=== PATIENT | male | born 1980 | race Two or more races ===

== ENCOUNTER 2022-02-06 16:13 | Emergency (ER) | payer MEDICAID, OTHER ==
[~2022-02-06] VITALS: Ht 170.2 cm; Wt 69.9 kg
[2022-02-06 16:30] VITALS: BP 118/76
[2022-02-06 18:39] LABS: Basophils # (auto) 0 10 ^3/uL (0-0.2); Lymphocytes # (auto) 0.7 10 ^3/uL (0.4-5.4); Lymphocytes % (auto) 24.3 % (10.0-50.0); Monocytes # (auto) 0.5 10 ^3/uL (0-1.3); Neutrophils # (auto) 1.7 10 ^3/uL (1.6-8.6)
[2022-02-06 18:40] LABS: Basophils % (auto) 1.1 % (0.0-2.0); Eosinophils # (auto) 0 10 ^3/uL (0-0.8); Eosinophils % (auto) 1.5 % (0.0-7.0); Hematocrit 30.9 % (41.0-53.0); Hemoglobin 10.8 g/dL (13.5-17.5); Mean Corpuscular Hemoglobin 37.5 pg (28.0-32.0); Mean Corpuscular Hgb Conc. 35.1 g/dL (32.0-36.0); Mean Corpuscular Volume 106.8 fL (80.0-100.0); Monocytes % (auto) 15.5 % (0.0-12.0); Neutrophils % (auto) 57.6 % (37.0-80.0); Nucleated Red Blood Cells % 0.2 %; Red Blood Cells 2.89 10^6/uL (4.5-5.90); Red Cell Distribution Width 13.9 % (11.8-14.3)
[2022-02-06 18:50] LABS: Albumin 3.1 g/dL (3.4-5.0); Calcium 9.5 mg/dL (8.5-10.1); Potassium 3.6 mmol/L (3.5-5.1)
[2022-02-06 18:54] LABS: BUN/Creatinine Ratio 19.1; Bilirubin, Total 2.4 mg/dL (0.2-1.0); Total Protein 8.8 g/dL (6.4-8.2)
[2022-02-06] MEDS ORDERED: SPIRONOLACTONE 25 MG TAB PO ONE (19:00)
[2022-02-06] MEDS ORDERED: FUROSEMIDE 100 MG/10ML VIAL IV ONE (19:00)
== END 2022-02-06 21:42 | disposition home or self-care (01) ==
LOC: EDBD 16:13 → ER 16:13
DX: R60.0 Localized edema (principal); D61.818 Other pancytopenia; K74.60 Unspecified cirrhosis of liver; R79.89 Other specified abnormal findings of blood chemistry; E11.9 Type 2 diabetes mellitus without complications
CPT/HCPCS: 36415; 80053; 80320; 83880; 85025; 93005; 93970

== ENCOUNTER 2022-02-13 12:25 | Emergency (ER) | payer MEDICAID ==
[~2022-02-13] VITALS: Ht 167.6 cm; Wt 68.0 kg
[2022-02-13] MEDS ORDERED: SODIUM CHLORIDE 0.9% 1,000 ML IV ONE ×2 (12:30)
[2022-02-13 13:35] LABS: Basophils # (auto) 0 10 ^3/uL (0-0.2); Basophils % (auto) 1.1 % (0.0-2.0); Eosinophils # (auto) 0 10 ^3/uL (0-0.8); Lymphocytes # (auto) 0.8 10 ^3/uL (0.4-5.4); Monocytes # (auto) 0.5 10 ^3/uL (0-1.3); Neutrophils # (auto) 1.8 10 ^3/uL (1.6-8.6)
[2022-02-13 13:37] LABS: Eosinophils % (auto) 1.3 % (0.0-7.0); Hematocrit 27.7 % (41.0-53.0); Hemoglobin 10.1 g/dL (13.5-17.5); Lymphocytes % (auto) 25.4 % (10.0-50.0); Mean Corpuscular Hemoglobin 38.3 pg (28.0-32.0); Mean Corpuscular Volume 105.1 fL (80.0-100.0); Monocytes % (auto) 14.7 % (0.0-12.0); Neutrophils % (auto) 57.5 % (37.0-80.0); Nucleated Red Blood Cells % 0.1 %; Red Blood Cells 2.64 10^6/uL (4.5-5.90); Red Cell Distribution Width 13.5 % (11.8-14.3); White Blood Cell 3.1 10^3/uL (4.4-10.8)
[2022-02-13 13:50] LABS: Albumin 2.8 g/dL (3.4-5.0); Calcium 9.5 mg/dL (8.5-10.1)
[2022-02-13 13:52] LABS: BUN/Creatinine Ratio 16.8; Bilirubin, Total 2.9 mg/dL (0.2-1.0); Total Protein 8.1 g/dL (6.4-8.2)
[2022-02-13 14:04] LABS: Mean Corpuscular Hgb Conc. 36.5 g/dL (32.0-36.0)
[2022-02-13 17:25] VITALS: BP 105/54
[2022-02-14] MEDS ORDERED: BAC09TP TOP (23:42)
== END 2022-02-13 18:25 | disposition home or self-care (01) ==
LOC: EDSEX 12:25 → EDBD 12:25 → ER 12:25
DX: K74.60 Unspecified cirrhosis of liver (principal); R60.0 Localized edema; E46 Unspecified protein-calorie malnutrition; E11.9 Type 2 diabetes mellitus without complications; Z68.24 Body mass index [BMI] 24.0-24.9, adult
CPT/HCPCS: 36415; 70450; 71045; 80053; 83036; 84484; 85025; 93005; 96360; 96361; 99285; J7030

== ENCOUNTER 2022-02-14 19:55 | Emergency (ER) | payer MEDICAID ==
[~2022-02-14] VITALS: Ht 172.7 cm; Wt 130.0 kg
[2022-02-14 21:06] LABS: Basophils # (auto) 0 10 ^3/uL (0-0.2); Eosinophils # (auto) 0 10 ^3/uL (0-0.8); Hematocrit 25.5 % (41.0-53.0); Lymphocytes # (auto) 1.1 10 ^3/uL (0.4-5.4); Neutrophils # (auto) 2.3 10 ^3/uL (1.6-8.6); Nucleated Red Blood Cells % 0.2 %
[2022-02-14 21:08] LABS: Basophils % (auto) 0.9 % (0.0-2.0); Hemoglobin 9.1 g/dL (13.5-17.5); Lymphocytes % (auto) 27.5 % (10.0-50.0); Mean Corpuscular Hemoglobin 37.6 pg (28.0-32.0); Mean Corpuscular Hgb Conc. 35.7 g/dL (32.0-36.0); Mean Corpuscular Volume 105.4 fL (80.0-100.0); Monocytes # (auto) 0.6 10 ^3/uL (0-1.3); Monocytes % (auto) 14.1 % (0.0-12.0); Neutrophils % (auto) 56.5 % (37.0-80.0); Red Blood Cells 2.42 10^6/uL (4.5-5.90); Red Cell Distribution Width 13.2 % (11.8-14.3)
[2022-02-14] MEDS ORDERED: IOHEXOL 350 MG/ML 100ML IJ ONE (21:13)
[2022-02-14 21:22] LABS: Albumin 2.6 g/dL (3.4-5.0); Calcium 8.3 mg/dL (8.5-10.1); Potassium 3.8 mmol/L (3.5-5.1)
[2022-02-14 21:26] LABS: BUN/Creatinine Ratio 14.9; Bilirubin, Total 2.1 mg/dL (0.2-1.0); Total Protein 7.3 g/dL (6.4-8.2)
[2022-02-14 23:00] VITALS: BP 100/52
[2022-02-14] MEDS ORDERED: BAC09TP TOP (23:42)
[2022-02-14] MEDS ORDERED: NEOMYCIN-BACITRACIN-POLYM UNITDOSE PKG TOP OINT TOP ONE (23:45)
[2022-02-15] MEDS ORDERED: LACTULOSE 20Gm/30ML SOLN PO ONE (00:30)
== END 2022-02-15 00:46 | disposition left against medical advice (07) ==
LOC: EDBD 19:55 → ER 19:55
DX: S30.811A Abrasion of abdominal wall, initial encounter (principal); E72.20 Disorder of urea cycle metabolism, unspecified; S80.12XA Contusion of left lower leg, initial encounter; S80.11XA Contusion of right lower leg, initial encounter; S09.8XXA Other specified injuries of head, initial encounter; E11.9 Type 2 diabetes mellitus without complications; V43.52XA Car driver injured in collision with other type car in traffic accident, initial encounter; Y93.89 Activity, other specified; Y92.89 Other specified places as the place of occurrence of the external cause; Y99.8 Other external cause status
CPT/HCPCS: 36415; 70450; 71260; 72125; 73590; 74177; 80053; 80320; 82140; 84484; 85025; 93005; 99285; Q9967

== ENCOUNTER 2022-02-27 00:56 | Emergency (ER) | payer MEDICAID ==
[~2022-02-27] VITALS: Ht 175.3 cm; Wt 72.7 kg
[~2022-02-27 00:56] MED LIST: BAC09TP TOP
[2022-02-27 01:09] VITALS: BP 102/61
[2022-02-27 02:11] LABS: Basophils # (auto) 0 10 ^3/uL (0-0.2); Eosinophils # (auto) 0.1 10 ^3/uL (0-0.8); Monocytes # (auto) 0.6 10 ^3/uL (0-1.3); Neutrophils # (auto) 2.1 10 ^3/uL (1.6-8.6); Nucleated Red Blood Cells % 0.1 %
[2022-02-27 02:13] LABS: Basophils % (auto) 1.2 % (0.0-2.0); Eosinophils % (auto) 2.5 % (0.0-7.0); Hematocrit 28.4 % (41.0-53.0); Lymphocytes % (auto) 25.1 % (10.0-50.0); Mean Corpuscular Hemoglobin 35.8 pg (28.0-32.0); Mean Corpuscular Hgb Conc. 35.3 g/dL (32.0-36.0); Mean Corpuscular Volume 101.4 fL (80.0-100.0); Monocytes % (auto) 15.9 % (0.0-12.0); Neutrophils % (auto) 55.3 % (37.0-80.0); Red Cell Distribution Width 17.2 % (11.8-14.3); White Blood Cell 3.8 10^3/uL (4.4-10.8)
[2022-02-27 02:30] LABS: Albumin 2.5 g/dL (3.4-5.0); BUN/Creatinine Ratio 21.6; Calcium 8.4 mg/dL (8.5-10.1); Potassium 4.4 mmol/L (3.5-5.1)
[2022-02-27 02:33] LABS: Bilirubin, Total 1.8 mg/dL (0.2-1.0); Total Protein 7.5 g/dL (6.4-8.2)
== END 2022-02-27 06:18 | disposition left against medical advice (07) ==
LOC: EDBD 00:56 → ER 00:56
DX: M79.605 Pain in left leg (principal); M79.604 Pain in right leg; R22.43 Localized swelling, mass and lump, lower limb, bilateral; Z53.21 Procedure and treatment not carried out due to patient leaving prior to being seen by health care provider
CPT/HCPCS: 36415; 71045; 80053; 83880; 84484; 85025; 93005

== ENCOUNTER 2022-03-01 23:54 | Inpatient (IN) | payer MEDICAID ==
[~2022-03-01] VITALS: Ht 170.2 cm; Wt 98.0 kg
[2022-03-02 01:32] LABS: Basophils # (auto) 0 10 ^3/uL (0-0.2); Basophils % (auto) 1.2 % (0.0-2.0); Eosinophils # (auto) 0.1 10 ^3/uL (0-0.8); Eosinophils % (auto) 2.9 % (0.0-7.0); Hematocrit 29.5 % (41.0-53.0); Hemoglobin 10.2 g/dL (13.5-17.5); Lymphocytes # (auto) 0.9 10 ^3/uL (0.4-5.4); Lymphocytes % (auto) 28.1 % (10.0-50.0); Mean Corpuscular Hemoglobin 35.4 pg (28.0-32.0); Mean Corpuscular Hgb Conc. 34.6 g/dL (32.0-36.0); Mean Corpuscular Volume 102.4 fL (80.0-100.0); Monocytes # (auto) 0.5 10 ^3/uL (0-1.3); Monocytes % (auto) 15.9 % (0.0-12.0); Neutrophils # (auto) 1.7 10 ^3/uL (1.6-8.6); Neutrophils % (auto) 51.9 % (37.0-80.0); Red Blood Cells 2.88 10^6/uL (4.5-5.90); Red Cell Distribution Width 17.3 % (11.8-14.3); White Blood Cell 3.2 10^3/uL (4.4-10.8)
[2022-03-02 01:48] LABS: INR 1.09 (0.9-1.15)
[2022-03-02 01:55] LABS: Albumin 2.7 g/dL (3.4-5.0); BUN/Creatinine Ratio 18.8
[2022-03-02 01:58] LABS: Bilirubin, Total 1.6 mg/dL (0.2-1.0); Total Protein 7.7 g/dL (6.4-8.2)
[2022-03-02] MEDS ORDERED: LACTULOSE 20Gm/30ML SOLN PO ONE (04:00)
[2022-03-02 05:04] LABS: Urine Amorphous Crystal FEW /hpf (None Seen); Urine Bacteria NONE SEEN /hpf (None Seen); Urine Blood Negative /uL (Negative); Urine Hyaline Cast MOD /lpf (0 - 2); Urine Mucus FEW (None Seen); Urine WBC 3 /hpf (0 - 3)
[2022-03-02] MEDS ORDERED: SODIUM CHLORIDE 0.9% 1,000 ML IV ONE (06:00)
[2022-03-02] MEDS ORDERED: SODIUM CHLORIDE 0.9% 2,000 ML IV ONE (08:30)
[2022-03-02 08:51] LABS: Alcohol, Urine < 3.0 mg/dL (0-10); Amphetamine Screen, Urine NEGATIVE (NEGATIVE); Barbiturate Scree,Urine NEGATIVE (NEGATIVE); Benzodiazephine Screen, Urine NEGATIVE (NEGATIVE); Cannabinoid Screen, Urine NEGATIVE (NEGATIVE); Cocaine Screen, Urine NEGATIVE (NEGATIVE); Opiate Scree,Urine NEGATIVE (NEGATIVE); Phencyclidine Screen, Urine NEGATIVE (NEGATIVE)
[2022-03-02] MEDS: LACTULOSE 20Gm/30ML SOLN PO SCH ×2 (12:00→18:11)
[2022-03-02] MEDS ORDERED: MORPHINE SULFATE INJ 2 MG/ml SYRG IV PRN ×2 (12:00)
[2022-03-02] MEDS ORDERED: DOCUSATE SOD 100 MG CAP PO PRN (12:00)
[2022-03-02] MEDS ORDERED: ONDANSETRON HCL 4 MG/2 ML VIAL IV PRN (12:00)
[2022-03-02] MEDS ORDERED: NITROGLYCERIN 0.4 MG SL TAB SL PRN (12:00)
[2022-03-02] MEDS ORDERED: HYDROcodone-ACET 5/325MG TAB PO PRN (12:00)
[2022-03-02] MEDS ORDERED: ACETAMINOPHEN 325 MG TAB PO PRN (12:00)
[2022-03-02] MEDS ORDERED: DEXTROSE (50%) 50ML SYRG IV PRN (17:15)
[2022-03-02] MEDS: ACCU-CHEK COMFORT CURVE STRIP VI SCH (22:18)
[2022-03-02] MEDS: InsuLIN REG 1unit/0.01ml Soln (100units/ml) SC SCH (22:19)
[2022-03-02 22:24] VITALS: BP 96/54
[2022-03-02] MEDS ORDERED: PANT40T PO (22:24)
[2022-03-02] MEDS ORDERED: METF-372 PO (22:24)
[2022-03-02] MEDS ORDERED: IBUP600T28 PO (22:24)
[2022-03-02] MEDS ORDERED: SPIR50TA5 PO (22:24)
[2022-03-02] MEDS ORDERED: LACT10SO3 PO (22:24)
[2022-03-02] MEDS ORDERED: FURO40TA4 PO (22:24)
[2022-03-02] MEDS ORDERED: RIFA550T PO (22:24)
[2022-03-02] MEDS ORDERED: GLIP2.5T28 PO (22:24)
[2022-03-03] VITALS (7 sets, daily range): BP systolic 96–126; BP diastolic 57–79
[2022-03-03] MEDS: LACTULOSE 20Gm/30ML SOLN PO SCH ×4 (01:48→18:02)
[2022-03-03 05:27] LABS: Basophils # (auto) 0 10 ^3/uL (0-0.2); Basophils % (auto) 1.4 % (0.0-2.0); Eosinophils # (auto) 0.1 10 ^3/uL (0-0.8); Hemoglobin 9.1 g/dL (13.5-17.5); Lymphocytes # (auto) 0.8 10 ^3/uL (0.4-5.4); Mean Corpuscular Hemoglobin 35.2 pg (28.0-32.0); Monocytes # (auto) 0.5 10 ^3/uL (0-1.3); Neutrophils # (auto) 1.4 10 ^3/uL (1.6-8.6); Red Blood Cells 2.58 10^6/uL (4.5-5.90); Red Cell Distribution Width 17.4 % (11.8-14.3); White Blood Cell 2.8 10^3/uL (4.4-10.8)
[2022-03-03 05:29] LABS: Eosinophils % (auto) 3.4 % (0.0-7.0); Hematocrit 26.1 % (41.0-53.0); Mean Corpuscular Hgb Conc. 34.8 g/dL (32.0-36.0); Monocytes % (auto) 16.3 % (0.0-12.0); Neutrophils % (auto) 49.9 % (37.0-80.0)
[2022-03-03 06:01] LABS: Albumin 2.1 g/dL (3.4-5.0); BUN/Creatinine Ratio 19.2; Calcium 8.3 mg/dL (8.5-10.1); Potassium 4.3 mmol/L (3.5-5.1)
[2022-03-03 06:05] LABS: Bilirubin, Total 1.2 mg/dL (0.2-1.0); Total Protein 6.2 g/dL (6.4-8.2)
[2022-03-03] MEDS: ACCU-CHEK COMFORT CURVE STRIP VI SCH ×4 (07:06→21:16)
[2022-03-03] MEDS: InsuLIN REG 1unit/0.01ml Soln (100units/ml) SC SCH ×4 (07:07→21:18)
[2022-03-03] MEDS ORDERED: ENOXAPARIN SOD 40 MG/0.4 ML SYRINGE SC SCH (10:00)
[2022-03-04] MEDS: LACTULOSE 20Gm/30ML SOLN PO SCH ×2 (00:11→06:33)
[2022-03-04 05:06] VITALS: BP 111/58
[2022-03-04] MEDS: ACCU-CHEK COMFORT CURVE STRIP VI SCH ×2 (06:33→11:36)
[2022-03-04] MEDS: InsuLIN REG 1unit/0.01ml Soln (100units/ml) SC SCH ×2 (06:33→11:30)
[2022-03-04 06:59] LABS: Eosinophils # (auto) 0.1 10 ^3/uL (0-0.8); Hematocrit 30.4 % (41.0-53.0); Monocytes # (auto) 0.4 10 ^3/uL (0-1.3); Neutrophils # (auto) 2.4 10 ^3/uL (1.6-8.6); Nucleated Red Blood Cells % 0.1 %; White Blood Cell 3.9 10^3/uL (4.4-10.8)
[2022-03-04 07:02] LABS: Basophils # (auto) 0.1 10 ^3/uL (0-0.2); Basophils % (auto) 1.5 % (0.0-2.0); Hemoglobin 10.8 g/dL (13.5-17.5); Lymphocytes % (auto) 25.2 % (10.0-50.0); Mean Corpuscular Hemoglobin 36.4 pg (28.0-32.0); Mean Corpuscular Hgb Conc. 35.6 g/dL (32.0-36.0); Mean Corpuscular Volume 102.1 fL (80.0-100.0); Monocytes % (auto) 9.2 % (0.0-12.0); Neutrophils % (auto) 61.1 % (37.0-80.0); Potassium 4.2 mmol/L (3.5-5.1); Red Blood Cells 2.97 10^6/uL (4.5-5.90); Red Cell Distribution Width 17.4 % (11.8-14.3)
[2022-03-04 07:14] LABS: Albumin 2.4 g/dL (3.4-5.0); Bilirubin, Total 1.6 mg/dL (0.2-1.0); Calcium 8.5 mg/dL (8.5-10.1); Total Protein 7.6 g/dL (6.4-8.2)
[2022-03-04 08:00] VITALS: BP 107/67
[2022-03-04 09:00] VITALS: BP 112/59
[2022-03-04 10:15] LABS: Hepatitis B Surface Antibody Negative (Negative)
[2022-03-04 10:47] LABS: Hepatitis A Total Antibody Positive (Negative)
[2022-03-04 13:34] LABS: Hepatitis C Antibody Negative (Negative)
== END 2022-03-04 12:16 | disposition left against medical advice (07) | DRG 279 ==
LOC: ER 23:54 → TELE 03-02 12:00 → TELE-CENTR 03-02 20:46
PROVIDERS: ADMIT Internal Medicine; ATTEND Internal Medicine
DX: K72.90 Hepatic failure, unspecified without coma (principal); N17.0 Acute kidney failure with tubular necrosis; G93.41 Metabolic encephalopathy; D61.818 Other pancytopenia; F10.129 Alcohol abuse with intoxication, unspecified; E88.09 Other disorders of plasma-protein metabolism, not elsewhere classified; E11.9 Type 2 diabetes mellitus without complications; Z20.822 Contact with and (suspected) exposure to COVID-19; Z53.29 Procedure and treatment not carried out because of patient's decision for other reasons; Z83.3 Family history of diabetes mellitus
CPT/HCPCS: 36415; 70450; 71045; 80053; 80307; 80320; 81001; 82105; 82140; 82728; 82962; 83880; 84484; 85025; 85610; 86704; 86706; 86708; 86803; 87340; 93005; 96360; 96361; 97163; G0378; J1815

== ENCOUNTER 2022-03-20 03:57 | Emergency (ER) | payer MEDICAID ==
[~2022-03-20] VITALS: Ht 170.2 cm; Wt 65.9 kg
[~2022-03-20 03:57] MED LIST changes: +FURO40TA4 PO; +GLIP2.5T28 PO; +IBUP600T28 PO; +LACT10SO3 PO; +METF-372 PO; +PANT40T PO; +RIFA550T PO; +SPIR50TA5 PO
[2022-03-20 06:14] LABS: Basophils # (auto) 0 10 ^3/uL (0-0.2); Eosinophils # (auto) 0.2 10 ^3/uL (0-0.8); Hemoglobin 7.7 g/dL (13.5-17.5); Lymphocytes # (auto) 0.9 10 ^3/uL (0.4-5.4); Monocytes # (auto) 0.7 10 ^3/uL (0-1.3); Neutrophils # (auto) 2.2 10 ^3/uL (1.6-8.6); Red Cell Distribution Width 17.7 % (11.8-14.3); White Blood Cell 4.1 10^3/uL (4.4-10.8)
[2022-03-20 06:18] LABS: Basophils % (auto) 0.6 % (0.0-2.0); Hematocrit 21.6 % (41.0-53.0); Lymphocytes % (auto) 23.2 % (10.0-50.0); Mean Corpuscular Hemoglobin 36.9 pg (28.0-32.0); Mean Corpuscular Hgb Conc. 35.8 g/dL (32.0-36.0); Neutrophils % (auto) 54.2 % (37.0-80.0); Nucleated Red Blood Cells % 0.2 %
[2022-03-20 06:27] LABS: Potassium 3.6 mmol/L (3.5-5.1)
[2022-03-20 06:37] LABS: Albumin 2.4 g/dL (3.4-5.0); BUN/Creatinine Ratio 24.8; Bilirubin, Total 1.4 mg/dL (0.2-1.0); Calcium 8.2 mg/dL (8.5-10.1); Total Protein 6.5 g/dL (6.4-8.2)
[2022-03-20 07:45] VITALS: BP 102/59
[2022-03-20] MEDS ORDERED: LACTULOSE 20Gm/30ML SOLN PO ONE (07:45)
[2022-03-20] MEDS ORDERED: FUROSEMIDE 40 MG/4 ML VIAL IV ONE (07:45)
[2022-03-20] MEDS ORDERED: SPIRONOLACTONE 25 MG TAB PO ONE (07:45)
[2022-03-20] MEDS ORDERED: SODIUM CHLORIDE 0.9% 1,000 ML IV ONE (07:45)
[2022-03-20 07:54] LABS: Urine WBC None Seen /hpf (0 - 3)
[2022-03-20 08:17] LABS: Magnesium 2.2 mg/dL (1.6-2.6)
[2022-03-20 08:40] LABS: Urine Bacteria FEW /hpf (None Seen); Urine Blood Negative /uL (Negative); Urine Budding Yeast LOADED /hpf (None Seen); Urine Hyaline Cast MANY /lpf (0 - 2); Urine Mucus FEW (None Seen); Urine Specific Gravity 1.016 (1.001-1.035)
[2022-03-20 08:48] LABS: INR 1.13 (0.9-1.15); Partial Thromboplastin Time 33.6 sec (24.6-33.4)
== END 2022-03-20 09:48 | disposition left against medical advice (07) ==
LOC: ER 03:57 → EDBD 03:57 → ER 08:20
DX: K74.60 Unspecified cirrhosis of liver (principal); D61.818 Other pancytopenia; R60.0 Localized edema; N39.0 Urinary tract infection, site not specified; E43 Unspecified severe protein-calorie malnutrition; E11.9 Type 2 diabetes mellitus without complications; K21.9 Gastro-esophageal reflux disease without esophagitis; Z68.22 Body mass index [BMI] 22.0-22.9, adult; Z79.1 Long term (current) use of non-steroidal anti-inflammatories (NSAID); Z79.899 Other long term (current) drug therapy
CPT/HCPCS: 36415; 80053; 81001; 82962; 83690; 83735; 83880; 85025; 85610; 85730; 93005

== ENCOUNTER 2022-03-20 21:54 | Inpatient (IN) | payer MEDICAID ==
[~2022-03-20] VITALS: Ht 170.2 cm; Wt 81.8 kg
[2022-03-20 23:03] LABS: Basophils # (auto) 0 10 ^3/uL (0-0.2); Basophils % (auto) 0.9 % (0.0-2.0); Eosinophils # (auto) 0.1 10 ^3/uL (0-0.8); Hemoglobin 8.1 g/dL (13.5-17.5); Monocytes # (auto) 0.7 10 ^3/uL (0-1.3); Neutrophils # (auto) 3.4 10 ^3/uL (1.6-8.6)
[2022-03-20 23:05] LABS: Hematocrit 23.5 % (41.0-53.0); Lymphocytes # (auto) 0.7 10 ^3/uL (0.4-5.4); Lymphocytes % (auto) 14.5 % (10.0-50.0); Mean Corpuscular Hemoglobin 35.4 pg (28.0-32.0); Mean Corpuscular Hgb Conc. 34.5 g/dL (32.0-36.0); Mean Corpuscular Volume 102.6 fL (80.0-100.0); Monocytes % (auto) 13.8 % (0.0-12.0); Neutrophils % (auto) 67.8 % (37.0-80.0); Red Cell Distribution Width 17.8 % (11.8-14.3)
[2022-03-20 23:19] LABS: Albumin 2.3 g/dL (3.4-5.0); BUN/Creatinine Ratio 23.5; Calcium 8.4 mg/dL (8.5-10.1); Potassium 4.1 mmol/L (3.5-5.1)
[2022-03-20 23:22] LABS: Bilirubin, Total 1.4 mg/dL (0.2-1.0); Total Protein 6.5 g/dL (6.4-8.2)
[2022-03-21] MEDS ORDERED: LACTULOSE 20Gm/30ML SOLN PO ONE (01:15)
[2022-03-21] MEDS ORDERED: FUROSEMIDE 40 MG/4 ML VIAL IV ONE (01:30)
[2022-03-21] MEDS ORDERED: NITROGLYCERIN 0.4 MG SL TAB SL PRN (06:45)
[2022-03-21] MEDS ORDERED: MORPHINE SULFATE INJ 2 MG/ml SYRG IV PRN (06:45)
[2022-03-21] MEDS ORDERED: DEXTROSE (50%) 50ML SYRG IV PRN (06:45)
[2022-03-21] MEDS ORDERED: ONDANSETRON HCL 4 MG/2 ML VIAL IV PRN (06:45)
[2022-03-21] MEDS: ACCU-CHEK COMFORT CURVE STRIP VI SCH ×2 (07:00→11:16)
[2022-03-21] MEDS: InsuLIN REG 1unit/0.01ml Soln (100units/ml) SC SCH ×2 (07:00→11:17)
[2022-03-21] MEDS ORDERED: LACTULOSE 10g/15ml SOLN 473ML PR ONE (07:00)
[2022-03-21] MEDS ORDERED: PANTOPRAZOLE 40 MG TAB PO SCH (10:00)
[2022-03-21] MEDS ORDERED: rifAXIMin 550 MG TAB PO SCH (10:00)
[2022-03-21] MEDS ORDERED: FUROSEMIDE 40 MG TAB PO SCH (10:00)
[2022-03-21] MEDS ORDERED: LACTULOSE 20Gm/30ML SOLN PO SCH ×2 (10:00→12:00)
[2022-03-21 13:00] VITALS: BP 101/58
[2022-03-21] MEDS ORDERED: SPIRONOLACTONE 25 MG TAB PO SCH (18:00)
== END 2022-03-21 15:29 | disposition left against medical advice (07) | DRG 279 ==
LOC: EDUNIT# 21:54 → EDBD 21:54 → ER 21:54 → TELE 03-21 06:36
PROVIDERS: ADMIT Nurse Practitioner; ATTEND Internal Medicine
DX: K72.90 Hepatic failure, unspecified without coma (principal); D61.818 Other pancytopenia; E43 Unspecified severe protein-calorie malnutrition; G92.8 Other toxic encephalopathy; S09.90XA Unspecified injury of head, initial encounter; E11.9 Type 2 diabetes mellitus without complications; N39.0 Urinary tract infection, site not specified; Z20.822 Contact with and (suspected) exposure to COVID-19; W18.39XA Other fall on same level, initial encounter; K74.60 Unspecified cirrhosis of liver; Z53.29 Procedure and treatment not carried out because of patient's decision for other reasons; Z91.14 Patient's other noncompliance with medication regimen; Z83.3 Family history of diabetes mellitus; Z68.28 Body mass index [BMI] 28.0-28.9, adult; Y93.89 Activity, other specified; Y92.89 Other specified places as the place of occurrence of the external cause; Y99.8 Other external cause status
CPT/HCPCS: 36415; 70450; 71045; 72125; 80053; 80320; 82140; 82962; 83605; 83880; 84484; 85025; 93005; 96372; G0378; J1815

== ENCOUNTER 2022-03-22 15:59 | Inpatient (IN) | payer MEDICAID ==
[~2022-03-22] VITALS: Ht 170.2 cm; Wt 81.8 kg
[2022-03-22 18:03] LABS: Urine Bacteria NONE SEEN /hpf (None Seen); Urine Blood Negative /uL (Negative); Urine Specific Gravity 1.022 (1.001-1.035); Urine WBC 2 /hpf (0 - 3)
[2022-03-22 18:13] LABS: Alcohol, Urine < 3.0 mg/dL (0-10); Amphetamine Screen, Urine NEGATIVE (NEGATIVE); Barbiturate Scree,Urine NEGATIVE (NEGATIVE); Benzodiazephine Screen, Urine NEGATIVE (NEGATIVE); Cannabinoid Screen, Urine NEGATIVE (NEGATIVE); Cocaine Screen, Urine NEGATIVE (NEGATIVE); Opiate Scree,Urine NEGATIVE (NEGATIVE); Phencyclidine Screen, Urine NEGATIVE (NEGATIVE)
[2022-03-22 18:49] LABS: Basophils # (auto) 0 10 ^3/uL (0-0.2); Basophils % (auto) 1.5 % (0.0-2.0); Eosinophils # (auto) 0.1 10 ^3/uL (0-0.8); Eosinophils % (auto) 4.6 % (0.0-7.0); Hematocrit 22.9 % (41.0-53.0); Hemoglobin 7.9 g/dL (13.5-17.5); Lymphocytes # (auto) 0.8 10 ^3/uL (0.4-5.4); Lymphocytes % (auto) 25.2 % (10.0-50.0); Mean Corpuscular Hemoglobin 35.2 pg (28.0-32.0); Mean Corpuscular Hgb Conc. 34.3 g/dL (32.0-36.0); Mean Corpuscular Volume 102.8 fL (80.0-100.0); Monocytes # (auto) 0.6 10 ^3/uL (0-1.3); Monocytes % (auto) 18.1 % (0.0-12.0); Neutrophils # (auto) 1.6 10 ^3/uL (1.6-8.6); Neutrophils % (auto) 50.6 % (37.0-80.0); Nucleated Red Blood Cells % 0.1 %; Red Blood Cells 2.23 10^6/uL (4.5-5.90); Red Cell Distribution Width 17.5 % (11.8-14.3); White Blood Cell 3.1 10^3/uL (4.4-10.8)
[2022-03-22 19:07] LABS: Albumin 2.2 g/dL (3.4-5.0); Anion Gap 5 (5-15); Blood Alcohol < 3.0 mg/dL (0-5); Blood Urea Nitrogen 19 mg/dL (7-18); Calcium 8.3 mg/dL (8.5-10.1); Carbon Dioxide 23 mmol/L (21-32); Chloride 113 mmol/L (98-107); Glucose 122 mg/dL (74-106); Potassium 4.1 mmol/L (3.5-5.1); Sodium 141 mmol/L (136-145)
[2022-03-22 19:11] LABS: Alanine Aminotransferase 25 U/L (16-61); Alkaline Phosphatase 182 U/L (45-117); Aspartate Aminotransferase 46 U/L (15-37); BUN/Creatinine Ratio 20.7; Bilirubin, Total 1.3 mg/dL (0.2-1.0); GFR African American 116 mL/min; GFR Non-African American 96 mL/min; Total Protein 6.4 g/dL (6.4-8.2)
[2022-03-22] MEDS ORDERED: levoFLOXacin 750MG 150 ML IV ONE (19:30)
[2022-03-22] MEDS ORDERED: IBUPROFEN 400 MG TAB PO PRN (20:45)
[2022-03-22] MEDS ORDERED: SODIUM CHLORIDE 0.9% 1,000 ML IV ONE (20:45)
[2022-03-22] MEDS ORDERED: DEXTROSE (50%) 50ML SYRG IV PRN (20:45)
[2022-03-22] MEDS ORDERED: ONDANSETRON HCL 4 MG/2 ML VIAL IV PRN (20:45)
[2022-03-22] MEDS ORDERED: AZITHROMYCIN 500MG/ 250ML 250 ML IV ONE (20:45)
[2022-03-22] MEDS ORDERED: LACTULOSE 20Gm/30ML SOLN PO ONE (20:45)
[2022-03-22] MEDS: ALBUMIN 25% 100 ML IV SCH ×2 (21:24→23:57)
[2022-03-22] MEDS ORDERED: InsuLIN REG 1unit/0.01ml Soln (100units/ml) SC SCH (22:00)
[2022-03-22] MEDS: ACCU-CHEK COMFORT CURVE STRIP VI SCH (22:18)
[2022-03-22] MEDS: SODIUM CHLOR 0.9% PF (SALINE LOCK) 10ML VIAL/SYR IV SCH (22:19)
[2022-03-22] MEDS ORDERED: MORPHINE SULFATE INJ 2 MG/ml SYRG IV PRN (23:30)
[2022-03-22] MEDS ORDERED: NITROGLYCERIN 0.4 MG SL TAB SL PRN (23:30)
[2022-03-22] MEDS: LACTULOSE 20Gm/30ML SOLN PO SCH (23:57)
[2022-03-23] MEDS: SPIRONOLACTONE 25 MG TAB PO SCH ×2 (06:50→18:44)
[2022-03-23] MEDS: SODIUM CHLOR 0.9% PF (SALINE LOCK) 10ML VIAL/SYR IV SCH ×2 (06:50→14:45)
[2022-03-23] MEDS: LACTULOSE 20Gm/30ML SOLN PO SCH ×3 (06:50→18:54)
[2022-03-23 07:48] LABS: Albumin 2.9 g/dL (3.4-5.0); Calcium 8.8 mg/dL (8.5-10.1); Potassium 3.5 mmol/L (3.5-5.1)
[2022-03-23 07:52] LABS: BUN/Creatinine Ratio 18.1; Bilirubin, Total 2.2 mg/dL (0.2-1.0)
[2022-03-23 08:04] LABS: Basophils # (auto) 0 10 ^3/uL (0-0.2); Basophils % (auto) 1.4 % (0.0-2.0); Eosinophils # (auto) 0.2 10 ^3/uL (0-0.8); Hematocrit 24.2 % (41.0-53.0); Lymphocytes # (auto) 0.7 10 ^3/uL (0.4-5.4); Monocytes # (auto) 0.3 10 ^3/uL (0-1.3); Neutrophils # (auto) 1.2 10 ^3/uL (1.6-8.6); Red Blood Cells 2.35 10^6/uL (4.5-5.90); Red Cell Distribution Width 17.6 % (11.8-14.3); White Blood Cell 2.4 10^3/uL (4.4-10.8)
[2022-03-23 08:07] LABS: Eosinophils % (auto) 6.9 % (0.0-7.0); Hemoglobin 8.3 g/dL (13.5-17.5); Lymphocytes % (auto) 29.8 % (10.0-50.0); Mean Corpuscular Hemoglobin 35.4 pg (28.0-32.0); Mean Corpuscular Hgb Conc. 34.4 g/dL (32.0-36.0); Mean Corpuscular Volume 102.9 fL (80.0-100.0); Neutrophils % (auto) 48.9 % (37.0-80.0); Nucleated Red Blood Cells % 0.3 %
[2022-03-23] MEDS: ACCU-CHEK COMFORT CURVE STRIP VI SCH ×3 (09:48→18:44)
[2022-03-23] MEDS: InsuLIN REG 1unit/0.01ml Soln (100units/ml) SC SCH ×3 (09:56→18:52)
[2022-03-23] MEDS ORDERED: FUROSEMIDE 20 MG/2 ML VIAL IV SCH (10:00)
[2022-03-23] MEDS ORDERED: AZITHROMYCIN 500MG/ 250ML 250 ML IV SCH (10:00)
[2022-03-23] MEDS ORDERED: PANTOPRAZOLE 40 MG/10 ML VIAL INJ IV SCH (10:00)
[2022-03-23] MEDS ORDERED: MULTIPLE VITAMIN TAB PO SCH (10:00)
[2022-03-23] MEDS: ALBUMIN 25% 100 ML IV SCH (14:53)
[2022-03-23 15:55] VITALS: BP 92/51
== END 2022-03-23 20:35 | disposition left against medical advice (07) | DRG 279 ==
LOC: EDUNIT# 15:59 → EDBD 15:59 → ER 16:04 → TELE 23:20 → TELE-WESTW 03-23 17:55
PROVIDERS: ADMIT Nurse Practitioner Family; ATTEND Nurse Practitioner Family
DX: K72.90 Hepatic failure, unspecified without coma (principal); G92.8 Other toxic encephalopathy; D61.818 Other pancytopenia; D69.6 Thrombocytopenia, unspecified; J18.9 Pneumonia, unspecified organism; D63.8 Anemia in other chronic diseases classified elsewhere; E88.09 Other disorders of plasma-protein metabolism, not elsewhere classified; K74.60 Unspecified cirrhosis of liver; Z20.822 Contact with and (suspected) exposure to COVID-19; Z53.29 Procedure and treatment not carried out because of patient's decision for other reasons; E11.9 Type 2 diabetes mellitus without complications; K21.9 Gastro-esophageal reflux disease without esophagitis; M79.89 Other specified soft tissue disorders; Z83.3 Family history of diabetes mellitus; Z91.19 Patient's noncompliance with other medical treatment and regimen; Z79.84 Long term (current) use of oral hypoglycemic drugs
CPT/HCPCS: 36415; 70450; 71045; 80053; 80307; 80320; 81001; 82140; 82962; 83036; 83605; 83735; 83880; 84484; 85025; 86850; 86900; 86901; 93005; 96365; 96375; C9113; G0378; J1815; P9047

== ENCOUNTER 2022-03-31 10:59 | Inpatient (IN) | payer MEDICAID ==
[~2022-03-31] VITALS: Ht 175.3 cm; Wt 75.4 kg
[2022-03-31 15:26] LABS: Basophils # (auto) 0 10 ^3/uL (0-0.2); Eosinophils # (auto) 0.2 10 ^3/uL (0-0.8); Hemoglobin 8.1 g/dL (13.5-17.5); Lymphocytes # (auto) 0.6 10 ^3/uL (0.4-5.4); Monocytes # (auto) 0.6 10 ^3/uL (0-1.3); Nucleated Red Blood Cells % 0.1 %; White Blood Cell 4.1 10^3/uL (4.4-10.8)
[2022-03-31 15:28] LABS: Basophils % (auto) 1.1 % (0.0-2.0); Eosinophils % (auto) 3.8 % (0.0-7.0); Hematocrit 23.2 % (41.0-53.0); Lymphocytes % (auto) 14.8 % (10.0-50.0); Mean Corpuscular Hemoglobin 35.9 pg (28.0-32.0); Mean Corpuscular Hgb Conc. 34.7 g/dL (32.0-36.0); Mean Corpuscular Volume 103.5 fL (80.0-100.0); Monocytes % (auto) 15.6 % (0.0-12.0); Neutrophils # (auto) 2.6 10 ^3/uL (1.6-8.6); Neutrophils % (auto) 64.7 % (37.0-80.0); Red Blood Cells 2.24 10^6/uL (4.5-5.90); Red Cell Distribution Width 17.3 % (11.8-14.3)
[2022-03-31 15:44] LABS: INR 1.18 (0.9-1.15)
[2022-03-31] MEDS ORDERED: LACTULOSE 20Gm/30ML SOLN PO ONE (16:00)
[2022-03-31] MEDS ORDERED: SPIRONOLACTONE 25 MG TAB PO ONE (16:00)
[2022-03-31] MEDS ORDERED: FUROSEMIDE 100 MG/10ML VIAL IV ONE (16:00)
[2022-03-31 16:14] LABS: BUN/Creatinine Ratio 26.4; Calcium 9.2 mg/dL (8.5-10.1); Potassium 4.1 mmol/L (3.5-5.1)
[2022-03-31 16:26] LABS: Bilirubin, Total 1.7 mg/dL (0.2-1.0); Total Protein 7.7 g/dL (6.4-8.2)
[2022-03-31 17:42] LABS: Urine WBC None Seen /hpf (0 - 3)
[2022-03-31 18:20] LABS: Urine Bacteria NONE SEEN /hpf (None Seen); Urine Blood Negative /uL (Negative); Urine Budding Yeast FEW /hpf (None Seen); Urine Specific Gravity 1.008 (1.001-1.035)
[2022-03-31] MEDS ORDERED: DOCUSATE SOD 100 MG CAP PO PRN (19:30)
[2022-03-31] MEDS ORDERED: DEXTROSE (50%) 50ML SYRG IV PRN (19:30)
[2022-03-31] MEDS ORDERED: ONDANSETRON HCL 4 MG/2 ML VIAL IV PRN (19:30)
[2022-03-31] MEDS: LACTULOSE 20Gm/30ML SOLN PO SCH (22:53)
[2022-03-31] MEDS: InsuLIN REG 1unit/0.01ml Soln (100units/ml) SC SCH (22:58)
[2022-03-31] MEDS: ACCU-CHEK COMFORT CURVE STRIP VI SCH (22:59)
[2022-04-01 00:39] VITALS: BP 107/54
[2022-04-01 05:00] VITALS: BP 103/48
[2022-04-01 05:27] LABS: Basophils # (auto) 0 10 ^3/uL (0-0.2); Basophils % (auto) 1.2 % (0.0-2.0); Eosinophils # (auto) 0.2 10 ^3/uL (0-0.8); Hematocrit 21.8 % (41.0-53.0); Hemoglobin 7.7 g/dL (13.5-17.5); Lymphocytes # (auto) 0.6 10 ^3/uL (0.4-5.4); Lymphocytes % (auto) 13.5 % (10.0-50.0); Mean Corpuscular Hgb Conc. 35.3 g/dL (32.0-36.0); Monocytes # (auto) 0.6 10 ^3/uL (0-1.3); Monocytes % (auto) 15.5 % (0.0-12.0); Neutrophils # (auto) 2.7 10 ^3/uL (1.6-8.6); Neutrophils % (auto) 64.8 % (37.0-80.0); Nucleated Red Blood Cells % 0.1 %; Red Blood Cells 2.14 10^6/uL (4.5-5.90); Red Cell Distribution Width 17.2 % (11.8-14.3); White Blood Cell 4.1 10^3/uL (4.4-10.8)
[2022-04-01 05:43] LABS: Albumin 2.4 g/dL (3.4-5.0); Calcium 8.5 mg/dL (8.5-10.1); Potassium 3.3 mmol/L (3.5-5.1)
[2022-04-01 05:48] LABS: BUN/Creatinine Ratio 21.8; Bilirubin, Total 1.8 mg/dL (0.2-1.0); Total Protein 6.4 g/dL (6.4-8.2)
[2022-04-01] MEDS ORDERED: FUROSEMIDE 100 MG/10ML VIAL IV SCH (06:00)
[2022-04-01] MEDS ORDERED: FUROSEMIDE 20 MG/2 ML VIAL IV ONE (06:30)
[2022-04-01] MEDS: LACTULOSE 20Gm/30ML SOLN PO SCH (06:46)
[2022-04-01] MEDS: InsuLIN REG 1unit/0.01ml Soln (100units/ml) SC SCH ×2 (06:46→13:02)
[2022-04-01] MEDS: ACCU-CHEK COMFORT CURVE STRIP VI SCH ×2 (06:46→11:41)
[2022-04-01 08:05] VITALS: BP 95/41
[2022-04-01] MEDS ORDERED: POTASSIUM CHL 20 Meq TABLET PO ONE (08:15)
[2022-04-01 09:00] VITALS: BP 95/41
[2022-04-01] MEDS ORDERED: MIDODRINE HCL 10 MG TAB PO SCH (10:00)
[2022-04-01] MEDS ORDERED: POTASSIUM CHL 10 Meq TABLET PO SCH (10:00)
[2022-04-01] MEDS ORDERED: SPIRONOLACTONE 25 MG TAB PO SCH (10:00)
[2022-04-01] MEDS ORDERED: ENOXAPARIN SOD 40 MG/0.4 ML SYRINGE SC SCH (10:00)
[2022-04-01 13:00] VITALS: BP 93/44
== END 2022-04-01 14:20 | disposition left against medical advice (07) | DRG 280 ==
LOC: ER 10:59 → EDBD 10:59 → OVERFLOW 19:26 → EAST 23:14
PROVIDERS: ADMIT Internal Medicine; ATTEND Internal Medicine
DX: K70.30 Alcoholic cirrhosis of liver without ascites (principal); K72.90 Hepatic failure, unspecified without coma; D61.818 Other pancytopenia; D69.6 Thrombocytopenia, unspecified; I95.9 Hypotension, unspecified; E72.20 Disorder of urea cycle metabolism, unspecified; E88.09 Other disorders of plasma-protein metabolism, not elsewhere classified; E11.22 Type 2 diabetes mellitus with diabetic chronic kidney disease; D63.8 Anemia in other chronic diseases classified elsewhere; S91.301A Unspecified open wound, right foot, initial encounter; K21.9 Gastro-esophageal reflux disease without esophagitis; Z53.29 Procedure and treatment not carried out because of patient's decision for other reasons; I12.9 Hypertensive chronic kidney disease with stage 1 through stage 4 chronic kidney disease, or unspecified chronic kidney disease; N18.2 Chronic kidney disease, stage 2 (mild); Z20.822 Contact with and (suspected) exposure to COVID-19; X58.XXXA Exposure to other specified factors, initial encounter; Y93.89 Activity, other specified; Z79.899 Other long term (current) drug therapy; Y92.89 Other specified places as the place of occurrence of the external cause; Y99.8 Other external cause status
CPT/HCPCS: 36415; 70450; 76705; 80053; 81001; 82140; 82962; 85025; 85610; 96374; 96375; G0378; J1815

== ENCOUNTER 2022-04-03 01:37 | Emergency (ER) | payer MEDICAID ==
[~2022-04-03] VITALS: Ht 175.3 cm; Wt 72.5 kg
[2022-04-03 01:44] VITALS: BP 121/53
== END 2022-04-03 23:35 | disposition left against medical advice (07) ==
LOC: EDBD 01:37 → ER 01:41
DX: S91.301A Unspecified open wound, right foot, initial encounter (principal); Z53.21 Procedure and treatment not carried out due to patient leaving prior to being seen by health care provider; X58.XXXA Exposure to other specified factors, initial encounter; Y93.89 Activity, other specified; Y92.89 Other specified places as the place of occurrence of the external cause; Y99.8 Other external cause status

== ENCOUNTER 2022-04-10 19:47 | Inpatient (IN) | payer MEDICAID ==
[~2022-04-10] VITALS: Ht 170.2 cm; Wt 72.0 kg
[2022-04-10 22:53] LABS: Basophils # (auto) 0 10 ^3/uL (0-0.2); Basophils % (auto) 0.9 % (0.0-2.0); Eosinophils # (auto) 0.2 10 ^3/uL (0-0.8); Hematocrit 24.2 % (41.0-53.0); Hemoglobin 8.4 g/dL (13.5-17.5); Lymphocytes # (auto) 0.8 10 ^3/uL (0.4-5.4); Lymphocytes % (auto) 17.4 % (10.0-50.0); Mean Corpuscular Hgb Conc. 34.9 g/dL (32.0-36.0); Mean Corpuscular Volume 103.2 fL (80.0-100.0); Monocytes # (auto) 0.7 10 ^3/uL (0-1.3); Monocytes % (auto) 15.1 % (0.0-12.0); Neutrophils # (auto) 2.9 10 ^3/uL (1.6-8.6); Neutrophils % (auto) 62.6 % (37.0-80.0); Nucleated Red Blood Cells % 0.1 %; Red Blood Cells 2.35 10^6/uL (4.5-5.90); Red Cell Distribution Width 16.5 % (11.8-14.3); White Blood Cell 4.7 10^3/uL (4.4-10.8)
[2022-04-10] MEDS ORDERED: VANCOMYCIN 1GM/250ML 250 ML IV ONE (23:00)
[2022-04-11 00:47] LABS: Bilirubin, Total 1.5 mg/dL (0.2-1.0); CRP High Sensitivity 1.72 mg/dL (< 0.3); Total Protein 8.1 g/dL (6.4-8.2)
[2022-04-11 01:26] LABS: BUN/Creatinine Ratio 27.2; Potassium 3.8 mmol/L (3.5-5.1)
[2022-04-11 01:27] LABS: Albumin 3.1 g/dL (3.4-5.0); Calcium 9.1 mg/dL (8.5-10.1)
[2022-04-11] MEDS ORDERED: VANCOMYCIN PER PHARMACY 0 MG IV SCH (02:00)
[2022-04-11] MEDS ORDERED: ONDANSETRON HCL 4 MG/2 ML VIAL IV PRN (02:00)
[2022-04-11] MEDS ORDERED: DEXTROSE (50%) 50ML SYRG IV PRN (02:00)
[2022-04-11] MEDS ORDERED: ACETAMINOPHEN 325 MG TAB PO PRN (02:00)
[2022-04-11] MEDS ORDERED: TEMAZEPAM 15 MG CAP PO PRN (02:00)
[2022-04-11] MEDS ORDERED: HYDROcodone-ACET 5/325MG TAB PO PRN (02:00)
[2022-04-11] MEDS ORDERED: ALBUMIN 25% 50 ML IV ONE (02:30)
[2022-04-11] MEDS ORDERED: FUROSEMIDE 20 MG/2 ML VIAL IV ONE (02:30)
[2022-04-11] MEDS ORDERED: cefTRIAXone 1GM/50ML D5W 50 ML IV SCH (03:00)
[2022-04-11] MEDS: LACTULOSE 20Gm/30ML SOLN PO SCH ×2 (04:58→20:44)
[2022-04-11 05:20] LABS: Urine WBC None Seen /hpf (0 - 3)
[2022-04-11 06:30] LABS: Urine Bacteria NONE SEEN /hpf (None Seen); Urine Blood Negative /uL (Negative); Urine Specific Gravity 1.018 (1.001-1.035)
[2022-04-11] MEDS: ACCU-CHEK COMFORT CURVE STRIP VI SCH ×3 (07:38→18:00)
[2022-04-11] MEDS: InsuLIN REG 1unit/0.01ml Soln (100units/ml) SC SCH ×3 (07:39→20:44)
[2022-04-11] MEDS: SPIRONOLACTONE 25 MG TAB PO SCH ×2 (07:42→20:43)
[2022-04-11] MEDS ORDERED: PANTOPRAZOLE 40 MG TAB PO SCH (10:00)
[2022-04-11] MEDS ORDERED: FUROSEMIDE 40 MG TAB PO SCH (10:00)
[2022-04-11] MEDS ORDERED: LACTULOSE 20Gm/30ML SOLN PO SCH (10:00)
[2022-04-11] MEDS: rifAXIMin 550 MG TAB PO SCH ×2 (10:02→20:43)
[2022-04-11 12:55] LABS: INR 1.18 (0.9-1.15); Partial Thromboplastin Time 32.2 sec (24.6-33.4)
[2022-04-11] MEDS ORDERED: VANCOMYCIN 1GM/250ML 250 ML IV SCH (13:00)
[2022-04-11 20:42] VITALS: BP 97/51
[2022-04-11 21:38] VITALS: BP 107/61
== END 2022-04-11 21:34 | disposition left against medical advice (07) | DRG 344 ==
LOC: EDBD 19:47 → ER 19:55 → OVERFLOW 04-11 01:51 → CENTRAL 04-11 18:54
PROVIDERS: ADMIT Nurse Practitioner; ATTEND Internal Medicine
DX: E11.69 Type 2 diabetes mellitus with other specified complication (principal); M86.8X7 Other osteomyelitis, ankle and foot; K70.30 Alcoholic cirrhosis of liver without ascites; D64.9 Anemia, unspecified; M85.80 Other specified disorders of bone density and structure, unspecified site; Z53.29 Procedure and treatment not carried out because of patient's decision for other reasons; Z20.822 Contact with and (suspected) exposure to COVID-19; Z91.14 Patient's other noncompliance with medication regimen; Z83.3 Family history of diabetes mellitus; Z91.19 Patient's noncompliance with other medical treatment and regimen
CPT/HCPCS: 36415; 73620; 80053; 81001; 82140; 82962; 83605; 83880; 84484; 85025; 85610; 85652; 85730; 86141; 87040; 87205; 96365; 96366; 96367; 96372; 96375; G0378; J0696; J1815

== ENCOUNTER 2022-04-17 10:49 | Inpatient (IN) | payer MEDICAID ==
[~2022-04-17] VITALS: Ht 175.3 cm; Wt 72.7 kg
[2022-04-17 12:16] LABS: Basophils # (auto) 0 10 ^3/uL (0-0.2); Eosinophils # (auto) 0.2 10 ^3/uL (0-0.8); Hematocrit 22.7 % (41.0-53.0); Lymphocytes # (auto) 0.9 10 ^3/uL (0.4-5.4); Monocytes # (auto) 0.8 10 ^3/uL (0-1.3); Red Blood Cells 2.18 10^6/uL (4.5-5.90)
[2022-04-17 12:17] LABS: Basophils % (auto) 0.9 % (0.0-2.0); Eosinophils % (auto) 2.9 % (0.0-7.0); Hemoglobin 7.9 g/dL (13.5-17.5); Lymphocytes % (auto) 17.2 % (10.0-50.0); Mean Corpuscular Hemoglobin 36.2 pg (28.0-32.0); Mean Corpuscular Hgb Conc. 34.8 g/dL (32.0-36.0); Monocytes % (auto) 15.4 % (0.0-12.0); Neutrophils # (auto) 3.2 10 ^3/uL (1.6-8.6); Neutrophils % (auto) 63.6 % (37.0-80.0); Nucleated Red Blood Cells % 0.1 %; Red Cell Distribution Width 15.7 % (11.8-14.3); White Blood Cell 5.1 10^3/uL (4.4-10.8)
[2022-04-17 12:33] LABS: Albumin 2.9 g/dL (3.4-5.0); Anion Gap 7 (5-15); Blood Alcohol < 3.0 mg/dL (0-5); Blood Urea Nitrogen 20 mg/dL (7-18); Calcium 8.7 mg/dL (8.5-10.1); Carbon Dioxide 24 mmol/L (21-32); Chloride 107 mmol/L (98-107); Glucose 166 mg/dL (74-106); Magnesium 1.9 mg/dL (1.6-2.6); Potassium 4.1 mmol/L (3.5-5.1); Sodium 138 mmol/L (136-145)
[2022-04-17 12:36] LABS: Alanine Aminotransferase 23 U/L (16-61); Aspartate Aminotransferase 48 U/L (15-37); GFR African American 100 mL/min; GFR Non-African American 82 mL/min
[2022-04-17 12:38] LABS: Alkaline Phosphatase 247 U/L (45-117); Bilirubin, Total 1.5 mg/dL (0.2-1.0); Total Protein 7.8 g/dL (6.4-8.2)
[2022-04-17] MEDS ORDERED: LACTULOSE 20Gm/30ML SOLN PO ONE (14:15)
[2022-04-17] MEDS ORDERED: NITROGLYCERIN 0.4 MG SL TAB SL PRN (17:00)
[2022-04-17] MEDS ORDERED: MORPHINE SULFATE INJ 2 MG/ml SYRG IV PRN ×2 (17:00)
[2022-04-17] MEDS ORDERED: VANCOMYCIN PER PHARMACY 0 MG IV SCH (17:30)
[2022-04-17 18:20] LABS: INR 1.18 (0.9-1.15); Partial Thromboplastin Time 31.9 sec (24.6-33.4)
[2022-04-17 18:26] LABS: Magnesium 1.8 mg/dL (1.6-2.6)
[2022-04-17 18:35] LABS: CRP High Sensitivity 1.52 mg/dL (< 0.3)
[2022-04-17] MEDS: VANCOMYCIN 1GM/250ML 250 ML IV SCH (22:49)
[2022-04-17] MEDS: metFORMIN HYDROCHLORIDE 500 MG TAB PO SCH (22:50)
[2022-04-17] MEDS: LACTULOSE 20Gm/30ML SOLN PO SCH (22:50)
[2022-04-17] MEDS: SPIRONOLACTONE 25 MG TAB PO SCH (22:51)
[2022-04-17] MEDS: rifAXIMin 550 MG TAB PO SCH (22:52)
[2022-04-18] MEDS: VANCOMYCIN 1GM/250ML 250 ML IV SCH (04:27)
[2022-04-18 05:47] LABS: Basophils # (auto) 0 10 ^3/uL (0-0.2); Basophils % (auto) 1.3 % (0.0-2.0); Eosinophils # (auto) 0.2 10 ^3/uL (0-0.8); Hemoglobin 7.5 g/dL (13.5-17.5); Lymphocytes # (auto) 0.8 10 ^3/uL (0.4-5.4); Mean Corpuscular Volume 102.6 fL (80.0-100.0); Monocytes # (auto) 0.4 10 ^3/uL (0-1.3); Neutrophils # (auto) 2.2 10 ^3/uL (1.6-8.6); White Blood Cell 3.7 10^3/uL (4.4-10.8)
[2022-04-18 05:50] LABS: Eosinophils % (auto) 5.2 % (0.0-7.0); Lymphocytes % (auto) 21.5 % (10.0-50.0); Mean Corpuscular Hemoglobin 36.6 pg (28.0-32.0); Mean Corpuscular Hgb Conc. 35.7 g/dL (32.0-36.0); Red Blood Cells 2.05 10^6/uL (4.5-5.90); Red Cell Distribution Width 15.7 % (11.8-14.3)
[2022-04-18 06:06] LABS: Albumin 2.4 g/dL (3.4-5.0); Calcium 8.5 mg/dL (8.5-10.1); Potassium 3.8 mmol/L (3.5-5.1)
[2022-04-18 06:09] LABS: BUN/Creatinine Ratio 18.2; Bilirubin, Total 1.4 mg/dL (0.2-1.0); Total Protein 6.5 g/dL (6.4-8.2)
[2022-04-18] MEDS: metFORMIN HYDROCHLORIDE 500 MG TAB PO SCH (08:13)
[2022-04-18 08:40] LABS: Urine Bacteria NONE SEEN /hpf (None Seen); Urine Blood Negative /uL (Negative); Urine Budding Yeast LOADED /hpf (None Seen); Urine Specific Gravity 1.018 (1.001-1.035); Urine WBC 1 /hpf (0 - 3)
[2022-04-18 08:53] LABS: Amphetamine Screen, Urine NEGATIVE (NEGATIVE); Barbiturate Scree,Urine NEGATIVE (NEGATIVE); Benzodiazephine Screen, Urine NEGATIVE (NEGATIVE); Cannabinoid Screen, Urine NEGATIVE (NEGATIVE); Cocaine Screen, Urine NEGATIVE (NEGATIVE); Opiate Scree,Urine NEGATIVE (NEGATIVE); Phencyclidine Screen, Urine NEGATIVE (NEGATIVE)
[2022-04-18] MEDS ORDERED: cefTRIAXone 1GM/50ML D5W 50 ML IV SCH (09:00)
[2022-04-18 10:00] VITALS: BP 106/80
[2022-04-18] MEDS ORDERED: glipiZIDE 5 MG TAB PO SCH (10:00)
[2022-04-18] MEDS: SPIRONOLACTONE 25 MG TAB PO SCH (10:00)
[2022-04-18] MEDS ORDERED: FUROSEMIDE 40 MG TAB PO SCH (10:00)
[2022-04-18] MEDS: rifAXIMin 550 MG TAB PO SCH (10:00)
[2022-04-18] MEDS ORDERED: PANTOPRAZOLE 40 MG TAB PO SCH (10:00)
[2022-04-18] MEDS: LACTULOSE 20Gm/30ML SOLN PO SCH (10:00)
== END 2022-04-18 10:16 | disposition left against medical advice (07) | DRG 344 ==
LOC: EDBD 10:49 → ER 10:49 → TELE 17:17
PROVIDERS: ADMIT Nurse Practitioner Family; ATTEND Internal Medicine
DX: E11.69 Type 2 diabetes mellitus with other specified complication (principal); M86.8X7 Other osteomyelitis, ankle and foot; E43 Unspecified severe protein-calorie malnutrition; K72.90 Hepatic failure, unspecified without coma; D69.6 Thrombocytopenia, unspecified; D68.9 Coagulation defect, unspecified; D63.8 Anemia in other chronic diseases classified elsewhere; Z20.822 Contact with and (suspected) exposure to COVID-19; K21.9 Gastro-esophageal reflux disease without esophagitis; M79.671 Pain in right foot; Z53.29 Procedure and treatment not carried out because of patient's decision for other reasons; E11.22 Type 2 diabetes mellitus with diabetic chronic kidney disease; K70.30 Alcoholic cirrhosis of liver without ascites; N18.9 Chronic kidney disease, unspecified; Z79.84 Long term (current) use of oral hypoglycemic drugs; Z68.23 Body mass index [BMI] 23.0-23.9, adult; Z79.899 Other long term (current) drug therapy; Z83.3 Family history of diabetes mellitus
CPT/HCPCS: 36415; 70450; 71045; 73700; 80053; 80307; 80320; 81001; 82140; 83605; 83735; 84484; 85025; 85610; 85652; 85730; 86141; 86850; 86900; 86901; 93005; 93925; 93970; G0378; J0696

== ENCOUNTER 2022-05-05 05:46 | Emergency (ER) | payer MEDICAID ==
[~2022-05-05] VITALS: Ht 170.2 cm; Wt 65.9 kg
[2022-05-05] MEDS ORDERED: SODIUM CHLORIDE 0.9% 500 ML IVB ONE (08:00)
[2022-05-05] MEDS ORDERED: SODIUM CHLORIDE 0.9% 1,000 ML IV ONE (08:00)
[2022-05-05 08:41] LABS: Hematocrit 18.6 % (41.0-53.0); Mean Corpuscular Hemoglobin 36.2 pg (28.0-32.0); Mean Corpuscular Hgb Conc. 35.4 g/dL (32.0-36.0); Mean Corpuscular Volume 102.1 fL (80.0-100.0); Red Blood Cells 1.82 10^6/uL (4.5-5.90)
[2022-05-05 08:43] LABS: Red Cell Distribution Width 14.6 % (11.8-14.3); White Blood Cell 4.5 10^3/uL (4.4-10.8)
[2022-05-05 08:51] LABS: Hemoglobin 6.6 g/dL (13.5-17.5)
[2022-05-05 08:56] LABS: Band Neutrophils % (manual) 0; Metamyelocytes % 0; Myelocytes % 0
[2022-05-05 08:57] LABS: Blast Cells 0; Promyelocytes % 0; Reactive Lymphocytes 0
[2022-05-05 09:02] LABS: Albumin 2.1 g/dL (3.4-5.0); Calcium 7.5 mg/dL (8.5-10.1); Potassium 3.9 mmol/L (3.5-5.1)
[2022-05-05 09:06] LABS: BUN/Creatinine Ratio 17.4; Bilirubin, Total 1.2 mg/dL (0.2-1.0); Total Protein 6.7 g/dL (6.4-8.2)
[2022-05-05] MEDS ORDERED: LACTULOSE 20Gm/30ML SOLN PO ONE (09:45)
[2022-05-05 09:48] LABS: Basophils % (manual) 1 (0.0-2.0); Eosinophils % (manual) 6 (0-7); Lymphocytes % (manual) 15 (10.0-50.0); Monocytes % (manual) 10 (0-12)
[2022-05-05 11:04] VITALS: BP 94/47
[2022-05-05 11:19] VITALS: BP 109/57
[2022-05-05 11:22] LABS: Urine Bacteria NONE SEEN /hpf (None Seen); Urine Blood Negative /uL (Negative); Urine Budding Yeast MANY /hpf (None Seen); Urine Specific Gravity 1.015 (1.001-1.035); Urine WBC 2 /hpf (0 - 3)
[2022-05-05 11:32] LABS: Amphetamine Screen, Urine NEGATIVE (NEGATIVE); Barbiturate Scree,Urine NEGATIVE (NEGATIVE); Benzodiazephine Screen, Urine NEGATIVE (NEGATIVE); Cannabinoid Screen, Urine NEGATIVE (NEGATIVE); Cocaine Screen, Urine NEGATIVE (NEGATIVE); Opiate Scree,Urine NEGATIVE (NEGATIVE); Phencyclidine Screen, Urine NEGATIVE (NEGATIVE)
[2022-05-05 12:04] VITALS: BP 106/64
[2022-05-05 13:04] VITALS: BP 108/63
[2022-05-05] MEDS ORDERED: SPIRONOLACTONE 25 MG TAB PO ONE (13:15)
[2022-05-05] MEDS ORDERED: FUROSEMIDE 40 MG/4 ML VIAL IV ONE (13:15)
[2022-05-05 13:37] VITALS: BP 106/60
== END 2022-05-05 14:06 | disposition left against medical advice (07) ==
LOC: EDBD 05:46 → ER 05:46
DX: D64.9 Anemia, unspecified (principal); R55 Syncope and collapse; D69.6 Thrombocytopenia, unspecified; E11.65 Type 2 diabetes mellitus with hyperglycemia; E43 Unspecified severe protein-calorie malnutrition; M86.8X7 Other osteomyelitis, ankle and foot; I87.8 Other specified disorders of veins; L30.9 Dermatitis, unspecified; R91.8 Other nonspecific abnormal finding of lung field; K74.60 Unspecified cirrhosis of liver; Z68.22 Body mass index [BMI] 22.0-22.9, adult; W18.00XA Striking against unspecified object with subsequent fall, initial encounter; Y93.89 Activity, other specified; Y92.89 Other specified places as the place of occurrence of the external cause; Y99.8 Other external cause status
CPT/HCPCS: 36415; 36430; 70450; 71045; 72125; 73700; 80053; 80307; 81001; 82140; 83735; 85007; 85027; 86850; 86900; 86901; 86920; 93005; 96361; 96374; 99285; J1940; J7030; J7040; J7050; P9016

== ENCOUNTER 2023-02-11 09:53 | Emergency (ER) | payer SELFPAY ==
[~2023-02-11] VITALS: Ht 177.8 cm; Wt 72.0 kg
[~2023-02-11 09:53] MED LIST changes: -GLIP2.5T28 PO; +GLIP2.5T9 PO; +IBUP1TAB5 PO; -IBUP600T28 PO
[2023-02-11 10:24] VITALS: BP 124/68; PULSE 99; RESP 20; O2SAT 96
[2023-02-11 10:45] LABS: Basophils # (auto) 0.1 10 ^3/uL (0-0.2); Basophils % (auto) 0.5 % (0.0-2.0); Eosinophils # (auto) 0.1 10 ^3/uL (0-0.8); Eosinophils % (auto) 1.1 % (0.0-7.0); Hemoglobin 12.9 g/dL (13.5-17.5); Lymphocytes # (auto) 1.1 10 ^3/uL (0.4-5.4); Lymphocytes % (auto) 10.4 % (10.0-50.0); Mean Corpuscular Hemoglobin 32.6 pg (28.0-32.0); Mean Corpuscular Volume 95.9 fL (80.0-100.0); Monocytes # (auto) 1.3 10 ^3/uL (0-1.3); Monocytes % (auto) 12.8 % (0.0-12.0); Neutrophils # (auto) 7.6 10 ^3/uL (1.6-8.6); Neutrophils % (auto) 75.2 % (37.0-80.0); Nucleated Red Blood Cells % 0.1 %; Red Blood Cells 3.96 10^6/uL (4.5-5.90); Red Cell Distribution Width 16.4 % (11.8-14.3); White Blood Cell 10.2 10^3/uL (4.4-10.8)
[2023-02-11 11:12] LABS: Albumin 2.7 g/dL (3.4-5.0); Calcium 8.7 mg/dL (8.5-10.1); Potassium 3.9 mmol/L (3.5-5.1)
[2023-02-11 11:17] LABS: BUN/Creatinine Ratio 18.3 (10.0-20.0); Bilirubin, Total 2.7 mg/dL (0.2-1.0); Total Protein 9.2 g/dL (6.4-8.2)
[2023-02-11 12:36] LABS: INR 1.14 (0.9-1.15); Partial Thromboplastin Time 27.7 SEC (24.5-34.5)
[2023-02-11] MEDS: HYDROcodone-ACET 10/325MG TAB PO ONE ×2 (12:36→12:38)
[2023-02-11] MEDS: predniSONE 20 MG TAB PO ONE ×2 (12:36→12:38)
[2023-02-11] MEDS ORDERED: ACET-1304 PO (13:28)
[2023-02-11] MEDS ORDERED: PRED20TA2 PO (13:28)
[2023-02-11] MEDS ORDERED: CETI-176 PO (13:28)
== END 2023-02-11 13:37 | disposition home or self-care (01) ==
LOC: ER 09:53 → EDBD 09:53 → ER 13:37
DX: L30.9 Dermatitis, unspecified (principal); K74.60 Unspecified cirrhosis of liver; R74.01 Elevation of levels of liver transaminase levels; K70.9 Alcoholic liver disease, unspecified; D64.9 Anemia, unspecified; Z79.899 Other long term (current) drug therapy; E11.9 Type 2 diabetes mellitus without complications; K21.9 Gastro-esophageal reflux disease without esophagitis
CPT/HCPCS: 36415; 80053; 85025; 85610; 85730; 93971; 99284; J7512

== ENCOUNTER 2024-02-10 21:32 | Emergency (ER) | payer MEDICAID ==
[~2024-02-10] VITALS: Ht 170.2 cm; Wt 77.3 kg
[~2024-02-10 21:32] MED LIST changes: +ACET-1304 PO; +CETI-176 PO; +PRED20TA2 PO
[2024-02-10 22:35] VITALS: PULSE 79; RESP 19; TEMP 97.9; O2SAT 95
[2024-02-10] MEDS: SODIUM CHLORIDE 0.9% 1,000 ML IV ONE ×2 (23:15→23:33)
[2024-02-10] MEDS: InsuLIN REG 1unit/0.01ml Soln (100units/ml) IV ONE (23:33)
[2024-02-10 23:47] LABS: Basophils # (auto) 0 10 ^3/uL (0-0.2); Eosinophils # (auto) 0 10 ^3/uL (0-0.8); Eosinophils % (auto) 1.6 % (0.0-7.0); Hemoglobin 14.4 g/dL (13.5-17.5)
[2024-02-10 23:50] LABS: Basophils % (auto) 1.4 % (0.0-2.0); Hematocrit 41.2 % (41.0-53.0); Lymphocytes % (auto) 33.8 % (10.0-50.0); Mean Corpuscular Hemoglobin 37.9 pg (28.0-32.0); Mean Corpuscular Hgb Conc. 35.1 g/dL (32.0-36.0); Mean Corpuscular Volume 108.2 fL (80.0-100.0); Monocytes # (auto) 0.4 10 ^3/uL (0-1.3); Monocytes % (auto) 14.8 % (0.0-12.0); Neutrophils # (auto) 1.4 10 ^3/uL (1.6-8.6); Neutrophils % (auto) 48.4 % (37.0-80.0); Nucleated Red Blood Cells % 0.1 %; Red Cell Distribution Width 13.7 % (11.8-14.3)
[2024-02-10 23:51] LABS: Alanine Aminotransferase 25 U/L (7-40); Albumin 3.2 g/dL (3.2-4.8); Alkaline Phosphatase 228 U/L (46-116); Anion Gap 6 (5-15); Aspartate Aminotransferase 35 U/L (13-40); BUN/Creatinine Ratio 11.2 (10.0-20.0); Bilirubin, Total 1.8 mg/dL (0.2-1.0); Blood Urea Nitrogen 12 mg/dL (9-23); Calcium 9.6 mg/dL (8.7-10.4); Carbon Dioxide 22 mmol/L (20-30); Chloride 103 mmol/L (98-107); Potassium 4.4 mmol/L (3.5-5.1); Sodium 131 mmol/L (136-145); Total Protein 7.2 g/dL (5.7-8.2)
[2024-02-11] MEDS: PREGABALIN 25 MG CAP PO ONE (00:01)
[2024-02-11 00:16] LABS: Glucose 516 mg/dL (74-106); Lactic Acid w/Reflex 2.3 mmol/L (0.4-2.0)
[2024-02-11 00:50] LABS: Macrocytosis Moderate; Platelet Estimate Decreased
[2024-02-11 03:26] LABS: Urine Bacteria None Seen /hpf (None Seen)
[2024-02-11 03:34] LABS: Urine Blood Negative /uL (Negative); Urine Clarity Clear (Clear); Urine Color Light-Yellow (Yellow); Urine Protein, UAD Negative (Negative); Urine Specific Gravity 1.031 (1.001-1.035); Urine Urobilinogen Normal (Negative); Urine WBC <1 /hpf (0 - 3)
[2024-02-11 03:44] LABS: Amphetamine Screen, Urine Neg (NEGATIVE); Barbiturate Scree,Urine Neg (NEGATIVE); Benzodiazephine Screen, Urine Neg (NEGATIVE); Cannabinoid Screen, Urine Neg (NEGATIVE); Cocaine Screen, Urine Neg (NEGATIVE); Opiate Scree,Urine Neg (NEGATIVE); Phencyclidine Screen, Urine Neg (NEGATIVE)
[2024-02-11 03:51] LABS: Alanine Aminotransferase 23 U/L (7-40); Alkaline Phosphatase 212 U/L (46-116); Anion Gap 7 (5-15); Aspartate Aminotransferase 32 U/L (13-40); BUN/Creatinine Ratio 13.8 (10.0-20.0); Bilirubin, Total 1.7 mg/dL (0.2-1.0); Blood Urea Nitrogen 11 mg/dL (9-23); Calcium 8.8 mg/dL (8.7-10.4); Carbon Dioxide 19 mmol/L (20-30); Chloride 109 mmol/L (98-107); Potassium 3.5 mmol/L (3.5-5.1); Sodium 135 mmol/L (136-145); Total Protein 6.8 g/dL (5.7-8.2)
[2024-02-11] MEDS ORDERED: PREG50CA PO (03:52)
[2024-02-11 04:31] LABS: Glucose 296 mg/dL (74-106)
[2024-02-11 04:35] VITALS: BP 121/74; PULSE 75; RESP 15; O2SAT 94
[2024-02-11 04:46] LABS: Blood Alcohol < 3.0 mg/dL (<10)
== END 2024-02-11 05:50 | disposition home or self-care (01) ==
LOC: EDBD 21:32 → ER 21:32
DX: E86.0 Dehydration (principal); E11.42 Type 2 diabetes mellitus with diabetic polyneuropathy; E11.65 Type 2 diabetes mellitus with hyperglycemia; N18.9 Chronic kidney disease, unspecified; K21.9 Gastro-esophageal reflux disease without esophagitis; Z86.2 Personal history of diseases of the blood and blood-forming organs and certain disorders involving the immune mechanism; Z91.199 Patient's noncompliance with other medical treatment and regimen due to unspecified reason
CPT/HCPCS: 36415; 71045; 73090; 73630; 80053; 80307; 80320; 81001; 82010; 82962; 83605; 84484; 85025; 93005; 96361; 96374; 99291; J1815; J7030

== ENCOUNTER 2024-08-23 21:01 | Inpatient (IN) | payer MEDICAID ==
[~2024-08-23] VITALS: Ht 170.2 cm; Wt 71.9 kg
[~2024-08-23 21:01] MED LIST changes: +PREG50CA PO
--- NOTE | 2024-08-23 21:31 | ED.PDOC ---
History of Present Illness HPI Comments 43 y/o M, with a Hx of anemia, CKF, DM II uncontrolled, GERD, and liver cirrhosis secondary to alcohol abuse, is BIBA for c/o hyperglycemia, shortness of breath, weakness, and bilateral feet pain, today. Patient is a poor historian and endorses on c/o feet pain that have been ongoing, chronically, for unspec ified extensive duration of time and difficulty breathing with associated weakness symptoms for 1x week following unprovoked and gradual onset. He comments on history of not being complaint with taking his medications, including his Metformin prescription, that he ran out, recently. Per EMS report, patient was found on scene with a blood glucose of 356. Patient denies having any chest pain, polyuria, polydipsia, polyphagia, or other associated symptoms or modifiers at this time. Chief Complaint: Hyperglycemia Time Seen by MD: 21:20 Primary Care Provider: JAIDEN Reviewed Notes: Nurses Notes, Conservation Science Teacher Notes, Medications, Allergies Allergies: Coded Allergies: NO KNOWN ALLERGIES (Unverified , 03/31/22) Home Meds Active Scripts Pregabalin (Lyrica) 50 Mg Cap, 1 CAP PO BID, #60 CAP Prov:DAGOBERTO PEACOCK MD 02/11/24 Acetaminophen (Tylenol Extra Strength) 500 Mg Tab, 500 MG PO TID, #20 TAB Prov:JENNI WOOTEN MD 02/11/23 Cetirizine Hcl (Zyrtec Allergy) 10 Mg Tab, 10 MG PO BID, #20 TAB Prov:JENNI WOOTEN MD 02/11/23 Prednisone (Prednisone) 20 Mg Tab, 40 MG PO DAILY, #10 MG Prov:JENNI WOOTEN MD 02/11/23 Bacitracin (Bacitracin Oint) 1 Applic Ap, 1 APPLIC TOP BID for 7 Days, #14 APPLIC Prov:ONEL ZUNIGA MD 02/14/22 Reported Medications Ibuprofen Micronized (Ibuprofen) 600 Mg Tab, 1 TAB PO BIDPRN 03/02/22 Spironolactone (Spironolactone) 50 Mg Tab, 1 TAB PO BID 03/02/22 Lactulose (Lactulose) 10 Gm/15 Ml Keri, 15 ML PO BID 03/02/22 Metformin Hydrochloride (Metformin Hcl) 1,000 Mg Tab, 1 TAB PO BID 03/02/22 Furosemide (Furosemide) 40 Mg Tab, 1 TAB PO DAILY 03/02/22 Pantoprazole Sodium Sesquihydr (Pantoprazole Sodium) 40 Mg Tab, 1 TAB PO DAILY 03/02/22 Rifaximin (Xifaxan) 550 Mg Tab, 1 TAB PO BID 03/02/22 Glipizide (Glipizide Er) 2.5 Mg Tab, 1 TAB PO DAILY 03/02/22 Information Source: Patient, Emergency Med Personnel Mode of Arrival: EMS Severity: Moderate Timing: Weeks Duration: Since onset Prehospital treatment: None Past Medical History PAST MEDICAL HISTORY: Anemia, CKF, DM, GERD, Liver (liver cirrhosis ) Surgical History: Denies all surgeries Family History Family History: Reviewed,noncontributory to illness Social History Smoker: Non-Smoker Alcohol: Heavy Drugs: Denies Drug Use Lives In: Home Respiratory: reports: shortness of breath Neurological: reports: weakness Musculoskeletal: reports: others (bilateral feet pain ) Endocrine: reports: others (hyperglycemia ) All Other Systems: Reviewed and Negative (negative unless otherwise stated above or in HPI) Physical Exam General Appearance: No Apparent Distress, Normal HEENT: Normal ENT Inspection, Pharynx Normal, TMs Normal Neck: Full Range of Motion, Non-Tender, Normal, Normal Inspection Respiratory: Chest Non-Tender, Lungs Clear, No Accessory Muscle Use, No Respiratory Distress, Normal Breath Sounds Cardiovascular: No Edema, No JVD, No Murmur, No Gallop, Normal Peripheral Pulses, Regular Rate/Rhythm Breast Exam: Deferred Gastrointestinal: No Organomegaly, Non Tender, No Pulsatile Mass, Normal Bowel Sounds, Soft Genitalia: Deferred Pelvic: Deferred Rectal: Deferred Extremities: No calf tenderness, Normal capillary refill, Normal inspection, Normal range of motion, Non-tender, No pedal edema Musculoskeletal : Apperance: Normal Neurologic: Alert, cmm inspector II-XII nml as Tested, No Motor Deficits, Normal Affect, Normal Mood, No Sensory Deficits Cerebellar Function: Normal Reflexes: Normal Skin: Dry, Normal Color, Warm Lymphatic: No Adenopathy Was a procedure done? Was a procedure done?: No Differential Dx Considerations may include: hyperglycemia, medication non-compliant, DKA, DM uncontrolled X-Ray, Labs, Meds, VS Vital Signs Date Time Temp Pulse Resp B/P (MAP) Pulse Ox O2 Delivery O2 Flow Rate FiO2 08/23/24 22:13 99 17 96 Room Air* 0 21 08/23/24 22:11 98.1 94 18 123/73 (90) 95 98.1 08/23/24 21:24 89 08/23/24 21:05 98.0 93 18 139/96 (110) 98 Lab Test 08/23/24 22:55 08/23/24 22:28 08/23/24 21:56 08/23/24 21:49 Range/Units Troponin I High Sensitivity < 3 L < 3 L </=54 ng/L Urine Color Yellow Yellow Urine Clarity Clear Clear Urine pH 5.5 5.0-9.0 Urine Specific [place] 1.035 1.001-1.035 Urine Protein Trace H Negative Urine Ketones 1+ H Negative Urine Blood Negative Negative /uL Urine Nitrite Negative Negative Urine Bilirubin Negative Negative Urine Urobilinogen Normal Negative mg/dL Urine Leukocyte Esterase Negative Negative /uL Urine RBC None seen 0 - 3 /hpf Urine Microscopic WBC 1 0-3 /HPF Urine Squamous Epithelial Cells Few <5 /hpf Urine Bacteria None seen None Seen /hpf Urine Glucose 4+ H Normal mg/dL White Blood Count 3.5 L 4.4-10.8 10^3/uL Red Blood Count 4.24 L 4.5-5.90 10^6/uL Hemoglobin 16.1 13.5-17.5 g/dL Hematocrit 45.6 41.0-53.0 % Mean Corpuscular Volume 107.6 H 80.0-100.0 fL Mean Corpuscular Hemoglobin 37.9 H 28.0-32.0 pg Mean Corpuscular Hemoglobin Concent 35.2 32.0-36.0 g/dL Red Cell Distribution Width 14.4 H 11.8-14.3 % Platelet Count 78 L 140-450 10^3/uL Mean Platelet Volume 7.3 6.9-10.8 fL Neutrophils (%) (Auto) 59.1 37.0-80.0 % Lymphocytes (%) (Auto) 27.6 10.0-50.0 % Monocytes (%) (Auto) 11.2 0.0-12.0 % Eosinophils (%) (Auto) 1.0 0.0-7.0 % Basophils (%) (Auto) 1.1 0.0-2.0 % Neutrophils # (Auto) 2.1 1.6-8.6 10 ^3/uL Lymphocytes # (Auto) 1.0 0.4-5.4 10 ^3/uL Monocytes # (Auto) 0.4 0-1.3 10 ^3/uL Eosinophils # (Auto) 0 0-0.8 10 ^3/uL Basophils # (Auto) 0 0-0.2 10 ^3/uL Nucleated Red Blood Cells 0.1 % Platelet Estimate Decreased Anisocytosis (manual) Slight Macrocytosis Moderate Sodium Level 135 L 136-145 mmol/L Potassium Level 4.1 3.5-5.1 mmol/L Chloride Level 98 98-107 mmol/L Carbon Dioxide Level 25 20-31 mmol/L Anion Gap 12 5-15 Blood Urea Nitrogen 9 9-23 mg/dL Creatinine 0.95 0.700-1.30 mg/dL Glomerular Filtration Rate Calc 101 >90 mL/min BUN/Creatinine Ratio 9.5 L 10.0-20.0 Serum Glucose 457 *H 74-106 mg/dL Calcium Level 10.2 8.7-10.4 mg/dL B-Type Natriuretic Peptide 53.41 0-100 pg/mL POC Glucose 441 *H 70-106 mg/dl Current Medications Medications (Trade) Dose Ordered Sig/Rossy Route Start Time Stop Time Status Last Admin Insulin Human Regular (InsuLIN R) 10 units ONCE ONCE IV 08/23/24 23:15 08/23/24 23:16 DC 08/23/24 23:25 Time of 1ST Reevaluation: 21:50 Reevaluation 1ST: Unchanged Patient Education/Counseling: Diagnosis, Treatment Family Education/Counseling: No Family Present Additional Information I reviewed the following notes from patient's past medical encounters: ED physician note on 02/10/24, 02/11/23, 04/17/22; Hospital discharge summary 04/18/22 The following tests were ordered, and results were reviewed by me: (Labs, XY, EKG) Additional Information was gathered from interviewing the following independent historians: EMT I reviewed and agreed with the following test results read by other providers: (X-Ray, CT, US) I discussed treatment and results with medical personnel Departure 1 Departure Time of Disposition: 23:53 (Patient with worsening shortness of breath and uncontrolled diabetes. We will treat patient for her blood sugar and admit patient for further workup and expert consultation for shortness of breath) Impression: Primary Impression: Shortness of breath Additional Impressions: Uncontrolled diabetes mellitus Qualified Codes: E11.65 - Type 2 diabetes mellitus with hyperglycemia Generalized weakness Disposition: ADMITTED INPATIENT Admit to: Med Surg Condition: Serious Critical Care Note Critical Care Time?: Yes Critical care comment: Acute shortness of breath Authorized and Performed by: Justina Sorto MD Total critical care time: Approximately 36 minutes Due to a high probability of clinically significant, life threatening deterioration, the patient required my highest level of preparedness to intervene emergently and I personally spent this critical care time directly and personally managing the patient. This critical care time included obtaining a history; examining the patient; pulse oximetry; ordering and review of studies; arranging urgent treatment with development of a management plan; evaluation of patient's response to treatment; frequent reassessment; and, discussions with other providers. This critical care time was performed to assess and manage the high probability of imminent, life-threatening deterioration that could result in multi-organ failure. It was exclusive of separately billable procedures and treating other patients and teaching time. Please see my other sections and the rest of the note for further information on patient assessment and treatment. Stability Stability form required: No Heart Score Heart Score: Heart Score Response (Comments) Value History N/A 0 EKG N/A 0 Age N/A 0 Risk Factors N/A 0 Troponin N/A 0 Total 0 I personally scribed for JUSTINA SORTO MD ([email or web address]) on 08/23/24 at 21:31. Electronically submitted by Jd Gamez ([email or web address]). JUSTINA SORTO MD Aug 23, 2024 21:31
[2024-08-23 22:13] VITALS: PULSE 99; RESP 17; O2SAT 96
--- NOTE | 2024-08-23 22:14 | DVH ---
EXAMINATION: AP portable chest radiograph CLINICAL HISTORY: sob COMPARISON: XY CHEST PORTABLE on DOS: 02/10/24 FINDINGS: Diffuse interstitial prominence. No lobar consolidation identified. No definite pleural effusion or p neumothorax. The cardiomediastinal silhouette appears within normal limits given technique. IMPRESSION: Interstitial prominence is relatively nonspecific but can be seen with edema, reactive airway changes as well as atypical / viral infection. Chronic interstitial disease also included in the differentia l.
[2024-08-23 22:19] LABS: Eosinophils # (auto) 0 10 ^3/uL (0-0.8); Monocytes # (auto) 0.4 10 ^3/uL (0-1.3); Neutrophils # (auto) 2.1 10 ^3/uL (1.6-8.6); Platelet Count (auto) 78 10^3/uL (140-450)
[2024-08-23 22:22] LABS: Basophils # (auto) 0 10 ^3/uL (0-0.2); Basophils % (auto) 1.1 % (0.0-2.0); Hematocrit 45.6 % (41.0-53.0); Hemoglobin 16.1 g/dL (13.5-17.5); Lymphocytes % (auto) 27.6 % (10.0-50.0); Mean Corpuscular Hemoglobin 37.9 pg (28.0-32.0); Mean Corpuscular Hgb Conc. 35.2 g/dL (32.0-36.0); Mean Corpuscular Volume 107.6 fL (80.0-100.0); Monocytes % (auto) 11.2 % (0.0-12.0); Neutrophils % (auto) 59.1 % (37.0-80.0); Nucleated Red Blood Cells % 0.1 %; Red Blood Cells 4.24 10^6/uL (4.5-5.90); Red Cell Distribution Width 14.4 % (11.8-14.3); White Blood Cell 3.5 10^3/uL (4.4-10.8)
[2024-08-23 22:29] LABS: Urine Bacteria None Seen /hpf (None Seen)
[2024-08-23 22:40] LABS: Chloride 98 mmol/L (98-107); Potassium 4.1 mmol/L (3.5-5.1)
[2024-08-23 22:41] LABS: Anion Gap 12 (5-15); Carbon Dioxide 25 mmol/L (20-31)
[2024-08-23 22:42] LABS: Calcium 10.2 mg/dL (8.7-10.4)
[2024-08-23 22:47] LABS: BUN/Creatinine Ratio 9.5 (10.0-20.0); Blood Urea Nitrogen 9 mg/dL (9-23); Sodium 135 mmol/L (136-145)
[2024-08-23 22:49] LABS: Glucose 457 mg/dL (74-106)
[2024-08-23 22:55] LABS: Urine Blood Negative /uL (Negative); Urine Clarity Clear (Clear); Urine Color Yellow (Yellow); Urine Protein, UAD TRACE (Negative); Urine Specific Gravity 1.035 (1.001-1.035); Urine Squamous Epithelial Cell FEW /hpf (<5); Urine Urobilinogen Normal (Negative); Urine WBC 1 /HPF (0-3); Urine pH 5.5 (5.0-9.0)
[2024-08-23 23:07] LABS: Platelet Estimate Decreased
[2024-08-23 23:08] LABS: Anisocytosis Slight; Macrocytosis Moderate
[2024-08-23] MEDS: InsuLIN REG 1unit/0.01ml Soln (100units/ml) IV ONE (23:25)
[2024-08-24] MEDS ORDERED: ONDANSETRON HCL 4 MG/2 ML VIAL IV PRN (00:45)
[2024-08-24] MEDS ORDERED: ALBUTEROL SULF 2.5 MG/0.5ML(0.5%) NEB SOLN NEB PRN (00:45)
[2024-08-24] MEDS ORDERED: DEXTROSE (50%) 50ML SYRG IV PRN (00:45)
[2024-08-24] MEDS: GABAPENTIN 100 MG CAP PO ONE (01:13)
[2024-08-24 01:27] VITALS: BP 123/73; PULSE 92; RESP 18; O2SAT 95
[2024-08-24] MEDS: ACCU-CHEK COMFORT CURVE STRIP VI SCH (04:12)
[2024-08-24] MEDS: InsuLIN REG 1unit/0.01ml Soln (100units/ml) SC SCH ×2 (04:18→21:02)
--- NOTE | 2024-08-24 04:35 | DVHHP2 ---
History of Present Illness Reason for Visit: Generalized weakness History of Present Illness 43-year-old male presents for evaluation of generalized weakness. Patient reports a history of liver cirrhosis and diabetes mellitus. He states not taking his medications for over a month. Patient has been unable to refill his medications. He reports having elevated blood sugar, bilateral lower extremity pain and shortness of breath. Denies fever or chills. No chest pain or palpitations. Past Medical History Liver cirrhosis, GERD, diabetes mellitus, anemia Past Surgical History Denies Family History Noncontributory Smoke: No ALCOHOL: heavy Drugs: None Review of Systems Review of Systems Review of systems are currently negative otherwise addressed in HPI. Allergies: Coded Allergies: NO KNOWN ALLERGIES (Unverified , 03/31/22) Medications Current Medications Medications Dose Ordered Sig/Rossy Route Start Time Stop Time Status Last Admin Dose Admin Gabapentin 100 mg BID PO 08/24/24 10:00 Spironolactone 50 mg BIDD PO 08/24/24 06:00 Furosemide 40 mg DAILY PO 08/24/24 10:00 Albuterol 2.5 mg Q6HPRN PRN NEB 08/24/24 00:45 Diagnostic Test (Pha) 1 strip IQ4HR 08/24/24 04:00 08/24/24 04:12 1 STRIP Insulin Human Regular IQ4HR SC 08/24/24 04:00 08/24/24 04:18 15 UNITS Dextrose 50 ml UD PRN IV 08/24/24 00:45 Ondansetron HCl 4 mg Q4HP PRN IV 08/24/24 00:45 Rifaximin 550 mg BID PO 08/24/24 10:00 Lactulose 30 ml BID PO 08/24/24 10:00 Ceftriaxone Sodium 50 ml @ 100 mls/hr DAILY@09 IV 08/24/24 09:00 Exam Vital Signs Vital Signs Date Time Temp Pulse Resp B/P (MAP) Pulse Ox O2 Delivery O2 Flow Rate FiO2 08/24/24 02:00 86 15 115/68 (84) 94 08/24/24 00:00 98.9 98.9 08/23/24 22:13 Room Air* 0 21 Exam Gen: 43-year-old male in mild distress. Skin: Warm, dry, normal color and texture, no rash. HEENT: Normocephalic atraumatic, mucous membranes moist and pink. Neck: Cervical and supraclavicular nodes normal without enlargement, trachea is midline, thyroid gland is normal without masses. Pulmonary: Clear to auscultation and percussion bilaterally. Cardiac: Regular rate and rhythm. No murmur Abdomen: Soft, nontender, nondistended, bowel sounds present all 4 quadrants, no guarding, no rigidity, no organomegaly. Extremities: No cyanosis, clubbing, no edema Neuro: Cranial nerves II through XII grossly intact, normal affect and speech, no focal motor deficits. Labs/Xrays ORDERING PHYSICIAN: JUSTINA SORTO MD PROCEDURE(s): CXRP - CHEST PORTABLE REASON: sob ORDER NUMBER(s): [id number], ACCESSION NUMBER(s): [id number] EXAMINATION: AP portable chest radiograph CLINICAL HISTORY: sob COMPARISON: XY CHEST PORTABLE on DOS: 02/10/24 FINDINGS: Diffuse interstitial prominence. No lobar consolidation identified. No definite pleural effusion or pneumothorax. The cardiomediastinal silhouette appears within normal limits given technique. IMPRESSION: Interstitial prominence is relatively nonspecific but can be seen with edema, reactive airway changes as well as atypical / viral infection. Chronic interstitial disease also included in the differential. Labs Test 08/24/24 04:09 08/24/24 02:50 08/24/24 01:51 08/24/24 01:07 Range/Units POC Glucose 439 *H 70-106 mg/dl Lactic Acid Level 2.5 *H 0.4-2.0 mmol/L Ammonia 127 *H 11-32 umol/L Troponin I High Sensitivity < 3 L </=54 ng/L Test 08/23/24 22:28 08/23/24 21:56 Range/Units Urine Color Yellow Yellow Urine Clarity Clear Clear Urine pH 5.5 5.0-9.0 Urine Specific [place] 1.035 1.001-1.035 Urine Protein Trace H Negative Urine Ketones 1+ H Negative Urine Blood Negative Negative /uL Urine Nitrite Negative Negative Urine Bilirubin Negative Negative Urine Urobilinogen Normal Negative mg/dL Urine Leukocyte Esterase Negative Negative /uL Urine RBC None seen 0 - 3 /hpf Urine Microscopic WBC 1 0-3 /HPF Urine Squamous Epithelial Cells Few <5 /hpf Urine Bacteria None seen None Seen /hpf Urine Glucose 4+ H Normal mg/dL White Blood Count 3.5 L 4.4-10.8 10^3/uL Red Blood Count 4.24 L 4.5-5.90 10^6/uL Hemoglobin 16.1 13.5-17.5 g/dL Hematocrit 45.6 41.0-53.0 % Mean Corpuscular Volume 107.6 H 80.0-100.0 fL Mean Corpuscular Hemoglobin 37.9 H 28.0-32.0 pg Mean Corpuscular Hemoglobin Concent 35.2 32.0-36.0 g/dL Red Cell Distribution Width 14.4 H 11.8-14.3 % Platelet Count 78 L 140-450 10^3/uL Mean Platelet Volume 7.3 6.9-10.8 fL Neutrophils (%) (Auto) 59.1 37.0-80.0 % Lymphocytes (%) (Auto) 27.6 10.0-50.0 % Monocytes (%) (Auto) 11.2 0.0-12.0 % Eosinophils (%) (Auto) 1.0 0.0-7.0 % Basophils (%) (Auto) 1.1 0.0-2.0 % Neutrophils # (Auto) 2.1 1.6-8.6 10 ^3/uL Lymphocytes # (Auto) 1.0 0.4-5.4 10 ^3/uL Monocytes # (Auto) 0.4 0-1.3 10 ^3/uL Eosinophils # (Auto) 0 0-0.8 10 ^3/uL Basophils # (Auto) 0 0-0.2 10 ^3/uL Nucleated Red Blood Cells 0.1 % Platelet Estimate Decreased Anisocytosis (manual) Slight Macrocytosis Moderate Sodium Level 135 L 136-145 mmol/L Potassium Level 4.1 3.5-5.1 mmol/L Chloride Level 98 98-107 mmol/L Carbon Dioxide Level 25 20-31 mmol/L Anion Gap 12 5-15 Blood Urea Nitrogen 9 9-23 mg/dL Creatinine 0.95 0.700-1.30 mg/dL Glomerular Filtration Rate Calc 101 >90 mL/min BUN/Creatinine Ratio 9.5 L 10.0-20.0 Serum Glucose 457 *H 74-106 mg/dL Calcium Level 10.2 8.7-10.4 mg/dL B-Type Natriuretic Peptide 53.41 0-100 pg/mL Assessment/Plan Assessment/Plan Assessment Uncontrolled diabetes mellitus Liver cirrhosis Hyperammonemia Peripheral neuropathy Plan Admit the patient to Med surge to the hospitalist Q.4 hour Accu-Cheks with aggressive coverage Resume home medications Continue treatment per orders. Plan discussed with: Patient My Orders Orders - TEODORO JANSEN Procedure Category Date Status Time Gabapentin Capsule PHA 08/24/24 In Process (Neurontin Capsule) 10:00 Spironolactone PHA 08/24/24 In Process (Aldactone) 06:00 Furosemide Tablet PHA 08/24/24 In Process (Lasix Tablet) 10:00 Echo 2d Mode Cardiac US 08/24/24 Logged DOP 00:40 Albuterol Medneb PHA 08/24/24 In Process (Ventolin Medneb) 00:45 Consistent DIET 08/24/24 Transmitted Carb(Ccho)Diabetes Breakfast Glucose Blood PHA 08/24/24 In Process (Accu-Chek Comfort 04:00 Insulin R (Human) PHA 08/24/24 In Process (Insulin R) 04:00 Dextrose 50% Syringe PHA 08/24/24 In Process 00:45 Admit ADMIT 08/24/24 Transmitted 00:40 Ondansetron Hcl PHA 08/24/24 In Process (Zofran) 00:45 Complete Blood Count LAB 08/25/24 Verified 04:00 Comprehensive LAB 08/25/24 Verified Metabolic Panel 04:00 Condition: Stable ARCHANA 08/24/24 In Process 00:40 Bedrest With Bathroom ARCHANA 08/24/24 In Process Privileg 00:40 Rifaximin (Xifaxan) PHA 08/24/24 In Process 10:00 Rapid Influenza A&B LAB 08/24/24 Logged 01:03 Covid19 Antigen Luz Maria LAB 08/24/24 Logged Lactulose Oral PHA 08/24/24 In Process 10:00 Blood Culture RACHELE 08/24/24 Uncollected 03:25 Ceftriaxone 1gm/50ml PHA 08/24/24 In Process D5w (Rocephin) 09:00 Insulin R (Human) PHA 08/24/24 Transmitted (Insulin R) 04:45 Date of Service: Aug 24, 2024 Billing Provider: TEODORO JANSEN Common Visit Codes: [id number] INP/OBS CARE (HIGH) TEODORO JANSEN [facility] Aug 24, 2024 04:35
[2024-08-24] MEDS: InsuLIN REG 1unit/0.01ml Soln (100units/ml) IV ONE (05:00)
[2024-08-24] MEDS: SPIRONOLACTONE 25 MG TAB PO SCH (06:12)
--- NOTE | 2024-08-24 07:02 | ECG ---
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
[2024-08-24 07:50] VITALS: BP 106/67; PULSE 85; RESP 16; TEMP 97.9; O2SAT 97
[2024-08-24 09:26] VITALS: PULSE 88; RESP 18; O2SAT 93
[2024-08-24] MEDS: FUROSEMIDE 40 MG TAB PO SCH (09:35)
[2024-08-24] MEDS: rifAXIMin 550 MG TAB PO SCH (09:35)
[2024-08-24] MEDS: GABAPENTIN 100 MG CAP PO SCH ×2 (09:35→22:21)
[2024-08-24] MEDS: LACTULOSE 20Gm/30ML SOLN PO SCH (09:35)
[2024-08-24] MEDS: cefTRIAXone 1GM/50ML D5W 50 ML IV SCH (09:36)
[2024-08-24 09:40] LABS: COVID19 ANTIGEN SOFIA FIA NEGATIVE (NEGATIVE)
[2024-08-24 09:47] LABS: Rapid Influenza A Negative (Negative); Rapid Influenza B Positive (Negative)
[2024-08-24 10:00] VITALS: PULSE 91; RESP 23; O2SAT 96
[2024-08-24] MEDS ORDERED: RIFAXIMIN 550 MG PO SCH (10:00)
[2024-08-24] MEDS: LACTATED RINGER'S 250 ML IV ONE (16:30)
--- NOTE | 2024-08-24 16:42 | DVHPN2 ---
Subjective 08/24 patient is feeling well, tolerating p.o. and ambulating. On room air. Has mild shortness of breath but no significant work of breathing. He does complain of nocturia frequency hesitancy and urgency. He has no family the area and no social support. Patient is homeless. Reviewed: H&P Changes from previous H/P or p: No Changes General: Per HPI Objective Vitals Vital Signs Date Time Temp Pulse Resp B/P (MAP) Pulse Ox O2 Delivery O2 Flow Rate FiO2 08/24/24 16:00 85 32 116/71 (86) 98 08/24/24 10:00 97.7 97.7 08/24/24 10:00 Room Air* 0 21 Exam GEN: Healthy appearing, well-developed, NAD. HEENT: NC/AT; MMM. CV: RRR, no m/r/g. LUNGS: Poor air movement in all lung shah ABD: Soft, NT/ND, NBS, no masses or organomegaly. No ascites, no hepatomegaly EXT: Stasis dermatitis rash on bilateral lower extremity, no edema, pulses intact NEURO: Ambulating with no limitations. No focal deficits. A&O times 3-4 Medications Current Medications Medications Dose Ordered Sig/Rossy Route Start Time Stop Time Status Last Admin Dose Admin Albuterol 2.5 mg Q6HPRN PRN NEB 08/24/24 00:45 Diagnostic Test (Pha) 1 strip IQ4HR 08/24/24 04:00 08/24/24 16:27 1 STRIP Dextrose 50 ml UD PRN IV 08/24/24 00:45 Ondansetron HCl 4 mg Q4HP PRN IV 08/24/24 00:45 Rifaximin 550 mg BID PO 08/24/24 10:00 08/24/24 09:35 550 MG Lactulose 30 ml BID PO 08/24/24 10:00 08/24/24 09:35 30 ML Ceftriaxone Sodium 50 ml @ 100 mls/hr DAILY@09 IV 08/24/24 09:00 08/24/24 09:36 100 MLS/HR Oseltamivir Phosphate 75 mg Q12HR PO 08/24/24 22:00 08/29/24 21:59 Insulin Human Regular IQ4HR SC 08/24/24 20:00 UNV Insulin Glargine 15 units HS SC 08/25/24 22:00 UNV Gabapentin 300 mg BID PO 08/24/24 22:00 UNV Azithromycin 250 ml @ 125 mls/hr DAILY IV 08/25/24 10:00 UNV Tamsulosin HCl 0.4 mg QPM PO 08/24/24 18:00 UNV Laboratory Results Laboratory Tests 08/23/24 21:56 Chemistry Test 08/23/24 21:56 Calcium Level 10.2 mg/dL (8.7-10.4) Cardiac Markers Test 08/23/24 21:56 B-Type Natriuretic Peptide 53.41 pg/mL (0-100) Urinalysis Test 08/23/24 22:28 Urine Color Yellow (Yellow) Urine Clarity Clear (Clear) Urine pH 5.5 (5.0-9.0) Urine Specific [place] 1.035 (1.001-1.035) Urine Protein Trace (Negative) H Urine Ketones 1+ (Negative) H Urine Blood Negative /uL (Negative) Urine Nitrite Negative (Negative) Urine Bilirubin Negative (Negative) Urine Urobilinogen Normal mg/dL (Negative) Urine Leukocyte Esterase Negative /uL (Negative) Urine RBC None seen /hpf (0 - 3) Urine Microscopic WBC 1 /HPF (0-3) Urine Squamous Epithelial Cells Few /hpf (<5) Urine Bacteria None seen /hpf (None Seen) Urine Glucose 4+ mg/dL (Normal) H Labs and/or images reviewed: Labs reviewed by me, Image(s) reviewed by me Assessment/Plan Assessment/Plan 08/24 patient is feeling well, tolerating p.o. and ambulating. On room air. Has mild shortness of breath but no significant work of breathing. He does complain of nocturia frequency hesitancy and urgency. He has no family the area and no social support. Patient is homeless. Pneumonia Gram-negative Gram-positive/atypical likely- CXR interstitial infiltrates, concern for pneumonia. Started on IV ceftriaxone and azithromycin Influenza a infection/influenza a pneumonia - start Tamiflu 75 mg twice daily to complete 5 days Intravascular volume depletion-UA SG 1.030, concentrated. Lactic acidosis -giving slow fluids. We will monitor closely. Poorly controlled diabetes mellitus with hyperglycemia - beta hydroxy elevated but no anion gap. Controlling with aggressive scale SSI q.4 H. starting Lantus 15 q.h.s.. Given slow fluids. Cirrhosis due to history of alcohol abuse Current alcohol dependence -monitor with [facility] protocol Hyperammonemia-start lactulose 30 b.i.d., we will stop rifaximin 08/25. Recheck ammonia levels 08/25 History of medical noncompliance Homelessness-social consulted for homelessness and PCP set up. Hyponatremia, mild-likely from chronic cirrhosis Thrombocytopenia secondary to alcohol abuse, stable - Macrocytosis-likely from alcohol abuse.-we will give daily multivitamin, folate, thiamine. Mild leukopenia-likely to cirrhosis history alcohol Diet cardiac DVT prophylaxis patient ambulatory, thrombocytopenia holding chemical DVT prophylaxis GI prophylaxis Pepcid 20 b.i.d. Med tele Full code Plan discussed with: Patient My Orders Orders - ANUP DOSHI MD Procedure Category Date Status Time Insulin R (Human) PHA 08/24/24 Logged (Insulin R) 20:00 Lactated Ringer's PHA 08/24/24 Logged 17:30 Lactated Ringer's PHA 08/24/24 Logged 16:30 Lactic Acid W/ Reflex LAB 08/24/24 Logged Order 16:26 Basic Metabolic Panel LAB 08/24/24 Logged 16:26 Complete Blood Count LAB 08/25/24 Verified 04:00 Comprehensive LAB 08/25/24 Verified Metabolic Panel 04:00 Insulin Lantus PHA 08/24/24 Logged (Glargine) (Lantus) 16:30 Insulin Lantus PHA 08/25/24 Logged (Glargine) (Lantus) 22:00 Gabapentin Capsule PHA 08/24/24 Logged (Neurontin Capsule) 22:00 Azithromycin 500mg/ PHA 08/25/24 Logged 250ml (Zithromax 50 10:00 Azithromycin 500mg/ PHA 08/24/24 Logged 250ml (Zithromax 50 16:45 Tamsulosin PHA 08/24/24 Logged Hydrochloride (Flomax) 16:45 Tamsulosin PHA 08/24/24 Logged Hydrochloride (Flomax) 18:00 Ammonia LAB 08/25/24 Verified 04:00 * Software Build Engineer CONS 08/24/24 Verified Consult Date of Service: Aug 24, 2024 Billing Provider: ANUP DOSHI MD Common Visit Codes: [id number] INP/OBS CARE(HIGH) ANUP DOSHI MD Aug 24, 2024 16:42
[2024-08-24 16:57] LABS: Anion Gap 15 (5-15); Chloride 105 mmol/L (98-107); Potassium 3.7 mmol/L (3.5-5.1); Sodium 138 mmol/L (136-145)
[2024-08-24 17:03] LABS: BUN/Creatinine Ratio 7.1 (10.0-20.0)
[2024-08-24] MEDS: TAMSULOSIN HYDROCHLORIDE 0.4 MG CAP PO ONE (17:03)
[2024-08-24] MEDS: INSULIN LANTUS (GLARGINE) 1 /0.01ml (100units/ml) SC ONE (17:05)
[2024-08-24] MEDS: AZITHROMYCIN 500MG/ 250ML 250 ML IV ONE (17:06)
[2024-08-24 17:07] LABS: Blood Urea Nitrogen 8 mg/dL (9-23); Carbon Dioxide 18 mmol/L (20-31)
[2024-08-24 17:10] LABS: Glucose 424 mg/dL (74-106)
[2024-08-24] MEDS: MULTIPLE VITAMIN TAB PO ONE (17:13)
[2024-08-24] MEDS: THIAMINE 100mg/ml INJ (200mg/2ml VIAL) IV ONE (17:13)
[2024-08-24] MEDS: FOLIC ACID 1 MG in D5W 5% 50 ML INJ ONE (17:19)
[2024-08-24] MEDS: LACTATED RINGER'S 700 ML IV ONE (19:05)
[2024-08-24 19:58] VITALS: PULSE 91; RESP 23; O2SAT 96
[2024-08-24] MEDS: OSELTAMIVIR 75 MG CAP PO SCH (22:20)
[2024-08-24] MEDS: FAMOTIDINE 20 MG TAB PO SCH (22:21)
[2024-08-24 23:05] VITALS: O2SAT 97
[2024-08-25] VITALS (9 sets, daily range): BP systolic 98–126; BP diastolic 61–76; PULSE 84–109; RESP 15–19; TEMP 97.8–98.5; O2SAT 97–98
[2024-08-25 05:31] LABS: Basophils # (auto) 0 10 ^3/uL (0-0.2); Eosinophils # (auto) 0.1 10 ^3/uL (0-0.8); Hemoglobin 15.8 g/dL (13.5-17.5); Monocytes # (auto) 0.5 10 ^3/uL (0-1.3); Red Blood Cells 4.14 10^6/uL (4.5-5.90)
[2024-08-25 05:37] LABS: Basophils % (auto) 0.8 % (0.0-2.0); Eosinophils % (auto) 3.1 % (0.0-7.0); Hematocrit 44.3 % (41.0-53.0); Lymphocytes # (auto) 1.1 10 ^3/uL (0.4-5.4); Lymphocytes % (auto) 27.5 % (10.0-50.0); Mean Corpuscular Hgb Conc. 35.5 g/dL (32.0-36.0); Monocytes % (auto) 12.7 % (0.0-12.0); Neutrophils # (auto) 2.3 10 ^3/uL (1.6-8.6); Neutrophils % (auto) 55.9 % (37.0-80.0); Nucleated Red Blood Cells % 0.4 %; Platelet Count (auto) 85 10^3/uL (140-450); Red Cell Distribution Width 13.9 % (11.8-14.3)
[2024-08-25 05:48] LABS: Alanine Aminotransferase 34 U/L (7-40); Albumin 3.4 g/dL (3.2-4.8); Anion Gap 9 (5-15); BUN/Creatinine Ratio 12.9 (10.0-20.0); Blood Urea Nitrogen 15 mg/dL (9-23); Calcium 10.2 mg/dL (8.7-10.4); Carbon Dioxide 26 mmol/L (20-31); Chloride 105 mmol/L (98-107); Glucose 96 mg/dL (74-106); Sodium 140 mmol/L (136-145)
[2024-08-25 05:49] LABS: Alkaline Phosphatase 203 U/L (46-116); Aspartate Aminotransferase 50 U/L (13-40); Potassium 3.3 mmol/L (3.5-5.1)
[2024-08-25 05:50] LABS: Bilirubin, Total 1.4 mg/dL (0.2-1.0); Total Protein 7.3 g/dL (5.7-8.2)
[2024-08-25] MEDS: AZITHROMYCIN 500MG/ 250ML 250 ML IV SCH (09:52)
[2024-08-25] MEDS: THIAMINE HCL 100 MG TAB PO SCH (09:55)
[2024-08-25] MEDS: MULTIPLE VITAMIN TAB PO SCH (09:55)
[2024-08-25] MEDS: FOLIC ACID 1 MG TAB PO SCH (09:56)
[2024-08-25] MEDS ORDERED: DEXTROSE (50%) 50ML SYRG IV PRN (10:00)
[2024-08-25] MEDS: InsuLIN REG 1unit/0.01ml Soln (100units/ml) SC SCH ×2 (11:30→21:31)
[2024-08-25] MEDS: ACCU-CHEK COMFORT CURVE STRIP VI SCH (11:31)
[2024-08-25] MEDS: INSULIN LISPRO (HUMAN) 100 UNITS/ML ML SC SCH ×2 (11:37→16:37)
[2024-08-25] MEDS: InsuLIN REG 1unit/0.01ml Soln (100units/ml) IV ONE (12:35)
[2024-08-25] MEDS: diphenhdrAMINE HCL 50 MG/1 ML VL IV ONE (14:45)
[2024-08-25] MEDS: InsuLIN REG 1unit/0.01ml Soln (100units/ml) SC ONE (14:46)
--- NOTE | 2024-08-25 16:02 | DVHSR ---
APPROVED REPORT EXAM: Two-dimensional and M-mode echocardiogram with Doppler and color Doppler. Blood Pressure: 119/69 mmHg INDICATION EF RISK FACTORS Height: 5'7", Weight: 145 DIMENSIONS LVDd4.0 (3.8-5.7cm)LA (2D)3.7 (1.9-4.0cm)Aortic Root3.4 (2.0-3.7cm) LVDs2.7 (2.5-4.0cm)LA (MM) (1.9-4.0cm)Aortic Cusp Exc1.5 (1.5-2.0cm) EF (%) 55.0 (55-70%)Rt. Atrium3.4 (1.9-4.0cm)Asc. Aorta cm IVSd1.1 (0.7-1.1cm)RV (D) (1.8-2.4cm) PWd1.0 (0.7-1.1cm) Mitral Valve MitralMitral Stenosis E wave0.81m/sMV Mean GR.mmHg A wave0.82m/sMV Peak GR.mmHg E/A ratio1.02D MVAcm2 DECEL [id number] 1/2 Timems Aortic Valve Aortic ValveAortic Stenosis V11.06m/Jerilyn Mean GR.2mmHg V20.95m/Jerilyn Peak GR.4mmHg LVOT Diameter2.0 (1.8-2.4cm)Doppler AVA3.50cm2 Pulmonic Valve V20.90m/s Conclusion Technically good study. Sinus rhythm. Normal chamber sizes. Normal valves. EF of 60% with normal RV function. Dopplers unremarkable. No pericardial effusion masses or vegetations.
--- NOTE | 2024-08-25 16:02 | DVHPN2 ---
Subjective 08/25 update below - 08/24 patient is feeling well, tolerating p.o. and ambulating. On room air. Has mild shortness of breath but no significant work of breathing. He does complain of nocturia frequency hesitancy and urgency. He has no family the area and no social support. Patient is homeless. - 08/25 : Patient has recurrent hyperglycemia today. Otherwise feeling well and improved. Mentating well A&O times 3-4. Ammonia is improving. Reviewed: H&P Changes from previous H/P or p: No Changes General: Per HPI Objective Vitals Vital Signs Date Time Temp Pulse Resp B/P (MAP) Pulse Ox O2 Delivery O2 Flow Rate FiO2 08/25/24 13:00 98.3 109 16 126/74 (91) 97 98.3 08/25/24 08:38 Room Air* 0 21 Intake/Output Intake and Output 08/25/24 07:00 Intake Total 1525.2 ml Output Total 1051 ml Balance 474.2 ml Intake Oral 1050 ml IV Total 475.2 ml Output Urine Total 1051 ml Exam GEN: Healthy appearing, well-developed, NAD. HEENT: NC/AT; MMM. CV: RRR, no m/r/g. LUNGS: Poor air movement in all lung shah ABD: Soft, NT/ND, NBS, no masses or organomegaly. No ascites, no hepatomegaly EXT: Stasis dermatitis rash on bilateral lower extremity, no edema, pulses intact NEURO: Ambulating with no limitations. No focal deficits. A&O times 3-4 Medications Current Medications Medications Dose Ordered Sig/Rossy Route Start Time Stop Time Status Last Admin Dose Admin Albuterol 2.5 mg Q6HPRN PRN NEB 08/24/24 00:45 Ondansetron HCl 4 mg Q4HP PRN IV 08/24/24 00:45 Lactulose 30 ml BID PO 08/24/24 10:00 08/24/24 22:20 30 ML Ceftriaxone Sodium 50 ml @ 100 mls/hr DAILY@09 IV 08/24/24 09:00 08/25/24 08:54 100 MLS/HR Oseltamivir Phosphate 75 mg Q12HR PO 08/24/24 22:00 08/29/24 21:59 08/25/24 09:56 75 MG Insulin Glargine 15 units HS SC 08/25/24 22:00 Gabapentin 300 mg BID PO 08/24/24 22:00 08/24/24 22:21 300 MG Azithromycin 250 ml @ 125 mls/hr DAILY IV 08/25/24 10:00 08/25/24 09:52 125 MLS/HR Tamsulosin HCl 0.4 mg QPM PO 08/25/24 18:00 Multivitamins 1 tab DAILY PO 08/25/24 10:00 08/25/24 09:55 1 TAB Thiamine HCl 100 mg DAILY PO 08/25/24 10:00 08/25/24 09:55 100 MG Folic Acid 1 mg DAILY PO 08/25/24 10:00 08/25/24 09:56 1 MG Famotidine 20 mg Q12HR PO 08/24/24 22:00 08/25/24 09:55 20 MG Diagnostic Test (Pha) 1 strip ACHS 08/25/24 11:30 08/25/24 11:31 1 STRIP Insulin Human Regular HS SC 08/25/24 22:00 Insulin Human Regular AC SC 08/25/24 11:30 08/25/24 11:30 15 UNITS Dextrose 50 ml UD PRN IV 08/25/24 10:00 Insulin Human Lispro 5 units AC SC 08/25/24 11:30 08/25/24 11:37 5 UNITS Laboratory Results Laboratory Tests 08/25/24 05:15 Chemistry Test 08/25/24 05:15 Albumin 3.4 g/dL (3.2-4.8) Calcium Level 10.2 mg/dL (8.7-10.4) Total Protein 7.3 g/dL (5.7-8.2) LFT Test 08/25/24 05:15 Alanine Aminotransferase (ALT) 34 U/L (7-40) Alkaline Phosphatase 203 U/L (46-116) H Aspartate Amino Transferase (AST) 50 U/L (13-40) H Total Bilirubin 1.4 mg/dL (0.2-1.0) H Urinalysis Test 08/23/24 22:28 Urine Color Yellow (Yellow) Urine Clarity Clear (Clear) Urine pH 5.5 (5.0-9.0) Urine Specific [place] 1.035 (1.001-1.035) Urine Protein Trace (Negative) H Urine Ketones 1+ (Negative) H Urine Blood Negative /uL (Negative) Urine Nitrite Negative (Negative) Urine Bilirubin Negative (Negative) Urine Urobilinogen Normal mg/dL (Negative) Urine Leukocyte Esterase Negative /uL (Negative) Urine RBC None seen /hpf (0 - 3) Urine Microscopic WBC 1 /HPF (0-3) Urine Squamous Epithelial Cells Few /hpf (<5) Urine Bacteria None seen /hpf (None Seen) Urine Glucose 4+ mg/dL (Normal) H Labs and/or images reviewed: Labs reviewed by me, Image(s) reviewed by me Assessment/Plan Assessment/Plan - 08/25 : Patient has recurrent hyperglycemia today. Otherwise feeling well and improved. Mentating well A&O times 3-4. Ammonia is improving. Pneumonia Gram-negative Gram-positive/atypical likely- CXR interstitial infiltrates, concern for pneumonia. Started on IV ceftriaxone and azithromycin Influenza a infection/influenza a pneumonia - start Tamiflu 75 mg twice daily to complete 5 days Poorly controlled diabetes mellitus with hyperglycemia - beta hydroxy elevated but no anion gap. starting Lantus 15 q.h.s, as part a.c. 5 units plus moderate a.c. HS sliding scale and glucose checks... SP Given slow fluids. Intravascular volume depletion-UA SG 1.030, concentrated. Lactic acidosis -giving slow fluids. We will monitor closely. Cirrhosis due to history of alcohol abuse- patient was euvolemic giving diuretics may be causing dehydration and resulting in hyperammonemia and resulting in high-risk of hepatic encephalopathy. We will hold off diuretics and refer to GI outpatient. Current alcohol dependence -monitor with CIAL protocol Hyperammonemia-start lactulose 30 b.i.d., we will stop rifaximin 08/25. Recheck ammonia levels 08/25 have normalized History of medical noncompliance Homelessness-social consulted for homelessness and PCP set up. Hyponatremia, mild-likely from chronic cirrhosis Thrombocytopenia secondary to alcohol abuse, stable - Macrocytosis-likely from alcohol abuse.-we will give daily multivitamin, folate, thiamine. Mild leukopenia-likely to cirrhosis history alcohol Diet cardiac DVT prophylaxis patient ambulatory, thrombocytopenia holding chemical DVT prophylaxis GI prophylaxis Pepcid 20 b.i.d. Med tele Full code Plan discussed with: Patient My Orders Orders - ANUP DOSHI MD Procedure Category Date Status Time Insulin Lantus PHA 08/25/24 In Process (Glargine) (Lantus) 22:00 Gabapentin Capsule PHA 08/24/24 In Process (Neurontin Capsule) 22:00 Azithromycin 500mg/ PHA 08/25/24 In Process 250ml (Zithromax 50 10:00 * [employer] To [employer] CONS 08/24/24 Transmitted Consult Multiple Vitamin PHA 08/25/24 In Process Tablet (Mvi Tab) 10:00 Thiamine Tab PHA 08/25/24 In Process 10:00 Folic Acid Tablet PHA 08/25/24 In Process 10:00 Tamsulosin PHA 08/25/24 In Process Hydrochloride (Flomax) 18:00 Famotidine Tablet PHA 08/24/24 In Process (Pepcid Tablet) 22:00 Glucose Blood PHA 08/25/24 In Process (Accu-Chek Comfort 11:30 Insulin R (Human) PHA 08/25/24 In Process (Insulin R) 22:00 Insulin R (Human) PHA 08/25/24 In Process (Insulin R) 11:30 Dextrose 50% Syringe PHA 08/25/24 In Process 10:00 Insulin Lispro PHA 08/25/24 In Process (Human) (Humalog) 11:30 Consistent DIET 08/25/24 Transmitted Carb(Ccho)Diabetes Dinner Azithromycin Tablet PHA 08/25/24 Logged (Zithromax Tablet) 14:45 Date of Service: Aug 25, 2024 Billing Provider: ANUP DOSHI MD Common Visit Codes: [id number] INP/OBS CARE(HIGH) ANUP DOSHI MD Aug 25, 2024 16:02
[2024-08-25] MEDS: LACTATED RINGER'S 500 ML IV SCH (16:40)
[2024-08-25] MEDS: AZITHROMYCIN 250 MG TAB PO ONE (16:40)
[2024-08-25] MEDS: TAMSULOSIN HYDROCHLORIDE 0.4 MG CAP PO SCH (17:04)
[2024-08-25] MEDS: INSULIN LANTUS (GLARGINE) 1 /0.01ml (100units/ml) SC SCH (21:32)
[2024-08-26 05:20] LABS: Basophils # (auto) 0 10 ^3/uL (0-0.2); Basophils % (auto) 0.9 % (0.0-2.0); Eosinophils # (auto) 0.2 10 ^3/uL (0-0.8); Hemoglobin 14.7 g/dL (13.5-17.5); Monocytes # (auto) 0.4 10 ^3/uL (0-1.3); Platelet Count (auto) 78 10^3/uL (140-450); Red Cell Distribution Width 14.1 % (11.8-14.3)
[2024-08-26 05:23] VITALS: BP 104/70; PULSE 55; RESP 16; TEMP 97.9; O2SAT 98
[2024-08-26 05:23] LABS: Eosinophils % (auto) 4.8 % (0.0-7.0); Hematocrit 41.9 % (41.0-53.0); Lymphocytes # (auto) 1.3 10 ^3/uL (0.4-5.4); Mean Corpuscular Hemoglobin 38.3 pg (28.0-32.0); Mean Corpuscular Volume 109.4 fL (80.0-100.0); Monocytes % (auto) 10.6 % (0.0-12.0); Neutrophils # (auto) 2.1 10 ^3/uL (1.6-8.6); Neutrophils % (auto) 51.7 % (37.0-80.0); Nucleated Red Blood Cells % 0.2 %; Red Blood Cells 3.83 10^6/uL (4.5-5.90); White Blood Cell 4.2 10^3/uL (4.4-10.8)
[2024-08-26 05:37] LABS: Alanine Aminotransferase 33 U/L (7-40); Anion Gap 8 (5-15); BUN/Creatinine Ratio 14.1 (10.0-20.0); Blood Urea Nitrogen 12 mg/dL (9-23); Calcium 9.6 mg/dL (8.7-10.4); Carbon Dioxide 21 mmol/L (20-31); Chloride 105 mmol/L (98-107); Potassium 3.9 mmol/L (3.5-5.1); Total Protein 6.8 g/dL (5.7-8.2)
[2024-08-26 05:38] LABS: Alkaline Phosphatase 167 U/L (46-116); Aspartate Aminotransferase 56 U/L (13-40); Bilirubin, Total 2.2 mg/dL (0.2-1.0); Glucose 302 mg/dL (74-106); Sodium 134 mmol/L (136-145)
[2024-08-26 09:00] VITALS: BP 102/63; PULSE 75; RESP 16; TEMP 98.1; O2SAT 98
[2024-08-26 09:36] VITALS: O2SAT 96
[2024-08-26] MEDS ORDERED: DEXTROSE (50%) 50ML SYRG IV PRN (10:00)
[2024-08-26] MEDS: ACCU-CHEK COMFORT CURVE STRIP VI SCH (11:47)
[2024-08-26] MEDS: InsuLIN REG 1unit/0.01ml Soln (100units/ml) SC SCH (11:54)
[2024-08-26] MEDS: AZITHROMYCIN 250 MG TAB PO ONE (12:58)
[2024-08-26 13:00] VITALS: BP 112/70; PULSE 80; RESP 16; TEMP 98.1; O2SAT 97
[2024-08-26] MEDS ORDERED: INSU100I74 SC (14:06)
[2024-08-26] MEDS ORDERED: BLOO1KIT XX (14:06)
[2024-08-26] MEDS ORDERED: LACT10SO3 PO (14:06)
[2024-08-26] MEDS ORDERED: AZIT500T66 PO (14:06)
[2024-08-26] MEDS ORDERED: SPIR25TA PO (14:06)
[2024-08-26] MEDS ORDERED: FURO1TAB33 PO (14:06)
[2024-08-26] MEDS ORDERED: LANC28MI39 XX (14:06)
[2024-08-26] MEDS ORDERED: SITA25TA3 PO (14:06)
[2024-08-26] MEDS ORDERED: TAMIFLU PO (14:06)
[2024-08-26] MEDS ORDERED: GAB100C PO (14:06)
[2024-08-26] MEDS ORDERED: GLUC-224 VI (14:06)
[2024-08-26] MEDS ORDERED: INSU100I51 SC (14:06)
[2024-08-26] MEDS ORDERED: METF-372 PO (14:06)
--- NOTE | 2024-08-26 14:24 | DVHDS2 ---
Discharge Summary Date of Admission Aug 24, 2024 at 00:40 Date of Discharge: Aug 26, 2024 Admitting Diagnosis Weakness Labs/Diagnostic Data: Laboratory Results Test 08/26/24 11:44 08/26/24 04:50 08/25/24 05:15 08/24/24 16:58 POC Glucose 278 mg/dl (70-106) White Blood Count 4.2 10^3/uL (4.4-10.8) Red Blood Count 3.83 10^6/uL (4.5-5.90) Hemoglobin 14.7 g/dL (13.5-17.5) Hematocrit 41.9 % (41.0-53.0) Mean Corpuscular Volume 109.4 fL (80.0-100.0) Mean Corpuscular Hemoglobin 38.3 pg (28.0-32.0) Mean Corpuscular Hemoglobin Concent 35.0 g/dL (32.0-36.0) Red Cell Distribution Width 14.1 % (11.8-14.3) Platelet Count 78 10^3/uL (140-450) Mean Platelet Volume 7.4 fL (6.9-10.8) Neutrophils (%) (Auto) 51.7 % (37.0-80.0) Lymphocytes (%) (Auto) 32.0 % (10.0-50.0) Monocytes (%) (Auto) 10.6 % (0.0-12.0) Eosinophils (%) (Auto) 4.8 % (0.0-7.0) Basophils (%) (Auto) 0.9 % (0.0-2.0) Neutrophils # (Auto) 2.1 10 ^3/uL (1.6-8.6) Lymphocytes # (Auto) 1.3 10 ^3/uL (0.4-5.4) Monocytes # (Auto) 0.4 10 ^3/uL (0-1.3) Eosinophils # (Auto) 0.2 10 ^3/uL (0-0.8) Basophils # (Auto) 0 10 ^3/uL (0-0.2) Nucleated Red Blood Cells 0.2 % Sodium Level 134 mmol/L (136-145) Potassium Level 3.9 mmol/L (3.5-5.1) Chloride Level 105 mmol/L (98-107) Carbon Dioxide Level 21 mmol/L (20-31) Anion Gap 8 (5-15) Blood Urea Nitrogen 12 mg/dL (9-23) Creatinine 0.85 mg/dL (0.700-1.30) Glomerular Filtration Rate Calc 110 mL/min (>90) BUN/Creatinine Ratio 14.1 (10.0-20.0) Serum Glucose 302 mg/dL (74-106) Calcium Level 9.6 mg/dL (8.7-10.4) Total Bilirubin 2.2 mg/dL (0.2-1.0) Aspartate Amino Transferase (AST) 56 U/L (13-40) Alanine Aminotransferase (ALT) 33 U/L (7-40) Alkaline Phosphatase 167 U/L (46-116) Total Protein 6.8 g/dL (5.7-8.2) Albumin 3.0 g/dL (3.2-4.8) Ammonia 31 umol/L (11-32) Lactic Acid Level 2.0 mmol/L (0.4-2.0) Test 08/24/24 08:15 08/24/24 01:07 08/23/24 22:28 08/23/24 21:56 Influenza Type A Antigen Negative (Negative) Influenza Type B Antigen Positive (Negative) SARS-CoV-2 Antigen (Rapid) Negative (NEGATIVE) Troponin I High Sensitivity < 3 ng/L (</=54) Urine Color Yellow (Yellow) Urine Clarity Clear (Clear) Urine pH 5.5 (5.0-9.0) Urine Specific [place] 1.035 (1.001-1.035) Urine Protein Trace (Negative) Urine Ketones 1+ (Negative) Urine Blood Negative /uL (Negative) Urine Nitrite Negative (Negative) Urine Bilirubin Negative (Negative) Urine Urobilinogen Normal mg/dL (Negative) Urine Leukocyte Esterase Negative /uL (Negative) Urine RBC None seen /hpf (0 - 3) Urine Microscopic WBC 1 /HPF (0-3) Urine Squamous Epithelial Cells Few /hpf (<5) Urine Bacteria None seen /hpf (None Seen) Urine Glucose 4+ mg/dL (Normal) Platelet Estimate Decreased Anisocytosis (manual) Slight Macrocytosis Moderate B-Type Natriuretic Peptide 53.41 pg/mL (0-100) Other Laboratory Tests 08/26/24 04:50 Brief Hx & Hospital Course: History of Present Illness: 43-year-old male w pmhx Liver cirrhosis, GERD, diabetes mellitus, anemia, presents for evaluation of generalized weakness. Patient reports a history of liver cirrhosis and diabetes mellitus. He states not taking his medications for over a month. Patient has been unable to refill his medications. He reports having elevated blood sugar, bilateral lower extremity pain and shortness of breath. Denies fever or chills. No chest pain or palpitations. Hospitalization course: On admit workup and labs show rapid influenza B positive, hyperglycemia with elevated beta hydroxy butyrate but no anion gap, UA SG 1.030 concentrated, lactic acidosis, thrombocytopenia, leukopenia, macrocytosis. Workup also shows hyperammonemia. Patient has cough and has rapid influenza B positive. Chest x-ray shows opacities consistent with possible pulmonary infection. Patient is admitted for pneumonia, influenza infection, hyperglycemia from diabetes, hyperammonemia from cirrhosis. Patient was started on IV azithromycin and Rocephin, Tamiflu, lactulose with initial 2 days of rifaximin, folate thiamine and multivitamin daily. Patient improves but continues to have hyperglycemia requiring aggressive sliding scale insulin. Incident control improves hyperglycemia which can be optimize outpatient. Plan developed to continue patient's care with PCP. Patient is homeless and provided resources and social consulted for PCP set up. Patient is stable to discharge with discharge plan below. Discharge diagnosis: Weakness due to hyperglycemia and/or influenza and/or hyperammonemia; chronic alcoholic cirrhosis; uncontrolled diabetes with hyperglycemia; hyperammonemia due to cirrhosis; influenza B infection; influenza B pneumonia; pneumonia due to Gram-negative g positive/atypical likely; medication noncompliance; GERD, chronic thrombocytopenia due to alcohol,; macrocytosis,; leukopenia; transaminitis alcohol pattern; ALP elevated; hyperbilirubinemia; intravascular volume depletion; lactic acidosis, resolved; Discharge plan: -Take azithromycin 500 mg , oncedaily, for 3 days -Take Tamiflu 75 mg , 2 times daily, for 3 days - stop Glipizide, take /refilled metformin 1000 mg 2 times daily, Start Januvia 25 mg once daily,start insulin as below -Insulin nightly Solostar 15 units, insulin with meals flex pen 10 units, measure blood glucose fasting and premeal (at least pre lunch or pre dinner) -Comply with strict diabetic diet ( decrease carbs which include rice, bread, pasta ), can instead have more proteins and vegetables -Take gabapentin twice daily for neuropathy - Decrease Aldactone to 25 mg daily, decrease Lasix to 20 mg daily. -Take lactulose 10 g ( 15 mL), twice daily -Stop Glipizide, Protonix, prednisone, Lyrica, Xifaxan, - do not use Tylenol for pain, okay to use NSAIDs like Aleve, Motrin, ibuprofen - take Pepcid 20 mg twice daily for acid reflux/GERD - take daily multivitamin, avoid alcohol, tobacco and illicit drugs. - follow up with PCP to Review discharge. PCP to review lab work and refer to GI, optimize diabetes. - [facility] information provided. PCP to be setup through social consult. Visitation and planning required 35 minutes Condition at Discharge: Fair Final Diagnosis/Problems List Weakness due to hyperglycemia and/or influenza and/or hyperammonemia; chronic alcoholic cirrhosis; uncontrolled diabetes with hyperglycemia; hyperammonemia due to cirrhosis; influenza infection; influenza pneumonia; pneumonia due to Gram-negative g positive/atypical likely; medication noncompliance; Discharge Disposition: Home Discharge Instruct/Medications Diet: Consistent carbohydrate Activity: No Restrictions, As Tolerated Follow Up/Referral: pcp Medications: as below Discharge Statement: "Patient was advised to return to the ER or call 911 if any headaches, dizziness, shortness of breath, chest pain, abdominal pain, bleeding, fevers, or worsening of medical condition. Patient was counseled about treatment plan, medications, possible side effects, patientverbalized understanding. All questions were answered to the best of my ability. This discharge took greater then 30 minutes in planning, reviewing documentation, counseling the patient, and discussing with other team members." ASSESSMENT ASSESSMENT Assessment Weakness due to hyperglycemia and/or influenza and/or hyperammonemia; chronic alcoholic cirrhosis; uncontrolled diabetes with hyperglycemia; hyperammonemia due to cirrhosis; influenza infection; influenza pneumonia; pneumonia due to Gram-negative g positive/atypical likely; medication noncompliance; Date of Service: Aug 26, 2024 Billing Provider: ANUP DOSHI MD Common Visit Codes: [id number]/OBS DISCH DAY >30min ANUP DOSHI MD Aug 26, 2024 14:24
[2024-08-26] MEDS ORDERED: FAMO20TA10 PO (14:27)
[2024-08-26] MEDS ORDERED: GABA-339 PO (14:44)
[2024-08-26 15:27] VITALS: BP 123/70; TEMP 36.7
[2024-08-26] MEDS ORDERED: INSULIN LANTUS (GLARGINE) 1 /0.01ml (100units/ml) SC SCH (22:00)
[2024-08-26] MEDS ORDERED: InsuLIN REG 1unit/0.01ml Soln (100units/ml) SC SCH (22:00)
== END 2024-08-26 16:00 | disposition home or self-care (01) | DRG 420 ==
LOC: ER 21:01 → EDBD 21:01 → OVERFLOW 08-24 00:40 → CENTRAL 08-24 21:52
PROVIDERS: ADMIT Nurse Practitioner; ATTEND Student in an Organized Health Care Education/Training Program
DX: E11.65 Type 2 diabetes mellitus with hyperglycemia (principal); J10.08 Influenza due to other identified influenza virus with other specified pneumonia; J15.69 Pneumonia due to other Gram-negative bacteria; E87.20 Acidosis, unspecified; E72.20 Disorder of urea cycle metabolism, unspecified; D69.59 Other secondary thrombocytopenia; J15.9 Unspecified bacterial pneumonia; E87.1 Hypo-osmolality and hyponatremia; D72.819 Decreased white blood cell count, unspecified; D75.89 Other specified diseases of blood and blood-forming organs; E11.42 Type 2 diabetes mellitus with diabetic polyneuropathy; Z59.00 Homelessness unspecified; K70.30 Alcoholic cirrhosis of liver without ascites; E86.9 Volume depletion, unspecified; F10.20 Alcohol dependence, uncomplicated; K21.9 Gastro-esophageal reflux disease without esophagitis; Z91.199 Patient's noncompliance with other medical treatment and regimen due to unspecified reason; Z79.899 Other long term (current) drug therapy; Y90.9 Presence of alcohol in blood, level not specified; Z79.84 Long term (current) use of oral hypoglycemic drugs
CPT/HCPCS: 36415; 71045; 80048; 80053; 81001; 82140; 82962; 83605; 83880; 84484; 85025; 87426; 87804; 93005; 93306; 99291; G0378; J1815; J7060

== ENCOUNTER 2024-09-11 21:35 | Emergency (ER) | payer SELFPAY ==
[~2024-09-11] VITALS: Ht 175.3 cm; Wt 68.1 kg
[~2024-09-11 21:35] MED LIST changes: +AZIT500T66 PO; -BAC09TP TOP; +BLOO1KIT XX; +FAMO20TA10 PO; +FURO1TAB33 PO; -FURO40TA4 PO; +GABA-339 PO; -GLIP2.5T9 PO; +GLUC-224 VI; -IBUP1TAB5 PO; +INSU100I51 SC; +INSU100I74 SC; +LANC28MI39 XX; -PANT40T PO; -PRED20TA2 PO; -PREG50CA PO; -RIFA550T PO; +SITA25TA3 PO; +SPIR25TA PO; -SPIR50TA5 PO; +TAMIFLU PO
--- NOTE | 2024-09-11 21:56 | ED.PDOC ---
History of Present Illness HPI Comments This patient is a 43-year-old male who is a known chronic alcoholic who arrives today via EMS due to intoxication. Patient has a history of alcohol-related concerns including cirrhosis. Patient called EMS due to alcohol related concerns. Patient complains of nausea. Denies fever. Patient was intoxicated at arrival. Chief Complaint: ETOH Time Seen by MD: 21:36 Primary Care Provider: JAIDEN Reviewed Notes: Nurses Notes Allergies: Coded Allergies: NO KNOWN ALLERGIES (Unverified , 03/31/22) Home Meds Active Scripts Gabapentin (Gabapentin) 600 Mg Tab, 0.5 TAB PO BID, #60 TAB 1 Refill Prov:ANUP DOSHI MD 08/26/24 Famotidine (PEPCID TABLET) 20 Mg Tb, 1 TAB PO BID for 30 Days, #60 TAB 0 Refills Prov:ANUP DOSHI MD 08/26/24 Sitagliptin Phosphate (Januvia) 25 Mg Tab, 25 MG PO DAILY for 30 Days, #30 TAB 1 Refill Prov:ANUP DOSHI MD 08/26/24 Spironolactone (Aldactone) 25 Mg Tab, 1 TAB PO DAILY, #30 TAB 2 Refills Prov:ANUP DOSHI MD 08/26/24 Furosemide (Lasix) 20 Mg Tb, 1 TAB PO DAILY, #30 TAB 2 Refills Prov:ANUP DOSHI MD 08/26/24 Lactulose (Lactulose) 10 Gm/15 Ml Keri, 10 GM PO BID for 30 Days, #473 ML 0 Refills Prov:ANUP DOSHI MD 08/26/24 Glucose Blood (EASY TOUCH GLUCOSE TEST S) Strips Ashley, 1 EA QID for 60 Days, #60 MISC 0 Refills Prov:ANUP DOSHI MD 08/26/24 Lancets (EASY TOUCH LANCETS) 28 G Mis, G XX QID, #100 Prov:ANUP DOSHI MD 08/26/24 Blood Glucose Monitoring Suppl (mm Easy Touch Blood Gluco W/Device) 1 Kit Kit, KIT XX, #1 Prov:ANUP DOSHI MD 08/26/24 Insulin Glargine (Insulin Glargine Solostar) 100 Unit/Ml Inj, 15 UNIT SC HS for 30 Days, #1 INJ 1 Refill Prov:ANUP DOSHI MD 08/26/24 Insulin Aspart (Insulin Aspart Flexpen) 100 Unit/Ml Inj, 10 UNIT SC TIDWM for 30 Days, #1 INJ 1 Refill Prov:ANUP DOSHI MD 08/26/24 Azithromycin (Azithromycin) 500 Mg Tab, 1 TAB PO DAILY, #3 TAB Prov:ANUP DOSHI MD 08/26/24 Oseltamivir Phosphate (Tamiflu) 75 Mg Cap, 75 MG PO BID for 3 Days, #6 CAP 0 Refills Prov:ANUP DOSHI MD 08/26/24 Metformin Hydrochloride (Metformin Hcl) 1,000 Mg Tab, 1 TAB PO BID for 30 Days, #60 TAB 1 Refill Prov:ANUP DOSHI MD 08/26/24 Acetaminophen (Tylenol Extra Strength) 500 Mg Tab, 500 MG PO TID, #20 TAB Prov:JENNI WOOTEN MD 02/11/23 Cetirizine Hcl (Zyrtec Allergy) 10 Mg Tab, 10 MG PO BID, #20 TAB Prov:JENNI WOOTEN MD 02/11/23 Reported Medications Lactulose (Lactulose) 10 Gm/15 Ml Keri, 15 ML PO BID 03/02/22 Information Source: Patient, Emergency Med Personnel Mode of Arrival: EMS Severity: Moderate Timing: Days Duration: Since onset Prehospital treatment: 12 Lead EKG Past Medical History PAST MEDICAL HISTORY: Anemia, CKF, DM, GERD, Liver Surgical History: Denies all surgeries Family History Family History: Reviewed,noncontributory to illness Social History Smoker: Non-Smoker Alcohol: Heavy Drugs: Denies Drug Use Lives In: Home Constitutional: denies: chills, diaphoresis, fatigue, fever, malaise, sweats, weakness, others EENTM: denies: blurred vision, double vision, ear bleeding, ear discharge, ear drainage, ear pain, ear ringing, eye pain, eye redness, hearing loss, mouth pain, mouth swelling, nasal discharge, nose bleeding, nose congestion, nose pain, photophobia, tearing, throat pain, throat swelling, voice changes, others Respiratory: denies: cough, hemoptysis, orthopnea, SOB at rest, shortness of breath, SOB with excertion, stridor, wheezing, others Cardiovascular: denies: chest pain, dizzy spells, diaphoresis, Dyspnea on ex ertion, edema, irregular heart beat, left arm pain, lightheadedness, palpitations, PND, syncope, others Gastrointestinal: reports: nausea; denies: abdomen distended, abdominal pain, blood streaked bowels, constipated, diarrhea, dysphagia, difficulty swallowing, hematemesis, melena, poor appetite, poor fluid intake, rectal bleeding, rectal pain, vomiting, others Genitourinary: denies: burning, dysuria, flank pain, frequency, hematuria, incontinence, penile discharge, penile sore, pain, testicle pain, testicle swelling, urgency, others Neurological: denies: dizziness, fainting, headache, left sided numbness, left sided weakness, numbness, paresthesia, pre-existing deficit, right sided numbness, right sided weakness, seizure, speech problems, tingling, tremors, weakness, others Musculoskeletal: denies: back pain, gout, joint pain, joint swelling, muscle pain, muscle stiffness, neck pain, others Integumetry: denies: bruises, change in color, change in hair/nails, dryness, laceration, lesions, lumps, rash, wounds, others Allergic/Immunocompromised: denies: Difficulty Healing, Frequent Infections, Hives, Itching, others Hematologic/Lymphatic: denies: anemia, blood clots, easy bleeding, easy bruising, swollen glands, others Endocrine: denies: excessive hunger, excessive sweating, excessive thirst, excessive urination, flushing, intolerance to cold, intolerance to heat, unexplained weight gain, unexplained weight loss, others Psychiatric: denies: anxiety, bipolar disorder, depression, hopeless, panic disorder, schizophrenia, sleepless, suicidal, others Unable to Obtain due to: Altered Mental Status (Due to alcohol intoxication) Physical Exam General Appearance: Moderate Distress (Patient was highly intoxicated at time of arrival.), Normal HEENT: Pharynx Normal, TMs Normal, Other (Glassy eyes) Neck: Full Range of Motion, Non-Tender, Normal, Normal Inspection Respiratory: Chest Non-Tender, Lungs Clear, No Accessory Muscle Use, No Respiratory Distress, Normal Breath Sounds Cardiovascular: No Edema, No JVD, No Murmur, No Gallop, Normal Peripheral Pulses, Regular Rate/Rhythm Breast Exam: Deferred Gastrointestinal: No Organomegaly, Non Tender, No Pulsatile Mass, Normal Bowel Sounds, Soft Genitalia: Deferred Pelvic: Deferred Rectal: Deferred Extremities: No calf tenderness, Normal capillary refill, Normal inspection, Normal range of motion, Non-tender, No pedal edema Neurologic: Disoriented, No Motor Deficits, No Sensory Deficits Cerebellar Function: NOT DONE Reflexes: NOT DONE Skin: Dry, Normal Color, Warm Lymphatic: No Adenopathy Was a procedure done? Was a procedure done?: No Differential Dx Considerations may include: Alcohol intoxication, alcohol abuse X-Ray, Labs, Meds, VS Vital Signs Date Time Temp Pulse Resp B/P (MAP) Pulse Ox O2 Delivery O2 Flow Rate FiO2 09/11/24 21:39 97.6 81 12 133/78 (96) 97 X-Ray, Labs, Meds, VS Comment Patient will receive fluids and supplemental medication until he is sober enough to be picked up by a responsible constitution party and discharge. This patient to cease alcohol use immediately and follow up with a alcohol cessation programs such as [facility]. Time of 1ST Reevaluation: 21:54 Reevaluation 1ST: Improved Consultation: PCP Patient Education/Counseling: Diagnosis, Treatment Family Education/Counseling: Diagnosis, Treatment Departure 1 Departure Time of Disposition: 21:55 Impression: Primary Impression: Alcohol intoxication Additional Impression: Alcohol abuse Disposition: 01 HOME / SELF CARE / HOMELESS Condition: Stable Additional Instructions: Advised patient cease alcohol use immediately and follow up with a alcohol cessation programs such as AA. Discharged With: Self, Friend Critical Care Note Critical Care Time?: No Stability Stability form required: No Heart Score Heart Score: Heart Score Response (Comments) Value History N/A 0 EKG N/A 0 Age N/A 0 Risk Factors N/A 0 Troponin N/A 0 Total 0 WILL ALVAREZ PAC Sep 11, 2024 21:55
[2024-09-11] MEDS: SODIUM CHLORIDE 0.9% 2,000 ML IV ONE (22:22)
[2024-09-11] MEDS: ONDANSETRON HCL 4 MG/2 ML VIAL IV ONE (22:23)
[2024-09-11] MEDS: THIAMINE 100mg/ml INJ (200mg/2ml VIAL) IV ONE (22:23)
--- NOTE | 2024-09-12 06:33 | ECG ---
[facility] Test Date: 2024-09-11 Test Time: 21:45:21 Pat Name: WISAM COOPER Department: ER Room: Gender: M [employer]: : 1980 Requested By: WILL ALVAREZ Order Number: [id number] Reading MD: Nilson Wallis Measurements Intervals [place] Rate: 80 P: 64 GA: 156 QRS: 61 QRSD: 84 T: 46 QT: 398 QTc: 460 Interpretive Statements Sinus rhythm Electronically Signed On 09-13-2024 8:26:10 PST by Nilson Wallis Please click the below link to view image of tracing.
[2024-09-12 06:45] VITALS: BP 135/81; PULSE 88; RESP 18; TEMP 97.5; O2SAT 94
== END 2024-09-12 07:38 | disposition home or self-care (01) ==
LOC: ER 21:35 → EDBD 21:35 → ER 09-12 07:38
DX: F10.129 Alcohol abuse with intoxication, unspecified (principal); K21.9 Gastro-esophageal reflux disease without esophagitis; E11.9 Type 2 diabetes mellitus without complications; Z79.899 Other long term (current) drug therapy
CPT/HCPCS: 82962; 93005; 96361; 96374; 96375; 99284; J2405; J3411; J7030

== ENCOUNTER 2024-10-31 02:39 | Emergency (ER) | payer MEDICAID ==
[~2024-10-31] VITALS: Ht 170.2 cm; Wt 140.0 kg
[~2024-10-31 02:39] MED LIST changes: -ACET-1304 PO; +ATOR20TA50 PO; -AZIT500T66 PO; +BLOO-169 XX; -FURO1TAB33 PO; +INSU100I49 SC; -INSU100I51 SC; -INSU100I74 SC; +INSUINJ37 SC; -TAMIFLU PO; +[UNRECOGNIZED DRUG - CODE] SC
--- NOTE | 2024-10-31 03:02 | ED.PDOC ---
History of Present Illness HPI Comments 44-year-old male with PMHx DM, Liver Cirrhosis brought in by EMS presents with a chief complaint of hyperglycemia and headache. Patient states that he has not been taking his insulin for the past week due to not picking up his medication. Patient reports that he has been drinking a lot tonight and fall and hit his head. Patient is now reporting a headache. Patients blood sugar per EMS was 428. Chief Complaint: Hyperglycemia Time Seen by MD: 02:51 Primary Care Provider: n/a Reviewed Notes: Medications, Allergies Allergies: Coded Allergies: Penicillins (Verified Allergy, Unknown, 10/20/24) Home Meds Active Scripts Glucose Blood (EASY TOUCH GLUCOSE TEST S) Strips Ashley, 1 EA ACHS for 30 Days, #120 MISC 70-130 - 0 units ____ units 131-180 - 8 units ____ units 181-240 - 12 units ____ units 241-300 - 16 units ____ units 301-350 - 20 units ____ units 351-400 - 24 units ____ units >400 12 units and call MD 20 units and call MD 28 units and call MD ____ units and call M Prov:MATEUZS GOODRICH RESIDENT 10/25/24 Insulin Aspart (Insulin Aspart) 100 Unit/Ml Inj, 100 UNIT SC AC for 30 Days, #1 INJ 0 Refills 70-130 - 0 units ____ units 131-180 - 8 units ____ units 181-240 - 12 units ____ units 241-300 - 16 units ____ units 301-350 - 20 units ____ units 351-400 - 24 units ____ units >400 12 units and call MD 20 units and call MD 28 units and call MD ____ units and call M Prov:MATEUSZ GOODRICH RESIDENT 10/25/24 Lancets (Cvs Lancets Thin 26G) Thin 26G Mis, 26G SC ACHS, #120 0 Refills Please check glucose 15 mins before each meal Prov:MATEUSZ GOODRICH RESIDENT 10/25/24 Blood Glucose Monitoring Suppl (EASY TOUCH GLUCOSE MONITO) Monitor Kit, EA XX ACHS, #1 Please check glucose 15 mins before each meal Prov:MATEUSZ GOODRICH RESIDENT 10/25/24 Insulin Glargine (Lantus Solostar) 100 Unit/Ml Inj, 25 UNIT SC BID for 30 Days, #2 INJ 1 Refill 70-130 - 0 units ____ units 131-180 - 8 units ____ units 181-240 - 12 units ____ units 241-300 - 16 units ____ units 301-350 - 20 units ____ units 351-400 - 24 units ____ units >400 12 units and call MD 20 units and call MD 28 units and call MD ____ unit s and call M Prov:MATEUSZ GOODRICH RESIDENT 10/25/24 Lactulose (Lactulose) 10 Gm/15 Ml Keri, 20 GM PO BID for 30 Days, #473 ML 1 Refill Prov:MATEUSZ GOODRICH RESIDENT 10/25/24 Atorvastatin Calcium (ATORVASTATIN CALCIUM) 20 Mg Tab, 20 MG PO HS for 30 Days, #30 TAB Prov:VILMA GONCALVES [facility] 10/03/24 Gabapentin (Gabapentin) 600 Mg Tab, 0.5 TAB PO BID, #60 TAB 1 Refill Prov:ANUP DOSHI MD 08/26/24 Famotidine (PEPCID TABLET) 20 Mg Tb, 1 TAB PO BID for 30 Days, #60 TAB 0 Refills Prov:ANUP DOSHI MD 08/26/24 Sitagliptin Phosphate (Januvia) 25 Mg Tab, 25 MG PO DAILY for 30 Days, #30 TAB 1 Refill Prov:ANUP DOSHI MD 08/26/24 Spironolactone (Aldactone) 25 Mg Tab, 1 TAB PO DAILY, #30 TAB 2 Refills Prov:NAUP DOSHI MD 08/26/24 Glucose Blood (EASY TOUCH GLUCOSE TEST S) Strips Ashley, 1 EA QID for 60 Days, #60 MISC 0 Refills Prov:ANUP DOSHI MD 08/26/24 Lancets (EASY TOUCH LANCETS) 28 G Mis, G XX QID, #100 Prov:ANUP DOSHI MD 08/26/24 Blood Glucose Monitoring Suppl (mm Easy Touch Blood Gluco W/Device) 1 Kit Kit, KIT XX, #1 Prov:ANPU DOSHI MD 08/26/24 Metformin Hydrochloride (Metformin Hcl) 1,000 Mg Tab, 1 TAB PO BID for 30 Days, #60 TAB 1 Refill Prov:ANUP DOSHI MD 08/26/24 Cetirizine Hcl (Zyrtec Allergy) 10 Mg Tab, 10 MG PO BID, #20 TAB Prov:JENNI WOOTEN MD 02/11/23 Discontinued Reported Medications Lactulose (Lactulose) 10 Gm/15 Ml Keri, 15 ML PO BID 03/02/22 Discontinued Scripts Insulin Glargine (Lantus) 100 Unit/Ml Inj, 15 UNITS SC BID@1000,2200 for 30 Days, #10 INJ Prov:VILMA GONCALVES 10/03/24 Insulin Aspart (Insulin Aspart Flexpen) 100 Unit/Ml Inj, 10 UNIT SC TIDWM for 30 Days, #1 INJ 1 Refill Prov:ANUP DOSHI MD 08/26/24 Acetaminophen (Tylenol Extra Strength) 500 Mg Tab, 500 MG PO TID, #20 TAB Prov:JENNI WOOTEN MD 02/11/23 Information Source: Emergency Med Personnel Mode of Arrival: EMS Severity: Moderate Timing: Hours Duration: Since onset Prehospital treatment: Accucheck (428) Past Medical History PAST MEDICAL HISTORY: Anemia, CKF, DM, GERD, Liver Surgical History: Denies all surgeries Family History Family History: Reviewed,noncontributory to illness Social History Smoker: Non-Smoker Alcohol: Heavy Drugs: Denies Drug Use Lives In: Home Constitutional: denies: chills, diaphoresis, fatigue, fever, malaise, sweats, weakness, others EENTM: denies: blurred vision, double vision, ear bleeding, ear discharge, ear drainage, ear pain, ear ringing, eye pain, eye redness, hearing loss, mouth pain, mouth swelling, nasal discharge, nose bleeding, nose congestion, nose pain, photophobia, tearing, throat pain, throat swelling, voice changes, others Respiratory: denies: cough, hemoptysis, orthopnea, SOB at rest, shortness of breath, SOB with excertion, stridor, wheezing, others Cardiovascular: denies: chest pain, dizzy spells, diaphoresis, Dyspnea on exertion, edema, irregular heart beat, left arm pain, lightheadedness, palpitations, PND, syncope, others Gastrointestinal: denies: abdomen distended, abdominal pain, blood streaked bowels, constipated, diarrhea, dysphagia, difficulty swallowing, hematemesis, melena, nausea, poor appetite, poor fluid intake, rectal bleeding, rectal pain, vomiting, others Genitourinary: denies: burning, dysuria, flank pain, frequency, hematuria, incontinence, penile discharge, penile sore, pain, testicle pain, testicle swelling, urgency, others Neurological: reports: headache; denies: dizziness, fainting, left sided numbness, left sided weakness, numbness, paresthesia, pre-existing deficit, right sided numbness, right sided weakness, seizure, speech problems, tingling, tremors, weakness, others Musculoskeletal: denies: back pain, gout, joint pain, joint swelling, muscle pain, muscle stiffness, neck pain, others Integumetry: denies: bruises, change in color, change in hair/nails, dryness, laceration, lesions, lumps, rash, wounds, others Allergic/Immunocompromised: denies: Difficulty Healing, Frequent Infections, H phoebe, Itching, others Hematologic/Lymphatic: denies: anemia, blood clots, easy bleeding, easy bruising, swollen glands, others Endocrine: denies: excessive hunger, excessive sweating, excessive thirst, excessive urination, flushing, intolerance to cold, intolerance to heat, unexplained weight gain, unexplained weight loss, others Psychiatric: denies: anxiety, bipolar disorder, depression, hopeless, panic disorder, schizophrenia, sleepless, suicidal, others All Other Systems: Reviewed and Negative Physical Exam General Appearance: No Apparent Distress, Normal HEENT: Normal ENT Inspection, Pharynx Normal, TMs Normal Neck: Full Range of Motion, Non-Tender, Normal, Normal Inspection Respiratory: Chest Non-Tender, Lungs Clear, No Accessory Muscle Use, No Respiratory Distress, Normal Breath Sounds Cardiovascular: No Edema, No JVD, No Murmur, No Gallop, Normal Peripheral Pulses, Regular Rate/Rhythm Breast Exam: Deferred Gastrointestinal: No Organomegaly, Non Tender, No Pulsatile Mass, Normal Bowel Sounds, Soft Genitalia: Deferred Pelvic: Deferred Rectal: Deferred Extremities: No calf tenderness, Normal capillary refill, Normal inspection, Normal range of motion, Non-tender, No pedal edema Musculoskeletal : Apperance: Normal Neurologic: Alert, agricultural economics teacher II-XII nml as Tested, No Motor Deficits, Normal Affect, Normal Mood, No Sensory Deficits Cerebellar Function: Normal Reflexes: Normal Skin: Dry, Normal Color, Warm Lymphatic: No Adenopathy Was a procedure done? Was a procedure done?: No Differential Dx Considerations may include: Differential diagnosis includes but not limited to: Migraine, tension headache, diabetic ketoacidosis, hyperosmolar, intracranial hemorrhage, subarachnoid hemorrhage, cluster headache, meningitis and others X-Ray, Labs, Meds, VS Vital Signs Date Time Temp Pulse Resp B/P (MAP) Pulse Ox O2 Delivery O2 Flow Rate FiO2 10/31/24 03:33 109 20 97 Room Air* 0 21 10/31/24 02:55 98.3 109 20 149/81 (103) 97 98.3 10/31/24 02:39 98.3 109 16 164/90 (114) 98 98.3 Lab Test 10/31/24 03:11 10/31/24 03:10 Range/Units Blood Gas Specimen Type Venous Blood Gas Sample Site Vbg - n/a Blood Gas Patient Temperature 37.0 Arterial Blood Date Drawn [id number] Abimael Test N/a Venous Blood pH 7.378 7.320-7.430 Venous Blood pCO2 at Patient Temp 34.4 L 38.0-54.0 mmHg Venous Blood pO2 at Patient Temp 41.8 23.0-48.0 mmHg Venous Blood HCO3 19.8 L 22.0-29.0 mmol/L Venous Blood Base Excess -4.5 L -2.0-3.0 mmol/L Blood Gas Modality Room air FiO2 % 21.0 White Blood Count 2.7 L 4.4-10.8 10^3/uL Red Blood Count 3.69 L 4.5-5.90 10^6/uL Hemoglobin 13.6 13.5-17.5 g/dL Hematocrit 38.1 #L 41.0-53.0 % Mean Corpuscular Volume 103.5 H 80.0-100.0 fL Mean Corpuscular Hemoglobin 36.8 H 28.0-32.0 pg Mean Corpuscular Hemoglobin Concent 35.6 32.0-36.0 g/dL Red Cell Distribution Width 12.4 11.8-14.3 % Platelet Count 79 L 140-450 10^3/uL Mean Platelet Volume 8.3 6.9-10.8 fL Neutrophils (%) (Auto) 47.0 37.0-80.0 % Lymphocytes (%) (Auto) 34.6 10.0-50.0 % Monocytes (%) (Auto) 14.0 H 0.0-12.0 % Eosinophils (%) (Auto) 2.1 0.0-7.0 % Basophils (%) (Auto) 2.3 H 0.0-2.0 % Neutrophils # (Auto) 1.3 L 1.6-8.6 10 ^3/uL Lymphocytes # (Auto) 1.0 0.4-5.4 10 ^3/uL Monocytes # (Auto) 0.4 0-1.3 10 ^3/uL Eosinophils # (Auto) 0.1 0-0.8 10 ^3/uL Basophils # (Auto) 0.1 0-0.2 10 ^3/uL Nucleated Red Blood Cells 0.3 % Sodium Level 135 #L 136-145 mmol/L Potassium Level 4.0 3.5-5.1 mmol/L Chloride Level 97 #L 98-107 mmol/L Carbon Dioxide Level 22 20-31 mmol/L Anion Gap 16 H 5-15 Blood Urea Nitrogen 11 9-23 mg/dL Creatinine 1.04 0.700-1.30 mg/dL Glomerular Filtration Rate Calc 90 >90 mL/min BUN/Creatinine Ratio 10.6 10.0-20.0 Serum Glucose 467 #*H 74-106 mg/dL Calcium Level 10.2 8.7-10.4 mg/dL Total Bilirubin 1.8 H 0.2-1.0 mg/dL Aspartate Amino Transferase (AST) 54 H 13-40 U/L Alanine Aminotransferase (ALT) 51 H 7-40 U/L Alkaline Phosphatase 282 H 46-116 U/L Total Protein 8.0 5.7-8.2 g/dL Albumin 3.9 3.2-4.8 g/dL Current Medications Medications (Trade) Dose Ordered Sig/Rossy Route Start Time Stop Time Status Last Admin Sodium Chloride 1,000 ml @ 1,000 mls/hr Q1H ONCE IV 10/31/24 03:00 10/31/24 03:59 DC 10/31/24 03:21 Insulin Human Regular (InsuLIN R) 8 units ONCE ONCE SC 10/31/24 03:00 10/31/24 03:01 DC 10/31/24 03:43 Insulin Human Regular (InsuLIN R) 8 units ONCE ONCE SC 10/31/24 04:45 10/31/24 04:46 DC 10/31/24 04:50 Time of 1ST Reevaluation: 03:21 Reevaluation 1ST: Unchanged Patient Education/Counseling: Diagnosis, Treatment, Prognosis Family Education/Counseling: No Family Present Departure 1 Departure Time of Disposition: 04:54 Impression: Primary Impression: Alcohol abuse Additional Impressions: Diabetes mellitus with hyperglycemia Headache Disposition: 01 HOME / SELF CARE / HOMELESS Condition: Stable Discharged With: Self Critical Care Note Critical Care Time?: No Stability Stability form required: No Heart Score Heart Score: Heart Score Response (Comments) Value History N/A 0 EKG N/A 0 Age N/A 0 Risk Factors N/A 0 Troponin N/A 0 Total 0 I personally scribed for BROOKE MAYO MD ([email or web address]) on 10/31/24 at 03:01. Electronically submitted by Wallace Rao [email or web address]). BROOKE MAYO MD Oct 31, 2024 03:01
[2024-10-31] MEDS: SODIUM CHLORIDE 0.9% 1,000 ML IV ONE (03:21)
[2024-10-31 03:26] LABS: Basophils # (auto) 0.1 10 ^3/uL (0-0.2); Basophils % (auto) 2.3 % (0.0-2.0); Eosinophils # (auto) 0.1 10 ^3/uL (0-0.8); Hemoglobin 13.6 g/dL (13.5-17.5); Monocytes # (auto) 0.4 10 ^3/uL (0-1.3); Neutrophils # (auto) 1.3 10 ^3/uL (1.6-8.6)
[2024-10-31 03:28] LABS: Eosinophils % (auto) 2.1 % (0.0-7.0); Hematocrit 38.1 % (41.0-53.0); Lymphocytes % (auto) 34.6 % (10.0-50.0); Mean Corpuscular Hemoglobin 36.8 pg (28.0-32.0); Mean Corpuscular Hgb Conc. 35.6 g/dL (32.0-36.0); Mean Corpuscular Volume 103.5 fL (80.0-100.0); Nucleated Red Blood Cells % 0.3 %; Platelet Count (auto) 79 10^3/uL (140-450); Red Blood Cells 3.69 10^6/uL (4.5-5.90); Red Cell Distribution Width 12.4 % (11.8-14.3); White Blood Cell 2.7 10^3/uL (4.4-10.8)
[2024-10-31 03:33] VITALS: PULSE 109; RESP 20; O2SAT 97
[2024-10-31] MEDS: InsuLIN REG 1unit/0.01ml Soln (100units/ml) SC ONE ×2 (03:43→04:50)
[2024-10-31 03:46] LABS: Albumin 3.9 g/dL (3.2-4.8); Anion Gap 16 (5-15); BUN/Creatinine Ratio 10.6 (10.0-20.0); Blood Urea Nitrogen 11 mg/dL (9-23); Calcium 10.2 mg/dL (8.7-10.4); Carbon Dioxide 22 mmol/L (20-31)
[2024-10-31 03:51] LABS: Alanine Aminotransferase 51 U/L (7-40); Alkaline Phosphatase 282 U/L (46-116); Aspartate Aminotransferase 54 U/L (13-40); Bilirubin, Total 1.8 mg/dL (0.2-1.0); Chloride 97 mmol/L (98-107); Sodium 135 mmol/L (136-145)
[2024-10-31 03:52] LABS: Glucose 467 mg/dL (74-106)
--- NOTE | 2024-10-31 03:58 | DVH ---
EXAM: CT HEAD WITHOUT CONTRAST INDICATION: head injury / pain TECHNIQUE: CT of the head without intravenous contrast. Radiation Dose : 1. Head: CT Dose: CTDI volume is 55.94 mGy. Dose-length product is 1101.06 mGy*cm The dose indicators for CT are the volume Computed Tomography (CT) Dose Index (CTDIvol) and the Dose Length Product (DLP), and are measured in units of mGy and mGy-cm, respectively. These indicators are not patient dose, but values generated from the CT scanner acquisition factors. The report includes radiation exposure data for exposures received during this examination. COMPARISON: CT HEAD WITHOUT CONTRAST on DOS: 09/30/24, HEAD WITHOUT CONTRAST on DOS: 05/05/22, HEAD WITH OUT CONTRAST on DOS: 04/17/22 FINDINGS: There is no evidence of acute intracranial hemorrhage, extra-axial collection, mass effect, midline s hift, herniation or hydrocephalus. Cody cisterna magna noted. The ventricles, sulci and cisterns are prominent, consistent with atrophic cortical volume loss. The tanner-white differentiation is intact. Left maxillary mucosal sinus disease. The remaining visualized paranasal sinuses and mastoid air nik ls are clear. The surrounding soft tissues and osseous structures are unremarkable. IMPRESSION: 1. No acute intracranial abnormality. 2. Atrophic cortical volume loss. Radiation optimization: All CT scans at this facility use at least one of these dose optimization sai hniques: automated exposure control mA and/or kV adjustment per patient size (includes targeted exam s where dose is matched to clinical indication) or iterative reconstruction.
[2024-10-31 06:19] VITALS: BP 125/68; PULSE 101; RESP 20; TEMP 98.1; O2SAT 97
== END 2024-10-31 06:20 | disposition home or self-care (01) ==
LOC: ER 02:39 → EDBD 02:39 → ER 06:20
DX: F10.10 Alcohol abuse, uncomplicated (principal); R51.9 Headache, unspecified; E11.65 Type 2 diabetes mellitus with hyperglycemia; N18.6 End stage renal disease; D46.9 Myelodysplastic syndrome, unspecified; Z79.84 Long term (current) use of oral hypoglycemic drugs; Z79.899 Other long term (current) drug therapy; Z91.148 Patient's other noncompliance with medication regimen for other reason; Z88.0 Allergy status to penicillin
CPT/HCPCS: 36415; 36600; 70450; 80053; 82805; 82947; 85025; 96360; 96372; 99285; J1815; J7030; 82962

== ENCOUNTER 2024-11-30 04:12 | Inpatient (IN) | payer MEDICAID ==
[~2024-11-30] VITALS: Ht 170.2 cm; Wt 70.8 kg
[2024-11-30 06:04] LABS: Anion Gap 18 (5-15); BUN/Creatinine Ratio 11.6 (10.0-20.0); Blood Urea Nitrogen 13 mg/dL (9-23); Calcium 10.2 mg/dL (8.7-10.4); Magnesium 2.1 mg/dL (1.6-2.6)
[2024-11-30] MEDS: SODIUM CHLORIDE 0.9% 1,000 ML IV ONE (06:04)
[2024-11-30 06:05] LABS: Bilirubin, Total 1.2 mg/dL (0.2-1.0)
[2024-11-30 06:05] LABS: Basophils # (auto) 0 10 ^3/uL (0-0.2); Eosinophils # (auto) 0 10 ^3/uL (0-0.8); Mean Corpuscular Hgb Conc. 35.2 g/dL (32.0-36.0); Monocytes # (auto) 0.2 10 ^3/uL (0-1.3); Neutrophils # (auto) 1.5 10 ^3/uL (1.6-8.6); Nucleated Red Blood Cells % 0.2 %; White Blood Cell 2.5 10^3/uL (4.4-10.8)
[2024-11-30 06:07] LABS: Basophils % (auto) 1.2 % (0.0-2.0); Hematocrit 43.2 % (41.0-53.0); Hemoglobin 15.2 g/dL (13.5-17.5); Lymphocytes # (auto) 0.8 10 ^3/uL (0.4-5.4); Mean Corpuscular Hemoglobin 35.9 pg (28.0-32.0); Mean Corpuscular Volume 102.1 fL (80.0-100.0); Monocytes % (auto) 6.5 % (0.0-12.0); Neutrophils % (auto) 61.3 % (37.0-80.0); Platelet Count (auto) 79 10^3/uL (140-450); Red Blood Cells 4.23 10^6/uL (4.5-5.90); Red Cell Distribution Width 13.4 % (11.8-14.3)
[2024-11-30 06:10] LABS: Alanine Aminotransferase 72 U/L (7-40); Alkaline Phosphatase 394 U/L (46-116); Aspartate Aminotransferase 90 U/L (13-40); Carbon Dioxide 17 mmol/L (20-31); Chloride 98 mmol/L (98-107); Sodium 133 mmol/L (136-145); Total Protein 8.4 g/dL (5.7-8.2)
[2024-11-30 06:11] VITALS: RESP 16; O2SAT 97
[2024-11-30 06:11] LABS: Glucose 470 mg/dL (74-106)
--- NOTE | 2024-11-30 06:19 | ECG ---
[facility] Test Date: 2024-11-30 Test Time: 04:42:34 Pat Name: WISAM COOPER Department: ED Room: 0214T Gender: M Action Installer: : [id number] Requested By: EMERGENCY EMERGENCY Order Number: [id number] Reading MD: Nilson Wallis Measurements Intervals [place] Rate: 97 P: 63 PA: 163 QRS: 72 QRSD: 84 T: 38 QT: 395 QTc: 502 Interpretive Statements Sinus rhythm Prolonged QT interval Electronically Signed On 12-02-2024 21:18:33 PDT by Nilson Wallis Please click the below link to view image of tracing.
[2024-11-30 06:31] VITALS: PULSE 100; RESP 18; O2SAT 95
--- NOTE | 2024-11-30 06:40 | ED.PDOC ---
HPI (NEURO) HPI Comments 44 y/o M, BIBA, with PMHx of liver cirrhosis, anemia, CKF, DM, GERD, presents to the ED for CC of generalized weakness. EMS reports, patient is coming from home where he complained of weakness x1day. EMS states, patient had a syncopal episode yesterday (11/29/24) and reports waking up on the floor today (11/30/24); visible facial bruising noted. Patient endorses, drinking alcohol yesterday afternoon (11/29/24). In route to the ED, patient's blood sugar read at 494 on glucometer. Patient denies lacerations, cervical injury, head injury, nausea, vomiting, or headache. No other symptoms or modifying factors present at this time. Chief Complaint: General Weakness Time Seen by MD: 06:30 Primary Care Provider: n/a Reviewed Notes: Nurses Notes, Loan Officer Notes, Medications, Allergies Information Source: Patient, Emergency Med Personnel Mode of Arrival: EMS Severity: Moderate Headache Severity: None Timing: Days Duration: Since onset Prehospital treatment: None Weakness Location: Generalized Onset: At rest Circumstances: Spontaneous Symptoms: Syncope Before: Normal During: Awake After: Normal Mentation History of: Anemia Associated Signs and Symptoms: None Past Medical History PAST MEDICAL HISTORY: Anemia, CKF, DM, GERD, Liver Surgical History: Denies all surgeries Family History Family History: Reviewed,noncontributory to illness Social History Smoker: Non-Smoker Alcohol: Heavy Drugs: Denies Drug Use Lives In: Home Constitutional: reports: weakness; denies: chills, diaphoresis, fatigue, fever, malaise, sweats, others EENTM: denies: blurred vision, double vision, ear bleeding, ear discharge, ear drainage, ear pain, ear ringing, eye pain, eye redness, hearing loss, mouth pain, mouth swelling, nasal discharge, nose bleeding, nose congestion, nose pain, photophobia, tearing, throat pain, throat swelling, voice changes, others Respiratory: denies: cough, hemoptysis, orthopnea, SOB at rest, shortness of breath, SOB with excertion, stridor, wheezing, others Cardiovascular: denies: chest pain, dizzy spells, diaphoresis, Dyspnea on exertion, edema, irregular heart beat, left arm pain, lightheadedness, palpitations, PND, syncope, others Gastrointestinal: denies: abdomen distended, abdominal pain, blood streaked bowels, constipated, diarrhea, dysphagia, difficulty swallowing, hematemesis, melena, nausea, poor appetite, poor fluid intake, rectal bleeding, rectal pain, vomiting, others Genitourinary: denies: burning, dysuria, flank pain, frequency, hematuria, incontinence, penile discharge, penile sore, pain, testicle pain, testicle swelling, urgency, others Neurological: denies: dizziness, fainting, headache, left sided numbness, left sided weakness, numbness, paresthesia, pre-existing deficit, right sided numbness, right sided weakness, seizure, speech problems, tingling, tremors, weakness, others Musculoskeletal: denies: back pain, gout, joint pain, joint swelling, muscle pain, muscle stiffness, neck pain, others Integumetry: denies: bruises, change in color, change in hair/nails, dryness, laceration, lesions, lumps, rash, wounds, others Allergic/Immunocompromised: denies: Difficulty Healing, Frequent Infections, Hives, Itching, others Hematologic/Lymphatic: denies: anemia, blood clots, easy bleeding, easy bruising, swollen glands, others Endocrine: denies: excessive hunger, excessive sweating, excessive thirst, excessive urination, flushing, intolerance to cold, intolerance to heat, unexplained weight gain, unexplained weight loss, others Psychiatric: denies: anxiety, bipolar disorder, depression, hopeless, panic disorder, schizophrenia, sleepless, suicidal, others All Other Systems: Reviewed and Negative Physical Exam General Appearance: No Apparent Distress, Normal HEENT: Normal ENT Inspection, Pharynx Normal, TMs Normal, Other (dry mucus membranes) Neck: Full Range of Motion, Non-Tender, Normal, Normal Inspection Respiratory: Chest Non-Tender, Lungs Clear, No Accessory Muscle Use, No Respiratory Distress, Normal Breath Sounds Cardiovascular: No Edema, No Murmur, No Gallop, Normal Peripheral Pulses, Regular Rate/Rhythm Breast Exam: Deferred Gastrointestinal: No Organomegaly, Non Tender, No Pulsatile Mass, Normal Bowel Sounds, Soft Genitalia: Deferred Pelvic: Deferred Rectal: Deferred Extremities: No calf tenderness, Normal capillary refill, Normal inspection, Normal range of motion, Non-tender, No pedal edema Musculoskeletal : Apperance: Normal Neurologic: Alert, cable tv installer II-XII nml as Tested, No Motor Deficits, Normal Affect, Normal Mood, No Sensory Deficits Cerebellar Function: Normal Reflexes: Normal Skin: Dry, Normal Color, Warm Lymphatic: No Adenopathy Was a procedure done? Was a procedure done?: No Differential Diagnosis (SZ) Seizure: Alcohol Withdrawl General Weakness: Anemia, Dehydration, Electrolyte imbalance, Encephalopathy X-Ray, Labs, Meds, VS Vital Signs Date Time Temp Pulse Resp B/P (MAP) Pulse Ox O2 Delivery O2 Flow Rate FiO2 11/30/24 07:20 97.5 100 18 121/65 (83) 97 97.5 11/30/24 07:20 100 18 97 Room Air* 0 21 11/30/24 06:31 100 18 95 Room Air* 0 21 11/30/24 06:30 97.5 100 18 142/84 (103) 95 97.5 11/30/24 06:11 16 97 Room Air* 0 21 11/30/24 06:10 97.4 100 16 145/86 (105) 96 97.4 11/30/24 04:45 98.7 135 18 154/94 (114) 98 98.7 11/30/24 04:42 97 Lab Test 11/30/24 07:48 11/30/24 06:26 11/30/24 06:18 11/30/24 05:26 Range/Units POC Glucose 348 H 417 *H 70-106 mg/dl Troponin I High Sensitivity < 3 L </=54 ng/L Urine Color Light-yellow Yellow Urine Clarity Clear Clear Urine pH 5.0 5.0-9.0 Urine Specific [place] 1.032 1.001-1.035 Urine Protein 1+ H Negative Urine Ketones Trace Negative Urine Blood Trace H Negative /uL Urine Nitrite Negative Negative Urine Bilirubin Negative Negative Urine Urobilinogen Normal Negative mg/dL Urine Leukocyte Esterase Negative Negative /uL Urine RBC <1 0 - 3 /hpf Urine Microscopic WBC < 1 0-3 /HPF Urine Squamous Epithelial Cells Few <5 /hpf Urine Bacteria None seen None Seen /hpf Urine Mucus Few None Seen Urine Yeast (Budding) Occasional None Seen /hpf Urine Glucose 4+ H Normal mg/dL Sodium Level 133 L 136-145 mmol/L Potassium Level 4.0 3.5-5.1 mmol/L Chloride Level 98 98-107 mmol/L Carbon Dioxide Level 17 L 20-31 mmol/L Anion Gap 18 H 5-15 Blood Urea Nitrogen 13 9-23 mg/dL Creatinine 1.12 0.700-1.30 mg/dL Glomerular Filtration Rate Calc 83 >90 mL/min BUN/Creatinine Ratio 11.6 10.0-20.0 Serum Glucose 470 *H 74-106 mg/dL Calcium Level 10.2 8.7-10.4 mg/dL Magnesium Level 2.1 1.6-2.6 mg/dL Total Bilirubin 1.2 H 0.2-1.0 mg/dL Aspartate Amino Transferase (AST) 90 H 13-40 U/L Alanine Aminotransferase (ALT) 72 H 7-40 U/L Alkaline Phosphatase 394 H 46-116 U/L Total Protein 8.4 H 5.7-8.2 g/dL Albumin 4.0 3.2-4.8 g/dL Test 11/30/24 05:24 11/30/24 04:41 11/30/24 04:40 Range/Units White Blood Count 2.5 L 4.4-10.8 10^3/uL Red Blood Count 4.23 L 4.5-5.90 10^6/uL Hemoglobin 15.2 13.5-17.5 g/dL Hematocrit 43.2 41.0-53.0 % Mean Corpuscular Volume 102.1 H 80.0-100.0 fL Mean Corpuscular Hemoglobin 35.9 H 28.0-32.0 pg Mean Corpuscular Hemoglobin Concent 35.2 32.0-36.0 g/dL Red Cell Distribution Width 13.4 11.8-14.3 % Platelet Count 79 L 140-450 10^3/uL Mean Platelet Volume 7.8 6.9-10.8 fL Neutrophils (%) (Auto) 61.3 37.0-80.0 % Lymphocytes (%) (Auto) 30.0 10.0-50.0 % Monocytes (%) (Auto) 6.5 0.0-12.0 % Eosinophils (%) (Auto) 1.0 0.0-7.0 % Basophils (%) (Auto) 1.2 0.0-2.0 % Neutrophils # (Auto) 1.5 L 1.6-8.6 10 ^3/uL Lymphocytes # (Auto) 0.8 0.4-5.4 10 ^3/uL Monocytes # (Auto) 0.2 0-1.3 10 ^3/uL Eosinophils # (Auto) 0 0-0.8 10 ^3/uL Basophils # (Auto) 0 0-0.2 10 ^3/uL Nucleated Red Blood Cells 0.2 % Troponin I High Sensitivity < 3 L </=54 ng/L B-Type Natriuretic Peptide 32.74 0-100 pg/mL Beta-Hydroxybutyric Acid 0.697 H < 0.4 mmol/L POC Glucose 470 *H 495 *H 70-106 mg/dl Current Medications Medications (Trade) Dose Ordered Sig/Rossy Route Start Time Stop Time Status Last Admin Sodium Chloride 1,000 ml @ 1,000 mls/hr Q1H ONCE IV 11/30/24 05:00 11/30/24 05:59 DC 11/30/24 06:04 [place] [address] Ph: [phone] DIAGNOSTIC IMAGING Diagnostic Imaging Report : [id number] Signed PATIENT: WISAM COOPER ACCT: [id number] UNIT: [id number] : 1980 LOC: ER ROOM / BED: / AGE / SEX: 44 / M ADM STATUS: REG ER SERVICE 0501 ORDERING PHYSICIAN: ONEL ZUNIGA MD PROCEDURE(s): HWOCT - HEAD WITHOUT CONTRAST REASON: Head injury, syncope ORDER NUMBER(s): [id number], ACCESSION NUMBER(s): [id number] EXAM: CT Head Without Intravenous Contrast CLINICAL INDICATION: Head injury, syncope TECHNIQUE: Axial computed tomography images of the head/brain without intravenous contrast. This CT exam was performed using one or more of the following dose reduction techniques: automated exposure control, adjustment of the mA and/or kV according to patient size, and/or use of iterative chivo nstruction technique. CONTRAST: RADIATION DOSE: CTDIvol = 53.99 mGy, DLP = 865.61 mGy-cm COMPARISON: CT HEAD WITHOUT CONTRAST on DOS: 10/31/24, CT HEAD WITHOUT CONTRAST on DOS: 09/30/24, HEAD WITHOUT CONTRAST on DOS: 05/05/22, HEAD WITHOUT CONTRAST on DOS: 04/17/22 FINDINGS: BRAIN AND EXTRA-AXIAL SPACES: The cerebral and cerebellar sulci are prominent consistent with brain atrophy. No acute intracranial hemorrhage, midline shift or mass effect. If symptoms persist, further evaluation with MRI is recommended. Mild areas of decreased attenuation in the deep cerebral white matter are consistent with mild small vessel ischemic/degenerative changes. BONES/JOINTS: Unremarkable. No acute fracture. SOFT TISSUES: Unremarkable. SINUSES: Unremarkable as visualized. No acute sinusitis. MASTOID AIR CELLS: Unremarkable as visualized. No mastoid effusion. OTHER FINDINGS: . . IMPRESSION: 1. Generalized brain atrophy. 2. No acute intracranial hemorrhage, midline shift or mass effect. If symptoms persist, further evaluation with MRI is recommended. 3. Mild small vessel ischemic/degenerative changes. ATED BY: WILL TOMAS MD DICTATED DATE/TIME: 11/30/24728 SIGNED BY: WILL TOMAS MD SIGNED DATE/TIME: 11/30/24728 CC: Time of 1ST Reevaluation: 07:00 Reevaluation 1ST: Unchanged Patient Education/Counseling: Diagnosis, Treatment Family Education/Counseling: No Family Present Departure 1 Departure Time of Disposition: 08:28 (Patient presented with syncope today and should be admitted. Data: 1. I ordered and reviewed the result of at least 3 labs including a CBC, BMP, and troponin. 2. I independently interpreted the following tests: EKG which shows a sinus tachycardia and a CT head which shows benign brain.Risk:This patient has a high risk of morbidity due to further diagnostic testing or treatment and may suffer from an acute cardiac, neurologic, or infectious disorder. Rationale: Patient should be admitted to the hospital for further management.) Impression: Primary Impression: Syncope and collapse Additional Impressions: Uncontrolled diabetes mellitus Qualified Codes: E11.65 - Type 2 diabetes mellitus with hyperglycemia Cirrhosis Qualified Codes: K74.60 - Unspecified cirrhosis of liver; R18.8 - Other ascites Disposition: ADMITTED INPATIENT Admit to: Med Surg Condition: Serious Critical Care Note Critical Care Time?: No Stability Stability form required: No Heart Score Heart Score: Heart Score Response (Comments) Value History N/A 0 EKG N/A 0 Age N/A 0 Risk Factors N/A 0 Troponin N/A 0 Total 0 I personally scribed for JUSTINA SORTO MD ([email or web address]) on 5/6/25 at 06:40. Electr onically submitted by Rachel Rolle ([email or web address]). I personally scribed for JUSTINA SORTO MD ([email or web address]) on 11/30/24 at 07:44. Electronically submitted by Rachel Rolle ([email or web address]). JUSTINA SORTO MD November 30, 2024 06:40
[2024-11-30 06:53] LABS: Urine Bacteria None Seen /hpf (None Seen)
[2024-11-30 06:59] LABS: Urine Blood TRACE /uL (Negative); Urine Budding Yeast OCCASIONAL /hpf (None Seen); Urine Clarity Clear (Clear); Urine Color Light-Yellow (Yellow); Urine Mucus FEW (None Seen); Urine Protein, UAD 1+ (Negative); Urine Specific Gravity 1.032 (1.001-1.035); Urine Squamous Epithelial Cell FEW /hpf (<5); Urine Urobilinogen Normal (Negative); Urine WBC < 1 /HPF (0-3)
[2024-11-30 07:20] VITALS: PULSE 100; RESP 18; O2SAT 97
--- NOTE | 2024-11-30 07:31 | DVH ---
EXAM: CT Head Without Intravenous Contrast CLINICAL INDICATION: Head injury, syncope TECHNIQUE: Axial computed tomography images of the head/brain without intravenous contrast. This CT exam was performed using one or more of the following dose reduction techniques: automated exposure control, adjustment of the mA and/or kV according to patient size, and/or use of iterative reconstru ction technique. CONTRAST: RADIATION DOSE: CTDIvol = 53.99 mGy, DLP = 865.61 mGy-cm COMPARISON: CT HEAD WITHOUT CONTRAST on DOS: 10/31/24, CT HEAD WITHOUT CONTRAST on DOS: 09/30/24, HEAD WITHOUT CONTRAST on DOS: 05/05/22, HEAD WITHOUT CONTRAST on DOS: 04/17/22 FINDINGS: BRAIN AND EXTRA-AXIAL SPACES: The cerebral and cerebellar sulci are prominent consistent with brain atrophy. No acute intracranial hemorrhage, midline shift or mass effect. If symptoms persist, furth er evaluation with MRI is recommended. Mild areas of decreased attenuation in the deep cerebral whit e matter are consistent with mild small vessel ischemic/degenerative changes. BONES/JOINTS: Unremarkable. No acute fracture. SOFT TISSUES: Unremarkable. SINUSES: Unremarkable as visualized. No acute sinusitis. MASTOID AIR CELLS: Unremarkable as visualized. No mastoid effusion. OTHER FINDINGS: . . IMPRESSION: 1. Generalized brain atrophy. 2. No acute intracranial hemorrhage, midline shift or mass effect. If symptoms persist, further eval uation with MRI is recommended. 3. Mild small vessel ischemic/degenerative changes.
[2024-11-30] MEDS: InsuLIN REG 1unit/0.01ml Soln (100units/ml) IV ONE (08:45)
--- NOTE | 2024-11-30 09:02 | DVH ---
XY CHEST PORTABLE, HISTORY: syncope COMPARISON: XY CHEST PORTABLE on DOS: 09/30/24, XY CHEST PORTABLE on DOS: 08/23/24, XY CHEST PORTABLE on DOS: 02/10/24 XY CHEST PORTABLE on DOS: 09/30/24, XY CHEST PORTABLE on DOS: 08/23/24, XY CHEST PORTABLE on DOS: 4 TECHNICAL DATA: 1 view of the chest was obtained. FINDINGS: Lines and tubes: None Cardiomediastinal silhouette: normal Pulmonary vasculature: normal Lung expansion: normal Lung airspace: normal Lung interstitium: normal Pleura: normal Pneumothorax: no Bones: Unremarkable Other: no IMPRESSION: No acute intrathoracic abnormality.
[2024-11-30 10:59] LABS: Cannabinoid Screen, Urine Neg (NEGATIVE)
[2024-11-30 11:01] LABS: Amphetamine Screen, Urine Neg (NEGATIVE); Barbiturate Scree,Urine Neg (NEGATIVE); Benzodiazephine Screen, Urine Neg (NEGATIVE); Cocaine Screen, Urine Pos (NEGATIVE); Opiate Scree,Urine Neg (NEGATIVE); Phencyclidine Screen, Urine Neg (NEGATIVE)
[2024-11-30 11:30] LABS: Chloride 104 mmol/L (98-107); Potassium 4.1 mmol/L (3.5-5.1); Sodium 138 mmol/L (136-145)
[2024-11-30 11:31] LABS: Anion Gap 15 (5-15)
[2024-11-30 11:32] LABS: Calcium 9.4 mg/dL (8.7-10.4)
[2024-11-30 11:37] LABS: Blood Alcohol 23.3 mg/dL (<10); Blood Urea Nitrogen 13 mg/dL (9-23)
[2024-11-30 11:42] LABS: Carbon Dioxide 19 mmol/L (20-31); Glucose 286 mg/dL (74-106)
[2024-11-30] MEDS: SODIUM CHLORIDE 0.9% 1,000 ML IV SCH (12:00)
[2024-11-30] MEDS ORDERED: DEXTROSE (50%) 50ML SYRG IV PRN (12:00)
[2024-11-30] MEDS ORDERED: NITROGLYCERIN 0.4 MG SL TAB SL PRN (12:00)
[2024-11-30] MEDS ORDERED: MORPHINE SULFATE INJ 2 MG/ml SYRG IV PRN (12:00)
[2024-11-30] MEDS: SODIUM CHLORIDE 0.9% 500 ML IV ONE (12:00)
[2024-11-30] MEDS ORDERED: LORazepam 2MG/ML-1ML VIAL IV PRN (12:00)
--- NOTE | 2024-11-30 12:04 | DVHHP2 ---
History of Present Illness History of Present Illness 44 y/o M, BIBA, with PMHx of liver cirrhosis, anemia, CKF, DM, GERD, presents to the ED for CC of generalized weakness. EMS reports, patient is coming from home where he complained of weakness x1day. EMS states, patient had a syncopal episode yesterday (11/29/24) and reports waking up on the floor today (11/30/24); visible facial bruising noted. Patient endorses, drinking alcohol yesterday afternoon (11/29/24). In route to the ED, patient's blood sugar read at 494 on glucometer. Patient denies lacerations, cervical injury, head injury, nausea, vomiting, or headache. No other symptoms or modifying factors present at this time. Past Medical History Anemia, CKF, DM, GERD, Liver Past Surgical History None significant noted Family History: Hypertension Smoke: <1 pack per day ALCOHOL: heavy Lives: Alone Review of Systems Review of Systems No fevers chills or sweats. No chest pain shortness for breath. No cough or productive sputum. No hematemesis or hematochezia. Other review of systems reviewed normal. Allergies: Coded Allergies: Penicillins (Verified Allergy, Unknown, 10/20/24) Medications Current Medications Medications Dose Ordered Sig/Rossy Route Start Time Stop Time Status Last Admin Dose Admin Nitroglycerin 0.4 mg Q5MINP PRN SL 11/30/24 12:00 UNV Morphine Sulfate 2 mg Q30M PRN IV 11/30/24 12:00 UNV Exam Vital Signs Vital Signs Date Time Temp Pulse Resp B/P (MAP) Pulse Ox O2 Delivery O2 Flow Rate FiO2 11/30/24 09:00 96 17 118/57 (77) 93 11/30/24 07:20 97.5 97.5 11/30/24 07:20 Room Air* 0 21 Exam Alert awake oriented to place or person comfortable lying in bed. HEENT notable for bruising around his right eye. Normocephalic atraumatic head. Pupils equal round react to light. Heart regular rate and rhythm S1-S2. No murmurs. Lungs fair air movement. Chest tube will expansion. No rales. Abdomen soft. Nontender. No organomegaly. Positive bowel sounds. Extremities. No edema. Positive pulses. Neurologic. Able to move all four extremities without any focal deficits. Labs/Xrays Labs Test 11/30/24 10:56 11/30/24 09:39 11/30/24 08:32 11/30/24 06:18 Range/Units Sodium Level 138 # 136-145 mmol/L Potassium Level 4.1 3.5-5.1 mmol/L Chloride Level 104 98-107 mmol/L Carbon Dioxide Level 19 L 20-31 mmol/L Anion Gap 15 5-15 Blood Urea Nitrogen 13 9-23 mg/dL Creatinine 0.81 0.700-1.30 mg/dL Glomerular Filtration Rate Calc 111 >90 mL/min BUN/Creatinine Ratio 16.0 10.0-20.0 Serum Glucose 286 #H 74-106 mg/dL Calcium Level 9.4 8.7-10.4 mg/dL Plasma/Serum Blood Alcohol 23.3 H <10 mg/dL POC Glucose 273 H 70-106 mg/dl Troponin I High Sensitivity < 3 L </=54 ng/L Urine Color Light-yellow Yellow Urine Clarity Clear Clear Urine pH 5.0 5.0-9.0 Urine Specific [place] 1.032 1.001-1.035 Urine Protein 1+ H Negative Urine Ketones Trace Negative Urine Blood Trace H Negative /uL Urine Nitrite Negative Negative Urine Bilirubin Negative Negative Urine Urobilinogen Normal Negative mg/dL Urine Leukocyte Esterase Negative Negative /uL Urine RBC <1 0 - 3 /hpf Urine Microscopic WBC < 1 0-3 /HPF Urine Squamous Epithelial Cells Few <5 /hpf Urine Bacteria None seen None Seen /hpf Urine Mucus Few None Seen Urine Yeast (Budding) Occasional None Seen /hpf Urine Glucose 4+ H Normal mg/dL Urine Opiates Screen Neg NEGATIVE Urine Fentanyl Screen Neg NEGATIVE Urine Barbiturates Screen Neg NEGATIVE Urine Phencyclidine Screen Neg NEGATIVE Urine Amphetamines Screen Neg NEGATIVE Urine Benzodiazepines Screen Neg NEGATIVE Urine Cocaine Screen Pos NEGATIVE Urine Cannabinoids Screen Neg NEGATIVE Test 11/30/24 05:26 11/30/24 05:24 Range/Units Magnesium Level 2.1 1.6-2.6 mg/dL Total Bilirubin 1.2 H 0.2-1.0 mg/dL Aspartate Amino Transferase (AST) 90 H 13-40 U/L Alanine Aminotransferase (ALT) 72 H 7-40 U/L Alkaline Phosphatase 394 H 46-116 U/L Total Protein 8.4 H 5.7-8.2 g/dL Albumin 4.0 3.2-4.8 g/dL White Blood Count 2.5 L 4.4-10.8 10^3/uL Red Blood Count 4.23 L 4.5-5.90 10^6/uL Hemoglobin 15.2 13.5-17.5 g/dL Hematocrit 43.2 41.0-53.0 % Mean Corpuscular Volume 102.1 H 80.0-100.0 fL Mean Corpuscular Hemoglobin 35.9 H 28.0-32.0 pg Mean Corpuscular Hemoglobin Concent 35.2 32.0-36.0 g/dL Red Cell Distribution Width 13.4 11.8-14.3 % Platelet Count 79 L 140-450 10^3/uL Mean Platelet Volume 7.8 6.9-10.8 fL Neutrophils (%) (Auto) 61.3 37.0-80.0 % Lymphocytes (%) (Auto) 30.0 10.0-50.0 % Monocytes (%) (Auto) 6.5 0.0-12.0 % Eosinophils (%) (Auto) 1.0 0.0-7.0 % Basophils (%) (Auto) 1.2 0.0-2.0 % Neutrophils # (Auto) 1.5 L 1.6-8.6 10 ^3/uL Lymphocytes # (Auto) 0.8 0.4-5.4 10 ^3/uL Monocytes # (Auto) 0.2 0-1.3 10 ^3/uL Eosinophils # (Auto) 0 0-0.8 10 ^3/uL Basophils # (Auto) 0 0-0.2 10 ^3/uL Nucleated Red Blood Cells 0.2 % B-Type Natriuretic Peptide 32.74 0-100 pg/mL Beta-Hydroxybutyric Acid 0.697 H < 0.4 mmol/L Assessment/Plan Assessment/Plan Admit to telemetry floor. Alcohol withdrawal protocol. IV fluids. Banana bag and multivitamins. 2D echocardiogram. Cardiac consultation for syncope near syncopal episodes. Social Service consultation for alcohol use disorder. Otherwise continue GI and DVT prophylaxis. Supportive care and treatment. Further clinical management per clinical course, pending evaluations studies and recommendations from the consultants. Discussed with the patient regarding care plan at bedside. Plan discussed with: Patient, Other My Orders Orders - RUTHIE CASTANEDA MD Procedure Category Date Status Time Admit ADMIT 11/30/24 Transmitted 11:53 *Rn Help Desk Technician REFER 11/30/24 Transmitted Referral 11:53 Consistent DIET 11/30/24 Transmitted Carb(Ccho)Diabetes Lunch * Panel Flow Machine Operator CONS 11/30/24 Transmitted Consult Nitroglycerin PHA 11/30/24 Logged Sublingual (Ntrostat 12:00 Morphine Sulfate PHA 11/30/24 Logged Injection 12:00 Stat Ekg For Chest [facility] 11/30/24 In Process Pain 11:53 Notify Md Of Changes [facility] 11/30/24 In Process From Base 11:53 Diet Kitchen Cook For [facility] 11/30/24 In Process 24 Hours 11:53 Emergency Dysrhythmia [facility] 11/30/24 In Process Protocol 11:53 Rhythm Strips Once [facility] 11/30/24 In Process Every Shift 11:53 Oxygen By Nasal RT 11/30/24 Transmitted Cannula 11:53 Echo 2d Mode Cardiac US 11/30/24 Logged DOP 11:53 Troponin-I Hs LAB 11/30/24 Logged 11:53 Troponin-I Hs LAB 11/30/24 Logged 14:53 Troponin-I Hs LAB 11/30/24 Logged 12:53 *Cons[address] Dr[address] Chaudhry CONS 11/30/24 Transmitted 11:53 Problem List: (1) Noncompliance with medication regimen (2) Alcohol abuse (3) Generalized weakness (4) Diabetes mellitus with hyperglycemia (5) Syncope and collapse (6) Cirrhosis RUTHIE CASTANEDA MD November 30, 2024 12:03
[2024-11-30] MEDS: THIAMINE 100mg/ml INJ (200mg/2ml VIAL) IV ONE (13:17)
[2024-11-30 14:14] LABS: INR 1.03 (0.9-1.15); Prothrombin Time 10.9 sec (9.3-11.8)
[2024-11-30] MEDS: ACCU-CHEK COMFORT CURVE STRIP VI SCH (17:00)
[2024-11-30] MEDS: InsuLIN REG 1unit/0.01ml Soln (100units/ml) SC SCH ×2 (17:35→22:44)
[2024-11-30 19:50] VITALS: PULSE 83; RESP 17; O2SAT 95
[2024-11-30] MEDS: FOLIC ACID 1 MG, MAGNESIUM SULF SDV 50% 8 MEQ, MULTIPLE VITAMIN 10 ML, THIAMINE INJ 100... INJ SCH (20:15)
[2024-12-01 05:41] LABS: Basophils # (auto) 0 10 ^3/uL (0-0.2); Basophils % (auto) 0.8 % (0.0-2.0); Eosinophils # (auto) 0.1 10 ^3/uL (0-0.8); Eosinophils % (auto) 3.2 % (0.0-7.0); Hematocrit 36.8 % (41.0-53.0); Hemoglobin 13.2 g/dL (13.5-17.5); Lymphocytes # (auto) 0.9 10 ^3/uL (0.4-5.4); Lymphocytes % (auto) 23.8 % (10.0-50.0); Mean Corpuscular Hemoglobin 36.1 pg (28.0-32.0); Mean Corpuscular Hgb Conc. 35.9 g/dL (32.0-36.0); Mean Corpuscular Volume 100.4 fL (80.0-100.0); Monocytes # (auto) 0.4 10 ^3/uL (0-1.3); Monocytes % (auto) 9.7 % (0.0-12.0); Neutrophils # (auto) 2.4 10 ^3/uL (1.6-8.6); Neutrophils % (auto) 62.5 % (37.0-80.0); Nucleated Red Blood Cells % 0.1 %; Platelet Count (auto) 70 10^3/uL (140-450); Red Blood Cells 3.67 10^6/uL (4.5-5.90); Red Cell Distribution Width 13.6 % (11.8-14.3); White Blood Cell 3.8 10^3/uL (4.4-10.8)
[2024-12-01 05:49] LABS: Anion Gap 9 (5-15); BUN/Creatinine Ratio 17.2 (10.0-20.0); Blood Urea Nitrogen 16 mg/dL (9-23); Carbon Dioxide 21 mmol/L (20-31); Chloride 105 mmol/L (98-107); Potassium 3.8 mmol/L (3.5-5.1); Total Protein 6.4 g/dL (5.7-8.2)
[2024-12-01 06:02] LABS: Alkaline Phosphatase 279 U/L (46-116); Glucose 348 mg/dL (74-106); Sodium 135 mmol/L (136-145)
[2024-12-01 06:03] LABS: Alanine Aminotransferase 54 U/L (7-40); Aspartate Aminotransferase 60 U/L (13-40); Bilirubin, Total 1.4 mg/dL (0.2-1.0); Calcium 8.6 mg/dL (8.7-10.4)
[2024-12-01 09:52] VITALS: BP 115/62; PULSE 75; RESP 16; O2SAT 97
[2024-12-01 09:53] VITALS: BP 104/57; PULSE 76; RESP 18; TEMP 97.7; O2SAT 96
[2024-12-01] MEDS ORDERED: MULTIPLE VITAMIN TAB PO SCH (10:00)
[2024-12-01] MEDS ORDERED: THIAMINE HCL 100 MG TAB PO SCH (10:00)
[2024-12-01] MEDS ORDERED: INSUINJ37 SC ×3 (10:40→14:23)
[2024-12-01] MEDS ORDERED: GABA-1250 PO ×2 (10:40→14:23)
[2024-12-01 11:29] LABS: Hepatitis B Surface Antibody Negative (Negative); Hepatitis C Antibody Negative (Negative)
[2024-12-01 13:45] VITALS: BP 116/59; PULSE 84; RESP 20; TEMP 97.8; O2SAT 97
[2024-12-01] MEDS ORDERED: GLUC-224 VI (14:23)
[2024-12-01] MEDS ORDERED: INSU100I49 SC (14:23)
[2024-12-01] MEDS ORDERED: SPIR25TA PO (14:23)
[2024-12-01] MEDS ORDERED: LACT10SO3 PO (14:23)
[2024-12-01] MEDS ORDERED: FAMO20TA10 PO (14:23)
[2024-12-01] MEDS ORDERED: ATOR20TA50 PO (14:23)
--- NOTE | 2024-12-01 14:25 | DVHPN2 ---
Progress Note - Dictate Date Seen: December 01, 2024 Medical Necessity Reason Pt with a Central, PICC or Fol: No Subjective Clinically stable. On the phone. Feels better. No complaints. Blood sugars have improved. Once again counseled and educated regarding compliance with the his medications including insulin diabetic control as well as abstinence from alcohol. vital signs Vital Sign Date Time Temp Pulse Resp B/P (MAP) Pulse Ox O2 Delivery O2 Flow Rate FiO2 12/01/24 13:45 97.8 84 20 116/59 (78) 97 97.8 12/01/24 09:52 Room Air* 0 21 Total Intake and Output 11/30/24 11/30/24 12/01/24 15:00 23:00 07:00 Intake Total 1625 ml Balance 1625 ml medications Current Medications Medications Dose Ordered Sig/Rossy Route Start Time Stop Time Status Last Admin Dose Admin Nitroglycerin 0.4 mg Q5MINP PRN SL 11/30/24 12:00 Morphine Sulfate 2 mg Q30M PRN IV 11/30/24 12:00 Diagnostic Test (Pha) 1 strip ACHS 11/30/24 17:00 12/01/24 11:06 1 STRIP Insulin Human Regular HS SC 11/30/24 22:00 11/30/24 22:44 8 UNITS Insulin Human Regular AC SC 11/30/24 17:00 12/01/24 11:07 9 UNITS Dextrose 50 ml UD PRN IV 11/30/24 12:00 Multivitamins 1 tab DAILY PO 12/01/24 10:00 Hold Lorazepam 1 mg Q2HPRN PRN IV 11/30/24 12:00 Folic Acid 1 mg/ Magnesium Sulfate 8 meq/ Multivitamins 10 ml/Thiamine HCl 100 mg/Sodium Chloride 1,013.2 ml @ 126.247 mls/hr DAILY@1800 INJ 11/30/24 18:00 11/30/24 20:15 126.247 MLS/HR Sodium Chloride 1,000 ml @ 125 mls/hr Q8H IV 11/30/24 12:00 12/01/24 05:30 125 MLS/HR Pantoprazole Sodium 40 mg BID@0600,1700 PO 12/01/24 17:00 Insulin Glargine 10 units HS SC 12/01/24 22:00 objective Alert awake oriented x3. HEENT neck supple no JVD. Pupils equal round react to light. Heart regular rate and rhythm S1-S2. Lungs fair amount without rales wheezes. Abdomen soft nontender positive bowel sounds. Extremities no edema positive pulses. Neurologically no focal deficits. laboratory and microbiology Laboratory Tests 12/01/24 05:10 Test 12/01/24 05:10 Range/Units Serum Glucose 348 H 74-106 mg/dL Assessment/Plan Clinically stable. Continue banana bag and IV fluids. Multivitamin as needed. Resume his Lantus and sliding scale insulin. We will order medications for him. We will have social Service involved for information regarding his alcohol use and discharge planning. Monitor him overnight if he remains stable discharge plan home tomorrow. Discussed with the patient as well as the nurse regarding care plan at bedside. Problems(with codes): (1) Noncompliance with medication regimen (2) Diabetes mellitus with hyperglycemia (3) Generalized weakness (4) Alcohol abuse (5) Syncope and collapse (6) Cirrhosis Plan discussed with: Patient RUTHIE CASTANEDA MD December 01, 2024 14:25
[2024-12-01 14:52] VITALS: BP 123/73; PULSE 83; RESP 13; TEMP 97.8; O2SAT 98
[2024-12-01 17:00] VITALS: BP 142/81; PULSE 81; RESP 14; TEMP 98; O2SAT 96
[2024-12-01] MEDS: PANTOPRAZOLE 40 MG TAB PO SCH (17:51)
[2024-12-01 21:00] VITALS: BP 130/70; PULSE 84; RESP 17; TEMP 98.9; O2SAT 96
[2024-12-01] MEDS: INSULIN LANTUS (GLARGINE) 1 /0.01ml (100units/ml) SC SCH (21:42)
--- NOTE | 2024-12-01 22:32 | DVHINCON2 ---
Date of service: December 01, [address] Durbin Reason for Consultation Elevated liver tests History of Present Illness 44 y/o M, BIBA, with PMHx of liver cirrhosis, anemia, CKF, DM, GERD, presents to the ED for CC of generalized weakness. EMS reports, patient is coming from home where he complained of weakness x1day. EMS states, patient had a syncopal episode yesterday (11/29/24) and reports waking up on the floor today (11/30/24); visible facial bruising noted. Patient endorses, drinking alcohol yesterday afternoon (11/29/24). In route to the ED, patient's blood sugar read at 494 on glucometer. Patient was seen at bedside this evening. Patient was awake alert in no acute distress on the telephone. No GI bleeding is reported Past Medical History Past Medical History Anemia, CKF, DM, GERD, Liver Past Surgical History Past Surgical History None significant noted Family History: Diabetes mellitus G8 MOTHER, G8 FATHER, Allergies: Coded Allergies: Penicillins (Verified Allergy, Unknown, 10/20/24) Home Meds Active Scripts Gabapentin (Gabapentin) 300 Mg Cap, 300 MG PO HS, #30 MG Prov:RUTHIE CASTANEDA MD 12/01/24 Insulin Glargine (Lantus Solostar) 100 Unit/Ml Inj, 20 UNIT SC HS, #10 INJ Prov:RUTHIE CASTANEDA MD 12/01/24 Glucose Blood (EASY TOUCH GLUCOSE TEST S) Strips Ashley, 1 EA ACHS for 30 Days, #120 MISC 70-130 - 0 units ____ units 131-180 - 8 units ____ units 181-240 - 12 units ____ units 241-300 - 16 units ____ units 301-350 - 20 units ____ units 351-400 - 24 units ____ units >400 12 units and call 20 units and call 28 units and call MD ____ units and call M Prov:RUTHIE CASTANEDA MD 12/01/24 Insulin Aspart (Insulin Aspart) 100 Unit/Ml Inj, 100 UNIT SC AC for 30 Days, #1 INJ 0 Refills 70-130 - 0 units ____ units 131-180 - 8 units ____ units 181-240 - 12 units ____ units 241-300 - 16 units ____ units 301-350 - 20 units ____ units 351-400 - 24 units ____ units >400 12 units and call 20 units and call 28 units and call MD ____ units and call M Prov:RUTHIE CASTANEDA MD 12/01/24 Lactulose (Lactulose) 10 Gm/15 Ml Keri, 20 GM PO BID for 30 Days, #473 ML 1 Refill Prov:RUTHIE CASTANEDA MD 12/01/24 Atorvastatin Calcium (ATORVASTATIN CALCIUM) 20 Mg Tab, 20 MG PO HS for 30 Days, #30 TAB Prov:RUTHIE CASTANEDA MD 12/01/24 Famotidine (PEPCID TABLET) 20 Mg Tb, 1 TAB PO BID for 30 Days, #60 TAB 0 Refills Prov:RUTHIE CASTANEDA MD 12/01/24 Spironolactone (Aldactone) 25 Mg Tab, 1 TAB PO DAILY, #30 TAB 2 Refills Prov:RUTHIE CASTANEDA MD 12/01/24 Lancets (Cvs Lancets Thin 26G) Thin 26G Mis, 26G SC ACHS, #120 0 Refills Please check glucose 15 mins before each meal Prov:KPMATEUSZ DYSON RESIDENT 10/25/24 Blood Glucose Monitoring Suppl (EASY TOUCH GLUCOSE MONITO) Monitor Kit, EA XX ACHS, #1 Please check glucose 15 mins before each meal Prov:KPELVIN DYSONTIA RESIDENT 10/25/24 Insulin Glargine (Lantus Solostar) 100 Unit/Ml Inj, 25 UNIT SC BID for 30 Days, #2 INJ 1 Refill 70-130 - 0 units ____ units 131-180 - 8 units ____ units 181-240 - 12 units ____ units 241-300 - 16 units ____ units 301-350 - 20 units ____ units 351-400 - 24 units ____ units >400 12 units and call 20 units and call 28 units and call MD ____ units and call M Prov:KPOMARSonaTIA RESIDENT 10/25/24 Gabapentin (Gabapentin) 600 Mg Tab, 0.5 TAB PO BID, #60 TAB 1 Refill Prov:ANUP DOSHI MD 08/26/24 Sitagliptin Phosphate (Januvia) 25 Mg Tab, 25 MG PO DAILY for 30 Days, #30 TAB 1 Refill Prov:ANUP DOSHI MD 08/26/24 Glucose Blood (EASY TOUCH GLUCOSE TEST S) Strips Ashley, 1 EA QID for 60 Days, #60 MISC 0 Refills Prov:ANUP DOSHI MD 08/26/24 Lancets (EASY TOUCH LANCETS) 28 G Mis, G XX QID, #100 Prov:ANUP DOSHI MD 08/26/24 Blood Glucose Monitoring Suppl (mm Easy Touch Blood Gluco W/Device) 1 Kit Kit, KIT XX, #1 Prov:ANUP DOSHI MD 08/26/24 Metformin Hydrochloride (Metformin Hcl) 1,000 Mg Tab, 1 TAB PO BID for 30 Days, #60 TAB 1 Refill Prov:ANUP DOSHI MD 08/26/24 Cetirizine Hcl (Zyrtec Allergy) 10 Mg Tab, 10 MG PO BID, #20 TAB Prov:JENNI WOOTEN MD 02/11/23 Reported Medications Insulin Glargine (Lantus Solostar) 100 Unit/Ml Inj, 15 UNIT SC DAILY, INJ 12/01/24 Current Medications Current Medications Medications (Trade) Dose Ordered Sig/Rossy Route PRN Reason Start Time Stop Time Status Last Admin Thiamine HCl 100 mg DAILY PO 12/01/24 10:00 12/01/24 13:41 DC Multivitamins (Mvi Tab) 1 tab DAILY PO 12/01/24 10:00 Hold Pantoprazole Sodium (Protonix Tablet) 40 mg BID@0600,1700 PO 12/01/24 17:00 12/01/24 17:51 Insulin Glargine (Lantus) 10 units HS SC 12/01/24 22:00 12/01/24 21:42 Vital Signs Vital Signs Date Time Temp Pulse Resp B/P (MAP) Pulse Ox O2 Delivery O2 Flow Rate FiO2 12/01/24 17:00 98.0 81 14 142/81 (101) 96 98.0 12/01/24 09:52 Room Air* 0 21 Physical Exam Alert awake oriented x3. HEENT neck supple no JVD. Pupils equal round react to light. Heart regular rate and rhythm S1-S2. Lungs clear without rales wheezes. Abdomen soft nontender positive bowel sounds. Extremities no edema positive pulses; multiple tattoos. Neurologically no focal deficits. Labs/Diagnostic Data Labs Test 12/01/24 21:22 12/01/24 05:15 12/01/24 05:10 11/30/24 13:37 Range/Units POC Glucose 370 H 70-106 mg/dl Hepatitis B Surface Antibody Negative Negative Hepatitis C Antibody Negative Negative White Blood Count 3.8 #L 4.4-10.8 10^3/uL Red Blood Count 3.67 L 4.5-5.90 10^6/uL Hemoglobin 13.2 L 13.5-17.5 g/dL Hematocrit 36.8 #L 41.0-53.0 % Mean Corpuscular Volume 100.4 H 80.0-100.0 fL Mean Corpuscular Hemoglobin 36.1 H 28.0-32.0 pg Mean Corpuscular Hemoglobin Concent 35.9 32.0-36.0 g/dL Red Cell Distribution Width 13.6 11.8-14.3 % Platelet Count 70 L 140-450 10^3/uL Mean Platelet Volume 8.0 6.9-10.8 fL Neutrophils (%) (Auto) 62.5 37.0-80.0 % Lymphocytes (%) (Auto) 23.8 10.0-50.0 % Monocytes (%) (Auto) 9.7 0.0-12.0 % Eosinophils (%) (Auto) 3.2 0.0-7.0 % Basophils (%) (Auto) 0.8 0.0-2.0 % Neutrophils # (Auto) 2.4 1.6-8.6 10 ^3/uL Lymphocytes # (Auto) 0.9 0.4-5.4 10 ^3/uL Monocytes # (Auto) 0.4 0-1.3 10 ^3/uL Eosinophils # (Auto) 0.1 0-0.8 10 ^3/uL Basophils # (Auto) 0 0-0.2 10 ^3/uL Nucleated Red Blood Cells 0.1 % Sodium Level 135 L 136-145 mmol/L Potassium Level 3.8 3.5-5.1 mmol/L Chloride Level 105 98-107 mmol/L Carbon Dioxide Level 21 20-31 mmol/L Anion Gap 9 5-15 Blood Urea Nitrogen 16 9-23 mg/dL Creatinine 0.93 0.700-1.30 mg/dL Glomerular Filtration Rate Calc 103 >90 mL/min BUN/Creatinine Ratio 17.2 10.0-20.0 Serum Glucose 348 H 74-106 mg/dL Calcium Level 8.6 L 8.7-10.4 mg/dL Total Bilirubin 1.4 H 0.2-1.0 mg/dL Aspartate Amino Transferase (AST) 60 H 13-40 U/L Alanine Aminotransferase (ALT) 54 H 7-40 U/L Alkaline Phosphatase 279 H 46-116 U/L Ammonia 97 H 11-32 umol/L Total Protein 6.4 5.7-8.2 g/dL Albumin 3.0 L 3.2-4.8 g/dL Prothrombin Time 10.9 9.3-11.8 sec Prothrombin Time INR 1.03 0.9-1.15 Activated Partial Thromboplast Time 26.0 24.5-34.5 SEC Test 11/30/24 10:56 11/30/24 06:18 11/30/24 05:26 11/30/24 05:24 Range/Units Troponin I High Sensitivity 3 L </=54 ng/L Plasma/Serum Blood Alcohol 23.3 H <10 mg/dL Urine Color Light-yellow Yellow Urine Clarity Clear Clear Urine pH 5.0 5.0-9.0 Urine Specific [place] 1.032 1.001-1.035 Urine Protein 1+ H Negative Urine Ketones Trace Negative Urine Blood Trace H Negative /uL Urine Nitrite Negative Negative Urine Bilirubin Negative Negative Urine Urobilinogen Normal Negative mg/dL Urine Leukocyte Esterase Negative Negative /uL Urine RBC <1 0 - 3 /hpf Urine Microscopic WBC < 1 0-3 /HPF Urine Squamous Epithelial Cells Few <5 /hpf Urine Bacteria None seen None Seen /hpf Urine Mucus Few None Seen Urine Yeast (Budding) Occasional None Seen /hpf Urine Glucose 4+ H Normal mg/dL Urine Opiates Screen Neg NEGATIVE Urine Fentanyl Screen Neg NEGATIVE Urine Barbiturates Screen Neg NEGATIVE Urine Phencyclidine Screen Neg NEGATIVE Urine Amphetamines Screen Neg NEGATIVE Urine Benzodiazepines Screen Neg NEGATIVE Urine Cocaine Screen Pos NEGATIVE Urine Cannabinoids Screen Neg NEGATIVE Magnesium Level 2.1 1.6-2.6 mg/dL B-Type Natriuretic Peptide 32.74 0-100 pg/mL Beta-Hydroxybutyric Acid 0.697 H < 0.4 mmol/L CT Angiography 10/19 IMPRESSION: 1. No evidence of pulmonary embolism. 2. No evidence of focal airspace disease. 3. Gallstone. 4. Bilateral gynecomastia Problems(with codes): (1) Alcohol abuse (2) Generalized weakness (3) Diabetes mellitus with hyperglycemia (4) Noncompliance with medication regimen (5) Syncope and collapse (6) Cirrhosis (7) Alcohol intoxication (8) Alcoholic liver disease (9) Transaminitis (10) Hepatic encephalopathy Plan/Recommendation Assessment and plan Patient likely has underlying chronic liver disease due to ongoing alcohol abuse His hepatitis panel is negative Get a right upper quadrant ultrasound as he has not had any recent imaging for his liver [facility] function[facility] low less than one suggestive of good prognosis Meld score is eight points which is also suggestive of good prognosis Patient has been counseled about discontinuing alcohol Outpatient follow up with GI Services to continue to monitor his liver tests Plan discussed with: Patient, Other SOFIA WALL MD December 01, 2024 22:32
[2024-12-02 01:00] VITALS: BP 115/59; PULSE 79; RESP 17; TEMP 98.6; O2SAT 94
[2024-12-02 06:04] VITALS: BP 113/64; PULSE 75; RESP 18; TEMP 97.7; O2SAT 97
[2024-12-02 06:48] LABS: Basophils # (auto) 0 10 ^3/uL (0-0.2); Basophils % (auto) 0.9 % (0.0-2.0); Eosinophils # (auto) 0.1 10 ^3/uL (0-0.8); Eosinophils % (auto) 3.3 % (0.0-7.0); Hematocrit 38.7 % (41.0-53.0); Hemoglobin 13.6 g/dL (13.5-17.5); Lymphocytes # (auto) 0.9 10 ^3/uL (0.4-5.4); Lymphocytes % (auto) 29.3 % (10.0-50.0); Mean Corpuscular Hemoglobin 35.8 pg (28.0-32.0); Mean Corpuscular Volume 102.3 fL (80.0-100.0); Monocytes # (auto) 0.3 10 ^3/uL (0-1.3); Monocytes % (auto) 10.7 % (0.0-12.0); Neutrophils # (auto) 1.6 10 ^3/uL (1.6-8.6); Neutrophils % (auto) 55.8 % (37.0-80.0); Nucleated Red Blood Cells % 0.2 %; Platelet Count (auto) 75 10^3/uL (140-450); Red Blood Cells 3.78 10^6/uL (4.5-5.90); Red Cell Distribution Width 13.9 % (11.8-14.3); White Blood Cell 2.9 10^3/uL (4.4-10.8)
[2024-12-02 06:56] LABS: Anion Gap 11 (5-15); BUN/Creatinine Ratio 14.1 (10.0-20.0); Blood Urea Nitrogen 12 mg/dL (9-23); Sodium 138 mmol/L (136-145); Total Protein 6.5 g/dL (5.7-8.2)
[2024-12-02 07:02] LABS: Alanine Aminotransferase 44 U/L (7-40); Alkaline Phosphatase 249 U/L (46-116); Aspartate Aminotransferase 50 U/L (13-40); Bilirubin, Total 1.2 mg/dL (0.2-1.0); Calcium 8.2 mg/dL (8.7-10.4); Carbon Dioxide 20 mmol/L (20-31); Chloride 107 mmol/L (98-107); Glucose 330 mg/dL (74-106); Potassium 3.4 mmol/L (3.5-5.1)
[2024-12-02 08:00] VITALS: PULSE 73; PULSE 83; RESP 16; O2SAT 96
--- NOTE | 2024-12-02 08:48 | DVH ---
INDICATION: elevated liver enzymes; etoh abuse TECHNIQUE: Multiple real-time sonographic images were obtained of the right upper quadrant. COMPARISON: ABDL on DOS: 03/31/22 FINDINGS: The liver demonstrates coarsened echotexture without focal mass lesions. The liver measures 16 cm. There is no intrahepatic or extrahepatic ductal dilatation. The common duct measures 7 mm. Gallbladder is contracted which limits evaluation. There is gallbladder wall thickening measuring 4 mm which is nonspecific in the setting of chronic liver disease. The right kidney measures 13 cm. The right kidney is normal in contour, size, and shape. The echogen icity is normal. There is no hydronephrosis. The pancreas is not well visualized due to overlying bowel gas. IMPRESSION: Findings suggestive of hepatic cirrhosis. Contracted gallbladder. There is gallbladder wall thickening measuring 4 mm which is nonspecific in t he setting of chronic liver disease.
[2024-12-02 09:00] VITALS: BP 109/64; PULSE 86; RESP 17; TEMP 97.3; O2SAT 99
[2024-12-02] MEDS: LACTULOSE 20Gm/30ML SOLN PO SCH (10:00)
--- NOTE | 2024-12-02 12:35 | DVHSR ---
APPROVED REPORT EXAM: Two-dimensional and M-mode echocardiogram with Doppler and color Doppler. Blood Pressure: 113/64 mmHg INDICATION Syncope RISK FACTORS Height: 5'7", Weight: 156 DIMENSIONS LVDd4.3 (3.8-5.7cm)LA (2D)4.2 (1.9-4.0cm)Aortic Root3.0 (2.0-3.7cm) LVDs2.9 (2.5-4.0cm)LA (MM) (1.9-4.0cm)Aortic Cusp Exc1.6 (1.5-2.0cm) EF (%) 60.0 (55-70%)Rt. Atrium4.0 (1.9-4.0cm)Asc. Aorta3.0 cm IVSd0.9 (0.7-1.1cm)RV (D)4.2 (1.8-2.4cm) PWd1.1 (0.7-1.1cm) Mitral Valve MitralMitral Stenosis E wave1.06m/sMV Mean GR.mmHg A wave0.76m/sMV Peak GR.mmHg E/A ratio1.42D MVAcm2 DECEL [id number] 1/2 Timems Aortic Valve Aortic ValveAortic Stenosis V11.23m/Jerilyn Mean GR.5mmHg V21.50m/Jerilyn Peak GR.9mmHg LVOT Diameter2.0 (1.8-2.4cm)Doppler AVA2.57cm2 Pulmonic Valve V20.93m/s Conclusion lvef 60% moderate LVH normal rv function aortic sclerosis no severe valve abnormalities noted
[2024-12-02 12:36] VITALS: BP 121/73; PULSE 83; RESP 16; TEMP 98; O2SAT 96
--- NOTE | 2024-12-02 14:35 | DVHINCON2 ---
Date of service: December 02, 2024 History of Present Illness 44 y/o M, BRIGIDA, with PMHx of liver cirrhosis, anemia, CKF, DM, GERD, presents to the ED for CC of generalized weakness. EMS reports, patient is coming from home where he complained of weakness x1day. EMS states, patient had a syncopal episode yesterday (11/29/24) and reports waking up on the floor today (11/30/24); visible facial bruising noted. Patient endorses, drinking alcohol yesterday afternoon (11/29/24). In route to the ED, patient's blood sugar read at 494 on glucometer. Patient denies lacerations, cervical injury, head injury, nausea, vomiting, or headache. No other symptoms or modifying factors present at this time. Past Medical History Anemia, CKF, DM, GERD, Liver Past Surgical History None significant noted Family History: Hypertension Smoke: <1 pack per day ALCOHOL: heavy Lives: Alone Review of Systems Past Medical History reviewed Family History: Diabetes mellitus G8 MOTHER, G8 FATHER, Allergies: Coded Allergies: Penicillins (Verified Allergy, Unknown, 10/20/24) Home Meds Active Scripts Gabapentin (Gabapentin) 300 Mg Cap, 300 MG PO HS, #30 MG Prov:RUTHIE CASTANEDA MD 12/01/24 Insulin Glargine (Lantus Solostar) 100 Unit/Ml Inj, 20 UNIT SC HS, #10 INJ Prov:RUTHIE CASTANEDA MD 12/01/24 Glucose Blood (EASY TOUCH GLUCOSE TEST S) Strips Ashley, 1 EA ACHS for 30 Days, #120 MISC 70-130 - 0 units ____ units 131-180 - 8 units ____ units 181-240 - 12 units ____ units 241-300 - 16 units ____ units 301-350 - 20 units ____ units 351-400 - 24 units ____ units >400 12 units and call 20 units and call 28 units and call ____ units and call M Prov:RUTHIE CASTANEDA MD 12/01/24 Insulin Aspart (Insulin Aspart) 100 Unit/Ml Inj, 100 UNIT SC AC for 30 Days, #1 INJ 0 Refills 70-130 - 0 units ____ units 131-180 - 8 units ____ units 181-240 - 12 units ____ units 241-300 - 16 units ____ units 301-350 - 20 units ____ units 351-400 - 24 units ____ units >400 12 units and call 20 units and call 28 units and call MD ____ units and call M Prov:RUTHIE CASTANEDA MD 12/01/24 Lactulose (Lactulose) 10 Gm/15 Ml Keri, 20 GM PO BID for 30 Days, #473 ML 1 Refill Prov:RUTHIE CASTANEDA MD 12/01/24 Atorvastatin Calcium (ATORVASTATIN CALCIUM) 20 Mg Tab, 20 MG PO HS for 30 Days, #30 TAB Prov:RUTHIE CASTANEDA MD 12/01/24 Famotidine (PEPCID TABLET) 20 Mg Tb, 1 TAB PO BID for 30 Days, #60 TAB 0 Refills Prov:RUTHIE CASTANEDA MD 12/01/24 Spironolactone (Aldactone) 25 Mg Tab, 1 TAB PO DAILY, #30 TAB 2 Refills Prov:RUTHIE CASTANEDA MD 12/01/24 Lancets (Cvs Lancets Thin 26G) Thin 26G Mis, 26G SC ACHS, #120 0 Refills Please check glucose 15 mins before each meal Prov:KPMATEUSZ DYSON RESIDENT 10/25/24 Blood Glucose Monitoring Suppl (EASY TOUCH GLUCOSE MONITO) Monitor Kit, EA XX ACHS, #1 Please check glucose 15 mins before each meal Prov:KPOMARANCELMO RESIDENT 10/25/24 Insulin Glargine (Lantus Solostar) 100 Unit/Ml Inj, 25 UNIT SC BID for 30 Days, #2 INJ 1 Refill 70-130 - 0 units ____ units 131-180 - 8 units ____ units 181-240 - 12 units ____ units 241-300 - 16 units ____ units 301-350 - 20 units ____ units 351-400 - 24 units ____ units >400 12 units and call MD 20 units and call 28 units and call MD ____ units and call M Prov:KPOMARSonaTIA RESIDENT 10/25/24 Gabapentin (Gabapentin) 600 Mg Tab, 0.5 TAB PO BID, #60 TAB 1 Refill Prov:ANUP DOSHI MD 08/26/24 Sitagliptin Phosphate (Januvia) 25 Mg Tab, 25 MG PO DAILY for 30 Days, #30 TAB 1 Refill Prov:ANUP DOSHI MD 08/26/24 Glucose Blood (EASY TOUCH GLUCOSE TEST S) Strips Ashley, 1 EA QID for 60 Days, #60 MISC 0 Refills Prov:ANUP DOSHI MD 08/26/24 Lancets (EASY TOUCH LANCETS) 28 G Mis, G XX QID, #100 Prov:ANUP DOSHI MD 08/26/24 Blood Glucose Monitoring Suppl (mm Easy Touch Blood Gluco W/Device) 1 Kit Kit, KIT XX, #1 Prov:ANUP DOSHI MD 08/26/24 Metformin Hydrochloride (Metformin Hcl) 1,000 Mg Tab, 1 TAB PO BID for 30 Days, #60 TAB 1 Refill Prov:ANUP DOSHI MD 08/26/24 Cetirizine Hcl (Zyrtec Allergy) 10 Mg Tab, 10 MG PO BID, #20 TAB Prov:JENNI WOOTEN MD 02/11/23 Reported Medications Insulin Glargine (Lantus Solostar) 100 Unit/Ml Inj, 15 UNIT SC DAILY, INJ 12/01/24 Current Medications Current Medications Medications (Trade) Dose Ordered Sig/Rossy Route PRN Reason Start Time Stop Time Status Last Admin Pantoprazole Sodium (Protonix Tablet) 40 mg BID@0600,1700 PO 12/01/24 17:00 12/01/24 17:51 Insulin Glargine (Lantus) 10 units HS SC 12/01/24 22:00 12/01/24 21:42 Lactulose 30 ml DAILY PO 12/02/24 10:00 Review of Systems not obtaiend, pt left room Vital Signs Vital Signs Date Time Temp Pulse Resp B/P (MAP) Pulse Ox O2 Delivery O2 Flow Rate FiO2 12/02/24 12:36 98.0 83 16 121/73 (89) 96 98.0 12/02/24 08:00 Room Air* 0 21 Physical Exam not examined, pt left room, RN cant find him Labs/Diagnostic Data Labs Test 12/02/24 11:24 12/02/24 05:22 12/01/24 05:15 12/01/24 05:10 Range/Units POC Glucose 311 H 70-106 mg/dl White Blood Count 2.9 L 4.4-10.8 10^3/uL Red Blood Count 3.78 L 4.5-5.90 10^6/uL Hemoglobin 13.6 13.5-17.5 g/dL Hematocrit 38.7 L 41.0-53.0 % Mean Corpuscular Volume 102.3 H 80.0-100.0 fL Mean Corpuscular Hemoglobin 35.8 H 28.0-32.0 pg Mean Corpuscular Hemoglobin Concent 35.0 32.0-36.0 g/dL Red Cell Distribution Width 13.9 11.8-14.3 % Platelet Count 75 L 140-450 10^3/uL Mean Platelet Volume 8.2 6.9-10.8 fL Neutrophils (%) (Auto) 55.8 37.0-80.0 % Lymphocytes (%) (Auto) 29.3 10.0-50.0 % Monocytes (%) (Auto) 10.7 0.0-12.0 % Eosinophils (%) (Auto) 3.3 0.0-7.0 % Basophils (%) (Auto) 0.9 0.0-2.0 % Neutrophils # (Auto) 1.6 1.6-8.6 10 ^3/uL Lymphocytes # (Auto) 0.9 0.4-5.4 10 ^3/uL Monocytes # (Auto) 0.3 0-1.3 10 ^3/uL Eosinophils # (Auto) 0.1 0-0.8 10 ^3/uL Basophils # (Auto) 0 0-0.2 10 ^3/uL Nucleated Red Blood Cells 0.2 % Sodium Level 138 136-145 mmol/L Potassium Level 3.4 L 3.5-5.1 mmol/L Chloride Level 107 98-107 mmol/L Carbon Dioxide Level 20 20-31 mmol/L Anion Gap 11 5-15 Blood Urea Nitrogen 12 9-23 mg/dL Creatinine 0.85 0.700-1.30 mg/dL Glomerular Filtration Rate Calc 109 >90 mL/min BUN/Creatinine Ratio 14.1 10.0-20.0 Serum Glucose 330 H 74-106 mg/dL Calcium Level 8.2 L 8.7-10.4 mg/dL Total Bilirubin 1.2 H 0.2-1.0 mg/dL Aspartate Amino Transferase (AST) 50 H 13-40 U/L Alanine Aminotransferase (ALT) 44 H 7-40 U/L Alkaline Phosphatase 249 H 46-116 U/L Total Protein 6.5 5.7-8.2 g/dL Albumin 3.0 L 3.2-4.8 g/dL Hepatitis B Surface Antibody Negative Negative Hepatitis C Antibody Negative Negative Ammonia 97 H 11-32 umol/L Test 11/30/24 13:37 11/30/24 10:56 11/30/24 06:18 11/30/24 05:26 Range/Units Prothrombin Time 10.9 9.3-11.8 sec Prothrombin Time INR 1.03 0.9-1.15 Activated Partial Thromboplast Time 26.0 24.5-34.5 SEC Troponin I High Sensitivity 3 L </=54 ng/L Plasma/Serum Blood Alcohol 23.3 H <10 mg/dL Urine Color Light-yellow Yellow Urine Clarity Clear Clear Urine pH 5.0 5.0-9.0 Urine Specific [place] 1.032 1.001-1.035 Urine Protein 1+ H Negative Urine Ketones Trace Negative Urine Blood Trace H Negative /uL Urine Nitrite Negative Negative Urine Bilirubin Negative Negative Urine Urobilinogen Normal Negative mg/dL Urine Leukocyte Esterase Negative Negative /uL Urine RBC <1 0 - 3 /hpf Urine Microscopic WBC < 1 0-3 /HPF Urine Squamous Epithelial Cells Few <5 /hpf Urine Bacteria None seen None Seen /hpf Urine Mucus Few None Seen Urine Yeast (Budding) Occasional None Seen /hpf Urine Glucose 4+ H Normal mg/dL Urine Opiates Screen Neg NEGATIVE Urine Fentanyl Screen Neg NEGATIVE Urine Barbiturates Screen Neg NEGATIVE Urine Phencyclidine Screen Neg NEGATIVE Urine Amphetamines Screen Neg NEGATIVE Urine Benzodiazepines Screen Neg NEGATIVE Urine Cocaine Screen Pos NEGATIVE Urine Cannabinoids Screen Neg NEGATIVE Magnesium Level 2.1 1.6-2.6 mg/dL Test 11/30/24 05:24 Range/Units B-Type Natriuretic Peptide 32.74 0-100 pg/mL Beta-Hydroxybutyric Acid 0.697 H < 0.4 mmol/L Plan/Recommendation pt may have left AMA call me back if pt re appears normal lvef on echo no inpatient cv recs to follow should avoid drugs/ etoh GI workup as indicated Plan discussed with: Patient GABRIELA WHITE MD December 02, 2024 14:35
--- NOTE | 2024-12-02 14:43 | DVHDS2 ---
Discharge Summary Date of Admission November 30, 2024 at 11:53 Date of Discharge: December 02, 2024 Labs/Diagnostic Data: Laboratory Results Test 12/02/24 11:24 12/02/24 05:22 12/01/24 05:15 12/01/24 05:10 POC Glucose 311 mg/dl (70-106) White Blood Count 2.9 10^3/uL (4.4-10.8) Red Blood Count 3.78 10^6/uL (4.5-5.90) Hemoglobin 13.6 g/dL (13.5-17.5) Hematocrit 38.7 % (41.0-53.0) Mean Corpuscular Volume 102.3 fL (80.0-100.0) Mean Corpuscular Hemoglobin 35.8 pg (28.0-32.0) Mean Corpuscular Hemoglobin Concent 35.0 g/dL (32.0-36.0) Red Cell Distribution Width 13.9 % (11.8-14.3) Platelet Count 75 10^3/uL (140-450) Mean Platelet Volume 8.2 fL (6.9-10.8) Neutrophils (%) (Auto) 55.8 % (37.0-80.0) Lymphocytes (%) (Auto) 29.3 % (10.0-50.0) Monocytes (%) (Auto) 10.7 % (0.0-12.0) Eosinophils (%) (Auto) 3.3 % (0.0-7.0) Basophils (%) (Auto) 0.9 % (0.0-2.0) Neutrophils # (Auto) 1.6 10 ^3/uL (1.6-8.6) Lymphocytes # (Auto) 0.9 10 ^3/uL (0.4-5.4) Monocytes # (Auto) 0.3 10 ^3/uL (0-1.3) Eosinophils # (Auto) 0.1 10 ^3/uL (0-0.8) Basophils # (Auto) 0 10 ^3/uL (0-0.2) Nucleated Red Blood Cells 0.2 % Sodium Level 138 mmol/L (136-145) Potassium Level 3.4 mmol/L (3.5-5.1) Chloride Level 107 mmol/L (98-107) Carbon Dioxide Level 20 mmol/L (20-31) Anion Gap 11 (5-15) Blood Urea Nitrogen 12 mg/dL (9-23) Creatinine 0.85 mg/dL (0.700-1.30) Glomerular Filtration Rate Calc 109 mL/min (>90) BUN/Creatinine Ratio 14.1 (10.0-20.0) Serum Glucose 330 mg/dL (74-106) Calcium Level 8.2 mg/dL (8.7-10.4) Total Bilirubin 1.2 mg/dL (0.2-1.0) Aspartate Amino Transferase (AST) 50 U/L (13-40) Alanine Aminotransferase (ALT) 44 U/L (7-40) Alkaline Phosphatase 249 U/L (46-116) Total Protein 6.5 g/dL (5.7-8.2) Albumin 3.0 g/dL (3.2-4.8) Hepatitis B Surface Antibody Negative (Negative) Hepatitis C Antibody Negative (Negative) Ammonia 97 umol/L (11-32) Test 11/30/24 13:37 11/30/24 10:56 11/30/24 06:18 11/30/24 05:26 Prothrombin Time 10.9 sec (9.3-11.8) Prothrombin Time INR 1.03 (0.9-1.15) Activated Partial Thromboplast Time 26.0 SEC (24.5-34.5) Troponin I High Sensitivity 3 ng/L (</=54) Plasma/Serum Blood Alcohol 23.3 mg/dL (<10) Urine Color Light-yellow (Yellow) Urine Clarity Clear (Clear) Urine pH 5.0 (5.0-9.0) Urine Specific [place] 1.032 (1.001-1.035) Urine Protein 1+ (Negative) Urine Ketones Trace (Negative) Urine Blood Trace /uL (Negative) Urine Nitrite Negative (Negative) Urine Bilirubin Negative (Negative) Urine Urobilinogen Normal mg/dL (Negative) Urine Leukocyte Esterase Negative /uL (Negative) Urine RBC <1 /hpf (0 - 3) Urine Microscopic WBC < 1 /HPF (0-3) Urine Squamous Epithelial Cells Few /hpf (<5) Urine Bacteria None seen /hpf (None Seen) Urine Mucus Few (None Seen) Urine Yeast (Budding) Occasional /hpf (None Urine Glucose 4+ mg/dL (Normal) Urine Opiates Screen Neg (NEGATIVE) Urine Fentanyl Screen Neg (NEGATIVE) Urine Barbiturates Screen Neg (NEGATIVE) Urine Phencyclidine Screen Neg (NEGATIVE) Urine Amphetamines Screen Neg (NEGATIVE) Urine Benzodiazepines Screen Neg (NEGATIVE) Urine Cocaine Screen Pos (NEGATIVE) Urine Cannabinoids Screen Neg (NEGATIVE) Magnesium Level 2.1 mg/dL (1.6-2.6) Test 11/30/24 05:24 B-Type Natriuretic Peptide 32.74 pg/mL (0-100) Beta-Hydroxybutyric Acid 0.697 mmol/L (< 0.4) Other Laboratory Tests 12/02/24 05:22 Brief Hx & Hospital Course: 44 y/o M, BIBA, with PMHx of liver cirrhosis, anemia, CKF, DM, GERD, presents to the ED for CC of generalized weakness. EMS reports, patient is coming from home where he complained of weakness x1day. EMS states, patient had a syncopal episode yesterday (11/29/24) and reports waking up on the floor today (11/30/24); visible facial bruising noted. Patient endorses, drinking alcohol yesterday afternoon (11/29/24). In route to the ED, patient's blood sugar read at 494 on glucometer. Patient denies lacerations, cervical injury, head injury, nausea, vomiting, or headache. No other symptoms or modifying factors present at this time. He is admitted to the hospital and once again underwent counseling and education regarding compliance with the his insulin regimen. Patient once again counseled for his alcohol use and social Service were involved and patient counseled and educated regarding abstinence from alcohol. Patient received supportive care and treatment with the IV fluids and insulin. Sugars have improved. Patient is feeling better back to baseline normal status. Therefore it is felt he can be safely discharged home. Patient's insulin has been represcribed. He is advised to take this and have a close follow up with his primary care physician. Otherwise overall given patient is clinically stable not having any other acute issues rate is felt he could be safely discharged home. Patient verbalized understanding of his hospital diagnosis, treatment he received, discharge medications, discharge instructions and agree with the follow up plan of care as outlined. Operations or Procedures EXAM: Two-dimensional and M-mode echocardiogram with Doppler and color Doppler. Blood Pressure: 113/64 mmHg INDICATION Syncope RISK FACTORS Height: 5'7", Weight: 156 DIMENSIONS LVDd 4.3 (3.8-5.7cm) LA (2D) 4.2 (1.9-4.0cm) Aortic Root 3.0 (2.0- 3.7cm) LVDs 2.9 (2.5-4.0cm) LA (MM) (1.9-4.0cm) Aortic Cusp Exc 1.6 (1.5- 2.0cm) EF (%) 60.0 (55-70%) Rt. Atrium 4.0 (1.9-4.0cm) Asc. Aorta 3.0 cm IVSd 0.9 (0.7-1.1cm) RV (D) 4.2 (1.8-2.4cm) PWd 1.1 (0.7-1.1cm) Mitral Valve Mitral Mitral Stenosis E wave 1.06m/s MV Mean GR. mmHg A wave 0.76m/s MV Peak GR. mmHg E/A ratio 1.4 2D MVA cm2 DECEL Time 129ms PRESS 1/2 Time ms Aortic Valve Aortic Valve Aortic Stenosis V1 1.23m/s AO Mean GR. 5mmHg V2 1.50m/s AO Peak GR. 9mmHg LVOT Diameter 2.0 (1.8-2.4cm) Doppler AMIRA 2.57cm2 Pulmonic Valve V2 0.93m/s Conclusion lvef 60% moderate LVH normal rv function aortic sclerosis no severe valve abnormalities noted SIGNED BY: GABRIELA WHITE MD SIGNED DATE/TIME: 12/02/24 1278 Condition at Discharge: Stable Final Diagnosis/Problems List dm2, gerd, etoh use (1) Noncompliance with medication regimen (2) Diabetes mellitus with hyperglycemia (3) Generalized weakness (4) Alcohol abuse (5) Syncope and collapse (6) Cirrhosis Discharge Disposition: Home Discharge Instruct/Medications Diet: Consistent carbohydrate, Cardiac 2g Na,low cholest Activity: No Restrictions, As Tolerated Follow Up/Referral: PCP 2 weeks for alcohol and diabetes managament Medications: as prescribed Changed Medications: Glucose Blood (Easy Touch Glucose Test S) Strips Ashley 1 EA ACHS for 30 Days, #120 MISC (Changed from: 70-130 - 0 units ____ units 131-180 - 8 units ____ units 181-240 - 12 units ____ units 241-300 - 16 units ____ units 301-350 - 20 units ____ units 351-400 - 24 units ____ uni *Truncated due to length*) 70-130 - 0 units ____ units 131-180 - 8 units ____ units 181-240 - 12 units ____ units 241-300 - 16 units ____ units 301-350 - 20 units ____ units 351-400 - 24 units ____ units >400 12 units and call MD 20 units and call MD 28 units and call MD ____ units and call M Insulin Aspart (Insulin Aspart) 100 Unit/Ml Inj 100 UNIT SC AC for 30 Days, #1 INJ 0 Refills (Changed from: 70-130 - 0 units ____ units 131-180 - 8 units ____ units 181-240 - 12 units ____ units 241-300 - 16 units ____ units 301-350 - 20 units ____ units 351-400 - 24 units ____ uni *Truncated due to length*) 70-130 - 0 units ____ units 131-180 - 8 units ____ units 181-240 - 12 units ____ units 241-300 - 16 units ____ units 301-350 - 20 units ____ units 351-400 - 24 units ____ units >400 12 units and call MD 20 units and call MD 28 units and call MD ____ units and call M Continued Medications: Atorvastatin Calcium (Atorvastatin Calcium) 20 Mg Tab 20 MG PO HS for 30 Days, #30 TAB (This prescription has been renewed) Famotidine (Pepcid Tablet) 20 Mg Tb 1 TAB PO BID for 30 Days, #60 TAB 0 Refills (This prescription has been renewed) Gabapentin (Gabapentin) 300 Mg Cap 300 MG PO HS, #30 MG (This prescription has been renewed) Insulin Glargine (Lantus Solostar) 100 Unit/Ml Inj 20 UNIT SC HS, #10 INJ (This prescription has been renewed) Lactulose (Lactulose) 10 Gm/15 Ml Keri 20 GM PO BID for 30 Days, #473 ML 1 Refill (This prescription has been renewed) Spironolactone (Aldactone) 25 Mg Tab 1 TAB PO DAILY, #30 TAB 2 Refills (This prescription has been renewed) Discontinued Medications: Cetirizine Hcl (Zyrtec Allergy) 10 Mg Tab 10 MG PO BID, #20 TAB Gabapentin (Gabapentin) 600 Mg Tab 0.5 TAB PO BID, #60 TAB 1 Refill Glucose Blood (Easy Touch Glucose Test S) Strips Ashley 1 EA QID for 60 Days, #60 MISC 0 Refills Insulin Glargine (Lantus Solostar) 100 Unit/Ml Inj 25 UNIT SC BID for 30 Days, #2 INJ 1 Refill 70-130 - 0 units ____ units 131-180 - 8 units ____ units 181-240 - 12 units ____ units 241-300 - 16 units ____ units 301-350 - 20 units ____ units 351-400 - 24 units ____ units >400 12 units and call MD 20 units and call MD 28 units and call MD ____ units and call M Insulin Glargine (Lantus Solostar) 100 Unit/Ml Inj 15 UNIT SC DAILY, INJ Metformin Hydrochloride (Metformin Hcl) 1,000 Mg Tab 1 TAB PO BID for 30 Days, #60 TAB 1 Refill Sitagliptin Phosphate (Januvia) 25 Mg Tab 25 MG PO DAILY for 30 Days, #30 TAB 1 Refill Discharge Statement: "Patient was advised to return to the ER or call 911 if any headaches, dizziness, shortness of breath, chest pain, abdominal pain, bleeding, fevers, or worsening of medical condition. Patient was counseled about treatment plan, medications, possible side effects, patientverbalized understanding. All questions were answered to the best of my ability. This discharge took greater then 30 minutes in planning, reviewing documentation, counseling the patient, and discussing with other team members." ASSESSMENT ASSESSMENT Assessment dm2, gerd, etoh use RUTHIE CASTANEDA MD December 02, 2024 14:43
[2024-12-02 15:25] VITALS: BP 121/73; PULSE 83; RESP 16; TEMP 98; O2SAT 96
== END 2024-12-02 16:15 | disposition home or self-care (01) | DRG 420 ==
LOC: ER 04:12 → EDBD 04:12 → OVERFLOW 11:53 → TELE-CENTR 12-01 16:16
PROVIDERS: ADMIT Hospitalist; ATTEND Hospitalist
DX: E11.65 Type 2 diabetes mellitus with hyperglycemia (principal); E72.20 Disorder of urea cycle metabolism, unspecified; K74.60 Unspecified cirrhosis of liver; K80.20 Calculus of gallbladder without cholecystitis without obstruction; F10.10 Alcohol abuse, uncomplicated; K21.9 Gastro-esophageal reflux disease without esophagitis; Z83.3 Family history of diabetes mellitus; Z82.49 Family history of ischemic heart disease and other diseases of the circulatory system; Z88.0 Allergy status to penicillin; D64.9 Anemia, unspecified
CPT/HCPCS: 36415; 70450; 71045; 76705; 80048; 80053; 80307; 80320; 81001; 82010; 82140; 82962; 83735; 83880; 84484; 85025; 85610; 85730; 86706; 86803; 93005; 93306; 96361; 96374; G0378; J1815

== ENCOUNTER 2025-04-29 01:50 | Inpatient (IN) | payer MEDICAID, OTHER ==
[~2025-04-29] VITALS: Ht 172.7 cm; Wt 82.0 kg
[~2025-04-29 01:50] MED LIST changes: -CETI-176 PO; +GABA-1250 PO; -GABA-339 PO; -METF-372 PO; -SITA25TA3 PO
--- NOTE | 2025-04-29 02:03 | ED.PDOC ---
GI ASSESSMENT HPI Comments 44-year-old male with probably alcoholic cirrhosis, hypertension, polysubstance use, diabetes mellitus type 2, VRE right foot 2021, multiple admissions for hyperglycemia, alcoholism was BIBA as he was found inside a store confused, per EMS patient was walking with a cane when they got there, he was vitally stable, patient became drowsy during the transportation, reported right quadrant abdominal pain for past 1 day and reports that he has been throwing up, reports drinking beers. Patient is lethargic appearing, GCS 13/15. Reports chills but denies fever. Patient seen and examined, right upper quadrant is tender palpation but abdomen is soft, normoactive. Past medical history: Hypertension, diabetes, alcoholic liver cirrhosis, polyneuropathy, polysubstance abuse, multiple admissions due to DKA due to noncompliance with insulin Past surgical history: Right lower extremity heel ulcer debridement Family history: Noncontributory Social history: UDS has been positive for cocaine previously, acknowledges drinking beers Allergies: Denies Home medications: Furosemide, spironolactone, gabapentin, lactulose, insulin Chief Complaint: Abdominal Pain Time Seen by MD: 02:00 Reviewed Notes: Nurses Notes Allergies: Coded Allergies: NO KNOWN ALLERGIES (Unverified , 04/29/25) Information Source: Patient Mode of Arrival: EMS Past Medical History PAST MEDICAL HISTORY: HTN, Liver Constitutional: denies: chills, diaphoresis, fatigue, fever, malaise, sweats, weakness, others EENTM: denies: blurred vision, double vision, ear bleeding, ear discharge, ear drainage, ear pain, ear ringing, eye pain, eye redness, hearing loss, mouth p ain, mouth swelling, nasal discharge, nose bleeding, nose congestion, nose pain, photophobia, tearing, throat pain, throat swelling, voice changes, others Respiratory: denies: cough, hemoptysis, orthopnea, SOB at rest, shortness of br eath, SOB with excertion, stridor, wheezing, others Cardiovascular: denies: chest pain, dizzy spells, diaphoresis, Dyspnea on exertion, edema, irregular heart beat, left arm pain, lightheadedness, palpitations, PND, syncope, others Gastrointestinal: reports: abdominal pain, nausea, vomiting Genitourinary: denies: burning, dysuria, flank pain, frequency, hematuria, incontinence, penile discharge, penile sore, pain, testicle pain, testicle swelling, urgency, others Neurological: denies: dizziness, fainting, headache, left sided numbness, left sided weakness, numbness, paresthesia, pre-existing deficit, right sided numbness, right sided weakness, seizure, speech problems, tingling, tremors, weakness, others Musculoskeletal: denies: back pain, gout, joint pain, joint swelling, muscle pain, muscle stiffness, neck pain, others Integumetry: denies: bruises, change in color, change in hair/nails, dryness, laceration, lesions, lumps, rash, wounds, others Allergic/Immunocompromised: denies: Difficulty Healing, Frequent Infections, Hives, Itching, others Hematologic/Lymphatic: denies: anemia, blood clots, easy bleeding, easy bruising, swollen glands, others Endocrine: denies: excessive hunger, excessive sweating, excessive thirst, excessive urination, flushing, intolerance to cold, intolerance to heat, unexplained weight gain, unexplained weight loss, others Psychiatric: denies: anxiety, bipolar disorder, depression, hopeless, panic disorder, schizophrenia, sleepless, suicidal, others Physical Exam General Appearance: No Apparent Distress, Normal HEENT: Normal ENT Inspection, Pharynx Normal, TMs Normal Neck: Full Range of Motion, Non-Tender, Normal, Normal Inspection Respiratory: Chest Non-Tender, Lungs Clear, No Accessory Muscle Use, No Respiratory Distress, Normal Breath Sounds Cardiovascular: No Edema, No JVD, No Murmur, No Gallop, Normal Peripheral Pulses, Tachycardia Breast Exam: Deferred Gastrointestinal: No Organomegaly, No Pulsatile Mass, Normal Bowel Sounds, RUQ, Soft, Tenderness Genitalia: Deferred Pelvic: Deferred Rectal: Deferred Extremities: No calf tenderness, Normal capillary refill, Normal inspection, Normal range of motion, Non-tender, No pedal edema Musculoskeletal : Apperance: Normal Neurologic: Alert, 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 Was a procedure done?: No GI differential Dx Differential Diagnosis: Gastritis/PUD, Gastroenteritis, Pancreatitis, Hypovolemia X-Ray, Labs, Meds, VS Vital Signs Date Time Temp Pulse Resp B/P (MAP) Pulse Ox O2 Delivery O2 Flow Rate FiO2 04/29/25 01:50 97.6 102 16 132/84 95 97.6 Lab Test 04/29/25 02:16 04/29/25 02:13 Range/Units White Blood Count 3.7 L 4.4-10.8 10^3/uL Red Blood Count 4.32 L 4.5-5.90 10^6/uL Hemoglobin 15.8 13.5-17.5 g/dL Hematocrit 44.5 41.0-53.0 % Mean Corpuscular Volume 102.9 H 80.0-100.0 fL Mean Corpuscular Hemoglobin 36.5 H 28.0-32.0 pg Mean Corpuscular Hemoglobin Concent 35.5 32.0-36.0 g/dL Red Cell Distribution Width 13.0 11.8-14.3 % Platelet Count 113 L 140-450 10^3/uL Mean Platelet Volume 7.9 6.9-10.8 fL Neutrophils (%) (Auto) 47.5 37.0-80.0 % Lymphocytes (%) (Auto) 37.3 10.0-50.0 % Monocytes (%) (Auto) 11.0 0.0-12.0 % Eosinophils (%) (Auto) 2.2 0.0-7.0 % Basophils (%) (Auto) 2.0 0.0-2.0 % Neutrophils # (Auto) 1.8 1.6-8.6 10 ^3/uL Lymphocytes # (Auto) 1.4 0.4-5.4 10 ^3/uL Monocytes # (Auto) 0.4 0-1.3 10 ^3/uL Eosinophils # (Auto) 0.1 0-0.8 10 ^3/uL Basophils # (Auto) 0.1 0-0.2 10 ^3/uL Nucleated Red Blood Cells 0.2 % Sodium Level 137 136-145 mmol/L Potassium Level 3.8 3.5-5.1 mmol/L Chloride Level 103 98-107 mmol/L Carbon Dioxide Level 18 L 20-31 mmol/L Anion Gap 16 H 5-15 Blood Urea Nitrogen 9 9-23 mg/dL Creatinine 0.89 0.700-1.30 mg/dL Glomerular Filtration Rate Calc 108 >90 mL/min BUN/Creatinine Ratio 10.1 10.0-20.0 Serum Glucose 280 H 74-106 mg/dL Lactic Acid Level 4.3 *H 0.4-2.0 mmol/L Calcium Level 9.3 8.7-10.4 mg/dL Total Bilirubin 1.3 H 0.2-1.0 mg/dL Aspartate Amino Transferase (AST) 72 H 13-40 U/L Alanine Aminotransferase (ALT) 51 H 7-40 U/L Alkaline Phosphatase 192 H 46-116 U/L Total Protein 8.2 5.7-8.2 g/dL Albumin 3.8 3.2-4.8 g/dL Lipase 152 H 12-53 U/L Beta-Hydroxybutyric Acid Pending Plasma/Serum Blood Alcohol 284.4 H <10 mg/dL Blood Gas Specimen Type Arterial Blood Gas Sample Site Right radial Blood Gas Patient Temperature 37.0 Arterial Blood Date Drawn [id number] Arterial Blood pH 7.331 L 7.350-7.450 Arterial Blood Partial Pressure CO2 32.6 L 35.0-48.0 mmHg Arterial Blood Partial Pressure O2 78.7 L 83.0-108.0 mmHg Arterial Blood HCO3 16.8 L 21.0-28.0 mmol/L Arterial Blood Oxygen Saturation 92.9 L 94.0-98.0 % Arterial Blood Base Excess -7.8 L -2.0-3.0 mmol/L Arterial Blood Oxyhemoglobin 91.4 L 94.0-98.0 % Arterial Blood Carboxyhemoglobin 1.1 0.5-1.5 % Arterial Blood Methemoglobin 0.5 0.0-1.5 % Abimael Test Yes Blood Gas Total Hemoglobin 16.20 13.5-17.5 g/dL Blood Gas Liter Flow 2.00 Blood Gas Modality Nasal cannula FiO2 % 28.0 X-Ray, Labs, Meds, VS Comment Lipase 150, lactic acid 4, plasma alcohol 284, anion gap metabolic acidosis likely in the setting of alcohol intoxication CT abdomen and pelvis pending Images Reviewed?: Images reviewed and evaluated by me Time of 1ST Reevaluation: 03:00 Reevaluation 1ST: Unchanged Time of 2ND Reevaluation: 04:00 Reevaluation 2ND: Unchanged Consultation: PCP Patient Education/Counseling: Diagnosis, Treatment, Prognosis, Need For Follow Up Family Education/Counseling: No Family Present SEPSIS Sepsis Screen Physician Orders Drug Screen (04/29/25 02:02) Ct Ab Pel Wo Con-No Oral Or Iv (04/29/25 02:02) Abg W/ Co-Ox (04/29/25 02:02) Chest Xray 1 View (04/29/25 02:04) Beta-Hydroxybutyrate (04/29/25 02:17) Glucose Blood (Accu-Chek Comfort Curve T (04/29/25 04:00) Insulin R (Human) (Insulin R) (04/29/25 04:00) Dextrose 50% Syringe (04/29/25 04:00) Npo (Nothing By Mouth) Diet (04/29/25 Breakfast) Folic Acid Ivpb (04/29/25 06:00) Vital Signs Date Time Temp Pulse Resp B/P (MAP) Pulse Ox O2 Delivery O2 Flow Rate FiO2 04/29/25 01:50 97.6 102 16 132/84 95 97.6 Laboratory Tests Test 04/29/25 02:16 Lactic Acid Level 4.3 mmol/L (0.4-2.0) *H White Blood Count 3.7 10^3/uL (4.4-10.8) L Departure 1 Departure Time of Disposition: 04:00 Impression: Primary Impression: Acute pancreatitis Additional Impressions: Alcohol intoxication Lactic acidosis Disposition: 30 STILL A PATIENT Condition: Fair Comments Patient will be admitted to this facility for further management of alcohol intoxication and pancreatitis in the setting alcoholic intoxication, also has uncontrolled hyperglycemia. CT abdomen and pelvis pending at this time. 2 L IV NS bolus administered IV thiamine and IV folic acid supplemented Critical Care Note Critical Care Time?: No Stability Stability form required: GAUDENCIO Trammell RESIDENT Apr 29, 2025 02:03
[2025-04-29 02:20] LABS: Base Excess -7.8 mmol/L (-2.0-3.0)
[2025-04-29 02:34] LABS: Hematocrit 44.5 % (41.0-53.0); Hemoglobin 15.8 g/dL (13.5-17.5); Mean Corpuscular Hemoglobin 36.5 pg (28.0-32.0); Mean Corpuscular Volume 102.9 fL (80.0-100.0); Nucleated Red Blood Cells % 0.2 %
[2025-04-29 02:51] LABS: Alanine Aminotransferase 51 U/L (7-40); Albumin 3.8 g/dL (3.2-4.8); Alkaline Phosphatase 192 U/L (46-116); Anion Gap 16 (5-15); BUN/Creatinine Ratio 10.1 (10.0-20.0); Bilirubin, Total 1.3 mg/dL (0.2-1.0); Blood Urea Nitrogen 9 mg/dL (9-23); Calcium 9.3 mg/dL (8.7-10.4); Carbon Dioxide 18 mmol/L (20-31); Chloride 103 mmol/L (98-107); Glucose 280 mg/dL (74-106); Potassium 3.8 mmol/L (3.5-5.1); Sodium 137 mmol/L (136-145); Total Protein 8.2 g/dL (5.7-8.2)
[2025-04-29 02:53] LABS: Lactic Acid w/Reflex 4.3 mmol/L (0.4-2.0)
[2025-04-29] MEDS ORDERED: DEXTROSE (50%) 50ML SYRG IV PRN ×2 (04:00→06:30)
[2025-04-29] MEDS: THIAMINE 100mg/ml INJ (200mg/2ml VIAL) IM ONE (04:25)
[2025-04-29] MEDS: SODIUM CHLORIDE 0.9% 1,000 ML IV ONE ×2 (04:27→05:31)
[2025-04-29] MEDS: ACCU-CHEK COMFORT CURVE STRIP VI SCH ×2 (04:27→09:12)
--- NOTE | 2025-04-29 04:30 | DVH ---
CHEST RADIOGRAPH Indication: aspiration Technique: Single frontal view of the chest was obtained COMPARISON: XY CHEST XRAY 1 VIEW on DOS: 04/15/25, XY CHEST PORTABLE on DOS: 04/10/25, XY CHEST XRAY 1 VIEW on DOS: 03/01/25, XR CHEST 1 VIEW on DOS: 01/03/25, XY CHEST PORTABLE on DOS: 11/30/24 FINDINGS: Lines and Tubes: None Lungs: Clear Pleura: No effusion. No pneumothorax. Cardiomediastinal contours: Unremarkable Bones: Unremarkable IMPRESSION: 1. No acute disease.
--- NOTE | 2025-04-29 04:31 | DVH ---
Exam: CT CT AB PEL WO CON-NO ORAL OR IV History: RUQ pain, vomiting Comparison Study: Report from a prior CT CT AB PEL WO CON-NO ORAL OR IV on DOS: 04/16/25. Images are n ot available for comparison. Technique: Multidetector spiral CT of the abdomen and pelvis was performed from lung bases to pubic s ymphysis. Imaging was performed without intravenous contrast. Coronal and sagittal multiplanar reform ats were obtained from the axial data set by the technologist. Radiation Dose : 1. Abdomen/Pelvis: CTDIvol 6.52 mGy, DLP 3.92 mGy*cm. Findings: Evaluation of vasculature and solid organs is limited due to lack of intravenous contrast use. Lung Bases: Lung bases are clear. Visualized portions of the heart and pericardium are unremarkable. Liver: The liver is nodular in contour. Limited evaluation for hepatic lesions without intravenous co ntrast. Recanalized periumbilical vein. Gallbladder and Biliary Tree: There is a stone in the neck of the gallbladder. No intrahepatic or ext rahepatic biliary ductal dilatation. Spleen: The spleen is not enlarged. Perisplenic varices. Pancreas: The pancreas is grossly unremarkable. Adrenal Glands: Unremarkable Kidneys: Kidneys are unremarkable without calculi or hydronephrosis. GI tract: The stomach is grossly normal in appearance. No evidence of small bowel wall thickening or abnormal dilatation to suggest bowel obstruction. There scattered stool throughout the colon. The johnathon endix is visualized and is normal. Peritoneum/mesentery/retroperitoneum. No evidence of free intraperitoneal air. No ascites. No evidenc e of suspicious lymphadenopathy. Abdominal Wall: Unremarkable. Vasculature: The visualized abdominal aorta is normal in size and caliber. Evaluation of abdominal a nd pelvic vessels is limited due to lack of intravenous contrast. Urinary Bladder: Grossly unremarkable for degree of distention. Pelvic Organs: Enlarged prostate. Musculoskeletal: No aggressive focal bony lesions, acute fractures or dislocation. Intervertebral dis c degeneration is present at L5-S1. IMPRESSION: 1. No evidence of acute process in the abdomen or pelvis. 2. Cholelithiasis. 3. Cirrhosis with sequela of portal hypertension. 4. Enlarged prostate.
[2025-04-29] MEDS: InsuLIN REG 1unit/0.01ml Soln (100units/ml) SC SCH ×2 (04:39→09:12)
[2025-04-29] MEDS ORDERED: DOCUSATE SOD 100 MG CAP PO PRN (06:30)
[2025-04-29] MEDS ORDERED: HYDROcodone-ACET 5/325MG TAB PO PRN (06:30)
[2025-04-29] MEDS ORDERED: ONDANSETRON HCL 4 MG/2 ML VIAL IV PRN (06:30)
--- NOTE | 2025-04-29 06:58 | DVHHP2 ---
History of Present Illness Reason for Visit: Acute pancreatitis History of Present Illness The patient is a 44-year-old male with past medical history of polysubstance use, DM, hypertension, and liver disease who presented to [facility] ED for evaluation of altered mental status. As reported by EMS, patient was work ing with a cane when he became drowsy, experiencing right upper quadrant abdominal pain, nausea, and vomiting. Patient was seen and evaluated in the ED, laboratory data shows WBC 3.7, platelets 113, sodium 137, potassium 3.8, BUN 9, creatinine 0.89, glucose 280, anion gap 16, acetone 0.451, calcium 9.3, total bilirubin 1.3, AST 72, ALT 57, lipase 152, alcohol level 284.4, blood pressure 135/80, heart rate 100, temperature 97.8 F, O2 saturation 96% on room air. Abdomen/pelvis CT revealing cholelithiasis, cirrhosis with sequela of portal hypertension, enlarged prostate, no evidence of acute process in the abdomen or pelvis. Please see medication orders section in the computer. On my assessment, patient denied chest pain, no headache, no dizziness, no diaphoresis, no shortness of breaths, no diarrhea, no nausea or vomiting at this moment, no fever, no chills. Patient was admitted for further evaluation and medical management. 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 Past Social History The patient lives at home, denies smoking, alcohol or illicit drugs abuse. Review of Systems Constitutional: Yes: Weakness; No: Fever, Chills, Sweats, Malaise, Other Eyes: No: Pain, Vision change, Conjunctivae inflammation, Eyelid inflammation, Other, Redness ENT: No: Ear pain, Ear discharge, Nose pain, Nose discharge, Nose congestion, Mouth pain, Mouth swelling, Throat pain, Throat swelling, Other Respiratory: No: Cough, Dry, Shortness of breath, SOB with excertion, Wheezing, Hemoptysis, Pleuritic Pain, Sputum, Wheezing, Other Cardiovascular: No: Chest Pain, Palpitations, Orthopnea, Paroxysmal Noc. Dyspnea, Edema, Lt Headedness, Other Gastrointestinal: Nausea, Vomiting, Abdominal Pain; No: Diarrhea, Constipation, Melena, Hematochezia, Other Genitourinary: No Dysuria, No Frequency, No Incontinence, No Hematuria, No Retention, No Other Musculoskeletal: No: other, neck pain, shoulder pain, arm pain, back pain, hand pain, leg pain, foot pain Skin: No: Rash, Lesions, Jaundice, Bruising, Other Neurological: No: Weakness, Numbness, Incoordination, Change in speech, Confusion, Seizures, Other Allergies: Coded Allergies: NO KNOWN ALLERGIES (Unverified , 04/29/25) Medications Current Medications Medications Dose Ordered Sig/Rossy Route Start Time Stop Time Status Last Admin Dose Admin Diagnostic Test (Pha) 1 strip IQ4HR 04/29/25 04:00 04/29/25 04:27 1 STRIP Insulin Human Regular IQ4HR SC 04/29/25 04:00 04/29/25 04:39 12 UNITS Dextrose 50 ml UD PRN IV 04/29/25 04:00 Folic Acid 1 mg/ Dextrose 50.2 ml @ 200.8 mls/ hr DAILY INJ 04/29/25 10:00 UNV Thiamine HCl 100 mg DAILY IV 04/29/25 10:00 UNV Diagnostic Test (Pha) 1 strip IQ4HR 04/29/25 08:00 UNV Insulin Human Regular IQ4HR SC 04/29/25 08:00 UNV Dextrose 50 ml UD PRN IV 04/29/25 06:30 UNV Sodium Chloride 1,000 ml @ 120 mls/hr Q8H20M IV 04/29/25 06:30 UNV Acetaminophen/ Hydrocodone Bitart 1 tab Q4HP PRN PO 04/29/25 06:30 UNV Ondansetron HCl 4 mg Q4HP PRN IV 04/29/25 06:30 UNV Docusate Sodium 100 mg BIDPRN PRN PO 04/29/25 06:30 UNV Acetaminophen 650 mg Q6HP PRN PO 04/29/25 06:30 UNV Multivitamins 1 tab DAILY PO 04/29/25 10:00 UNV Exam Vital Signs Vital Signs Date Time Temp Pulse Resp B/P (MAP) Pulse Ox O2 Delivery O2 Flow Rate FiO2 04/29/25 06:11 97.8 100 12 135/80 (98) 96 97.8 General Appearance: Alert, Oriented X3, Cooperative, No acute distress HEENT: Atraumatic, PERRLA, EOMI, Mucous membr. moist/pink Respiratory: Normal air movement Cardiovascular: Regular rate, Normal S1, Normal S2, No murmurs Abdominal: Normal bowel sounds, Soft, No tenderness, No hepatospenomegaly, No masses Extremities: No clubbing, No cyanosis, No edema, Normal pulses, No tenderness/swelling Skin: No rashes, No breakdown, No significant lesion Neuro: Normal speech, Normal tone, Sensation intact, Cranial nerves 3-12 NL, Reflexes 2+, Other (Generalized weakness) Psych/Mental Status: Mental status NL, Mood NL Labs/Xrays Labs Test 04/29/25 04:32 04/29/25 04:17 04/29/25 02:16 04/29/25 02:13 Range/Units POC Glucose 308 H 70-106 mg/dl Lactic Acid Level 4.3 *H 0.4-2.0 mmol/L White Blood Count 3.7 L 4.4-10.8 10^3/uL Red Blood Count 4.32 L 4.5-5.90 10^6/uL Hemoglobin 15.8 13.5-17.5 g/dL Hematocrit 44.5 41.0-53.0 % Mean Corpuscular Volume 102.9 H 80.0-100.0 fL Mean Corpuscular Hemoglobin 36.5 H 28.0-32.0 pg Mean Corpuscular Hemoglobin Concent 35.5 32.0-36.0 g/dL Red Cell Distribution Width 13.0 11.8-14.3 % Platelet Count 113 L 140-450 10^3/uL Mean Platelet Volume 7.9 6.9-10.8 fL Neutrophils (%) (Auto) 47.5 37.0-80.0 % Lymphocytes (%) (Auto) 37.3 10.0-50.0 % Monocytes (%) (Auto) 11.0 0.0-12.0 % Eosinophils (%) (Auto) 2.2 0.0-7.0 % Basophils (%) (Auto) 2.0 0.0-2.0 % Neutrophils # (Auto) 1.8 1.6-8.6 10 ^3/uL Lymphocytes # (Auto) 1.4 0.4-5.4 10 ^3/uL Monocytes # (Auto) 0.4 0-1.3 10 ^3/uL Eosinophils # (Auto) 0.1 0-0.8 10 ^3/uL Basophils # (Auto) 0.1 0-0.2 10 ^3/uL Nucleated Red Blood Cells 0.2 % Sodium Level 137 136-145 mmol/L Potassium Level 3.8 3.5-5.1 mmol/L Chloride Level 103 98-107 mmol/L Carbon Dioxide Level 18 L 20-31 mmol/L Anion Gap 16 H 5-15 Blood Urea Nitrogen 9 9-23 mg/dL Creatinine 0.89 0.700-1.30 mg/dL Glomerular Filtration Rate Calc 108 >90 mL/min BUN/Creatinine Ratio 10.1 10.0-20.0 Serum Glucose 280 H 74-106 mg/dL Calcium Level 9.3 8.7-10.4 mg/dL Total Bilirubin 1.3 H 0.2-1.0 mg/dL Aspartate Amino Transferase (AST) 72 H 13-40 U/L Alanine Aminotransferase (ALT) 51 H 7-40 U/L Alkaline Phosphatase 192 H 46-116 U/L Total Protein 8.2 5.7-8.2 g/dL Albumin 3.8 3.2-4.8 g/dL Lipase 152 H 12-53 U/L Beta-Hydroxybutyric Acid 0.451 H < 0.4 mmol/L Plasma/Serum Blood Alcohol 284.4 H <10 mg/dL Blood Gas Specimen Type Arterial Blood Gas Sample Site Right radial Blood Gas Patient Temperature 37.0 Arterial Blood Date Drawn [id number] Arterial Blood pH 7.331 L 7.350-7.450 Arterial Blood Partial Pressure CO2 32.6 L 35.0-48.0 mmHg Arterial Blood Partial Pressure O2 78.7 L 83.0-108.0 mmHg Arterial Blood HCO3 16.8 L 21.0-28.0 mmol/L Arterial Blood Oxygen Saturation 92.9 L 94.0-98.0 % Arterial Blood Base Excess -7.8 L -2.0-3.0 mmol/L Arterial Blood Oxyhemoglobin 91.4 L 94.0-98.0 % Arterial Blood Carboxyhemoglobin 1.1 0.5-1.5 % Arterial Blood Methemoglobin 0.5 0.0-1.5 % Abimael Test Yes Blood Gas Total Hemoglobin 16.20 13.5-17.5 g/dL Blood Gas Liter Flow 2.00 Blood Gas Modality Nasal cannula FiO2 % 28.0 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 Images are not available for comparison. Technique: Multidetector spiral CT of the abdomen and pelvis was performed from lung bases to pubic symphysis. Imaging was performed without intravenous contrast. Coronal and sagittal multiplanar reformats were obtained from the axial data set by the technologist. Radiation Dose: 1. Abdomen/Pelvis: CTDIvol 6.52 mGy, DLP 3.92 mGy*cm. Findings: Evaluation of vasculature and solid organs is limited due to lack of intravenous contrast use. Lung Bases: Lung bases are clear. Visualized portions of the heart and pericardium are unremarkable. Liver: The liver is nodular in contour. Limited evaluation for hepatic lesions without intravenous contrast. Recanalized periumbilical vein. Gallbladder and Biliary Tree: There is a stone in the neck of the gallbladder. No intrahepatic or extrahepatic biliary ductal dilatation. Spleen: The spleen is not enlarged. Perisplenic varices. Pancreas: The pancreas is grossly unremarkable. Adrenal Glands: Unremarkable Kidneys: Kidneys are unremarkable without calculi or hydronephrosis. GI tract: The stomach is grossly normal in appearance. No evidence of small bowel wall thickening or abnormal dilatation to suggest bowel obstruction. There scattered stool throughout the colon. The appendix is visualized and is normal. Peritoneum/mesentery/retroperitoneum. No evidence of free intraperitoneal air. No ascites. No evidence of suspicious lymphadenopathy. Abdominal Wall: Unremarkable. Vasculature: The visualized abdominal aorta is normal in size and caliber. Evaluation of abdominal and pelvic vessels is limited due to lack of intravenous contrast. Urinary Bladder: Grossly unremarkable for degree of distention. Pelvic Organs: Enlarged prostate. Musculoskeletal: No aggressive focal bony lesions, acute fractures or dislocation. Intervertebral disc degeneration is present at L5-S1. IMPRESSION: 1. No evidence of acute process in the abdomen or pelvis. 2. Cholelithiasis. 3. Cirrhosis with sequela of portal hypertension. 4. Enlarged prostate. ORDERING PHYSICIAN: GAUDENCIO ARGUELLES RESIDENT PROCEDURE(s): CXR1 - CHEST XRAY 1 VIEW REASON: aspiration? ORDER NUMBER(s): [id number], ACCESSION NUMBER(s): [id number] CHEST RADIOGRAPH Indication: aspiration Technique: Single frontal view of the chest was obtained COMPARISON: XY CHEST XRAY 1 VIEW on DOS: 04/15/25, XY CHEST PORTABLE on DOS: 04/10/25, XY CHEST XRAY 1 VIEW on DOS: 03/01/25, XR CHEST 1 VIEW on DOS: 01/03/25, XY CHEST PORTABLE on DOS: 11/30/24 FINDINGS: Lines and Tubes: None Lungs: Clear Pleura: No effusion. No pneumothorax. Cardiomediastinal contours: Unremarkable Bones: Unremarkable IMPRESSION: 1. No acute disease. SEPSIS Sepsis Screen Date sepsis recognized/suspect: Apr 29, 2025 Time Sepsis recognized/suspect: 0150 Recent Procedure: No On Antibiotic Therapy: No Respiratory Rate >20: No Heart Rate >90: No Temp<36 C (96.8 F) or >38.3 C: No SBP <90 or MAP <65 mmHG: No New Acute Mental Status Change: No Is the patient on CPAP, BIPAP,: No Physician Orders Drug Screen (04/29/25 02:02) Ct Ab Pel Wo Con-No Oral Or Iv (04/29/25 02:02) Abg W/ Co-Ox (04/29/25 02:02) Chest Xray 1 View (04/29/25 02:04) Glucose Blood (Accu-Chek Comfort Curve T (04/29/25 04:00) Insulin R (Human) (Insulin R) (04/29/25 04:00) Dextrose 50% Syringe (04/29/25 04:00) Complete Blood Count (04/29/25 06:27) Comprehensive Metabolic Panel (04/29/25 06:27) Folic Acid (04/29/25 10:00) Thiamine Inj (04/29/25 10:00) Glucose Blood (Accu-Chek Comfort Curve T (04/29/25 08:00) Insulin R (Human) (Insulin R) (04/29/25 08:00) Dextrose 50% Syringe (04/29/25 06:30) Allergies (04/29/25 06:27) Code Status (04/29/25 06:27) Sodium Chloride 0.9% (04/29/25 06:30) Oxygen Per Hour (04/29/25 06:27) Hydrocodone-Acet 5/325mg Tab ([place] 5/32 (04/29/25 06:30) Ondansetron Hcl (Zofran) (04/29/25 06:30) Docusate Sodium Capsule (Colace Capsule) (04/29/25 06:30) Complete Blood Count (04/30/25 04:00) Comprehensive Metabolic Panel (04/30/25 04:00) Condition: Serious (04/29/25 06:27) Acetaminophen Tablet (Tylenol Tablet) (04/29/25 06:30) Bedrest With Bathroom Privileg (04/29/25 06:27) Sequential Compression Device (04/29/25 ) Multiple Vitamin Tablet (Mvi Tab) (04/29/25 10:00) Clear Liq Diet (04/29/25 Breakfast) Vital Signs Date Time Temp Pulse Resp B/P (MAP) Pulse Ox O2 Delivery O2 Flow Rate FiO2 04/29/25 06:11 97.8 100 12 135/80 (98) 96 97.8 04/29/25 04:02 97.7 105 16 147/89 (108) 95 97.7 04/29/25 01:50 97.6 102 16 132/84 95 97.6 Laboratory Tests Test 04/29/25 02:16 04/29/25 04:17 Lactic Acid Level 4.3 mmol/L (0.4-2.0) *H 4.3 mmol/L (0.4-2.0) *H White Blood Count 3.7 10^3/uL (4.4-10.8) L Medications Medications Dose Ordered Sig/Rossy Route Start Time Stop Time Status Last Admin Dose Admin Diagnostic Test (Pha) 1 strip IQ4HR 04/29/25 04:00 04/29/25 04:27 1 STRIP Insulin Human Regular IQ4HR SC 04/29/25 04:00 04/29/25 04:39 12 UNITS Sodium Chloride 1,000 ml @ 1,000 mls/hr Q1H ONCE IV 04/29/25 02:15 04/29/25 03:14 DC 04/29/25 04:27 1,000 MLS/HR Sodium Chloride 1,000 ml @ 1,000 mls/hr Q1H ONCE IV 04/29/25 04:30 04/29/25 05:29 DC 04/29/25 05:31 1,000 MLS/HR Thiamine HCl 100 mg ONCE ONCE IM 04/29/25 02:15 04/29/25 02:16 DC 04/29/25 04:25 100 MG Assessment/Plan Assessment/Plan Acute pancreatitis Alcohol intoxication Lactic acidosis Elevated liver enzymes Diabetes mellitus with hyperglycemia Plan 1. Admit to telemetry unit 2. Breathing treatment 3. Pain control management 4. Management of fluids and electrolytes 5. Consultation for hospitalist 6. Diagnostic tests abdomen/pelvis CT 7. DVT prophylaxis on SCDs 8. Repeat labs CBC, CMP in a.m. 9. Continue with current medical management 10. Treatment plan discussed with patient and RN. Patient verbalized understanding. Plan discussed with: Patient, Other (RN) My Orders Orders - MALCOLM ROJAS DNP Procedure Category Date Status Time Complete Blood Count LAB 04/29/25 Logged 06:27 Comprehensive LAB 04/29/25 Logged Metabolic Panel 06:27 Folic Acid PHA 04/29/25 Logged 10:00 Thiamine Inj PHA 04/29/25 Logged 10:00 Glucose Blood PHA 04/29/25 Logged (Accu-Chek Comfort 08:00 Insulin R (Human) PHA 04/29/25 Logged (Insulin R) 08:00 Dextrose 50% Syringe PHA 04/29/25 Logged 06:30 Allergies ARCHANA 04/29/25 In Process 06:27 Code Status CODE 04/29/25 Transmitted 06:27 Sodium Chloride 0.9% PHA 04/29/25 Logged 06:30 Oxygen Per Hour RT 04/29/25 Transmitted 06:27 Hydrocodone-Acet PHA 04/29/25 Logged 5/325mg Tab ([place] 06:30 Ondansetron Hcl PHA 04/29/25 Logged (Zofran) 06:30 Docusate Sodium PHA 04/29/25 Logged Capsule (Colace 06:30 Complete Blood Count LAB 04/30/25 Verified 04:00 Comprehensive LAB 04/30/25 Verified Metabolic Panel 04:00 Condition: Serious ARCHANA 04/29/25 In Process 06:27 Acetaminophen Tablet PHA 04/29/25 Logged (Tylenol Tablet) 06:30 Bedrest With Bathroom ARCHANA 04/29/25 In Process Privileg 06:27 Sequential ARCHANA 04/29/25 In Process Compression Device Multiple Vitamin PHA 04/29/25 Logged Tablet (Mvi Tab) 10:00 Clear Liq Diet DIET 04/29/25 Transmitted Breakfast Problem List: (1) Acute pancreatitis (2) Alcohol intoxication (3) Lactic acidosis (4) Elevated liver enzymes (5) Diabetes mellitus with hyperglycemia Date of Service: Apr 29, 2025 Billing Provider: MALCOLM ROJAS DNP Common Visit Codes: [id number] INP/OBS CARE (HIGH) MALCOLM ROJAS DNP Apr 29, 2025 06:58
[2025-04-29] MEDS ORDERED: NITROGLYCERIN 0.4 MG SL TAB SL PRN (07:00)
[2025-04-29] MEDS ORDERED: MORPHINE SULFATE 4 MG/ML SYR/VIAL IV PRN (08:30)
[2025-04-29 08:41] LABS: Nucleated Red Blood Cells % 0.3 %
[2025-04-29 08:44] LABS: Hematocrit 42.8 % (41.0-53.0); Hemoglobin 15.2 g/dL (13.5-17.5); Mean Corpuscular Hemoglobin 36.1 pg (28.0-32.0); Mean Corpuscular Volume 101.9 fL (80.0-100.0)
[2025-04-29 08:55] LABS: Albumin 3.8 g/dL (3.2-4.8); Anion Gap 13 (5-15); BUN/Creatinine Ratio 11.4 (10.0-20.0); Bilirubin, Total 1.1 mg/dL (0.2-1.0); Blood Urea Nitrogen 9 mg/dL (9-23); Calcium 8.9 mg/dL (8.7-10.4); Carbon Dioxide 21 mmol/L (20-31); Chloride 107 mmol/L (98-107); Potassium 4.5 mmol/L (3.5-5.1); Sodium 141 mmol/L (136-145); Total Protein 8.1 g/dL (5.7-8.2)
[2025-04-29 09:00] LABS: Alanine Aminotransferase 50 U/L (7-40); Alkaline Phosphatase 186 U/L (46-116); Glucose 195 mg/dL (74-106)
[2025-04-29] MEDS: SODIUM CHLORIDE 0.9% 1,000 ML IV SCH (09:12)
[2025-04-29] MEDS: FOLIC ACID 1 MG in D5W 5% 50 ML INJ ONE (09:17)
[2025-04-29] MEDS: MULTIPLE VITAMIN TAB PO SCH (10:00)
[2025-04-29] MEDS: FOLIC ACID 1 MG in D5W 5% 50 ML INJ SCH (10:00)
[2025-04-29] MEDS: THIAMINE 100mg/ml INJ (200mg/2ml VIAL) IV SCH (10:00)
[2025-04-29 16:38] VITALS: BP 158/86; PULSE 85; RESP 16; TEMP 98.1; O2SAT 96
[2025-04-29 20:25] VITALS: BP 142/79; PULSE 106; RESP 20; TEMP 97.9; O2SAT 96
[2025-04-29 20:45] LABS: Amphetamine Screen, Urine Pos (NEGATIVE); Barbiturate Scree,Urine Neg (NEGATIVE); Benzodiazephine Screen, Urine Neg (NEGATIVE); Cannabinoid Screen, Urine Neg (NEGATIVE); Cocaine Screen, Urine Neg (NEGATIVE); Opiate Scree,Urine Neg (NEGATIVE); Phencyclidine Screen, Urine Neg (NEGATIVE)
[2025-04-29 22:31] VITALS: PULSE 101; RESP 18; O2SAT 95
[2025-04-30] VITALS (8 sets, daily range): BP systolic 124–148; BP diastolic 71–90; PULSE 96–110; RESP 19–20; TEMP 97.9–98.7; O2SAT 94–98
[2025-04-30 06:29] LABS: Nucleated Red Blood Cells % 0.2 %
[2025-04-30 06:32] LABS: Hematocrit 39.0 % (41.0-53.0); Hemoglobin 14.1 g/dL (13.5-17.5); Mean Corpuscular Hemoglobin 36.2 pg (28.0-32.0); Mean Corpuscular Volume 100.2 fL (80.0-100.0)
[2025-04-30 06:49] LABS: Alanine Aminotransferase 40 U/L (7-40); Albumin 3.2 g/dL (3.2-4.8); Anion Gap 12 (5-15); BUN/Creatinine Ratio 10.3 (10.0-20.0); Carbon Dioxide 22 mmol/L (20-31); Chloride 106 mmol/L (98-107); Potassium 3.6 mmol/L (3.5-5.1); Sodium 140 mmol/L (136-145); Total Protein 7.2 g/dL (5.7-8.2)
[2025-04-30 06:51] LABS: Alkaline Phosphatase 200 U/L (46-116); Bilirubin, Total 1.3 mg/dL (0.2-1.0); Blood Urea Nitrogen 7 mg/dL (9-23); Calcium 8.6 mg/dL (8.7-10.4); Glucose 150 mg/dL (74-106)
[2025-04-30] MEDS: ACETAMINOPHEN 325 MG TAB PO PRN (19:58)
[2025-05-01] VITALS (8 sets, daily range): BP systolic 138–156; BP diastolic 85–91; PULSE 77–104; RESP 14–20; TEMP 98–98.8; O2SAT 94–98
[2025-05-02 00:57] VITALS: BP 123/81; PULSE 93; RESP 18; TEMP 98.4; O2SAT 94
[2025-05-02 05:00] VITALS: BP 128/84; PULSE 85; RESP 18; TEMP 98.6; O2SAT 95
[2025-05-02 08:00] VITALS: PULSE 86; RESP 17; O2SAT 95
[2025-05-02 09:00] VITALS: BP 130/76; PULSE 86; RESP 17; TEMP 98.6; O2SAT 95
--- NOTE | 2025-05-02 19:39 | DVHPN2 ---
Reviewed: Care Plan, H&P, Labs, Medications, Previous Orders Changes from previous H/P or p: No Changes General: Per HPI Eyes: No Pain, No Vision change, No Conjunctivae inflammation, No Eyelid inflammation, No Other, No Redness ENT: No Ear pain, No Ear discharge, No Nose pain, No Nose discharge, No Nose congestion, No Mouth pain, No Mouth swelling, No Throat pain, No Throat swelling, No Other Cardiovascular: No Chest Pain, No Palpitations, No Orthopnea, No Paroxysmal Noc. Dyspnea, No Edema, No Lt Headedness, No Other Respiratory: No Cough, No Dry, No Shortness of breath, No SOB with excertion, No Wheezing, No Hemoptysis, No Pleuritic Pain, No Sputum, No Other Gastrointestinal: Nausea, Vomiting, Abdominal Pain; No Diarrhea, No Constipation, No Melena, No Hematochezia, No Other Genitourinary: No Dysuria, No Frequency, No Incontinence, No Hematuria, No Retention, No Other Musculoskeletal: No other, No neck pain, No shoulder pain, No arm pain, No back pain, No hand pain, No leg pain, No foot pain Skin: No Rash, No Lesions, No Jaundice, No Bruising, No Other Objective Vitals Vital Signs Date Time Temp Pulse Resp B/P (MAP) Pulse Ox O2 Delivery O2 Flow Rate FiO2 05/02/25 09:00 98.6 86 17 130/76 (94) 95 98.6 05/02/25 08:00 Room Air* 0 21 Intake/Output Intake and Output 05/02/25 07:00 Intake Total 918 ml Output Total 1000 ml Balance -82 ml Intake Oral 918 ml Output Urine Total 1000 ml # Voids 5 # Bowel Movements 1 General Appearance: Alert, Oriented X3, Cooperative Cardiovascular: Normal S1, Normal S2 Neuro: Normal speech Laboratory Results Laboratory Tests 04/30/25 05:07 Microbiology Microbiology Date/Time Source Procedure Growth Status 04/29/25 20:00 Voided Urine Urine Culture - Final Complete 04/29/25 02:16 Blood Blood Culture - Preliminary NO GROWTH AFTER 72 HOURS OF INCUBATION. Resulted Labs and/or images reviewed: Labs reviewed by me, Image(s) reviewed by me Assessment/Plan Assessment/Plan The patient is a 44-year-old male with past medical history of polysubstance use, DM, hypertension, and liver disease who presented to [facility] ED for evaluation of altered mental status. As reported by EMS, patient was working with a cane when he became drowsy, experiencing right upper quadrant abdominal pain, nausea, and vomiting. Patient was seen and evaluated in the ED, laboratory data shows WBC 3.7, platelets 113, sodium 137, potassium 3.8, BUN 9, creatinine 0.89, glucose 280, anion gap 16, acetone 0.451, calcium 9.3, total bilirubin 1.3, AST 72, ALT 57, lipase 152, alcohol level 284.4, blood pressure 135/80, heart rate 100, temperature 97.8 F, O2 saturation 96% on room air. Abdomen/pelvis CT revealing cholelithiasis, cirrhosis with sequela of portal hypertension, enlarged prostate, no evidence of acute process in the abdomen or pelvis. Please see medication orders section in the computer. On my assessment, patient denied chest pain, no headache, no dizziness, no diaphoresis, no shortness of breaths, no diarrhea, no nausea or vomiting at this moment, no fever, no chills. Patient was admitted for further evaluation and medical management. Acute pancreatitis Alcohol intoxication Lactic acidosis Elevated liver enzymes Diabetes mellitus with hyperglycemia leukopenia protein-calorie malnutrition, moderate 04/30/2025: pt still has abd pain, advance diet as tolerated Plan discussed with: Patient Date of Service: Apr 30, 2025 Billing Provider: KULDIP PERSON DO Common Visit Codes: [id number] INP/OBS CARE(HIGH) KULDIP PERSON DO May 02, 2025 19:39
--- NOTE | 2025-05-02 19:42 | DVHPN2 ---
Reviewed: Care Plan, H&P, Labs, Medications, Previous Orders Changes from previous H/P or p: No Changes General: Per HPI Eyes: No Pain, No Vision change, No Conjunctivae inflammation, No Eyelid inflammation, No Other, No Redness ENT: No Ear pain, No Ear discharge, No Nose pain, No Nose discharge, No Nose congestion, No Mouth pain, No Mouth swelling, No Throat pain, No Throat swelling, No Other Cardiovascular: No Chest Pain, No Palpitations, No Orthopnea, No Paroxysmal Noc. Dyspnea, No Edema, No Lt Headedness, No Other Respiratory: No Cough, No Dry, No Shortness of breath, No SOB with excertion, No Wheezing, No Hemoptysis, No Pleuritic Pain, No Sputum, No Other Gastrointestinal: Nausea, Vomiting, Abdominal Pain; No Diarrhea, No Constipation, No Melena, No Hematochezia, No Other Genitourinary: No Dysuria, No Frequency, No Incontinence, No Hematuria, No Retention, No Other Musculoskeletal: No other, No neck pain, No shoulder pain, No arm pain, No back pain, No hand pain, No leg pain, No foot pain Skin: No Rash, No Lesions, No Jaundice, No Bruising, No Other Objective Vitals Vital Signs Date Time Temp Pulse Resp B/P (MAP) Pulse Ox O2 Delivery O2 Flow Rate FiO2 05/02/25 09:00 98.6 86 17 130/76 (94) 95 98.6 05/02/25 08:00 Room Air* 0 21 Intake/Output Intake and Output 05/02/25 07:00 Intake Total 918 ml Output Total 1000 ml Balance -82 ml Intake Oral 918 ml Output Urine Total 1000 ml # Voids 5 # Bowel Movements 1 General Appearance: Alert, Oriented X3, Cooperative Cardiovascular: Normal S1, Normal S2 Neuro: Normal speech Laboratory Results Laboratory Tests 04/30/25 05:07 Microbiology Microbiology Date/Time Source Procedure Growth Status 04/29/25 20:00 Voided Urine Urine Culture - Final Complete 04/29/25 02:16 Blood Blood Culture - Preliminary NO GROWTH AFTER 72 HOURS OF INCUBATION. Resulted Labs and/or images reviewed: Labs reviewed by me, Image(s) reviewed by me Assessment/Plan Assessment/Plan The patient is a 44-year-old male with past medical history of polysubstance use, DM, hypertension, and liver disease who presented to [facility] ED for evaluation of altered mental status. As reported by EMS, patient was working with a cane when he became drowsy, experiencing right upper quadrant abdominal pain, nausea, and vomiting. Patient was seen and evaluated in the ED, laboratory data shows WBC 3.7, platelets 113, sodium 137, potassium 3.8, BUN 9, creatinine 0.89, glucose 280, anion gap 16, acetone 0.451, calcium 9.3, total bilirubin 1.3, AST 72, ALT 57, lipase 152, alcohol level 284.4, blood pressure 135/80, heart rate 100, temperature 97.8 F, O2 saturation 96% on room air. Abdomen/pelvis CT revealing cholelithiasis, cirrhosis with sequela of portal hypertension, enlarged prostate, no evidence of acute process in the abdomen or pelvis. Please see medication orders section in the computer. On my assessment, patient denied chest pain, no headache, no dizziness, no diaphoresis, no shortness of breaths, no diarrhea, no nausea or vomiting at this moment, no fever, no chills. Patient was admitted for further evaluation and medical management. Acute pancreatitis Alcohol intoxication Lactic acidosis Elevated liver enzymes Diabetes mellitus with hyperglycemia leukopenia protein-calorie malnutrition, moderate 04/30/2025: pt still has abd pain, advance diet as tolerated 05/01/2025: advancing diet as tolerated, less than after eating today Plan discussed with: Patient Date of Service: May 01, 2025 Billing Provider: KULDIP PERSON DO Common Visit Codes: [id number] INP/OBS CARE(HIGH) KULDIP PERSON DO May 02, 2025 19:42
--- NOTE | 2025-05-02 19:43 | DVHDS2 ---
Discharge Summary Date of Admission Apr 29, 2025 at 06:57 Date of Discharge: May 02, 2025 Labs/Diagnostic Data: Laboratory Results Test 05/01/25 08:10 04/30/25 05:07 04/29/25 20:00 04/29/25 04:17 POC Glucose 212 mg/dl (70-106) White Blood Count 3.3 10^3/uL (4.4-10.8) Red Blood Count 3.89 10^6/uL (4.5-5.90) Hemoglobin 14.1 g/dL (13.5-17.5) Hematocrit 39.0 % (41.0-53.0) Mean Corpuscular Volume 100.2 fL (80.0-100.0) Mean Corpuscular Hemoglobin 36.2 pg (28.0-32.0) Mean Corpuscular Hemoglobin Concent 36.1 g/dL (32.0-36.0) Red Cell Distribution Width 12.8 % (11.8-14.3) Platelet Count 88 10^3/uL (140-450) Mean Platelet Volume 7.9 fL (6.9-10.8) Neutrophils (%) (Auto) 49.8 % (37.0-80.0) Lymphocytes (%) (Auto) 32.6 % (10.0-50.0) Monocytes (%) (Auto) 10.9 % (0.0-12.0) Eosinophils (%) (Auto) 4.6 % (0.0-7.0) Basophils (%) (Auto) 2.1 % (0.0-2.0) Neutrophils # (Auto) 1.6 10 ^3/uL (1.6-8.6) Lymphocytes # (Auto) 1.1 10 ^3/uL (0.4-5.4) Monocytes # (Auto) 0.4 10 ^3/uL (0-1.3) Eosinophils # (Auto) 0.2 10 ^3/uL (0-0.8) Basophils # (Auto) 0.1 10 ^3/uL (0-0.2) Nucleated Red Blood Cells 0.2 % Sodium Level 140 mmol/L (136-145) Potassium Level 3.6 mmol/L (3.5-5.1) Chloride Level 106 mmol/L (98-107) Carbon Dioxide Level 22 mmol/L (20-31) Anion Gap 12 (5-15) Blood Urea Nitrogen 7 mg/dL (9-23) Creatinine 0.68 mg/dL (0.700-1.30) Glomerular Filtration Rate Calc 117 mL/min (>90) BUN/Creatinine Ratio 10.3 (10.0-20.0) Serum Glucose 150 mg/dL (74-106) Calcium Level 8.6 mg/dL (8.7-10.4) Total Bilirubin 1.3 mg/dL (0.2-1.0) Aspartate Amino Transferase (AST) 64 U/L (13-40) Alanine Aminotransferase (ALT) 40 U/L (7-40) Alkaline Phosphatase 200 U/L (46-116) Total Protein 7.2 g/dL (5.7-8.2) Albumin 3.2 g/dL (3.2-4.8) Urine Opiates Screen Neg (NEGATIVE) Urine Fentanyl Screen Neg (NEGATIVE) Urine Barbiturates Screen Neg (NEGATIVE) Urine Phencyclidine Screen Neg (NEGATIVE) Urine Amphetamines Screen Pos (NEGATIVE) Urine Benzodiazepines Screen Neg (NEGATIVE) Urine Cocaine Screen Neg (NEGATIVE) Urine Cannabinoids Screen Neg (NEGATIVE) Lactic Acid Level 4.3 mmol/L (0.4-2.0) Test 04/29/25 02:16 04/29/25 02:13 Lipase 152 U/L (12-53) Beta-Hydroxybutyric Acid 0.451 mmol/L (< 0.4) Plasma/Serum Blood Alcohol 284.4 mg/dL (<10) Blood Gas Specimen Type Arterial Blood Gas Sample Site Right radial Blood Gas Patient Temperature 37.0 Arterial Blood Date Drawn [id number] Arterial Blood pH 7.331 (7.350-7.450) Arterial Blood Partial Pressure CO2 32.6 mmHg (35.0-48.0) Arterial Blood Partial Pressure O2 78.7 mmHg (83.0-108.0) Arterial Blood HCO3 16.8 mmol/L (21.0-28.0) Arterial Blood Oxygen Saturation 92.9 % (94.0-98.0) Arterial Blood Base Excess -7.8 mmol/L (-2.0-3.0) Arterial Blood Oxyhemoglobin 91.4 % (94.0-98.0) Arterial Blood Carboxyhemoglobin 1.1 % (0.5-1.5) Arterial Blood Methemoglobin 0.5 % (0.0-1.5) Abimael Test Yes Blood Gas Total Hemoglobin 16.20 g/dL (13.5-17.5) Blood Gas Liter Flow 2.00 Blood Gas Modality Nasal cannula FiO2 % 28.0 Other Laboratory Tests 04/30/25 05:07 Brief Hx & Hospital Course: The patient is a 44-year-old male with past medical history of polysubstance use, DM, hypertension, and liver disease who presented to [facility] ED for evaluation of altered mental status. As reported by EMS, patient was working with a cane when he became drowsy, experiencing right upper quadrant abdominal pain, nausea, and vomiting. Patient was seen and evaluated in the ED, laboratory data shows WBC 3.7, platelets 113, sodium 137, potassium 3.8, BUN 9, creatinine 0.89, glucose 280, anion gap 16, acetone 0.451, calcium 9.3, total bilirubin 1.3, AST 72, ALT 57, lipase 152, alcohol level 284.4, blood pressure 135/80, heart rate 100, temperature 97.8 F, O2 saturation 96% on room air. Abdomen/pelvis CT revealing cholelithiasis, cirrhosis with sequela of portal hypertension, enlarged prostate, no evidence of acute process in the abdomen or pelvis. Please see medication orders section in the computer. On my assessment, patient denied chest pain, no headache, no dizziness, no diaphoresis, no shortness of breaths, no diarrhea, no nausea or vomiting at this moment, no fever, no chills. Patient was admitted for further evaluation and medical management. Acute pancreatitis Alcohol intoxication Lactic acidosis Elevated liver enzymes Diabetes mellitus with hyperglycemia leukopenia protein-calorie malnutrition, moderate 04/30/2025: pt still has abd pain, advance diet as tolerated 05/01/2025: advancing diet as tolerated, less than after eating today 05/02/2025: pt left AMA Condition at Discharge: Fair Final Diagnosis/Problems List see above Discharge Disposition: AMA Discharge Instruct/Medications Scheduled Atorvastatin Calcium (Atorvastatin Calcium), 20 MG PO HS Famotidine (Pepcid Tablet), 1 TAB PO BID Gabapentin (Gabapentin), 300 MG PO HS Glucose Blood (Easy Touch Glucose Test S), 1 EA ACHS Insulin Aspart (Insulin Aspart), 100 UNIT SC AC Insulin Glargine (Lantus Solostar), 20 UNIT SC HS Lactulose (Lactulose), 20 GM PO BID Spironolactone (Aldactone), 1 TAB PO DAILY Durable Medical Equipment Blood Glucose Monitoring Suppl (mm Easy Touch Blood Gluco W/Device), KIT XX, (DME) Blood Glucose Monitoring Suppl (Easy Touch Glucose Monito), EA XX ACHS, (DME) Lancets (Easy Touch Lancets), G XX QID, (DME) Lancets (Cvs Lancets Thin 26G), 26G SC ACHS, (DME) Discharge Statement: "Patient was advised to return to the ER or call 911 if any headaches, dizziness, shortness of breath, chest pain, abdominal pain, bleeding, fevers, or worsening of medical condition. Patient was counseled about treatment plan, medications, possible side effects, patientverbalized understanding. All questions were answered to the best of my ability. This discharge took greater then 30 minutes in planning, reviewing documentation, counseling the patient, and discussing with other team members." ASSESSMENT ASSESSMENT Assessment Date of Service: May 02, 2025 Billing Provider: KULDIP PERSON DO Common Visit Codes: 23740-CBV/OBS DISCH DAY >30min KULDIP PERSON DO May 02, 2025 19:43
== END 2025-05-02 13:20 | disposition left against medical advice (07) | DRG 282 ==
LOC: ER 01:50 → EDBD 01:50 → OVERFLOW 06:57 → EDUNIT# 06:57 → TELE-WESTW 22:20 → WEST WING 05-02 05:27
PROVIDERS: ADMIT Internal Medicine; ATTEND Internal Medicine
DX: K85.90 Acute pancreatitis without necrosis or infection, unspecified (principal); E44.0 Moderate protein-calorie malnutrition; E87.20 Acidosis, unspecified; E11.65 Type 2 diabetes mellitus with hyperglycemia; D72.819 Decreased white blood cell count, unspecified; E11.42 Type 2 diabetes mellitus with diabetic polyneuropathy; G80.9 Cerebral palsy, unspecified; F10.129 Alcohol abuse with intoxication, unspecified; R74.01 Elevation of levels of liver transaminase levels; I10 Essential (primary) hypertension; Z53.29 Procedure and treatment not carried out because of patient's decision for other reasons; Y90.8 Blood alcohol level of 240 mg/100 ml or more; N40.0 Benign prostatic hyperplasia without lower urinary tract symptoms; K80.20 Calculus of gallbladder without cholecystitis without obstruction; K76.6 Portal hypertension; Z88.0 Allergy status to penicillin; Z68.27 Body mass index [BMI] 27.0-27.9, adult; Z79.4 Long term (current) use of insulin; Z91.148 Patient's other noncompliance with medication regimen for other reason; K70.30 Alcoholic cirrhosis of liver without ascites
CPT/HCPCS: 36415; 36600; 71045; 74176; 80053; 80307; 80320; 82010; 82805; 82962; 83605; 83690; 85025; 87040; 87086; G0378; J1815; J7060

== ENCOUNTER 2025-05-05 20:04 | Inpatient (IN) | payer MEDICAID ==
[~2025-05-05] VITALS: Ht 170.2 cm; Wt 72.7 kg
--- NOTE | 2025-05-05 20:24 | ECG ---
[facility] Test Date: 2025-05-05 Test Time: 20:14:55 Pat Name: WISAM COOPER Department: [facility] ED Room: 0291T Gender: M Data Miner: bisi : 1980 Requested By: WILL ALVAREZ Order Number: [id number] Reading MD: Nilson Wallis Measurements Intervals [place] Rate: 109 P: 74 HI: 159 QRS: 80 QRSD: 77 T: 65 QT: 345 QTc: 465 Interpretive Statements Sinus tachycardia Probable left atrial enlargement Low voltage, precordial leads Electronically Signed On 05-07-2025 20:37:07 PDT by Nilson Wallis Please click the below link to view image of tracing.
--- NOTE | 2025-05-05 20:44 | ED.PDOC ---
HPI Comments This is a 44 year old male BIBA presenting to the ED with chief complaint of chest pain. Patient reports that he has been experiencing left sided chest pain with associated upper abdominal pain since earlier today after drinking alcohol heavily yesterday and today. Patient has history of alcoholism. Patient denies any N/V/D, fever, chills, hematemesis, or melena. Patient was hypertensive and tachycardic at arrival. Chief Complaint: Chest Pain Time Seen by MD: 20:42 Primary Care Provider: n/a Reviewed Notes: Nurses Notes, Certified Veterinary Technician Notes, Medications, Allergies Allergies: Coded Allergies: Penicillins (Verified Allergy, Unknown, 10/20/24) Home Meds Active Scripts Gabapentin (Gabapentin) 300 Mg Cap, 300 MG PO HS, #30 MG Prov:RUTHIE CASTANEDA MD 12/01/24 Insulin Glargine (Lantus Solostar) 100 Unit/Ml Inj, 20 UNIT SC HS, #10 INJ Prov:RUTHIE CASTANEDA MD 12/01/24 Glucose Blood (EASY TOUCH GLUCOSE TEST S) Strips Ashley, 1 EA ACHS for 30 Days, #120 MISC 70-130 - 0 units ____ units 131-180 - 8 units ____ units 181-240 - 12 units ____ units 241-300 - 16 units ____ units 301-350 - 20 units ____ units 351-400 - 24 units ____ units >400 12 units and call 20 units and call 28 units and call MD ____ units and call M Prov:RUTHIE CASTANEDA MD 12/01/24 Insulin Aspart (Insulin Aspart) 100 Unit/Ml Inj, 100 UNIT SC AC for 30 Days, #1 INJ 0 Refills 70-130 - 0 units ____ units 131-180 - 8 units ____ units 181-240 - 12 units ____ units 241-300 - 16 units ____ units 301-350 - 20 units ____ units 351-400 - 24 units ____ units >400 12 units and call 20 units and call 28 units and call MD ____ units and call M Prov:RUTHIE CASTANEDA MD 12/01/24 Lactulose (Lactulose) 10 Gm/15 Ml Keri, 20 GM PO BID for 30 Days, #473 ML 1 Refill Prov:RUTHIE CASTANEDA MD 12/01/24 Atorvastatin Calcium (ATORVASTATIN CALCIUM) 20 Mg Tab, 20 MG PO HS for 30 Days, #30 TAB Prov:RUTHIE CASTANEDA MD 12/01/24 Famotidine (PEPCID TABLET) 20 Mg Tb, 1 TAB PO BID for 30 Days, #60 TAB 0 Refills Prov:RUTHIE CASTANEDA MD 12/01/24 Spironolactone (Aldactone) 25 Mg Tab, 1 TAB PO DAILY, #30 TAB 2 Refills Prov:RUTHIE CASTANEDA MD 12/01/24 Lancets (Cvs Lancets Thin 26G) Thin 26G Mis, 26G SC ACHS, #120 0 Refills Please check glucose 15 mins before each meal Prov:MATEUSZ GOODRICH 10/25/24 Blood Glucose Monitoring Suppl (EASY TOUCH GLUCOSE MONITO) Monitor Kit, EA XX ACHS, #1 Please check glucose 15 mins before each meal Prov:MATEUSZ OGODRICH 10/25/24 Lancets (EASY TOUCH LANCETS) 28 G Mis, G XX QID, #100 Prov:ANUP DOSHI MD 08/26/24 Blood Glucose Monitoring Suppl (mm Easy Touch Blood Gluco W/Device) 1 Kit Kit, KIT XX, #1 Prov:ANUP DOSHI MD 08/26/24 Information Source: Patient, Emergency Med Personnel Mode of Arrival: EMS Severity: Moderate Timing: Hours Duration: Since onset Prehospital treatment: None Location: Chest (L) Radiation: Abdomen Quality: Sharp Onset: At Rest Cardiac Risk Factors: HTN History of: Similar pain in past Associated Signs and Symptoms: Abdominal Pain Past Medical History PAST MEDICAL HISTORY: HTN, Liver Past Medical History (Other): Alcoholism, pancreatitis Surgical History: Denies all surgeries Family History Family History: Reviewed,noncontributory to illness Social History Smoker: Non-Smoker Alcohol: Heavy Drugs: Denies Drug Use Lives In: Home Constitutional: denies: chills, diaphoresis, fatigue, fever, malaise, sweats, weakness, others EENTM: denies: blurred vision, double vision, ear bleeding, ear discharge, ear drainage, ear pain, ear ringing, eye pain, eye redness, hearing loss, mouth pain, mouth swelling, nasal discharge, nose bleeding, nose congestion, nose pain, photophobia, tearing, throat pain, throat swelling, voice changes, others Respiratory: denies: cough, hemoptysis, orthopnea, SOB at rest, shortness of breath, SOB with excertion, stridor, wheezing, others Cardiovascular: reports: chest pain; denies: dizzy spells, diaphoresis, Dyspnea on exertion, edema, irregular heart beat, left arm pain, lightheadedness, palpitations, PND, syncope, others Gastrointestinal: reports: abdominal pain, nausea; denies: abdomen distended, blood streaked bowels, constipated, diarrhea, dysphagia, difficulty swallowing, hematemesis, melena, poor appetite, poor fluid intake, rectal bleeding, rectal pain, vomiting, others Genitourinary: denies: burning, dysuria, flank pain, frequency, hematuria, incontinence, penile discharge, penile sore, pain, testicle pain, testicle swelling, urgency, others Neurological: denies: dizziness, fainting, headache, left sided numbness, left sided weakness, numbness, paresthesia, pre-existing deficit, right sided numbness, right sided weakness, seizure, speech problems, tingling, tremors, weakness, others Musculoskeletal: denies: back pain, gout, joint pain, joint swelling, muscle pain, muscle stiffness, neck pain, others Integumetry: denies: bruises, change in color, change in hair/nails, dryness, laceration, lesions, lumps, rash, wounds, others Allergic/Immunocompromised: denies: Difficulty Healing, Frequent Infections, Hives, Itching, others Hematologic/Lymphatic: denies: anemia, blood clots, easy bleeding, easy bruising, swollen glands, others Endocrine: denies: excessive hunger, excessive sweating, excessive thirst, excessive urination, flushing, intolerance to cold, intolerance to heat, unexplained weight gain, unexplained weight loss, others Psychiatric: denies: anxiety, bipolar disorder, depression, hopeless, panic disorder, schizophrenia, sleepless, suicidal, others All Other Systems: Reviewed and Negative Physical Exam General Appearance: Moderate Distress (Moderate distress due to chest pain and abdominal pain concerns. Patient appears intoxicated.), Normal HEENT: Normal ENT Inspection, Pharynx Normal, TMs Normal Neck: Full Range of Motion, Non-Tender, Normal, Normal Inspection Respiratory: Chest Non-Tender, Lungs Clear, No Accessory Muscle Use, No Respiratory Distress, Normal Breath Sounds Cardiovascular: No Edema, No JVD, No Murmur, No Gallop, Normal Peripheral Pulses, Regular Rate/Rhythm Breast Exam: Deferred Gastrointestinal: Other (Diffuse bilateral epigastric tenderness to palpation throughout. No signs of trauma. No pulsatile masses. Abdomen is [id number] rigid.) Genitalia: Deferred Pelvic: Deferred Rectal: Deferred Extremities: Normal capillary refill, Pedal edema Neurologic: Alert (But intoxicated) Cerebellar Function: NOT DONE Reflexes: NOT DONE Skin: Dry, Normal Color, Warm Lymphatic: No Adenopathy Was a procedure done? Was a procedure done?: No CP Differential Dx Differential Diagnosis: A-fib, A-Flutter, Anxiety / Panic Attack, AV Block 1st Degree, CO, Other (Alcoholism, pancreatitis, sepsis, electrolyte abnormality) Differential Diagnosis: CHF X-Ray, Labs, Meds, VS Vital Signs Date Time Temp Pulse Resp B/P (MAP) Pulse Ox O2 Delivery O2 Flow Rate FiO2 05/05/25 20:14 109 05/05/25 20:09 97.8 114 16 153/90 96 97.8 Lab Test 05/05/25 22:45 05/05/25 21:51 05/05/25 20:57 Range/Units Lactic Acid Level 5.9 *H 5.9 *H 0.4-2.0 mmol/L Troponin I High Sensitivity < 3 L 3 L </=54 ng/L White Blood Count 4.2 #L 4.4-10.8 10^3/uL Red Blood Count 4.15 L 4.5-5.90 10^6/uL Hemoglobin 14.9 13.5-17.5 g/dL Hematocrit 42.1 41.0-53.0 % Mean Corpuscular Volume 101.3 H 80.0-100.0 fL Mean Corpuscular Hemoglobin 36.0 H 28.0-32.0 pg Mean Corpuscular Hemoglobin Concent 35.5 32.0-36.0 g/dL Red Cell Distribution Width 12.8 11.8-14.3 % Platelet Count 119 L 140-450 10^3/uL Mean Platelet Volume 8.1 6.9-10.8 fL Neutrophils (%) (Auto) 57.4 37.0-80.0 % Lymphocytes (%) (Auto) 27.9 10.0-50.0 % Monocytes (%) (Auto) 9.2 0.0-12.0 % Eosinophils (%) (Auto) 3.4 0.0-7.0 % Basophils (%) (Auto) 2.1 H 0.0-2.0 % Neutrophils # (Auto) 2.4 1.6-8.6 10 ^3/uL Lymphocytes # (Auto) 1.2 0.4-5.4 10 ^3/uL Monocytes # (Auto) 0.4 0-1.3 10 ^3/uL Eosinophils # (Auto) 0.1 0-0.8 10 ^3/uL Basophils # (Auto) 0.1 0-0.2 10 ^3/uL Nucleated Red Blood Cells 0.1 % Sodium Level 134 #L 136-145 mmol/L Potassium Level 4.4 3.5-5.1 mmol/L Chloride Level 97 L 98-107 mmol/L Carbon Dioxide Level 22 20-31 mmol/L Anion Gap 15 5-15 Blood Urea Nitrogen 7 L 9-23 mg/dL Creatinine 0.97 0.700-1.30 mg/dL Glomerular Filtration Rate Calc 98 >90 mL/min BUN/Creatinine Ratio 7.2 L 10.0-20.0 Serum Glucose 340 #H 74-106 mg/dL Calcium Level 9.6 8.7-10.4 mg/dL Lipase 179 H 12-53 U/L Plasma/Serum Blood Alcohol 116.5 H <10 mg/dL X-Ray, Labs, Meds, VS Comment All studies performed in the ED were evaluated by me personally. Wound was pending at time of this note. Patient's ANGIE was over .11. Serum studies revealed an elevated lipase indicative of continued pancreatitis. Additionally, patient had elevated lactic acid and a hyperglycemic state of above 300. EKG showed a sinus tachycardia with a rate of 109. Probable left atrial enlargement was noted as well as low voltage in precordial leads. [place] interval of 159 and QT interval of 345. Patient will be admitted for management of his pain concerns related to the pancreatitis as well as blood sugar and hydration concerns. Time of 1ST Reevaluation: 23:39 Reevaluation 1ST: Improved Consultation: PCP Patient Education/Counseling: Diagnosis, Treatment Family Education/Counseling: Diagnosis, Treatment, No Family Present SEPSIS Sepsis Screen Date sepsis recognized/suspect: May 05, 2025 Time Sepsis recognized/suspect: 2002 Recent Procedure: No On Antibiotic Therapy: No Respiratory Rate >20: No Heart Rate >90: Yes Temp<36 C (96.8 F) or >38.3 C: No SBP <90 or MAP <65 mmHG: No New Acute Mental Status Change: No Is the patient on CPAP, BIPAP,: No Physician Orders Electrocardigram (05/05/25 21:19) Electrocardigram (05/05/25 23:19) Urinalysis (05/05/25 20:34) Drug Screen (05/05/25 20:34) Heplock Iv (05/05/25 ) NS (05/05/25 23:45) Insulin R (Human) (Insulin R) (05/05/25 23:45) Vital Signs Date Time Temp Pulse Resp B/P (MAP) Pulse Ox O2 Delivery O2 Flow Rate FiO2 05/05/25 20:14 109 05/05/25 20:09 97.8 114 16 153/90 96 97.8 Laboratory Tests Test 05/05/25 20:57 05/05/25 22:45 Lactic Acid Level 5.9 mmol/L (0.4-2.0) *H 5.9 mmol/L (0.4-2.0) *H White Blood Count 4.2 10^3/uL (4.4-10.8) #L Departure 1 Departure Time of Disposition: 23:40 Impression: Primary Impression: Acute pancreatitis Additional Impressions: Alcoholism Hyperglycemia Elevated lactic acid level Disposition: ADMITTED INPATIENT Condition: Fair Discharged With: Self Critical Care Note Critical Care Time?: No Stability Stability form required: No Heart Score Heart Score: Heart Score Response (Comments) Value History Moderate Suspicious 1 EKG Normal 0 Age <45 0 Risk Factors >3 or Hx ASHD 2 Troponin Normal limit 0 Total 3 I personally scribed for WILL ALVAREZ PAC ([email or web address]) on 05/05/25 at 20:44. Electronically submitted by Jean Marie Rivera ([email or web address]). WILL ALVAREZ PAC May 05, 2025 20:44
[2025-05-05 21:44] LABS: Potassium 4.4 mmol/L (3.5-5.1)
[2025-05-05 21:45] LABS: Anion Gap 15 (5-15); Carbon Dioxide 22 mmol/L (20-31)
[2025-05-05 21:46] LABS: Calcium 9.6 mg/dL (8.7-10.4)
[2025-05-05 21:51] LABS: BUN/Creatinine Ratio 7.2 (10.0-20.0); Hematocrit 42.1 % (41.0-53.0); Hemoglobin 14.9 g/dL (13.5-17.5); Mean Corpuscular Hemoglobin 36.0 pg (28.0-32.0); Mean Corpuscular Volume 101.3 fL (80.0-100.0); Nucleated Red Blood Cells % 0.1 %
[2025-05-05 21:52] LABS: Blood Urea Nitrogen 7 mg/dL (9-23); Chloride 97 mmol/L (98-107); Glucose 340 mg/dL (74-106); Sodium 134 mmol/L (136-145)
[2025-05-05 21:56] LABS: Lactic Acid w/Reflex 5.9 mmol/L (0.4-2.0)
[2025-05-05 22:10] LABS: Lipase 179 U/L (12-53)
[2025-05-06] MEDS: SODIUM CHLORIDE 0.9% 1,000 ML IV ONE ×2 (01:30→01:54)
[2025-05-06] MEDS: InsuLIN REG 1unit/0.01ml Soln (100units/ml) IV ONE (01:39)
[2025-05-06] MEDS: NITROGLYCERIN 0.4 MG SL TAB SL ONE (01:39)
--- NOTE | 2025-05-06 02:13 | DVH ---
CHEST RADIOGRAPH Indication: Shortness of breath Technique: Single frontal view of the chest was obtained COMPARISON: XR CHEST 1 VIEW on DOS: 05/03/25, XY CHEST XRAY 1 VIEW on DOS: 04/29/25, XY CHEST XRAY 1 EW on DOS: 04/15/25, XY CHEST PORTABLE on DOS: 04/10/25, XY CHEST XRAY 1 VIEW on DOS: 03/01/25 FINDINGS: Lines and Tubes: None Lungs: Clear. Left costophrenic sulcus excluded. Pleura: No effusion. No pneumothorax. Cardiomediastinal contours: Unremarkable Bones: Unremarkable IMPRESSION: 1. No radiographic evidence of acute cardiopulmonary abnormality. Left costophrenic sulcus excluded.
[2025-05-06] MEDS ORDERED: DOCUSATE SOD 100 MG CAP PO PRN (03:00)
[2025-05-06] MEDS ORDERED: DEXTROSE (50%) 50ML SYRG IV PRN (03:00)
[2025-05-06] MEDS: THIAMINE 100mg/ml INJ (200mg/2ml VIAL) IV ONE (03:43)
--- NOTE | 2025-05-06 03:52 | DVHHP2 ---
History of Present Illness Reason for Visit: Acute pancreatitis History of Present Illness The patient is a 44-year-old male with past medical history of alcoholism, pancreatitis, liver disease, and hypertension who presented to [facility] ED with complaint of chest pain. Patient reports that he has been experiencing left sided chest pain with associated upper abdominal pain since earlier today after drinking alcohol heavily. Patient was seen and evaluated in the ED, laboratory data shows WBC 4.2, platelets 119, sodium 134, potassium 4.4, BUN 7, creatinine 0.94, glucose 340, calcium 9.6, lactic acid 5.9 trending down to 2.2, lipase 179, alcohol 116.5, blood pressure 138/86, heart rate 104, temperature 98.4 F, O2 saturation 96% on room air. Please see medication orders section in the computer. On my assessment, patient denied chest pain, no headache, diaphoresis, dizziness, shortness of breaths, no diarrhea, nausea, vomiting, fever, no chills. Patient was admitted for further evaluation and medical management. Past Medical History HTN, Liver disease, Alcoholism, Pancreatitis Past Surgical History Denies all surgeries Family History Reviewed, noncontributory to the management of this case. Past Social History The patient lives at home, denies smoking, alcohol or illicit drugs abuse. Review of Systems Constitutional: Yes: Weakness; No: Fever, Chills, Sweats, Malaise, Other Eyes: No: Pain, Vision change, Conjunctivae inflammation, Eyelid inflammation, Other, Redness ENT: No: Ear pain, Ear discharge, Nose pain, Nose discharge, Nose congestion, Mouth pain, Mouth swelling, Throat pain, Throat swelling, Other Respiratory: No: Cough, Dry, Shortness of breath, SOB with excertion, Wheezing, Hemoptysis, Pleuritic Pain, Sputum, Wheezing, Other Cardiovascular: Chest Pain; No: Palpitations, Orthopnea, Paroxysmal Noc. Dyspnea, Edema, Lt Headedness, Other Gastrointestinal: Abdominal Pain; No: Nausea, Vomiting, Diarrhea, Constipation, Melena, Hematochezia, Other Genitourinary: No Dysuria, No Frequency, No Incontinence, No Hematuria, No Retention, No Other Musculoskeletal: No: other, neck pain, shoulder pain, arm pain, back pain, hand pain, leg pain, foot pain Skin: No: Rash, Lesions, Jaundice, Bruising, Other Neurological: No: Weakness, Numbness, Incoordination, Change in speech, Confusion, Seizures, Other Allergies: Coded Allergies: Penicillins (Verified Allergy, Unknown, 10/20/24) Medications Current Medications Medications Dose Ordered Sig/Rossy Route Start Time Stop Time Status Last Admin Dose Admin Thiamine HCl 100 mg DAILY IV 05/07/25 10:00 Folic Acid 1 mg/ Dextrose 50.2 ml @ 200.8 mls/ hr DAILY INJ 05/07/25 10:00 Diagnostic Test (Pha) 1 strip IQ4HR 05/06/25 04:00 Insulin Human Regular IQ4HR SC 05/06/25 04:00 Dextrose 50 ml UD PRN IV 05/06/25 03:00 Sodium Chloride 1,000 ml @ 60 mls/hr [id number] IV 05/06/25 03:00 Acetaminophen/ Hydrocodone Bitart 1 tab Q4HP PRN PO 05/06/25 03:00 Ondansetron HCl 4 mg Q4HP PRN IV 05/06/25 03:00 Docusate Sodium 100 mg BIDPRN PRN PO 05/06/25 03:00 Multivitamins 1 tab DAILY PO 05/06/25 10:00 Acetaminophen 650 mg Q6HP PRN PO 05/06/25 03:00 Exam Vital Signs Vital Signs Date Time Temp Pulse Resp B/P (MAP) Pulse Ox O2 Delivery O2 Flow Rate FiO2 05/06/25 01:39 138/86 05/06/25 01:30 98.4 104 16 95 98.4 General Appearance: Alert, Oriented X3, Cooperative, No acute distress HEENT: Atraumatic, PERRLA, EOMI, Mucous membr. moist/pink Respiratory: Normal air movement Cardiovascular: Regular rate, Normal S1, Normal S2, No murmurs Abdominal: Normal bowel sounds, Soft, No hepatospenomegaly, No masses, Other (Reports tenderness) Extremities: No clubbing, No cyanosis, No edema, Normal pulses, No tenderness/swelling Skin: No rashes, No breakdown, No significant lesion Neuro: Normal speech, Normal tone, Sensation intact, Cranial nerves 3-12 NL, Reflexes 2+, Other (Generalized weakness) Psych/Mental Status: Mental status NL, Mood NL Labs/Xrays Labs Test 05/06/25 01:35 05/05/25 22:45 05/05/25 21:51 05/05/25 20:57 Range/Units POC Glucose 353 H 70-106 mg/dl Lactic Acid Level 5.9 *H 0.4-2.0 mmol/L Troponin I High Sensitivity < 3 L </=54 ng/L White Blood Count 4.2 #L 4.4-10.8 10^3/uL Red Blood Count 4.15 L 4.5-5.90 10^6/uL Hemoglobin 14.9 13.5-17.5 g/dL Hematocrit 42.1 41.0-53.0 % Mean Corpuscular Volume 101.3 H 80.0-100.0 fL Mean Corpuscular Hemoglobin 36.0 H 28.0-32.0 pg Mean Corpuscular Hemoglobin Concent 35.5 32.0-36.0 g/dL Red Cell Distribution Width 12.8 11.8-14.3 % Platelet Count 119 L 140-450 10^3/uL Mean Platelet Volume 8.1 6.9-10.8 fL Neutrophils (%) (Auto) 57.4 37.0-80.0 % Lymphocytes (%) (Auto) 27.9 10.0-50.0 % Monocytes (%) (Auto) 9.2 0.0-12.0 % Eosinophils (%) (Auto) 3.4 0.0-7.0 % Basophils (%) (Auto) 2.1 H 0.0-2.0 % Neutrophils # (Auto) 2.4 1.6-8.6 10 ^3/uL Lymphocytes # (Auto) 1.2 0.4-5.4 10 ^3/uL Monocytes # (Auto) 0.4 0-1.3 10 ^3/uL Eosinophils # (Auto) 0.1 0-0.8 10 ^3/uL Basophils # (Auto) 0.1 0-0.2 10 ^3/uL Nucleated Red Blood Cells 0.1 % Sodium Level 134 #L 136-145 mmol/L Potassium Level 4.4 3.5-5.1 mmol/L Chloride Level 97 L 98-107 mmol/L Carbon Dioxide Level 22 20-31 mmol/L Anion Gap 15 5-15 Blood Urea Nitrogen 7 L 9-23 mg/dL Creatinine 0.97 0.700-1.30 mg/dL Glomerular Filtration Rate Calc 98 >90 mL/min BUN/Creatinine Ratio 7.2 L 10.0-20.0 Serum Glucose 340 #H 74-106 mg/dL Calcium Level 9.6 8.7-10.4 mg/dL Lipase 179 H 12-53 U/L Plasma/Serum Blood Alcohol 116.5 H <10 mg/dL PATIENT: WISAM COOPER ACCT: [id number] UNIT: [id number] : 1980 LOC: ER ROOM / BED: / AGE / SEX: 44 / M ADM STATUS: REG ER SERVICE 0145 ORDERING PHYSICIAN: WILL ALVAREZ PAC PROCEDURE(s): CXRP - CHEST PORTABLE REASON: Shortness of breath ORDER NUMBER(s): [id number], ACCESSION NUMBER(s): [id number] CHEST RADIOGRAPH Indication: Shortness of breath Technique: Single frontal view of the chest was obtained COMPARISON: XR CHEST 1 VIEW on DOS: 05/03/25, XY CHEST XRAY 1 VIEW on DOS: 04/29/25, XY CHEST XRAY 1 VIEW on DOS: 04/15/25, XY CHEST PORTABLE on DOS: 04/10/25, XY CHEST XRAY 1 VIEW on DOS: 03/01/25 FINDINGS: Lines and Tubes: None Lungs: Clear. Left costophrenic sulcus excluded. Pleura: No effusion. No pneumothorax. Cardiomediastinal contours: Unremarkable Bones: Unremarkable IMPRESSION: 1. No radiographic evidence of acute cardiopulmonary abnormality. Left costophrenic sulcus excluded. SEPSIS Sepsis Screen Date sepsis recognized/suspect: May 05, 2025 Time Sepsis recognized/suspect: 2002 Recent Procedure: No On Antibiotic Therapy: No Respiratory Rate >20: No Heart Rate >90: Yes Temp<36 C (96.8 F) or >38.3 C: No SBP <90 or MAP <65 mmHG: No New Acute Mental Status Change: No Is the patient on CPAP, BIPAP,: No Physician Orders Electrocardigram (05/05/25 21:19) Electrocardigram (05/05/25 23:19) Urinalysis (05/05/25 20:34) Drug Screen (05/05/25 20:34) Heplock Iv (05/05/25 ) Chest Portable (05/06/25 01:45) Complete Blood Count (05/06/25 04:00) Comprehensive Metabolic Panel (05/06/25 04:00) Consistent Carb(Ccho)Diabetes (05/06/25 Breakfast) Glucose Blood (Accu-Chek Comfort Curve T (05/06/25 04:00) Insulin R (Human) (Insulin R) (05/06/25 04:00) Dextrose 50% Syringe (05/06/25 03:00) Allergies (05/06/25 02:55) Code Status (05/06/25 02:55) Sodium Chloride 0.9% (05/06/25 03:00) Oxygen Per Hour (05/06/25 02:55) Hydrocodone-Acet 5/325mg Tab ([place] 5/32 (05/06/25 03:00) Ondansetron Hcl (Zofran) (05/06/25 03:00) Docusate Sodium Capsule (Colace Capsule) (05/06/25 03:00) Multiple Vitamin Tablet (Mvi Tab) (05/06/25 10:00) Complete Blood Count (05/07/25 04:00) Comprehensive Metabolic Panel (05/07/25 04:00) Condition: Serious (05/06/25 02:55) Acetaminophen Tablet (Tylenol Tablet) (05/06/25 03:00) Bedrest With Bathroom Privileg (05/06/25 02:55) Sequential Compression Device (05/06/25 ) Thiamine Inj (05/07/25 10:00) Folic Acid (05/07/25 10:00) Admit (05/06/25 03:51) Nitroglycerin Sublingual (Ntrostat Subli (05/06/25 04:00) Morphine Sulfate Injection (05/06/25 04:00) Stat Ekg For Chest Pain (05/06/25 03:51) Notify Md Of Changes From Base (05/06/25 03:51) Aircraft Communicator For 24 Hours (05/06/25 03:51) Emergency Dysrhythmia Protocol (05/06/25 03:51) Rhythm Strips Once Every Shift (05/06/25 03:51) Oxygen By Nasal Cannula (05/06/25 03:51) Vital Signs Date Time Temp Pulse Resp B/P (MAP) Pulse Ox O2 Delivery O2 Flow Rate FiO2 05/06/25 01:39 138/86 05/06/25 01:30 98.4 104 16 138/86 (103) 95 98.4 05/05/25 20:14 109 05/05/25 20:09 97.8 114 16 153/90 96 97.8 Laboratory Tests Test 05/05/25 20:57 05/05/25 22:45 Lactic Acid Level 5.9 mmol/L (0.4-2.0) *H 5.9 mmol/L (0.4-2.0) *H White Blood Count 4.2 10^3/uL (4.4-10.8) #L Medications Medications Dose Ordered Sig/Rossy Route Start Time Stop Time Status Last Admin Dose Admin Insulin Human Regular 10 units ONCE ONCE IV 05/05/25 23:45 05/05/25 23:46 DC 05/06/25 01:39 10 UNITS Nitroglycerin 0.4 mg ONCE ONCE SL 05/05/25 20:45 05/05/25 20:46 DC 05/06/25 01:39 0.4 MG Sodium Chloride 1,000 ml @ 1,000 mls/hr Q1H ONCE IV 05/06/25 01:45 05/06/25 02:44 DC 05/06/25 01:54 1,000 MLS/HR Sodium Chloride 1,000 ml @ 1,000 mls/hr Q1H ONCE IV 05/05/25 23:45 05/06/25 00:44 DC 05/06/25 01:30 1,000 MLS/HR Thiamine HCl 100 mg ONCE ONCE IV 05/06/25 03:00 05/06/25 03:13 DC 05/06/25 03:43 100 MG Assessment/Plan Assessment/Plan Acute pancreatitis Alcoholism Acute abdominal pain Hyperglycemia Elevated lactic acid level Plan 1. Admit to telemetry unit 2. Breathing treatment 3. Pain control management 4. Management of fluids and electrolytes 5. Consultation for hospitalist 6. Diagnostic tests chest x-ray 7. DVT prophylaxis-on SCDs 8. Repeat labs CBC, CMP in a.m. 9. Continue with current medical management 10. Treatment plan discussed with patient and RN. Patient verbalized understanding. Plan discussed with: Patient, Other (RN) My Orders Orders - MALCOLM ROJAS DNP Procedure Category Date Status Time Complete Blood Count LAB 05/06/25 Logged 04:00 Comprehensive LAB 05/06/25 Logged Metabolic Panel 04:00 Consistent DIET 05/06/25 Transmitted Carb(Ccho)Diabetes Breakfast Glucose Blood PHA 05/06/25 In Process (Accu-Chek Comfort 04:00 Insulin R (Human) PHA 05/06/25 In Process (Insulin R) 04:00 Dextrose 50% Syringe PHA 05/06/25 In Process 03:00 Allergies ARCHANA 05/06/25 In Process 02:55 Code Status CODE 05/06/25 Transmitted 02:55 Sodium Chloride 0.9% PHA 05/06/25 In Process 03:00 Oxygen Per Hour RT 05/06/25 Transmitted 02:55 Hydrocodone-Acet PHA 05/06/25 In Process 5/325mg Tab ([place] 03:00 Ondansetron Hcl PHA 05/06/25 In Process (Zofran) 03:00 Docusate Sodium PHA 05/06/25 In Process Capsule (Colace 03:00 Multiple Vitamin PHA 05/06/25 In Process Tablet (Mvi Tab) 10:00 Complete Blood Count LAB 05/07/25 Verified 04:00 Comprehensive LAB 05/07/25 Verified Metabolic Panel 04:00 Condition: Serious ARCHANA 05/06/25 In Process 02:55 Acetaminophen Tablet PHA 05/06/25 In Process (Tylenol Tablet) 03:00 Bedrest With Bathroom ARCHANA 05/06/25 In Process Privileg 02:55 Sequential ARCHANA 05/06/25 In Process Compression Device Thiamine Inj PHA 05/07/25 In Process 10:00 Folic Acid PHA 05/07/25 In Process 10:00 Admit ADMIT 05/06/25 Verified 03:51 Nitroglycerin [facility] 05/06/25 Verified Sublingual (Ntrostat 04:00 Morphine Sulfate PHA 05/06/25 Verified Injection 04:00 Stat Ekg For Chest [facility] 05/06/25 Verified Pain 03:51 Notify Md Of Changes [facility] 05/06/25 Verified From Base 03:51 Aircraft Communicator For [facility] 05/06/25 Verified 24 Hours 03:51 Emergency Dysrhythmia [facility] 05/06/25 Verified Protocol 03:51 Rhythm Strips Once [facility] 05/06/25 Verified Every Shift 03:51 Oxygen By Nasal RT 05/06/25 Verified Cannula 03:51 Problem List: (1) Acute pancreatitis (2) Alcoholism (3) Acute abdominal pain (4) Hyperglycemia (5) Elevated lactic acid level Date of Service: May 06, 2025 Billing Provider: MALCOLM ROJAS DNP Common Visit Codes: [id number] INP/OBS CARE (HIGH) MALCOLM ROJAS DNP May 06, 2025 03:52
[2025-05-06] MEDS: FOLIC ACID 1 MG in D5W 5% 50 ML INJ ONE (03:53)
[2025-05-06] MEDS: FOLIC ACID 1 MG TAB PO ONE (03:55)
[2025-05-06] MEDS ORDERED: NITROGLYCERIN 0.4 MG SL TAB SL PRN (04:00)
[2025-05-06] MEDS ORDERED: MORPHINE SULFATE INJ 2 MG/ml SYRG IV PRN (04:00)
[2025-05-06 04:35] LABS: Hemoglobin 13.8 g/dL (13.5-17.5); Nucleated Red Blood Cells % 0.1 %
[2025-05-06 04:37] LABS: Hematocrit 39.4 % (41.0-53.0); Mean Corpuscular Hemoglobin 36.2 pg (28.0-32.0); Mean Corpuscular Volume 103.5 fL (80.0-100.0)
[2025-05-06] MEDS: ACCU-CHEK COMFORT CURVE STRIP VI SCH (04:48)
[2025-05-06] MEDS: InsuLIN REG 1unit/0.01ml Soln (100units/ml) SC SCH (04:48)
[2025-05-06 04:57] LABS: Amphetamine Screen, Urine Pos (NEGATIVE); Barbiturate Scree,Urine Neg (NEGATIVE); Benzodiazephine Screen, Urine Neg (NEGATIVE); Cannabinoid Screen, Urine Neg (NEGATIVE); Cocaine Screen, Urine Neg (NEGATIVE); Opiate Scree,Urine Neg (NEGATIVE); Phencyclidine Screen, Urine Neg (NEGATIVE)
[2025-05-06 05:02] LABS: Urine Protein, UAD 1+ (Negative)
[2025-05-06 05:05] LABS: Albumin 3.2 g/dL (3.2-4.8); Anion Gap 11 (5-15); BUN/Creatinine Ratio 6.1 (10.0-20.0); Carbon Dioxide 21 mmol/L (20-31); Chloride 101 mmol/L (98-107); Potassium 3.9 mmol/L (3.5-5.1); Total Protein 7.1 g/dL (5.7-8.2)
[2025-05-06 05:07] LABS: Alanine Aminotransferase 42 U/L (7-40); Alkaline Phosphatase 212 U/L (46-116); Bilirubin, Total 1.5 mg/dL (0.2-1.0); Blood Urea Nitrogen 5 mg/dL (9-23); Calcium 8.6 mg/dL (8.7-10.4); Glucose 379 mg/dL (74-106); Sodium 133 mmol/L (136-145)
[2025-05-06 05:15] LABS: Lactic Acid w/Reflex 2.2 mmol/L (0.4-2.0)
[2025-05-06] MEDS: MULTIPLE VITAMIN TAB PO SCH (08:31)
[2025-05-06 14:22] VITALS: BP 137/74; PULSE 103; RESP 18; TEMP 97.9; O2SAT 91
[2025-05-06] MEDS: SODIUM CHLORIDE 0.9% 1,000 ML IV SCH (14:47)
[2025-05-06 17:00] VITALS: BP 125/68; PULSE 103; RESP 20; TEMP 97.9; O2SAT 90
[2025-05-06 20:00] VITALS: PULSE 82; PULSE 88
[2025-05-06 21:00] VITALS: BP 138/82; PULSE 103; RESP 16; TEMP 96.6; O2SAT 94
[2025-05-07] VITALS (8 sets, daily range): BP systolic 113–156; BP diastolic 74–83; PULSE 80–108; RESP 16–19; TEMP 96.4–98.3; O2SAT 93–97
[2025-05-07] MEDS: ONDANSETRON HCL 4 MG/2 ML VIAL IV PRN (00:45)
[2025-05-07] MEDS: HYDROcodone-ACET 5/325MG TAB PO PRN (04:20)
[2025-05-07 06:49] LABS: Hematocrit 37.2 % (41.0-53.0); Hemoglobin 13.4 g/dL (13.5-17.5); Mean Corpuscular Hemoglobin 36.6 pg (28.0-32.0); Mean Corpuscular Volume 101.2 fL (80.0-100.0); Nucleated Red Blood Cells % 0.2 %
[2025-05-07 07:05] LABS: Anion Gap 10 (5-15); BUN/Creatinine Ratio 9.4 (10.0-20.0); Carbon Dioxide 23 mmol/L (20-31); Chloride 105 mmol/L (98-107); Sodium 138 mmol/L (136-145); Total Protein 6.6 g/dL (5.7-8.2)
[2025-05-07 07:07] LABS: Alanine Aminotransferase 48 U/L (7-40); Albumin 3.1 g/dL (3.2-4.8); Alkaline Phosphatase 392 U/L (46-116); Bilirubin, Total 1.2 mg/dL (0.2-1.0); Blood Urea Nitrogen 8 mg/dL (9-23); Calcium 8.4 mg/dL (8.7-10.4); Glucose 204 mg/dL (74-106); Potassium 3.4 mmol/L (3.5-5.1)
--- NOTE | 2025-05-07 08:53 | DVHINCON2 ---
Date of service: May 07, 2025 History of Present Illness 44 yo male who presents to hospital with abd pain, n/v. The patient had been heavily drinking and started experiencing chest pain afterwards. He has a hist ory of alcohol abuse and pancreatitis. Describes pain in epigastric region Past Medical History htn, etoh abuse Past Surgical History denies abd surgeries Family History: Diabetes mellitus G8 MOTHER, G8 FATHER, Allergies: Coded Allergies: Penicillins (Verified Allergy, Unknown, 10/20/24) Home Meds Active Scripts Gabapentin (Gabapentin) 300 Mg Cap, 300 MG PO HS, #30 MG Prov:RUTHIE CASTANEDA MD 12/01/24 Insulin Glargine (Lantus Solostar) 100 Unit/Ml Inj, 20 UNIT SC HS, #10 INJ Prov:RUTHIE CASTANEDA MD 12/01/24 Glucose Blood (EASY TOUCH GLUCOSE TEST S) Strips Ashley, 1 EA ACHS for 30 Days, #120 MISC 70-130 - 0 units ____ units 131-180 - 8 units ____ units 181-240 - 12 units ____ units 241-300 - 16 units ____ units 301-350 - 20 units ____ units 351-400 - 24 units ____ units >400 12 units and call 20 units and call 28 units and call MD ____ units and call M Prov:RUTHIE CASTANEDA MD 12/01/24 Insulin Aspart (Insulin Aspart) 100 Unit/Ml Inj, 100 UNIT SC AC for 30 Days, #1 INJ 0 Refills 70-130 - 0 units ____ units 131-180 - 8 units ____ units 181-240 - 12 units ____ units 241-300 - 16 units ____ units 301-350 - 20 units ____ units 351-400 - 24 units ____ units >400 12 units and call 20 units and call 28 units and call MD ____ units and call M Prov:RUTHIE CASTANEDA MD 12/01/24 Lactulose (Lactulose) 10 Gm/15 Ml Keri, 20 GM PO BID for 30 Days, #473 ML 1 R efill Prov:RUTHIE CASTANEDA MD 5/7/25 Atorvastatin Calcium (ATORVASTATIN CALCIUM) 20 Mg Tab, 20 MG PO HS for 30 Days, #30 TAB Prov:RUTHIE CASTANEDA MD 12/01/24 Famotidine (PEPCID TABLET) 20 Mg Tb, 1 TAB PO BID for 30 Days, #60 TAB 0 Refills Prov:RUTHIE CASTANEDA MD 12/01/24 Spironolactone (Aldactone) 25 Mg Tab, 1 TAB PO DAILY, #30 TAB 2 Refills Prov:RUTHIE CASTANEDA MD 12/01/24 Lancets (Cvs Lancets Thin 26G) Thin 26G Mis, 26G SC ACHS, #120 0 Refills Please check glucose 15 mins before each meal Prov:MATEUSZ GOODRICH RESIDENT 10/25/24 Blood Glucose Monitoring Suppl (EASY TOUCH GLUCOSE MONITO) Monitor Kit, EA XX ACHS, #1 Please check glucose 15 mins before each meal Prov:MATEUSZ GOODRICH RESIDENT 10/25/24 Lancets (EASY TOUCH LANCETS) 28 G Mis, G XX QID, #100 Prov:ANUP DOSHI MD 08/26/24 Blood Glucose Monitoring Suppl (mm Easy Touch Blood Gluco W/Device) 1 Kit Kit, KIT XX, #1 Prov:ANUP DOSHI MD 08/26/24 Current Medications Current Medications Medications (Trade) Dose Ordered Sig/Rossy Route PRN Reason Start Time Stop Time Status Last Admin Thiamine HCl 100 mg DAILY IV 05/07/25 10:00 Folic Acid 1 mg/ Dextrose 50.2 ml @ 200.8 mls/ hr DAILY INJ 05/07/25 10:00 Multivitamins (Mvi Tab) 1 tab DAILY PO 05/06/25 10:00 05/06/25 08:31 Review of Systems neg unless mentioned in hpi Vital Signs Vital Signs Date Time Temp Pulse Resp B/P (MAP) Pulse Ox O2 Delivery O2 Flow Rate FiO2 05/07/25 08:00 Room Air* 0 21 05/07/25 05:00 97.3 90 17 130/81 (97) 94 97.3 Physical Exam gen; resting in bed, no acute distress, multiple tattoos cvs; palpable pulses lung; normal effort abd; soft nd midly ttp in epigastric region ext; no edema Labs/Diagnostic Data Labs Test 05/07/25 08:22 05/07/25 06:10 05/06/25 06:20 05/06/25 03:31 Range/Units POC Glucose 209 H 70-106 mg/dl White Blood Count 3.1 L 4.4-10.8 10^3/uL Red Blood Count 3.67 L 4.5-5.90 10^6/uL Hemoglobin 13.4 L 13.5-17.5 g/dL Hematocrit 37.2 L 41.0-53.0 % Mean Corpuscular Volume 101.2 H 80.0-100.0 fL Mean Corpuscular Hemoglobin 36.6 H 28.0-32.0 pg Mean Corpuscular Hemoglobin Concent 36.2 H 32.0-36.0 g/dL Red Cell Distribution Width 13.0 11.8-14.3 % Platelet Count 75 L 140-450 10^3/uL Mean Platelet Volume 7.8 6.9-10.8 fL Neutrophils (%) (Auto) 60.5 37.0-80.0 % Lymphocytes (%) (Auto) 21.1 10.0-50.0 % Monocytes (%) (Auto) 13.8 H 0.0-12.0 % Eosinophils (%) (Auto) 3.6 0.0-7.0 % Basophils (%) (Auto) 1.0 0.0-2.0 % Neutrophils # (Auto) 1.9 1.6-8.6 10 ^3/uL Lymphocytes # (Auto) 0.7 0.4-5.4 10 ^3/uL Monocytes # (Auto) 0.4 0-1.3 10 ^3/uL Eosinophils # (Auto) 0.1 0-0.8 10 ^3/uL Basophils # (Auto) 0 0-0.2 10 ^3/uL Nucleated Red Blood Cells 0.2 % Sodium Level 138 # 136-145 mmol/L Potassium Level 3.4 L 3.5-5.1 mmol/L Chloride Level 105 98-107 mmol/L Carbon Dioxide Level 23 20-31 mmol/L Anion Gap 10 5-15 Blood Urea Nitrogen 8 L 9-23 mg/dL Creatinine 0.85 0.700-1.30 mg/dL Glomerular Filtration Rate Calc 109 >90 mL/min BUN/Creatinine Ratio 9.4 L 10.0-20.0 Serum Glucose 204 #H 74-106 mg/dL Calcium Level 8.4 L 8.7-10.4 mg/dL Total Bilirubin 1.2 H 0.2-1.0 mg/dL Aspartate Amino Transferase (AST) 84 H 13-40 U/L Alanine Aminotransferase (ALT) 48 H 7-40 U/L Alkaline Phosphatase 392 H 46-116 U/L Total Protein 6.6 5.7-8.2 g/dL Albumin 3.1 L 3.2-4.8 g/dL Lactic Acid Level 2.3 *H 0.4-2.0 mmol/L Urine Color Yellow Yellow Urine Clarity Turbid H Clear Urine pH 5.5 5.0-9.0 [address]rine Specific [place] 1.024 1.001-1.035 Urine Protein 1+ H Negative Urine Ketones 1+ H Negative Urine Blood Trace H Negative /uL Urine Nitrite Negative Negative Urine Bilirubin Negative Negative Urine Urobilinogen 2 H Negative mg/dL Urine Leukocyte Esterase Negative Negative /uL Urine RBC 14 0 - 3 /hpf Urine Microscopic WBC 12 H 0-3 /HPF Urine Squamous Epithelial Cells Few <5 /hpf Urine Bacteria None seen None Seen /hpf Urine Mucus Few None Seen Urine Sperm Present None Seen /hpf Urine Glucose 4+ H Normal mg/dL Urine Opiates Screen Neg NEGATIVE Urine Fentanyl Screen Neg NEGATIVE Urine Barbiturates Screen Neg NEGATIVE Urine Phencyclidine Screen Neg NEGATIVE Urine Amphetamines Screen Pos NEGATIVE Urine Benzodiazepines Screen Neg NEGATIVE Urine Cocaine Screen Neg NEGATIVE Urine Cannabinoids Screen Neg NEGATIVE Test 05/05/25 21:51 05/05/25 20:57 Range/Units Troponin I High Sensitivity < 3 L </=54 ng/L Lipase 179 H 12-53 U/L Plasma/Serum Blood Alcohol 116.5 H <10 mg/dL Assessment 44 yo male with epigastric pain, pancreatitis Plan/Recommendation diet as tolerated abstain from etoh pt does not have symptoms consistent with cholelithiasis, appears to be from chronic etoh no surgical intervention warranted at this time Plan discussed with: Patient FRANDY WEBER MD May 07, 2025 08:53
[2025-05-07] MEDS: THIAMINE 100mg/ml INJ (200mg/2ml VIAL) IV SCH (09:18)
[2025-05-07] MEDS: FOLIC ACID 1 MG in D5W 5% 50 ML INJ SCH (10:08)
[2025-05-07] MEDS: INSULIN LANTUS (GLARGINE) 1 /0.01ml (100units/ml) SC SCH (21:12)
[2025-05-07] MEDS ORDERED: DEXTROSE (50%) 50ML SYRG IV PRN (21:30)
[2025-05-08] VITALS (8 sets, daily range): BP systolic 110–132; BP diastolic 63–85; PULSE 82–104; RESP 17–20; TEMP 97.5–98.4; O2SAT 91–97
[2025-05-08] MEDS: ACCU-CHEK COMFORT CURVE STRIP VI SCH
--- NOTE | 2025-05-08 00:15 | DVHPN2 ---
Eyes: No Pain, No Vision change, No Conjunctivae inflammation, No Eyelid inflammation, No Other, No Redness ENT: No Ear pain, No Ear discharge, No Nose pain, No Nose discharge, No Nose congestion, No Mouth pain, No Mouth swelling, No Throat pain, No Throat swelling, No Other Cardiovascular: Chest Pain; No Palpitations, No Orthopnea, No Paroxysmal Noc. Dyspnea, No Edema, No Lt Headedness, No Other Respiratory: No Cough, No Dry, No Shortness of breath, No SOB with excertion, No Wheezing, No Hemoptysis, No Pleuritic Pain, No Sputum, No Other Gastrointestinal: No Nausea, No Vomiting; Abdominal Pain; No Diarrhea, No Constipation, No Melena, No Hematochezia, No Other Genitourinary: No Dysuria, No Frequency, No Incontinence, No Hematuria, No Retention, No Other Musculoskeletal: No other, No neck pain, No shoulder pain, No arm pain, No back pain, No hand pain, No leg pain, No foot pain Skin: No Rash, No Lesions, No Jaundice, No Bruising, No Other Objective Vitals Vital Signs Date Time Temp Pulse Resp B/P (MAP) Pulse Ox O2 Delivery O2 Flow Rate FiO2 05/07/25 21:00 97.8 100 17 133/77 (95) 97 97.8 05/07/25 20:00 Room Air* 0 21 Intake/Output Intake and Output 05/08/25 07:00 Intake Total 1550 ml Output Total 2150 ml Balance -600 ml Intake Oral 1550 ml Output Urine Total 2150 ml Medications Current Medications Medications Dose Ordered Sig/Rossy Route Start Time Stop Time Status Last Admin Dose Admin Thiamine HCl 100 mg DAILY IV 05/07/25 10:00 05/07/25 09:18 100 MG Folic Acid 1 mg/ Dextrose 50.2 ml @ 200.8 mls/ hr DAILY INJ 05/07/25 10:00 05/07/25 10:08 200.8 MLS/HR Sodium Chloride 1,000 ml @ 60 mls/hr [id number] IV 05/06/25 03:00 05/07/25 12:38 60 MLS/HR Acetaminophen/ Hydrocodone Bitart 1 tab Q4HP PRN PO 05/06/25 03:00 05/07/25 21:10 1 TAB Ondansetron HCl 4 mg Q4HP PRN IV 05/06/25 03:00 05/07/25 00:45 4 MG Multivitamins 1 tab DAILY PO 05/06/25 10:00 05/07/25 09:17 1 TAB Acetaminophen 650 mg Q6HP PRN PO 05/06/25 03:00 Insulin Glargine 20 units HS SC 05/07/25 22:00 05/07/25 21:12 20 UNITS Diagnostic Test (Pha) 1 strip IQ4HR 05/08/25 00:00 Insulin Human Regular IQ4HR SC 05/08/25 00:00 Dextrose 50 ml UD PRN IV 05/07/25 21:30 Laboratory Results Laboratory Tests 05/07/25 06:10 Chemistry Test 05/07/25 06:10 Albumin 3.1 g/dL (3.2-4.8) L Calcium Level 8.4 mg/dL (8.7-10.4) L Total Protein 6.6 g/dL (5.7-8.2) LFT Test 05/07/25 06:10 Alanine Aminotransferase (ALT) 48 U/L (7-40) H Alkaline Phosphatase 392 U/L (46-116) H Aspartate Amino Transferase (AST) 84 U/L (13-40) H Total Bilirubin 1.2 mg/dL (0.2-1.0) H Urinalysis Test 05/06/25 03:31 Urine Color Yellow (Yellow) Urine Clarity Turbid (Clear) H Urine pH 5.5 (5.0-9.0) Urine Specific [place] 1.024 (1.001-1.035) Urine Protein 1+ (Negative) H Urine Ketones 1+ (Negative) H Urine Blood Trace /uL (Negative) H Urine Nitrite Negative (Negative) Urine Bilirubin Negative (Negative) Urine Urobilinogen 2 mg/dL (Negative) H Urine Leukocyte Esterase Negative /uL (Negative) Urine RBC 14 /hpf (0 - 3) Urine Microscopic WBC 12 /HPF (0-3) H Urine Squamous Epithelial Cells Few /hpf (<5) Urine Bacteria None seen /hpf (None Seen) Urine Mucus Few (None Seen) Urine Sperm Present /hpf (None Seen) Urine Glucose 4+ mg/dL (Normal) H OPHELIA SOLORZANO MD May 08, 2025 00:15
[2025-05-08] MEDS: InsuLIN REG 1unit/0.01ml Soln (100units/ml) SC SCH (00:55)
[2025-05-08] MEDS ORDERED: ACCU-CHEK COMFORT CURVE STRIP VI SCH (07:00)
[2025-05-08] MEDS ORDERED: INSULIN LISPRO (HUMAN) 100 UNITS/ML ML SC SCH ×2 (07:00)
[2025-05-08 11:13] LABS: Chloride 104 mmol/L (98-107); Potassium 3.6 mmol/L (3.5-5.1); Sodium 138 mmol/L (136-145)
[2025-05-08 11:14] LABS: Anion Gap 9 (5-15); Calcium 8.8 mg/dL (8.7-10.4); Carbon Dioxide 25 mmol/L (20-31)
[2025-05-08 11:19] LABS: BUN/Creatinine Ratio 10.8 (10.0-20.0); Blood Urea Nitrogen 10 mg/dL (9-23)
[2025-05-08 11:23] LABS: Glucose 316 mg/dL (74-106)
[2025-05-08 14:14] LABS: Hematocrit 41.9 % (41.0-53.0); Hemoglobin 14.6 g/dL (13.5-17.5); Mean Corpuscular Hemoglobin 35.7 pg (28.0-32.0); Mean Corpuscular Volume 102.4 fL (80.0-100.0); Nucleated Red Blood Cells % 0.1 %
--- NOTE | 2025-05-08 20:20 | DVHPN2 ---
Assessment/Plan Assessment/Plan progress note 44 M with alcohol use, IDDM, admitted for pancreatitis seen today. glucose not controlled. starting basal bolus ISS insulin. difficulty walking possiblyt from neuropathy physical exam aox4 comfortable on RA clear breath sounds s1 s2 rrr abdomen soft no LE edema labs ekg imaging reviewed assessment and plan IDDM uncontrolled pancreatitis alcohol use smoker diff ambulating? neruopathy? basal bolus ISS ivf pain management diet advance as tolerated avoid alcohol NRT PT diet clear dvt ppx lovenox full code Plan discussed with: Patient My Orders Orders - JOHANNY MARTIN MD Procedure Category Date Status Time Insulin Lantus PHA 05/08/25 Transmitted (Glargine) (Lantus) 22:00 Glucose Blood PHA 05/09/25 Transmitted (Accu-Chek Comfort 07:00 Insulin Lispro PHA 05/09/25 Transmitted (Human) (Humalog) 07:00 Insulin Lispro PHA 05/09/25 Transmitted (Human) (Humalog) 07:00 Date of Service: May 07, 2025 Billing Provider: JOHANNY MARTIN MD Common Visit Codes: [id number] INP/OBS CARE(HIGH) JOHANNY MARTIN MD May 08, 2025 20:20
--- NOTE | 2025-05-08 20:21 | DVHPN2 ---
Assessment/Plan Assessment/Plan progress note 44 M with alcohol use, IDDM, admitted for pancreatitis seen today. insulin order changed. now hyperglycemic. readjusting doses. ss for recup care physical exam aox4 comfortable on RA clear breath sounds s1 s2 rrr abdomen soft no LE edema labs ekg imaging reviewed assessment and plan IDDM uncontrolled pancreatitis alcohol use smoker diff ambulating? neruopathy? basal bolus ISS ivf pain management diet advance as tolerated avoid alcohol NRT PT diet clear dvt ppx lovenox full code Plan discussed with: Patient My Orders Orders - JOHANNY MARTIN MD Procedure Category Date Status Time Insulin Lantus PHA 05/08/25 Transmitted (Glargine) (Lantus) 22:00 Glucose Blood PHA 05/09/25 Transmitted (Accu-Chek Comfort 07:00 Insulin Lispro PHA 05/09/25 Transmitted (Human) (Humalog) 07:00 Insulin Lispro PHA 05/09/25 Transmitted (Human) (Humalog) 07:00 Date of Service: May 08, 2025 Billing Provider: JOHANNY MARTIN MD Common Visit Codes: [id number] INP/OBS CARE(HIGH) JOHANNY MARTIN MD May 08, 2025 20:20
[2025-05-08] MEDS: INSULIN LANTUS (GLARGINE) 1 /0.01ml (100units/ml) SC SCH (22:27)
[2025-05-09 06:00] VITALS: BP 110/69; PULSE 85; RESP 18; TEMP 97.3; O2SAT 93
[2025-05-09] MEDS: INSULIN LISPRO (HUMAN) 100 UNITS/ML ML SC SCH ×2 (06:26→06:27)
[2025-05-09] MEDS: ACCU-CHEK COMFORT CURVE STRIP VI SCH (06:27)
[2025-05-09 06:58] LABS: Anion Gap 10 (5-15); Calcium 8.8 mg/dL (8.7-10.4); Carbon Dioxide 22 mmol/L (20-31); Chloride 105 mmol/L (98-107); Potassium 3.8 mmol/L (3.5-5.1); Sodium 137 mmol/L (136-145)
[2025-05-09 07:03] LABS: BUN/Creatinine Ratio 12.2 (10.0-20.0); Blood Urea Nitrogen 11 mg/dL (9-23)
[2025-05-09 07:06] LABS: Glucose 368 mg/dL (74-106)
[2025-05-09 08:00] VITALS: PULSE 84; RESP 18; O2SAT 97
[2025-05-09 09:00] VITALS: BP 113/66; PULSE 83; RESP 18; TEMP 98.2; O2SAT 97
[2025-05-09 13:00] VITALS: BP 131/82; PULSE 92; RESP 18; TEMP 98.6; O2SAT 94
[2025-05-09 16:45] VITALS: BP 123/80; PULSE 105; RESP 18; TEMP 98.6; O2SAT 95
--- NOTE | 2025-05-09 18:58 | DVHPN2 ---
Assessment/Plan Assessment/Plan progress note 44 M with alcohol use, IDDM, admitted for pancreatitis seen today. insulin order changed. now hyperglycemic. readjusting doses. ss for snif pt rehab. physical exam aox4 comfortable on RA clear breath sounds s1 s2 rrr abdomen soft no LE edema labs ekg imaging reviewed assessment and plan IDDM uncontrolled pancreatitis alcohol use smoker macrocitic anemia diff ambulating? neruopathy? basal bolus ISS ivf pain management diet advance as tolerated avoid alcohol NRT PT diet clear dvt ppx lovenox full code Plan discussed with: Patient My Orders Orders - JOHANNY MARTIN MD Procedure Category Date Status Time Insulin Lantus PHA 05/08/25 In Process (Glargine) (Lantus) 22:00 Glucose Blood PHA 05/09/25 In Process (Accu-Chek Comfort 07:00 Insulin Lispro PHA 05/09/25 In Process (Human) (Humalog) 07:00 Insulin Lispro PHA 05/09/25 In Process (Human) (Humalog) 07:00 Communication Order ORDERS 05/08/25 Transmitted 20:16 Transfer Orders XFER 05/09/25 Transmitted 15:37 Insulin Lantus PHA 05/09/25 Verified (Glargine) (Lantus) 22:00 Insulin Lispro PHA 05/10/25 Verified (Human) (Humalog) 07:00 * Meat Molder CONS 05/09/25 Verified Consult Date of Service: May 09, 2025 Billing Provider: JOHANNY MARTIN MD Common Visit Codes: [id number] INP/OBS CARE(HIGH) JOHANNY MARTIN MD May 09, 2025 18:58
[2025-05-09 21:00] VITALS: BP 119/67; PULSE 92; RESP 17; TEMP 97.8; O2SAT 93
[2025-05-09] MEDS: GABAPENTIN 300 MG CAP PO SCH (22:00)
[2025-05-09] MEDS: INSULIN LANTUS (GLARGINE) 1 /0.01ml (100units/ml) SC SCH (22:17)
[2025-05-09] MEDS: ACETAMINOPHEN 325 MG TAB PO PRN (22:19)
[2025-05-10 01:00] VITALS: BP 105/61; PULSE 86; RESP 16; TEMP 98; O2SAT 95
[2025-05-10 05:00] VITALS: BP 110/67; PULSE 84; RESP 16; TEMP 98.2; O2SAT 95
[2025-05-10] MEDS: INSULIN LISPRO (HUMAN) 100 UNITS/ML ML SC SCH (06:16)
[2025-05-10 09:00] VITALS: BP 123/74; PULSE 91; RESP 16; TEMP 98.1; O2SAT 95
[2025-05-10] MEDS: INSULIN LISPRO (HUMAN) 100 UNITS/ML ML SC ONE (10:46)
[2025-05-10 13:00] VITALS: BP 118/77; PULSE 86; RESP 16; TEMP 97.9; O2SAT 95
--- NOTE | 2025-05-10 15:14 | DVHPN2 ---
Assessment/Plan Assessment/Plan progress note 44 M with alcohol use, IDDM, admitted for pancreatitis seen today. managing hyperglycemia. plan for snf dc to [facility], accepted pending auth physical exam aox4 comfortable on RA clear breath sounds s1 s2 rrr abdomen soft no LE edema labs ekg imaging reviewed assessment and plan IDDM uncontrolled pancreatitis alcohol use smoker macrocitic anemia diff ambulating? neruopathy? basal bolus ISS ivf pain management diet advance as tolerated avoid alcohol NRT PT diet clear dvt ppx lovenox full code Plan discussed with: Patient My Orders Orders - JOHANNY MARTIN MD Procedure Category Date Status Time Transfer Orders XFER 05/09/25 Transmitted 15:37 Insulin Lispro PHA 05/10/25 In Process (Human) (Humalog) 07:00 * Bundle Cutter CONS 05/09/25 Transmitted Consult Gabapentin Capsule PHA 05/09/25 In Process (Neurontin Capsule) 22:00 Communication Order ORDERS 05/10/25 Transmitted 10:13 Insulin Lantus PHA 05/10/25 In Process (Glargine) (Lantus) 22:00 Date of Service: May 10, 2025 Billing Provider: JOHANNY MARTIN MD Common Visit Codes: [id number] INP/OBS CARE(HIGH) JOHANNY MARTIN MD May 10, 2025 15:14
[2025-05-10 17:00] VITALS: BP 148/87; PULSE 98; RESP 16; TEMP 98; O2SAT 95
[2025-05-10 21:00] VITALS: BP 116/66; PULSE 93; RESP 18; TEMP 98.2; O2SAT 95
[2025-05-10] MEDS ORDERED: INSULIN LANTUS (GLARGINE) 1 /0.01ml (100units/ml) SC SCH (22:00)
[2025-05-10] MEDS: INSULIN LANTUS (GLARGINE) 1 /0.01ml (100units/ml) SC SCH (22:00)
[2025-05-11 01:00] VITALS: BP 126/80; PULSE 91; RESP 18; TEMP 98.3; O2SAT 93
[2025-05-11 05:00] VITALS: BP 124/75; PULSE 81; RESP 18; TEMP 97.7; O2SAT 96
[2025-05-11 08:00] VITALS: PULSE 85; RESP 16; O2SAT 95
[2025-05-11 09:00] VITALS: BP 121/73; PULSE 85; RESP 16; TEMP 97.6; O2SAT 95
[2025-05-11] MEDS: INSULIN LISPRO (HUMAN) 100 UNITS/ML ML SC SCH ×2 (11:44)
[2025-05-11 13:00] VITALS: BP 119/72; PULSE 81; RESP 17; TEMP 97.7; O2SAT 95
--- NOTE | 2025-05-11 14:38 | DVHDS2 ---
Discharge Summary Date of Admission May 06, 2025 at 03:51 Date of Discharge: May 11, 2025 Labs/Diagnostic Data: Laboratory Results Test 05/11/25 11:24 05/09/25 05:45 05/08/25 13:29 05/07/25 06:10 POC Glucose 337 mg/dl (70-106) Sodium Level 137 mmol/L (136-145) Potassium Level 3.8 mmol/L (3.5-5.1) Chloride Level 105 mmol/L (98-107) Carbon Dioxide Level 22 mmol/L (20-31) Anion Gap 10 (5-15) Blood Urea Nitrogen 11 mg/dL (9-23) Creatinine 0.90 mg/dL (0.700-1.30) Glomerular Filtration Rate Calc 107 mL/min (>90) BUN/Creatinine Ratio 12.2 (10.0-20.0) Serum Glucose 368 mg/dL (74-106) Calcium Level 8.8 mg/dL (8.7-10.4) White Blood Count 3.1 10^3/uL (4.4-10.8) Red Blood Count 4.09 10^6/uL (4.5-5.90) Hemoglobin 14.6 g/dL (13.5-17.5) Hematocrit 41.9 % (41.0-53.0) Mean Corpuscular Volume 102.4 fL (80.0-100.0) Mean Corpuscular Hemoglobin 35.7 pg (28.0-32.0) Mean Corpuscular Hemoglobin Concent 34.9 g/dL (32.0-36.0) Red Cell Distribution Width 13.2 % (11.8-14.3) Platelet Count 88 10^3/uL (140-450) Mean Platelet Volume 8.0 fL (6.9-10.8) Neutrophils (%) (Auto) 53.7 % (37.0-80.0) Lymphocytes (%) (Auto) 24.8 % (10.0-50.0) Monocytes (%) (Auto) 15.1 % (0.0-12.0) Eosinophils (%) (Auto) 5.5 % (0.0-7.0) Basophils (%) (Auto) 0.9 % (0.0-2.0) Neutrophils # (Auto) 1.7 10 ^3/uL (1.6-8.6) Lymphocytes # (Auto) 0.8 10 ^3/uL (0.4-5.4) Monocytes # (Auto) 0.5 10 ^3/uL (0-1.3) Eosinophils # (Auto) 0.2 10 ^3/uL (0-0.8) Basophils # (Auto) 0 10 ^3/uL (0-0.2) Nucleated Red Blood Cells 0.1 % Total Bilirubin 1.2 mg/dL (0.2-1.0) Aspartate Amino Transferase (AST) 84 U/L (13-40) Alanine Aminotransferase (ALT) 48 U/L (7-40) Alkaline Phosphatase 392 U/L (46-116) Total Protein 6.6 g/dL (5.7-8.2) Albumin 3.1 g/dL (3.2-4.8) Test 05/06/25 06:20 05/06/25 03:31 05/05/25 21:51 05/05/25 20:57 Lactic Acid Level 2.3 mmol/L (0.4-2.0) Urine Color Yellow (Yellow) Urine Clarity Turbid (Clear) Urine pH 5.5 (5.0-9.0) Urine Specific [place] 1.024 (1.001-1.035) Urine Protein 1+ (Negative) Urine Ketones 1+ (Negative) Urine Blood Trace /uL (Negative) Urine Nitrite Negative (Negative) Urine Bilirubin Negative (Negative) Urine Urobilinogen 2 mg/dL (Negative) Urine Leukocyte Esterase Negative /uL (Negative) Urine RBC 14 /hpf (0 - 3) Urine Microscopic WBC 12 /HPF (0-3) Urine Squamous Epithelial Cells Few /hpf (<5) Urine Bacteria None seen /hpf (None Seen) Urine Mucus Few (None Seen) Urine Sperm Present /hpf (None Seen) Urine Glucose 4+ mg/dL (Normal) Urine Opiates Screen Neg (NEGATIVE) Urine Fentanyl Screen Neg (NEGATIVE) Urine Barbiturates Screen Neg (NEGATIVE) Urine Phencyclidine Screen Neg (NEGATIVE) Urine Amphetamines Screen Pos (NEGATIVE) Urine Benzodiazepines Screen Neg (NEGATIVE) Urine Cocaine Screen Neg (NEGATIVE) Urine Cannabinoids Screen Neg (NEGATIVE) Troponin I High Sensitivity < 3 ng/L (</=54) Lipase 179 U/L (12-53) Plasma/Serum Blood Alcohol 116.5 mg/dL (<10) Other Laboratory Tests 05/09/25 05:45 05/08/25 13:29 Final Diagnosis/Problems List uncontrolled IDDM 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 Discharge Disposition: Fdc Facility Discharge Instruct/Medications Diet: Consistent carbohydrate, Cardiac 2g Na,low cholest Activity: No Restrictions, As Tolerated Scheduled Atorvastatin Calcium (Atorvastatin Calcium), 20 MG PO HS Glucose Blood (Easy Touch Glucose Test S), 1 EA ACHS Insulin Aspart (Insulin Aspart), 100 UNIT SC AC Insulin Glargine (Lantus Solostar), 20 UNIT SC HS Durable Medical Equipment Blood Glucose Monitoring Suppl (mm Easy Touch Blood Gluco W/Device), KIT XX, (DME) Blood Glucose Monitoring Suppl (Easy Touch Glucose [place]), EA XX ACHS, (DME) Lancets (Easy Touch Lancets), G XX QID, (DME) Lancets (Cvs Lancets Thin 26G), 26G SC ACHS, (DME) Discharge Statement: "Patient was advised to return to the ER or call 911 if any headaches, dizziness, shortness of breath, chest pain, abdominal pain, bleeding, fevers, or worsening of medical condition. Patient was counseled about treatment plan, medications, possible side effects, patientverbalized understanding. All questions were answered to the best of my ability. 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
[2025-05-11 17:00] VITALS: BP 123/74; PULSE 99; RESP 18; TEMP 98.1; O2SAT 95
== END 2025-05-11 19:20 | DRG 282 ==
LOC: ER 20:04 → EDSEX 20:04 → EDBD 20:04 → OVERFLOW 05-06 03:51 → TELE-WESTW 05-06 14:06 → WEST WING 05-09 15:39
PROVIDERS: ADMIT Student in an Organized Health Care Education/Training Program; ATTEND Student in an Organized Health Care Education/Training Program
DX: K85.90 Acute pancreatitis without necrosis or infection, unspecified (principal); E87.20 Acidosis, unspecified; F10.20 Alcohol dependence, uncomplicated; D64.9 Anemia, unspecified; E11.40 Type 2 diabetes mellitus with diabetic neuropathy, unspecified; F17.200 Nicotine dependence, unspecified, uncomplicated; I10 Essential (primary) hypertension; R26.9 Unspecified abnormalities of gait and mobility; Z88.0 Allergy status to penicillin; Z79.4 Long term (current) use of insulin; Z83.3 Family history of diabetes mellitus; Z79.899 Other long term (current) drug therapy; Y90.5 Blood alcohol level of 100-119 mg/100 ml
CPT/HCPCS: 36415; 71045; 80048; 80053; 80307; 80320; 81001; 82962; 83605; 83690; 84484; 85025; 93005; 96361; 96374; 96375; 97110; 97116; 97163; G0378; J1815; J2405; J7060

== ENCOUNTER 2025-05-26 01:00 | Inpatient (IN) | payer MEDICAID ==
[2025-05-26] VITALS (21 sets, daily range): BP systolic 105–136; BP diastolic 62–82; PULSE 102–123; RESP 12–24; TEMP 97–98.7; O2SAT 91–98
[~2025-05-26] VITALS: Ht 172.7 cm; Wt 84.4 kg
[~2025-05-26 01:00] MED LIST changes: -FAMO20TA10 PO; -GABA-1250 PO; -LACT10SO3 PO; -SPIR25TA PO
--- NOTE | 2025-05-26 01:13 | ECG ---
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
[2025-05-26 01:49] LABS: Hemoglobin 15.0 g/dL (13.5-17.5); Mean Corpuscular Hemoglobin 35.3 pg (28.0-32.0); Nucleated Red Blood Cells % 0.1 %
[2025-05-26 01:51] LABS: Hematocrit 43.3 % (41.0-53.0); Mean Corpuscular Volume 101.8 fL (80.0-100.0)
[2025-05-26 02:11] LABS: Albumin 3.8 g/dL (3.2-4.8); Anion Gap 16 (5-15); BUN/Creatinine Ratio 13.7 (10.0-20.0); Blood Urea Nitrogen 14 mg/dL (9-23); Calcium 9.4 mg/dL (8.7-10.4); Chloride 103 mmol/L (98-107); Potassium 4.3 mmol/L (3.5-5.1); Sodium 137 mmol/L (136-145); Total Protein 8.0 g/dL (5.7-8.2)
[2025-05-26 02:12] LABS: Alanine Aminotransferase 87 U/L (7-40); Alkaline Phosphatase 301 U/L (46-116); Bilirubin, Total 0.9 mg/dL (0.2-1.0); Carbon Dioxide 18 mmol/L (20-31)
[2025-05-26 02:13] LABS: Glucose 500 mg/dL (74-106)
[2025-05-26 02:14] LABS: Lactic Acid w/Reflex 4.8 mmol/L (0.4-2.0)
[2025-05-26] MEDS: SODIUM CHLORIDE 0.9% 1,000 ML IV ONE (02:20)
[2025-05-26] MEDS ORDERED: DEXTROSE (50%) 50ML SYRG IV PRN ×2 (02:30→13:15)
--- NOTE | 2025-05-26 02:35 | ED.PDOC ---
History of Present Illness HPI Comments 44-year-old male complaining of generalized weakness and chest pain. States it started today. Called EMS. States he is type 1 diabetic, usually use insulin but he has not used his insulin today. Did not have it on hand. Says he feels brain fog, does report a prior history of DKA. Patient also reports ETOH use today. Denies any illicit drug use. No nausea no vomiting no diarrhea. Upon arrival by EMS, patient is tachypneic and tachycardic. Chief Complaint: Hyperglycemia Time Seen by MD: 01:07 Primary Care Provider: n/a Reviewed Notes: Nurses Notes Allergies: Coded Allergies: Penicillins (Verified Allergy, Unknown, 10/20/24) Home Meds Active Scripts Insulin Glargine (Lantus Solostar) 100 Unit/Ml Inj, 20 UNIT SC HS, #10 INJ Prov:RUTHIE CASTANEDA MD 12/01/24 Glucose Blood (EASY TOUCH GLUCOSE TEST S) Strips Ashley, 1 EA ACHS for 30 Days, #120 MISC 70-130 - 0 units ____ units 131-180 - 8 units ____ units 181-240 - 12 units ____ units 241-300 - 16 units ____ units 301-350 - 20 units ____ units 351-400 - 24 units ____ units >400 12 units and call 20 units and call 28 units and call MD ____ units and call M Prov:RUTHIE CASTANEDA MD 12/01/24 Insulin Aspart (Insulin Aspart) 100 Unit/Ml Inj, 100 UNIT SC AC for 30 Days, #1 INJ 0 Refills 70-130 - 0 units ____ units 131-180 - 8 units ____ units 181-240 - 12 units ____ units 241-300 - 16 units ____ units 301-350 - 20 units ____ units 351-400 - 24 units ____ units >400 12 units and call 20 units and call 28 units and call MD ____ units and call M Prov:RUTHIE CASTANEDA MD 12/01/24 Atorvastatin Calcium (ATORVASTATIN CALCIUM) 20 Mg Tab, 20 MG PO HS for 30 Days, #30 TAB Prov:RUTHIE CASTANEDA MD 12/01/24 Lancets (Cvs Lancets Thin 26G) Thin 26G Mis, 26G SC ACHS, #120 0 Refills Please check glucose 15 mins before each meal Prov:MATEUSZ GOODRICH 10/25/24 Blood Glucose Monitoring Suppl (EASY TOUCH GLUCOSE MONITO) Monitor Kit, EA XX ACHS, #1 Please check glucose 15 mins before each meal Prov:MATEUSZ GOODRICH 10/25/24 Lancets (EASY TOUCH LANCETS) 28 G Mis, G XX QID, #100 Prov:ANUP DOSHI MD 08/26/24 Blood Glucose Monitoring Suppl (mm Easy Touch Blood Gluco W/Device) 1 Kit Kit, KIT XX, #1 Prov:ANUP DOSHI MD 08/26/24 Information Source: Patient Mode of Arrival: Ambulatory Past Medical History PAST MEDICAL HISTORY: HTN, Liver Surgical History: Denies all surgeries Family History Family History: Reviewed,noncontributory to illness Social History Smoker: Non-Smoker Alcohol: Heavy Drugs: Denies Drug Use Lives In: Home Constitutional: reports: diaphoresis, fatigue; denies: chills, fever, malaise, sweats, weakness, others EENTM: denies: blurred vision, double vision, ear bleeding, ear discharge, ear drainage, ear pain, ear ringing, eye pain, eye redness, hearing loss, mouth pain, mouth swelling, nasal discharge, nose bleeding, nose congestion, nose pain, photophobia, tearing, throat pain, throat swelling, voice changes, others Respiratory: denies: cough, hemoptysis, orthopnea, SOB at rest, shortness of breath, SOB with excertion, stridor, wheezing, others Cardiovascular: reports: chest pain; denies: dizzy spells, diaphoresis, Dyspnea on exertion, edema, irregular heart beat, left arm pain, lightheadedness, palpitations, PND, syncope, others Gastrointestinal: denies: abdomen distended, abdominal pain, blood streaked bowels, constipated, diarrhea, dysphagia, difficulty swallowing, hematemesis, melena, nausea, poor appetite, poor fluid intake, rectal bleeding, rectal pain, vomiting, others Genitourinary: denies: burning, dysuria, flank pain, frequency, hematuria, incontinence, penile discharge, penile sore, pain, testicle pain, testicle swelling, urgency, others Neurological: denies: dizziness, fainting, headache, left sided numbness, left sided weakness, numbness, paresthesia, pre-existing deficit, right sided numbness, right sided weakness, seizure, speech problems, tingling, tremors, weakness, others Musculoskeletal: denies: back pain, gout, joint pain, joint swelling, muscle pain, muscle stiffness, neck pain, others Integumetry: denies: bruises, change in color, change in hair/nails, dryness, laceration, lesions, lumps, rash, wounds, others Allergic/Immunocompromised: denies: Difficulty Healing, Frequent Infections, Hives, Itching, others Hematologic/Lymphatic: denies: anemia, blood clots, easy bleeding, easy bruising, swollen glands, others Endocrine: denies: excessive hunger, excessive sweating, excessive thirst, excessive urination, flushing, intolerance to cold, intolerance to heat, unexplained weight gain, unexplained weight loss, others Physical Exam General Appearance: No Apparent Distress, Normal HEENT: Normal ENT Inspection, Pharynx Normal, TMs Normal Neck: Full Range of Motion, Non-Tender, Normal, Normal Inspection Respiratory: Chest Non-Tender, Lungs Clear, No Accessory Muscle Use, No Respiratory Distress, Normal Breath Sounds Cardiovascular: No Edema, No JVD, No Murmur, No Gallop, Normal Peripheral Pulses, Regular Rate/Rhythm Breast Exam: Deferred Gastrointestinal: No Organomegaly, Non Tender, No Pulsatile Mass, Normal Bowel Sounds, Soft Genitalia: Deferred Pelvic: Deferred Rectal: Deferred Extremities: No calf tenderness, Normal capillary refill, Normal inspection, Normal range of motion, Non-tender, No pedal edema Musculoskeletal : Apperance: Normal Neurologic: Alert, 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 Was a procedure done?: No Differential Dx Considerations may include: Hyperglycemia, DKA, chest pain, MD, PNA X-Ray, Labs, Meds, VS Vital Signs Date Time Temp Pulse Resp B/P (MAP) Pulse Ox O2 Delivery O2 Flow Rate FiO2 05/26/25 01:05 112 05/26/25 01:00 97.9 112 16 133/84 97 97.9 Lab Test 05/26/25 01:35 Range/Units White Blood Count 4.1 L 4.4-10.8 10^3/uL Red Blood Count 4.25 L 4.5-5.90 10^6/uL Hemoglobin 15.0 13.5-17.5 g/dL Hematocrit 43.3 41.0-53.0 % Mean Corpuscular Volume 101.8 H 80.0-100.0 fL Mean Corpuscular Hemoglobin 35.3 H 28.0-32.0 pg Mean Corpuscular Hemoglobin Concent 34.6 32.0-36.0 g/dL Red Cell Distribution Width 13.8 11.8-14.3 % Platelet Count 122 L 140-450 10^3/uL Mean Platelet Volume 8.2 6.9-10.8 fL Neutrophils (%) (Auto) 54.0 37.0-80.0 % Lymphocytes (%) (Auto) 29.3 10.0-50.0 % Monocytes (%) (Auto) 13.7 H 0.0-12.0 % Eosinophils (%) (Auto) 1.7 0.0-7.0 % Basophils (%) (Auto) 1.3 0.0-2.0 % Neutrophils # (Auto) 2.2 1.6-8.6 10 ^3/uL Lymphocytes # (Auto) 1.2 0.4-5.4 10 ^3/uL Monocytes # (Auto) 0.6 0-1.3 10 ^3/uL Eosinophils # (Auto) 0.1 0-0.8 10 ^3/uL Basophils # (Auto) 0.1 0-0.2 10 ^3/uL Nucleated Red Blood Cells 0.1 % Sodium Level 137 136-145 mmol/L Potassium Level 4.3 3.5-5.1 mmol/L Chloride Level 103 98-107 mmol/L Carbon Dioxide Level 18 L 20-31 mmol/L Anion Gap 16 H 5-15 Blood Urea Nitrogen 14 9-23 mg/dL Creatinine 1.02 0.700-1.30 mg/dL Glomerular Filtration Rate Calc 92 >90 mL/min BUN/Creatinine Ratio 13.7 10.0-20.0 Serum Glucose 500 *H 74-106 mg/dL Lactic Acid Level 4.8 *H 0.4-2.0 mmol/L Calcium Level 9.4 8.7-10.4 mg/dL Total Bilirubin 0.9 0.2-1.0 mg/dL Aspartate Amino Transferase (AST) 81 H 13-40 U/L Alanine Aminotransferase (ALT) 87 H 7-40 U/L Alkaline Phosphatase 301 H 46-116 U/L Total Protein 8.0 5.7-8.2 g/dL Albumin 3.8 3.2-4.8 g/dL Beta-Hydroxybutyric Acid 0.296 < 0.4 mmol/L Current Medications Medications (Trade) Dose Ordered Sig/Rossy Route Start Time Stop Time Status Last Admin Sodium Chloride 1,000 ml @ 1,000 mls/hr Q1H ONCE IV 05/26/25 01:30 05/26/25 02:29 DC 05/26/25 02:20 X-Ray, Labs, Meds, VS Comment Patient in DKA Patient will be admitted, insulin drip protocol initiated. Patient hemodynamically stable Prior labs reviewed by this provider Prior medical history reviewed by this provider Time of 1ST Reevaluation: 02:35 Reevaluation 1ST: Unchanged Patient Education/Counseling: Diagnosis, Treatment, Need For Follow Up Family Education/Counseling: Diagnosis SEPSIS Sepsis Screen Date sepsis recognized/suspect: May 26, 2025 Time Sepsis recognized/suspect: 0100 Recent Procedure: No On Antibiotic Therapy: No Respiratory Rate >20: No Heart Rate >90: No Temp<36 C (96.8 F) or >38.3 C: No SBP <90 or MAP <65 mmHG: No New Acute Mental Status Change: No Is the patient on CPAP, BIPAP,: No Physician Orders Urinalysis (05/26/25 01:19) Chest Xray 1 View (05/26/25 01:19) Insulin Drip Protocol (05/26/25 ) Sodium Chloride 0.9% (05/26/25 02:30) Sodium Chloride 0.9% (05/26/25 06:30) Sodium Chloride 0.9% (05/26/25 08:30) Insulin Algorithm # 1 (05/26/25 02:30) Dextrose 50% Syringe (05/26/25 02:30) Glucose Blood (Accu-Chek Comfort Curve T (05/26/25 03:00) Phosphorus (05/26/25 02:28) Magnesium (05/26/25 02:28) Osmolality, Serum (05/26/25 02:28) Abg W/ Co-Ox (05/26/25 02:28) Neurological Assessment (05/26/25 02:28) Vs/Hemodynamics .PER UNIT PROTOCOL (05/26/25 02:28) Acetone (05/26/25 02:28) Long Acting Insulin Lantus (05/26/25 02:30) Long Acting Insulin Lantus (05/27/25 10:00) Vital Signs Date Time Temp Pulse Resp B/P (MAP) Pulse Ox O2 Delivery O2 Flow Rate FiO2 05/26/25 01:05 112 05/26/25 01:00 97.9 112 16 133/84 97 97.9 Laboratory Tests Test 05/26/25 01:35 Lactic Acid Level 4.8 mmol/L (0.4-2.0) *H White Blood Count 4.1 10^3/uL (4.4-10.8) L Medications Medications Dose Ordered Sig/Rossy Route Start Time Stop Time Status Last Admin Dose Admin Sodium Chloride 1,000 ml @ 1,000 mls/hr Q1H ONCE IV 05/26/25 01:30 05/26/25 02:29 DC 05/26/25 02:20 Departure 1 Departure Time of Disposition: 02:34 Impression: Primary Impression: Diabetic ketoacidosis Qualified Codes: E10.10 - Type 1 diabetes mellitus with ketoacidosis without coma Disposition: ADMITTED INPATIENT Condition: Stable Discharged With: Self Critical Care Note Critical Care Time?: No Stability Stability form required: No Heart Score Heart Score: Heart Score Response (Comments) Value History N/A 0 EKG N/A 0 Age N/A 0 Risk Factors N/A 0 Troponin N/A 0 Total 0 ANTONETTE CHAPMAN May 26, 2025 02:35
[2025-05-26 02:49] LABS: Magnesium 2.1 mg/dL (1.6-2.6)
[2025-05-26] MEDS: INSULIN LANTUS (GLARGINE) 1 /0.01ml (100units/ml) SC ONE (02:49)
[2025-05-26] MEDS: SODIUM CHLORIDE 0.9% 1,000 ML IV SCH ×2 (02:51→13:40)
[2025-05-26] MEDS: INSULIN DRIP 100 UNIT/100ML 100 ML IV SCH (02:54)
[2025-05-26] MEDS: ACCU-CHEK COMFORT CURVE STRIP VI SCH ×2 (03:09→16:49)
[2025-05-26 03:29] LABS: Base Excess -6.5 mmol/L (-2.0-3.0)
--- NOTE | 2025-05-26 03:41 | DVH ---
CHEST RADIOGRAPH Indication: cp Technique: 1 view Comparison: XY CHEST PORTABLE on DOS: 05/06/25, XR CHEST 1 VIEW on DOS: 05/03/25, XY CHEST XRAY 1 VIEW on DOS: 04/29/25, XY CHEST XRAY 1 VIEW on DOS: 04/15/25, XY CHEST PORTABLE on DOS: 04/10/25 FINDINGS: Lines and Tubes: External leads. Lungs/Pleura: Low lung volumes with vascular crowding. No focal consolidation, pleural effusion or pn eumothorax. Cardiomediastinum: Unremarkable. Other: No acute osseous abnormality. IMPRESSION: 1. Low lung volumes without acute cardiopulmonary abnormality.
[2025-05-26 04:27] LABS: Urine Protein, UAD 1+ (Negative)
[2025-05-26] MEDS ORDERED: ONDANSETRON HCL 4 MG/2 ML VIAL IV PRN (04:30)
[2025-05-26] MEDS ORDERED: LORazepam 2MG/ML-1ML VIAL IV PRN (04:30)
--- NOTE | 2025-05-26 04:38 | DVHHPRES ---
History of Present Illness Resident Creating Document: BUTCH HARDY History of Present Illness Patient is a 44-year-old homeless male with past medical history of type 1 diabetes mellitus, DKA, diabetic neuropathic, pancreatitis and hypertension, presented to [facility] ED with complaint of generalized weakness and abdominal pain began last night around 8:00 p.m. He describes the pain as sharp, constant, and non-radiating right-sided abdominal pain, associated with nausea, vomiting, dizziness, and shortness of breath. The patient is a known type 1 diabetic who typically uses insulin, but he has not taken it recently. He reports a prior history of diabetic ketoacidosis (DKA) and admits to alcohol use today. Patient was admitted to [facility] for pancreatitis from 05/06 to 2024. On evaluation in the ED, patient is afebrile, tachycardic and blood pressure is 133/84 mmHg. Initial labs show significant serum glucose 500, POC glucose 406, anion gap 16, lactic acid 4.8, AST 81, ALT 87 and ALP 301. Chest X-ray shows low lung volumes without acute cardiopulmonary abnormality. The patient was started on Insulin and IV fluids. Patient is admitted for further evaluation and management. Past Medical History type 1 diabetes mellitus, DKA, diabetic neuropathic, pancreatitis, hypertension Past Surgical History: None Family History: None Smoke: No ALCOHOL: heavy Drugs: None Lives: Homeless Review of Systems Review of Systems Constitutional: Generalized weakness, chills, dizziness, Eyes: No Pain, No Vision change, No Conjunctivae inflammation, No Eyelid inflammation, No Other, No Redness ENT: No Ear pain, No Ear discharge, No Nose pain, No Nose discharge, No Nose congestion, No Mouth pain, No Mouth swelling, No Throat pain, No Throat swelling, No Other Cardiovascular: No Chest Pain, No Palpitations, No Orthopnea, No Paroxysmal No Dyspnea, No Edema, No Lt Headedness, No Other Respiratory: No Cough, No Dry, Shortness of breath, No SOB with exertion, No Wheezing, No Hemoptysis, No Pleuritic Pain, No Sputum, No Other Gastrointestinal: Nausea, Vomiting, Abdominal Pain, No Diarrhea, No Constipation, No Melena, No Hematochezia, No Other Genitourinary: No Dysuria, No Frequency, No Incontinence, No Hematuria, No Retention, No Other Musculoskeletal: No other, No neck pain, No shoulder pain, No arm pain, No back pain, No hand pain, No leg pain, No foot pain Skin: No Rash, No Lesions, No Jaundice, No Bruising, No Other Allergies: Coded Allergies: Penicillins (Verified Allergy, Unknown, 10/20/24) Medications Current Medications Medications Dose Ordered Sig/Rossy Route Start Time Stop Time Status Last Admin Dose Admin Sodium Chloride 1,000 ml @ 500 mls/hr Q2H IV 05/26/25 02:30 05/26/25 06:29 05/26/25 02:51 500 MLS/HR Sodium Chloride 1,000 ml @ 250 mls/hr Q4H IV 05/26/25 06:30 05/26/25 08:29 Sodium Chloride 1,000 ml @ 150 mls/hr Q6H40M IV 05/26/25 08:30 Insulin Human (Reg)/Sodium Chloride 100 ml @ 0.5 mls/hr Q24H IV 05/26/25 02:30 05/26/25 02:54 6 MLS/HR Dextrose 50 ml UD PRN IV 05/26/25 02:30 Diagnostic Test (Pha) 1 strip Q90MIN 05/26/25 03:00 05/26/25 03:09 1 STRIP Insulin Glargine 15 units DAILY SC 05/27/25 10:00 Exam Vital Signs Vital Signs Date Time Temp Pulse Resp B/P (MAP) Pulse Ox O2 Delivery O2 Flow Rate FiO2 05/26/25 01:05 112 05/26/25 01:00 97.9 16 133/84 97 97.9 Exam General Appearance: Cooperative. Well developed. Well nourished. NAD Head Exam: Normal inspection Neck Exam: Normal inspection. Non-tender. Normal alignment Pulmonary/Respiratory: Chest non-tender. Clear bilateral breath sounds, no crackles, no wheezing. Cardiovascular/Chest: Regular rate and rhythm. No murmurs. No JVD. Peripheral Pulses: 2+ Radial (R). 2+ Radial (L). 2+ Pedal (R). 2+ Pedal (L) Abdominal Exam: Right-sided abdominal tenderness. Normal bowel sounds. Soft. normal abdomen, no visible veins, No hepatospenomegaly. No masses Ankle Exam: Negative ankle edema Lower extremities: Negative lower extremity edema Neuro/Mental Status: A&O x4. Coherent. Thoughts/Psych: Normal thought pattern. Appropriate mood and affect. Good j udgement and insight Skin Exam: Normal inspection. Normal color. Warm. Dry Labs/Xrays Labs Test 05/26/25 04:20 05/26/25 03:58 05/26/25 03:27 05/26/25 03:16 Range/Units POC Glucose 297 H 70-106 mg/dl Urine Color Light-yellow Yellow Urine Clarity Clear Clear Urine pH 5.0 5.0-9.0 Urine Specific [place] 1.034 1.001-1.035 Urine Protein 1+ H Negative Urine Ketones Negative Negative Urine Blood Trace H Negative /uL Urine Nitrite Negative Negative Urine Bilirubin Negative Negative Urine Urobilinogen Normal Negative mg/dL Urine Leukocyte Esterase Negative Negative /uL Urine RBC 1 0 - 3 /hpf Urine Microscopic WBC 1 0-3 /HPF Urine Squamous Epithelial Cells None seen <5 /hpf Urine Bacteria None seen None Seen /hpf Urine Glucose 4+ H Normal mg/dL Lactic Acid Level 4.1 *H 0.4-2.0 mmol/L Blood Gas Specimen Type Arterial Blood Gas Sample Site Right radial Blood Gas Patient Temperature 37.0 Arterial Blood Date Drawn [id number] Arterial Blood pH 7.359 7.350-7.450 Arterial Blood Partial Pressure CO2 32.3 L 35.0-48.0 mmHg Arterial Blood Partial Pressure O2 64.7 L 83.0-108.0 mmHg Arterial Blood HCO3 17.8 L 21.0-28.0 mmol/L Arterial Blood Oxygen Saturation 88.9 L 94.0-98.0 % Arterial Blood Base Excess -6.5 L -2.0-3.0 mmol/L Arterial Blood Oxyhemoglobin 87.4 L 94.0-98.0 % Arterial Blood Carboxyhemoglobin 1.1 0.5-1.5 % Arterial Blood Methemoglobin 0.6 0.0-1.5 % Abimael Test Modified Blood Gas Total Hemoglobin 14.60 13.5-17.5 g/dL Blood Gas Modality Room air FiO2 % 21.0 Test 05/26/25 01:35 Range/Units White Blood Count 4.1 L 4.4-10.8 10^3/uL Red Blood Count 4.25 L 4.5-5.90 10^6/uL Hemoglobin 15.0 13.5-17.5 g/dL Hematocrit 43.3 41.0-53.0 % Mean Corpuscular Volume 101.8 H 80.0-100.0 fL Mean Corpuscular Hemoglobin 35.3 H 28.0-32.0 pg Mean Corpuscular Hemoglobin Concent 34.6 32.0-36.0 g/dL Red Cell Distribution Width 13.8 11.8-14.3 % Platelet Count 122 L 140-450 10^3/uL Mean Platelet Volume 8.2 6.9-10.8 fL Neutrophils (%) (Auto) 54.0 37.0-80.0 % Lymphocytes (%) (Auto) 29.3 10.0-50.0 % Monocytes (%) (Auto) 13.7 H 0.0-12.0 % Eosinophils (%) (Auto) 1.7 0.0-7.0 % Basophils (%) (Auto) 1.3 0.0-2.0 % Neutrophils # (Auto) 2.2 1.6-8.6 10 ^3/uL Lymphocytes # (Auto) 1.2 0.4-5.4 10 ^3/uL Monocytes # (Auto) 0.6 0-1.3 10 ^3/uL Eosinophils # (Auto) 0.1 0-0.8 10 ^3/uL Basophils # (Auto) 0.1 0-0.2 10 ^3/uL Nucleated Red Blood Cells 0.1 % Sodium Level 137 136-145 mmol/L Potassium Level 4.3 3.5-5.1 mmol/L Chloride Level 103 98-107 mmol/L Carbon Dioxide Level 18 L 20-31 mmol/L Anion Gap 16 H 5-15 Blood Urea Nitrogen 14 9-23 mg/dL Creatinine 1.02 0.700-1.30 mg/dL Glomerular Filtration Rate Calc 92 >90 mL/min BUN/Creatinine Ratio 13.7 10.0-20.0 Serum Glucose 500 *H 74-106 mg/dL Serum Osmolality 373 H 278-298 mOsm/kg Calcium Level 9.4 8.7-10.4 mg/dL Phosphorus Level 2.9 2.4-5.1 mg/dL Magnesium Level 2.1 1.6-2.6 mg/dL Total Bilirubin 0.9 0.2-1.0 mg/dL Aspartate Amino Transferase (AST) 81 H 13-40 U/L Alanine Aminotransferase (ALT) 87 H 7-40 U/L Alkaline Phosphatase 301 H 46-116 U/L Total Protein 8.0 5.7-8.2 g/dL Albumin 3.8 3.2-4.8 g/dL Beta-Hydroxybutyric Acid 0.296 < 0.4 mmol/L SEPSIS Sepsis Screen Date sepsis recognized/suspect: May 26, 2025 Time Sepsis recognized/suspect: 010 Recent Procedure: No On Antibiotic Therapy: No Respiratory Rate >20: No Heart Rate >90: No Temp<36 C (96.8 F) or >38.3 C: No SBP <90 or MAP <65 mmHG: No New Acute Mental Status Change: No Is the patient on CPAP, BIPAP,: No Physician Orders Chest Xray 1 View (05/26/25 01:19) Insulin Drip Protocol (05/26/25 ) Sodium Chloride 0.9% (05/26/25 02:30) Sodium Chloride 0.9% (05/26/25 06:30) Sodium Chloride 0.9% (05/26/25 08:30) Insulin Drip 100 Unit/100ml (Myxredlin 1 (05/26/25 02:30) Dextrose 50% Syringe (05/26/25 02:30) Glucose Blood (Accu-Chek Comfort Curve T (05/26/25 03:00) Abg W/ Co-Ox (05/26/25 02:28) Neurological Assessment (05/26/25 02:28) Vs/Hemodynamics .PER UNIT PROTOCOL (05/26/25 02:28) Insulin Lantus (Glargine) (Lantus) (05/27/25 10:00) Basic Metabolic Panel (05/26/25 04:00) Magnesium (05/26/25 04:00) Admit (05/26/25 04:21) Allergies (05/26/25 04:21) Code Status (05/26/25 04:21) Ondansetron Hcl (Zofran) (05/26/25 04:30) Comprehensive Metabolic Panel (05/26/25 08:00) Condition: Serious (05/26/25 04:21) Oxygen By Nasal Cannula (05/26/25 04:21) Stat Ekg For Chest Pain (05/26/25 04:21) Notify Md Of Changes From Base (05/26/25 04:21) Dental Technician For 24 Hours (05/26/25 04:21) Emergency Dysrhythmia Protocol (05/26/25 04:21) Rhythm Strips Once Every Shift (05/26/25 04:21) Drug Screen (05/26/25 04:21) Troponin-I Hs (05/26/25 04:21) Hydromorphone Injection (Dilaudid Inject (05/26/25 04:30) Ct Ab Pel Wo Con-No Oral Or Iv (05/26/25 04:21) B-Type Natriuretic Peptide (05/26/25 04:21) Thiamine 100mg Po Daily (05/26/25 10:00) Mvi Tablet Po Daily (05/26/25 10:00) Thiamine 100mg Iv Now (05/26/25 04:30) Folic Acid 1mg Po Now (05/26/25 04:30) Ativan 1mg Iv Q2hr Prn (05/26/25 04:30) Etoh Withdrawal Assessment (05/26/25 04:21) Etoh Withdrawal Assessment NOW (05/26/25 04:21) Lactic Acid W/ Reflex Order (05/26/25 05:00) Vital Signs Date Time Temp Pulse Resp B/P (MAP) Pulse Ox O2 Delivery O2 Flow Rate FiO2 05/26/25 01:05 112 05/26/25 01:00 97.9 112 16 133/84 97 97.9 Laboratory Tests Test 05/26/25 01:35 05/26/25 03:27 Lactic Acid Level 4.8 mmol/L (0.4-2.0) *H 4.1 mmol/L (0.4-2.0) *H White Blood Count 4.1 10^3/uL (4.4-10.8) L Medications Medications Dose Ordered Sig/Rossy Route Start Time Stop Time Status Last Admin Dose Admin Diagnostic Test (Pha) 1 strip Q90MIN 05/26/25 03:00 05/26/25 03:09 1 STRIP Insulin Glargine 15 units ONCE ONCE SC 05/26/25 02:30 05/26/25 02:34 DC 05/26/25 02:49 15 UNITS Insulin Human (Reg)/Sodium Chloride 100 ml @ 0.5 mls/hr Q24H IV 05/26/25 02:30 05/26/25 02:54 6 MLS/HR Sodium Chloride 1,000 ml @ 500 mls/hr Q2H IV 05/26/25 02:30 05/26/25 06:29 05/26/25 02:51 500 MLS/HR Sodium Chloride 1,000 ml @ 1,000 mls/hr Q1H ONCE IV 05/26/25 01:30 05/26/25 02:29 DC 05/26/25 02:20 1,000 MLS/HR Assessment/Plan Assessment/Plan [facility] Type 1 diabetes mellitus, uncontrolled Acute hypoxic respiratory failure Elevated anion gap metabolic acidosis Lactic acidosis Serum glucose 500 > 289 POC glucose 406 > 244 Insulin Lantus 15 units SC daily Insulin algorithm IV 0.5 unit/HR until anion gap closes Sodium chloride 0.9% IV given Started D5W/1/2NS Maintain K+ above 4 #Alcohol withdrawal, mild #Polysubstance abuse Thiamine 100 mg PO daily Folic acid Zofran 4 mg IV q4h BNP Pain management with Dilaudid 25 mg IV q.6h A1C #Liver cirrhosis #Thrombocytopenia #Transaminitis Monitor Goals of care: Full code, discussed for >30 minutes on 05/26/25 Plan discussed with patient Plan discussed with Dr. Covington Plan discussed with: Patient My Orders Orders - BUTCH HARDY Procedure Category Date Status Time Admit ADMIT 05/26/25 Transmitted 04:21 Allergies [facility] 05/26/25 Transmitted 04:21 Code Status CODE 05/26/25 Transmitted 04:21 Ondansetron Hcl [facility] 05/26/25 Transmitted (Zofran) 04:30 Comprehensive LAB 05/26/25 Transmitted Metabolic Panel 08:00 Condition: Serious [facility] 05/26/25 Transmitted 04:21 Oxygen By Nasal RT 05/26/25 Transmitted Cannula 04:21 Stat Ekg For Chest [facility] 05/26/25 Transmitted Pain 04:21 Notify Of Changes [facility] 05/26/25 Transmitted From Base 04:21 Dental Technician For [facility] 05/26/25 Transmitted 24 Hours 04:21 Emergency Dysrhythmia [facility] 05/26/25 Transmitted Protocol 04:21 Rhythm Strips Once [facility] 05/26/25 Transmitted Every Shift 04:21 Drug Screen LAB 05/26/25 Transmitted 04:21 Troponin-I Hs LAB 05/26/25 Transmitted 04:21 Hydromorphone [facility] 05/26/25 Transmitted Injection (Dilaudid 04:30 Ct Ab Pel Wo Con-No CT 05/26/25 Transmitted Oral Or Iv 04:21 B-Type Natriuretic LAB 05/26/25 Transmitted Peptide 04:21 Thiamine 100mg Po [facility] 05/26/25 Transmitted Daily 10:00 Mvi Tablet Po Daily [facility] 05/26/25 Transmitted 10:00 Thiamine 100mg Iv Now [facility] 05/26/25 Transmitted 04:30 Folic Acid 1mg Po Now [facility] 05/26/25 Transmitted 04:30 Ativan 1mg Iv Q2hr Prn [facility] 05/26/25 Transmitted 04:30 Etoh Withdrawal [facility] 05/26/25 Verified Assessment 04:21 Etoh Withdrawal [facility] 05/26/25 Verified Assessment 04:21 Lactic Acid W/ Reflex LAB 05/26/25 Transmitted Order 05:00 Date of Service: May 26, 2025 Billing Provider: JJ COVINGTON Common Visit Codes: [id number] INP/OBS CARE (HIGH) Secondary Visit Codes: [id number] CARE PLAN 30 MINUTES BUTCH HARDY RESIDENT May 26, 2025 04:37 GLORIA ANDERSON RESIDENT May 26, 2025 07:48
[2025-05-26 05:19] LABS: Amphetamine Screen, Urine Neg (NEGATIVE); Barbiturate Scree,Urine Neg (NEGATIVE); Benzodiazephine Screen, Urine Neg (NEGATIVE); Cannabinoid Screen, Urine Neg (NEGATIVE); Cocaine Screen, Urine Neg (NEGATIVE); Opiate Scree,Urine Neg (NEGATIVE); Phencyclidine Screen, Urine Neg (NEGATIVE)
[2025-05-26] MEDS: FOLIC ACID 1 MG TAB PO ONE (05:40)
[2025-05-26] MEDS: THIAMINE 100mg/ml INJ (200mg/2ml VIAL) IV ONE (05:40)
--- NOTE | 2025-05-26 05:48 | DVH ---
Exam: CT CT AB PEL WO CON-NO ORAL OR IV History: abdominal pain Comparison Study: CT CT AB PEL WO CON-NO ORAL OR IV on DOS: 04/29/25, CT CT AB PEL WO CON-NO ORAL OR I V on DOS: 04/16/25, CT ABD/PEL on DOS: 04/07/25, CT ABD/PEL on DOS: 03/16/24, CT ABDOMEN PELVIS WITH on DOS: 11/21/20 Technique: Multidetector spiral CT of the abdomen was performed from lung bases to pubic symphysis. I maging was performed without IV contrast. Axial, coronal and sagittal multiplanar reformats were obta ined from the axial data set by the technologist. Radiation Dose : 1. Abdomen/Pelvis: CTDIvol 5.98 mGy, DLP 344.21 mGy*cm. Findings: Evaluation of solid organs is limited due to lack of intravenous contrast use. Lung Bases: Dependent atelectasis. Normal heart size. No pleural or pericardial effusion. Liver: Nodular hepatic contour suspicious for hepatic cirrhosis. Gallbladder and Biliary Tree: Cholelithiasis. Spleen: Unremarkable Pancreas: The pancreas is grossly normal in appearance. Adrenal Glands: Unremarkable Kidneys: Kidneys are grossly normal without calculi or hydronephrosis. Bladder: Distended urinary bladder. Bowel: Moderate distended stomach. Moderate volume colonic stool. The small bowel is normal in calibe r and distribution. The appendix is not visualized; however, no secondary findings of acute appendici tis identified. Ascites: Absent Lymphadenopathy: No mesenteric, retroperitoneal or periportal lymphadenopathy. Abdominal Wall and Mesentery: Small fat containing inguinal hernias, [id number]. Vasculature: Coronary artery calcifications. Vascular calcifications of the aorta. The visualized abd ominal aorta is normal in size and caliber. Evaluation of abdominal and pelvic vessels is limited due to lack of intravenous contrast. Pelvic Organs: Unremarkable Musculoskeletal: Degenerative disc space narrowing at L5-S1. No aggressive focal bony lesions, acute fractures or dislocation. IMPRESSION: No acute process in the abdomen or pelvis. Nodular hepatic contour suspicious for hepatic cirrhosis. Cholelithiasis. Distended urinary bladder. Radiation optimization: All CT scans at this facility use at least one of these dose optimization sai hniques: automated exposure control mA and/or kV adjustment per patient size (includes targeted exam s where dose is matched to clinical indication) or iterative reconstruction.
[2025-05-26 05:56] LABS: Lactic Acid w/Reflex 3.5 mmol/L (0.4-2.0)
[2025-05-26 06:19] LABS: Chloride 110 mmol/L (98-107); Potassium 3.8 mmol/L (3.5-5.1); Sodium 144 mmol/L (136-145)
[2025-05-26 06:20] LABS: Anion Gap 16 (5-15)
[2025-05-26 06:21] LABS: Calcium 8.4 mg/dL (8.7-10.4); Carbon Dioxide 18 mmol/L (20-31)
[2025-05-26 06:25] LABS: BUN/Creatinine Ratio 18.5 (10.0-20.0); Blood Urea Nitrogen 17 mg/dL (9-23); Glucose 289 mg/dL (74-106); Magnesium 1.7 mg/dL (1.6-2.6)
[2025-05-26] MEDS ORDERED: SODIUM CHLORIDE 0.9% 1,000 ML IV SCH ×2 (06:30→08:30)
[2025-05-26] MEDS: D5W/SOD CHL 0.45% 1,000 ML IV SCH (07:01)
[2025-05-26 07:50] LABS: Anion Gap 16 (5-15); BUN/Creatinine Ratio 21.8 (10.0-20.0); Bilirubin, Total 0.6 mg/dL (0.2-1.0); Blood Urea Nitrogen 17 mg/dL (9-23); Potassium 3.8 mmol/L (3.5-5.1); Sodium 145 mmol/L (136-145); Total Protein 6.3 g/dL (5.7-8.2)
[2025-05-26 07:53] LABS: Alanine Aminotransferase 70 U/L (7-40); Albumin 3.0 g/dL (3.2-4.8); Alkaline Phosphatase 258 U/L (46-116); Calcium 7.9 mg/dL (8.7-10.4); Carbon Dioxide 17 mmol/L (20-31); Chloride 112 mmol/L (98-107); Glucose 251 mg/dL (74-106)
[2025-05-26] MEDS: POTASSIUM CHL 20MEQ/100ML 100 ML IV ONE (08:54)
[2025-05-26] MEDS: MULTIPLE VITAMIN TAB PO SCH (08:54)
[2025-05-26] MEDS: HYDROmorphone HCL 2 MG/ML VL/or syr IV PRN (08:55)
[2025-05-26] MEDS ORDERED: IBUPROFEN 600 MG TAB PO PRN (11:15)
[2025-05-26 11:25] LABS: Potassium 4.3 mmol/L (3.5-5.1); Sodium 140 mmol/L (136-145)
[2025-05-26 11:26] LABS: Anion Gap 9 (5-15); Carbon Dioxide 21 mmol/L (20-31)
[2025-05-26 11:32] LABS: BUN/Creatinine Ratio 21.6 (10.0-20.0); Blood Urea Nitrogen 16 mg/dL (9-23)
[2025-05-26 11:48] LABS: Calcium 7.8 mg/dL (8.7-10.4); Chloride 110 mmol/L (98-107); Glucose 247 mg/dL (74-106)
[2025-05-26 12:01] LABS: Lactic Acid w/Reflex 2.1 mmol/L (0.4-2.0)
--- NOTE | 2025-05-26 12:44 | DVH ---
US BiLat Low Ext Art Duplex HISTORY: calf pain COMPARISON: US BILAT LOWER DVT on DOS: 04/17/25, US CAROTID DUPLX W COLOR DOP on DOS: 10/02/24, ECHO 2D MODE CARDIAC DOP on DOS: 08/24/24 TECHNIQUE: The bilateral lower extremity arteries were examined with grayscale imaging, color Doppler , and spectral waveform analysis. FINDINGS: The bilateral lower extremity arteries are normal in caliber with no significant plaque or aneurysm. The following arterial peak systolic velocities (Cm/sec) and waveforms were obtained: Right Common femoral artery: multiphasic; 184 Cm/s Profunda femoris artery: multiphasic; 110 Cm/s Upper SFA: multiphasic; 145 Cm/s Mid SFA: multiphasic; 188 Cm/s Low SFA: multiphasic; 143 Cm/s Popliteal artery: multiphasic; 113 Cm/s Posterior tibial artery: multiphasic; 94 Cm/s Dorsalis pedis artery: biphasic; 111 Cm/s SERGO: Left Common femoral artery: multiphasic; 196 Cm/s Profunda femoris artery: multiphasic; 123 Cm/s Upper SFA: multiphasic; 140 Cm/s Mid SFA: multiphasic; 160 Cm/s Low SFA: multiphasic; 135 Cm/s Popliteal artery: multiphasic; 122 Cm/s Posterior tibial artery: multiphasic; 101 Cm/s Dorsalis pedis artery: biphasic; 88 Cm/s SERGO: IMPRESSION: Mild bilateral BANKING MANAGER stenosis by velocity criteria. Mild left mid SFA stenosis by velocity criteria.
[2025-05-26 12:58] LABS: Potassium 3.8 mmol/L (3.5-5.1); Sodium 139 mmol/L (136-145)
[2025-05-26 12:59] LABS: Anion Gap 8 (5-15); Carbon Dioxide 22 mmol/L (20-31)
[2025-05-26 13:00] LABS: Calcium 7.9 mg/dL (8.7-10.4); Chloride 109 mmol/L (98-107)
[2025-05-26 13:04] LABS: BUN/Creatinine Ratio 14.5 (10.0-20.0); Blood Urea Nitrogen 11 mg/dL (9-23)
[2025-05-26 13:06] LABS: Glucose 205 mg/dL (74-106)
[2025-05-26] MEDS: MAGNESIUM OXIDE 400 MG TAB PO ONE (13:33)
[2025-05-26] MEDS: POTASSIUM EFFERVESENT TAB 25 MEQ PO ONE (13:33)
[2025-05-26] MEDS: KETOROLAC TROMETH 30 MG/ML 1ML VIAL IV ONE (13:34)
[2025-05-26 13:47] LABS: Bilirubin, Direct 0.3 mg/dL (<0.3); Total Protein 6.4 g/dL (5.7-8.2)
[2025-05-26 13:48] LABS: Bilirubin, Total 0.7 mg/dL (0.2-1.0)
[2025-05-26 13:50] LABS: Alanine Aminotransferase 76.0 U/L (7-40); Albumin 3.1 g/dL (3.2-4.8); Alkaline Phosphatase 265.0 U/L (46-116)
[2025-05-26 14:29] LABS: INR 1.0 (0.9-1.15); Partial Thromboplastin Time 28.0 SEC (24.5-34.5); Prothrombin Time 10.6 sec (9.3-11.8)
[2025-05-26] MEDS: InsuLIN REG 1unit/0.01ml Soln (100units/ml) SC SCH ×2 (16:49→22:22)
[2025-05-27 01:00] VITALS: BP 129/76; PULSE 107; RESP 17; TEMP 98.9; O2SAT 92
[2025-05-27 05:00] VITALS: BP 122/71; PULSE 99; RESP 17; TEMP 98.6; O2SAT 91
[2025-05-27 06:35] LABS: Hemoglobin 12.4 g/dL (13.5-17.5)
[2025-05-27 06:37] LABS: Hematocrit 34.7 % (41.0-53.0); Mean Corpuscular Hemoglobin 35.3 pg (28.0-32.0); Mean Corpuscular Volume 98.8 fL (80.0-100.0); Nucleated Red Blood Cells % 0.2 %
[2025-05-27] MEDS: PANTOPRAZOLE 40 MG TAB PO SCH (06:45)
[2025-05-27 07:26] LABS: Anion Gap 12 (5-15); Calcium 7.9 mg/dL (8.7-10.4); Carbon Dioxide 20 mmol/L (20-31); Chloride 104 mmol/L (98-107); Potassium 3.9 mmol/L (3.5-5.1); Sodium 136 mmol/L (136-145)
[2025-05-27 07:27] LABS: BUN/Creatinine Ratio 14.6 (10.0-20.0); Blood Urea Nitrogen 13 mg/dL (9-23)
[2025-05-27 07:28] LABS: Total Protein 6.4 g/dL (5.7-8.2)
[2025-05-27 07:29] LABS: Alanine Aminotransferase 57 U/L (7-40); Albumin 2.9 g/dL (3.2-4.8); Alkaline Phosphatase 291 U/L (46-116); Glucose 248 mg/dL (74-106)
[2025-05-27 07:30] LABS: Bilirubin, Total 1.6 mg/dL (0.2-1.0)
[2025-05-27 08:20] VITALS: BP 120/65; PULSE 96; RESP 20; TEMP 99.4; O2SAT 90
[2025-05-27 08:27] VITALS: PULSE 96; RESP 20; O2SAT 90
[2025-05-27] MEDS: ENOXAPARIN SOD 40 MG/0.4 ML SYRINGE SC SCH (09:19)
[2025-05-27] MEDS: THIAMINE HCL 100 MG TAB PO SCH (09:19)
[2025-05-27] MEDS: INSULIN LANTUS (GLARGINE) 1 /0.01ml (100units/ml) SC SCH (09:20)
[2025-05-27 09:32] LABS: Magnesium 1.8 mg/dL (1.6-2.6)
[2025-05-27] MEDS ORDERED: SODIUM PHOSPHATES 20 MEQ in SODIUM CHL 0.9% 100 ML IV ONE (09:45)
--- NOTE | 2025-05-27 11:08 | DVHPNRES ---
Progress Note Date Seen: May 26, 2025 Resident Creating Document: ARDEN CABRERA RESIDENT Medical Necessity Reason Pt with a Central, PICC or Fol: No Subjective Review of Systems Patient is a 44-year-old male with past medical history of type 2 diabetes mellitus, diabetic neuropathy, pancreatitis, hypertension who came to the ED with chief complaints of right-sided abdominal pain which is 8/10 in intensity radiating to the right back, sharp, associated with nausea, vomiting, shortness of breath. Patient also complained of dizziness, blurry vision, and had to sit down before calling the EMS. Patient to drinking 4 beers before coming to the hospital, Has not been using his insulin recently. Patient recently was hospitalized for pancreatitis. In the ED patient was tachycardic and initial labs showed glucose 500, POC 406, anion gap of 16, lactic acid of 4.8. Patient is admitted for evaluation further management. Past surgical history: Denies Family history: Reviewed, noncontributory Social history: Drinks 12 pack beer per day since 27 years old, denies smoking, drug use Lives: homeless PCP: Dr. Seo Patient seen and examined at bedside. Patient is on 2 L oxygen, complained of right foot pain which he described as feeling heavy, stiff and numb but sensation is present. Patient states that he has leg pain after walking short distance. And had a nosebleed in the morning. Patient also complained of left calf pain on palpation. And had productive cough, vomited 1 time after admission, has nausea and right sided abdominal pain radiating to back. His blood glucose is downtrending, lactic acid is also downtrending. Objective vital signs Vital Sign Date Time Temp Pulse Resp B/P (MAP) Pulse Ox O2 Delivery O2 Flow Rate FiO2 05/26/25 10:00 97.6 115 20 134/67 (89) 92 97.6 05/26/25 02:25 Nasal Cannula* 2 28 Total Intake and Output 05/25/25 05/25/25 05/26/25 15:00 23:00 07:00 Output Total 600 ml Balance -600 ml medications Current Medications Medications Dose Ordered Sig/Rossy Route Start Time Stop Time Status Last Admin Dose Admin Insulin Human (Reg)/Sodium Chloride 100 ml @ 0.5 mls/hr Q24H IV 05/26/25 02:30 05/26/25 02:54 6 MLS/HR Dextrose 50 ml UD PRN IV 05/26/25 02:30 Diagnostic Test (Pha) 1 strip Q90MIN 05/26/25 03:00 05/26/25 10:47 1 STRIP Insulin Glargine 15 units DAILY SC 05/27/25 10:00 Ondansetron HCl 4 mg Q4HP PRN IV 05/26/25 04:30 Hydromorphone HCl 0.25 mg Q6HP PRN IV 05/26/25 04:30 Thiamine HCl 100 mg DAILY PO 05/27/25 10:00 Multivitamins 1 tab DAILY PO 05/26/25 10:00 05/26/25 08:54 1 TAB Lorazepam 1 mg Q2HPRN PRN IV 05/26/25 04:30 Dextrose/Sodium Chloride 1,000 ml @ 125 mls/hr Q8H IV 05/26/25 06:30 05/26/25 07:01 125 MLS/HR Examination General: Patient alert and oriented in person, place and time. Patient following commands. HEENT: Normocephalic, atraumatic, moist mucous membranes Respiratory/pulmonary: Right sided crackles on auscultation Cardiovascular: Normal heart sounds S1 and S2 with no associated murmurs Abdomen: Right lower and middle quadrant abdominal tenderness on palpation, radiating to the back. Negative Alanis's sign Extremities: Right and left foot pain Peripheral Pulses: 3+ Radial (R). 3+ Radial (L). 3+ Dorsalis pedis (R). 3+ Dorsalis pedis(L) Skin: No rashes or pruritus, there is no sacral edema present at this time. Neurological: Intact cranial nerves with no focal neurologic deficits laboratory and microbiology Laboratory Tests 05/26/25 07:18 05/26/25 01:35 Test 05/26/25 07:18 Range/Units Serum Glucose 251 H 74-106 mg/dL Problem List/Assessment/Plan Problem List/Assessment/Plan Neurology Cardiology Hypertension Respiratory Acute hypoxic respiratory failure -on 2 L oxygen GI Acute pancreatitis Hepatic cirrhosis Cholelithiasis Transaminitis - abdominal CT showed No acute process in the abdomen or pelvis. Nodular hepatic contour suspicious for hepatic cirrhosis. Cholelithiasis. - lipase 114 - IV Toradol once Endocrine Uncontrolled diabetes mellitus type 2, HbA1c 9.8 Diabetic neuropathy Questionable HHS Elevated anion gap metabolic acidosis -moderate insulin sliding scale -Lantus 15 -NS Alcohol intoxication Alcohol Abuse disorder - thiamine, folic acid, -patient counseled on cessation of alcohol for more than 18 minutes. = Lactic acidosis Prophylaxis / Supportive Care DVT Prophylaxis: Lovenox. GI Prophylaxis: Protonix. Goals of care discussed with the patient family for more than 29 minutes: Full code state Critical care time spent excluding procedures 71 minutes Plan discussed with Dr. Kumar and RN Plan discussed with: Patient, Other (RN) My Orders My Orders Orders - ARDEN CABRERA Procedure Category Date Status Time Lactic Acid W/ Reflex LAB 05/26/25 Logged Order 10:04 Date of Service: May 26, 2025 Billing Provider: TEODORO MILNER MD Common Visit Codes: [id number] CARE 30-74 MIN ARDEN CABRERA May 26, 2025 11:01 TEODORO MILNER MD May 28, 2025 11:38
--- NOTE | 2025-05-27 11:44 | DVHPNRES ---
Progress Note Date Seen: May 27, 2025 Resident Creating Document: ARDEN CABRERA RESIDENT Medical Necessity Reason Pt with a Central, PICC or Fol: No Subjective Review of Systems Patient is a 44-year-old male with past medical history of type 2 diabetes mellitus, diabetic neuropathy, pancreatitis, hypertension who came to the ED with chief complaints of right-sided abdominal pain which is 8/10 in intensity radiating to the right back, sharp, associated with nausea, vomiting, shortness of breath. Patient also complained of dizziness, blurry vision, and had to sit down before calling the EMS. Patient to drinking 4 beers before coming to the hospital, Has not been using his insulin recently. Patient recently was hospitalized for pancreatitis. In the ED patient was tachycardic and initial labs showed glucose 500, POC 406, anion gap of 16, lactic acid of 4.8. Patient is admitted for evaluation further management. Past surgical history: Denies Family history: Reviewed, noncontributory Social history: Drinks 12 pack beer per day since 27 years old, denies smoking, drug use Lives: homeless PCP: Dr. Seo Patient seen and examined at bedside. Patient is on room air, complained of right foot pain which he described as feeling heavy, stiff and numb but sensation is present. Patient states that he has leg pain after walking short distance. And had a nosebleed in the Night, which has stopped and appeared crusted. , patient states she has left-sided abdominal pain has decreased, and feels better. Has generalized body pains, productive cough. Monitoring his blood glucose changed Lantus 15 to 20. Objective vital signs Vital Sign Date Time Temp Pulse Resp B/P (MAP) Pulse Ox O2 Delivery O2 Flow Rate FiO2 05/27/25 08:27 96 20 90 Room Air* 0 21 05/27/25 08:20 99.4 120/65 (83) 99.4 Total Intake and Output 05/26/25 05/26/25 05/27/25 14:59 22:59 06:59 Intake Total 762 ml 2000 ml 650 ml Balance 762 ml 2000 ml 650 ml medications Current Medications Medications Dose Ordered Sig/Rossy Route Start Time Stop Time Status Last Admin Dose Admin Ondansetron HCl 4 mg Q4HP PRN IV 05/26/25 04:30 Thiamine HCl 100 mg DAILY PO 05/27/25 10:00 05/27/25 09:19 100 MG Multivitamins 1 tab DAILY PO 05/26/25 10:00 05/27/25 09:19 1 TAB Lorazepam 1 mg Q2HPRN PRN IV 05/26/25 04:30 Pantoprazole Sodium 40 mg DAILY@0600 PO 05/27/25 06:00 05/27/25 06:45 40 MG Enoxaparin Sodium 40 mg DAILY SC 05/27/25 10:00 05/27/25 09:19 40 MG Sodium Chloride 1,000 ml @ 75 mls/hr [id number] IV 05/26/25 12:15 05/26/25 13:40 75 MLS/HR Diagnostic Test (Pha) 1 strip ACHS 05/26/25 17:00 05/27/25 06:45 1 STRIP Insulin Human Regular HS SC 05/26/25 22:00 05/26/25 22:22 6 UNITS Insulin Human Regular AC SC 05/26/25 17:00 05/27/25 06:44 6 UNITS Dextrose 50 ml UD PRN IV 05/26/25 13:15 Insulin Glargine 20 units DAILY SC 05/28/25 10:00 Atorvastatin Calcium 20 mg HS PO 05/27/25 22:00 Examination General: Patient alert and oriented in person, place and time. Patient following commands. HEENT: Normocephalic, atraumatic, moist mucous membranes Respiratory/pulmonary: Normal lung sounds heard on auscultation Cardiovascular: Normal heart sounds S1 and S2 with no associated murmurs Abdomen: Nondistended abdomen, no tenderness on palpation. Negative Alanis's sign Extremities: Right and left foot pain Peripheral Pulses: 3+ Radial (R). 3+ Radial (L). 3+ Dorsalis pedis (R). 3+ Dorsalis pedis(L) Skin: No rashes or pruritus, there is no sacral edema present at this time. Neurological: Intact cranial nerves with no focal neurologic deficits laboratory and microbiology Laboratory Tests 05/27/25 05:21 Test 05/27/25 05:21 Range/Units Serum Glucose 248 H 74-106 mg/dL Problem List/Assessment/Plan Problem List/Assessment/Plan Neurology Cardiology Hypertension Respiratory Acute hypoxic respiratory failure -on 2 L oxygen GI Acute pancreatitis Hepatic cirrhosis Cholelithiasis Transaminitis - IV fluids - abdominal CT showed No acute process in the abdomen or pelvis. Nodular hepatic contour suspicious for hepatic cirrhosis. Cholelithiasis. - lipase 114 - IV Toradol once Endocrine Uncontrolled diabetes mellitus type 2, HbA1c 9.8 Diabetic neuropathy Questionable HHS Elevated anion gap metabolic acidosis Dyslipidemia -moderate insulin sliding scale -Lantus 15 -NS - atorvastatin 20 mg Alcohol intoxication Alcohol Abuse disorder - thiamine, folic acid, -patient counseled on cessation of alcohol for more than 18 minutes. Lactic acidosis Prophylaxis / Supportive Care DVT Prophylaxis: Lovenox. GI Prophylaxis: Protonix. Goals of care discussed with the patient family for more than 29 minutes: Full code state Critical care time spent excluding procedures 75 minutes Plan discussed with Dr. Gonzalez and RN Plan discussed with: Patient My Orders My Orders Orders - ARDEN CABRERA Procedure Category Date Status Time Pantoprazole Tablet PHA 05/27/25 In Process (Protonix Tablet) 06:00 Enoxaparin Sodium PHA 05/27/25 In Process (Lovenox) 10:00 Bilat Low Ext Art US 05/26/25 Resulted Duplex 11:14 Glucose Blood PHA 05/26/25 In Process (Accu-Chek Comfort 17:00 Insulin R (Human) PHA 05/26/25 In Process (Insulin R) 22:00 Insulin R (Human) PHA 05/26/25 In Process (Insulin R) 17:00 Dextrose 50% Syringe PHA 05/26/25 In Process 13:15 Transfer Orders XFER 05/26/25 Transmitted 17:20 ARDEN CABRERA RESIDENT May 27, 2025 11:07
[2025-05-27] MEDS: MAGNESIUM OXIDE 400 MG TAB PO ONE (12:29)
[2025-05-27] MEDS: INSULIN LANTUS (GLARGINE) 1 /0.01ml (100units/ml) SC ONE (12:30)
[2025-05-27 12:48] VITALS: BP 122/72; PULSE 102; RESP 20; TEMP 97.7; O2SAT 92
--- NOTE | 2025-05-27 16:39 | DVHDSRES ---
Discharge Summary Date of Admission Resident Creating Document: ARDEN CABRERA May 26, 2025 at 04:21 Date of Discharge: May 27, 2025 Admitting Diagnosis Alcoholic Intoxication Labs/Diagnostic Data: Laboratory Results Test 05/27/25 11:19 05/27/25 05:21 05/26/25 13:59 05/26/25 10:30 POC Glucose 241 mg/dl (70-106) White Blood Count 5.1 10^3/uL (4.4-10.8) Red Blood Count 3.51 10^6/uL (4.5-5.90) Hemoglobin 12.4 g/dL (13.5-17.5) Hematocrit 34.7 % (41.0-53.0) Mean Corpuscular Volume 98.8 fL (80.0-100.0) Mean Corpuscular Hemoglobin 35.3 pg (28.0-32.0) Mean Corpuscular Hemoglobin Concent 35.7 g/dL (32.0-36.0) Red Cell Distribution Width 13.5 % (11.8-14.3) Platelet Count 82 10^3/uL (140-450) Mean Platelet Volume 8.6 fL (6.9-10.8) Neutrophils (%) (Auto) 64.5 % (37.0-80.0) Lymphocytes (%) (Auto) 20.4 % (10.0-50.0) Monocytes (%) (Auto) 11.5 % (0.0-12.0) Eosinophils (%) (Auto) 3.0 % (0.0-7.0) Basophils (%) (Auto) 0.6 % (0.0-2.0) Neutrophils # (Auto) 3.3 10 ^3/uL (1.6-8.6) Lymphocytes # (Auto) 1.0 10 ^3/uL (0.4-5.4) Monocytes # (Auto) 0.6 10 ^3/uL (0-1.3) Eosinophils # (Auto) 0.2 10 ^3/uL (0-0.8) Basophils # (Auto) 0 10 ^3/uL (0-0.2) Nucleated Red Blood Cells 0.2 % Sodium Level 136 mmol/L (136-145) Potassium Level 3.9 mmol/L (3.5-5.1) Chloride Level 104 mmol/L (98-107) Carbon Dioxide Level 20 mmol/L (20-31) Anion Gap 12 (5-15) Blood Urea Nitrogen 13 mg/dL (9-23) Creatinine 0.89 mg/dL (0.700-1.30) Glomerular Filtration Rate Calc 108 mL/min (>90) BUN/Creatinine Ratio 14.6 (10.0-20.0) Serum Glucose 248 mg/dL (74-106) Calcium Level 7.9 mg/dL (8.7-10.4) Phosphorus Level 1.8 mg/dL (2.4-5.1) Magnesium Level 1.8 mg/dL (1.6-2.6) Total Bilirubin 1.6 mg/dL (0.2-1.0) Aspartate Amino Transferase (AST) 59 U/L (13-40) Alanine Aminotransferase (ALT) 57 U/L (7-40) Alkaline Phosphatase 291 U/L (46-116) Total Protein 6.4 g/dL (5.7-8.2) Albumin 2.9 g/dL (3.2-4.8) Lipase 63 U/L (12-53) Thyroid Stimulating Hormone (TSH) 1.50 uIU/mL (0.55-4.78) Prothrombin Time 10.6 sec (9.3-11.8) Prothrombin Time INR 1.00 (0.9-1.15) Activated Partial Thromboplast Time 28.0 SEC (24.5-34.5) Lactic Acid Level 2.1 mmol/L (0.4-2.0) Direct Bilirubin 0.3 mg/dL (<0.3) Test 05/26/25 07:18 05/26/25 05:12 05/26/25 03:58 05/26/25 03:16 Hemoglobin A1c 9.8 % A1C (<5.7) Plasma/Serum Blood Alcohol 50.9 mg/dL (<10) Troponin I High Sensitivity 8 ng/L (</=54) Urine Color Light-yellow (Yellow) Urine Clarity Clear (Clear) Urine pH 5.0 (5.0-9.0) Urine Specific [place] 1.034 (1.001-1.035) Urine Protein 1+ (Negative) Urine Ketones Negative (Negative) Urine Blood Trace /uL (Negative) Urine Nitrite Negative (Negative) Urine Bilirubin Negative (Negative) Urine Urobilinogen Normal mg/dL (Negative) Urine Leukocyte Esterase Negative /uL (Negative) Urine RBC 1 /hpf (0 - 3) Urine Microscopic WBC 1 /HPF (0-3) Urine Squamous Epithelial Cells None seen /hpf (<5) Urine Bacteria None seen /hpf (None Seen) Urine Glucose 4+ mg/dL (Normal) Urine Opiates Screen Neg (NEGATIVE) Urine Fentanyl Screen Neg (NEGATIVE) Urine Barbiturates Screen Neg (NEGATIVE) Urine Phencyclidine Screen Neg (NEGATIVE) Urine Amphetamines Screen Neg (NEGATIVE) Urine Benzodiazepines Screen Neg (NEGATIVE) Urine Cocaine Screen Neg (NEGATIVE) Urine Cannabinoids Screen Neg (NEGATIVE) Blood Gas Specimen Type Arterial Blood Gas Sample Site Right radial Blood Gas Patient Temperature 37.0 Arterial Blood Date Drawn Arterial Blood pH 7.359 (7.350-7.450) Arterial Blood Partial Pressure CO2 32.3 mmHg (35.0-48.0) Arterial Blood Partial Pressure O2 64.7 mmHg (83.0-108.0) Arterial Blood HCO3 17.8 mmol/L (21.0-28.0) Arterial Blood Oxygen Saturation 88.9 % (94.0-98.0) Arterial Blood Base Excess -6.5 mmol/L (-2.0-3.0) Arterial Blood Oxyhemoglobin 87.4 % (94.0-98.0) Arterial Blood Carboxyhemoglobin 1.1 % (0.5-1.5) Arterial Blood Methemoglobin 0.6 % (0.0-1.5) Abimael Test Modified Blood Gas Total Hemoglobin 14.60 g/dL (13.5-17.5) Blood Gas Modality Room air FiO2 % 21.0 Test 05/26/25 01:35 Serum Osmolality 373 mOsm/kg (278-298) B-Type Natriuretic Peptide 8.57 pg/mL (0-100) Beta-Hydroxybutyric Acid 0.296 mmol/L (< 0.4) Other Laboratory Tests 05/27/25 05:21 Brief Hx & Hospital Course: Patient is a 44-year-old male with past medical history of type 2 diabetes mellitus, diabetic neuropathy, pancreatitis, hypertension who came to the ED with chief complaints of right-sided abdominal pain which is 8/10 in intensity radiating to the right back, sharp, associated with nausea, vomiting, shortness of breath. Patient also complained of dizziness, blurry vision, and had to sit down before calling the EMS. Patient to drinking 4 beers before coming to the hospital, Has not been using his insulin recently. Patient recently was hospitalized for pancreatitis. In the ED patient was tachycardic and initial labs showed glucose 500, POC 406, anion gap of 16, lactic acid of 4.8. Patient is admitted for evaluation further management. Past surgical history: Denies Family history: Reviewed, noncontributory Social history: Drinks 12 pack beer per day since 27 years old, denies smoking, drug use Lives: homeless PCP: Dr. Seo Brief hospital course: Patient came to the hospital with chief complaints of right-sided abdominal pain, elevated blood sugar and patient had acute pancreatitis as lipase level was 114, abdominal CT showedNo acute process in the abdomen or pelvis. Nodular hepatic contour suspicious for hepatic cirrhosis. Cholelithiasis. IV fluids were given, IV Toradol was given, for his uncontrolled diabetes mellitus, with HbA1c of 9.8, diabetic neuropathy, dyslipidemia he was given moderate insulin sliding scale with Lantus 20, IV fluids, atorvastatin 20 mg. Patient has alcohol abuse disorder for which he was acutely intoxicated for which thiamine and folic acid were given. And patient was counseled on cessation of alcohol for more than 18 minutes. Patient had lactic acidosis, for GI prophylaxis Protonix was given. Patient had acute hypoxic respiratory feeling for which he was placed on 2 L oxygen. Patient was counseled on risks of leaving AMA but still wanted to leave and form and has left the hospital. He was counseled on returning to the ED for any further worsening symptoms General: Patient alert and oriented in person, place and time. Patient following commands. HEENT: Normocephalic, atraumatic, moist mucous membranes Respiratory/pulmonary: Normal lung sounds heard on auscultation Cardiovascular: Normal heart sounds S1 and S2 with no associated murmurs Abdomen: Nondistended abdomen, no tenderness on palpation. Negative Alanis's sign Extremities: Right and left foot pain Peripheral Pulses: 3+ Radial (R). 3+ Radial (L). 3+ Dorsalis pedis (R). 3+ Dorsalis pedis(L) Skin: No rashes or pruritus, there is no sacral edema present at this time. Neurological: Intact cranial nerves with no focal neurologic deficits Operations or Procedures ORDERING PHYSICIAN: CHAPMAN,CHRISTOPHER E DIRECTOR OF EMERGENCY NURSING PROCEDURE(s): CXR1 - CHEST XRAY 1 VIEW REASON: cp ORDER NUMBER(s): [id number], ACCESSION NUMBER(s): [id number] CHEST RADIOGRAPH Indication: cp Technique: 1 view Comparison: XY CHEST PORTABLE on DOS: 05/06/25, XR CHEST 1 VIEW on DOS: 05/03/25, XY CHEST XRAY 1 VIEW on DOS: 04/29/25, XY CHEST XRAY 1 VIEW on DOS: 04/15/25, XY CHEST PORTABLE on DOS: 04/10/25 FINDINGS: Lines and Tubes: External leads. Lungs/Pleura: Low lung volumes with vascular crowding. No focal consolidation, pleural effusion or pneumothorax. Cardiomediastinum: Unremarkable. Other: No acute osseous abnormality. IMPRESSION: 1. Low lung volumes without acute cardiopulmonary abnormality. ATED BY: LAZARUS SANCHEZ MD DICTATED DATE/TIME: 05/26/25 0338 ORDERING PHYSICIAN: BUTCH HARDY PROCEDURE(s): ABPL - CT AB PEL WO CON-NO ORAL OR IV REASON: abdominal pain ORDER NUMBER(s): [id number], ACCESSION NUMBER(s): [id number] Exam: CT CT AB PEL WO CON-NO ORAL OR IV History: abdominal pain Comparison Study: CT CT AB PEL WO CON-NO ORAL OR IV on DOS: 04/29/25, CT CT AB PEL WO CON-NO ORAL OR IV on DOS: 04/16/25, CT ABD/PEL on DOS: 04/07/25, CT ABD/PEL on DOS: 03/16/24, CT ABDOMEN PELVIS WITH on DOS: 11/21/20 Technique: Multidetector spiral CT of the abdomen was performed from lung bases to pubic symphysis. Imaging was performed without IV contrast. Axial, coronal and sagittal multiplanar reformats were obtained from the axial data set by the technologist. Radiation Dose : 1. Abdomen/Pelvis: CTDIvol 5.98 mGy, DLP 344.21 mGy*cm. Findings: Evaluation of solid organs is limited due to lack of intravenous contrast use. Lung Bases: Dependent atelectasis. Normal heart size. No pleural or pericardial effusion. Liver: Nodular hepatic contour suspicious for hepatic cirrhosis. Gallbladder and Biliary Tree: Cholelithiasis. Spleen: Unremarkable Pancreas: The pancreas is grossly normal in appearance. Adrenal Glands: Unremarkable Kidneys: Kidneys are grossly normal without calculi or hydronephrosis. Bladder: Distended urinary bladder. Bowel: Moderate distended stomach. Moderate volume colonic stool. The small bowel is normal in caliber and distribution. The appendix is not visualized; however, no secondary findings of acute appendicitis identified. Ascites: Absent Lymphadenopathy: No mesenteric, retroperitoneal or periportal lymphadenopathy. Abdominal Wall and Mesentery: Small fat containing inguinal hernias, [id number]. Vasculature: Coronary artery calcifications. Vascular calcifications of the aorta. The visualized abdominal aorta is normal in size and caliber. Evaluation of abdominal and pelvic vessels is limited due to lack of intravenous contrast. Pelvic Organs: Unremarkable Musculoskeletal: Degenerative disc space narrowing at L5-S1. No aggressive focal bony lesions, acute fractures or dislocation. IMPRESSION: No acute process in the abdomen or pelvis. Nodular hepatic contour suspicious for hepatic cirrhosis. Cholelithiasis. Distended urinary bladder. Radiation optimization: All CT scans at this facility use at least one of these dose optimization techniques: automated exposure control mA and/or kV adjustment per patient size (includes targeted exams where dose is matched to clinical indication) or iterative reconstruction. ATED BY: LAZARUS SANCHEZ MD DICTATED DATE/TIME: 05/26/25544 SIGNED BY: LAZARUS SANCHEZ MD SIGNED DATE/TIME: 05/26/25544 Condition at Discharge: Undetermined Final Diagnosis/Problems List Hypertension Acute hypoxic respiratory failure Acute pancreatitis Hepatic cirrhosis Cholelithiasis Transaminitis Uncontrolled diabetes mellitus type 2, HbA1c 9.8 Diabetic neuropathy Questionable HHS Elevated anion gap metabolic acidosis Dyslipidemia Alcohol intoxication Alcohol Abuse disorder Lactic acidosis Discharge Disposition: AMA Discharge Instruct/Medications Scheduled Atorvastatin Calcium (Atorvastatin Calcium), 20 MG PO HS Glucose Blood (Easy Touch Glucose Test S), 1 EA ACHS Insulin Aspart (Insulin Aspart), 100 UNIT SC AC Insulin Glargine (Lantus Solostar), 20 UNIT SC HS Durable Medical Equipment Blood Glucose Monitoring Suppl (mm Easy Touch Blood Gluco W/Device), KIT XX, (DME) Blood Glucose Monitoring Suppl (Easy Touch Glucose [place]), EA XX ACHS, (DME) Lancets (Easy Touch Lancets), G XX QID, (DME) Lancets ([employer] Lancets Thin 26G), 26G SC ACHS, (DME) Discharge Statement: "Patient was advised to return to the ER or call 911 if any headaches, dizziness, shortness of breath, chest pain, abdominal pain, bleeding, fevers, or worsening of medical condition. Patient was counseled about treatment plan, medications, possible side effects, patientverbalized understanding. All questions were answered to the best of my ability. This discharge took greater then 30 minutes in planning, reviewing documentation, counseling the patient, and discussing with other team members." ASSESSMENT ASSESSMENT Assessment ARDEN CABRERA RESIDENT May 27, 2025 16:39
[2025-05-27] MEDS ORDERED: ATORVASTATIN 20 MG TAB PO SCH (22:00)
--- NOTE | 2025-05-27 22:38 | DVHPN2 ---
Subjective DOS: 05/27/2025 Patient seen and examined at bedside. Breathing comfortably on room air. Overnight events reviewed. Patient is a 44-year-old male with past medical history of type 2 diabetes mellitus, diabetic neuropathy, pancreatitis, hypertension who came to the ED with chief complaints of right-sided abdominal pain which is 8/10 in intensity radiating to the right back, sharp, associated with nausea, vomiting, shortness of breath. Patient also complained of dizziness, blurry vision, and had to sit down before calling the EMS. Patient to drinking 4 beers before coming to the hospital, Has not been using his insulin recently. Patient recently was hospitalized for pancreatitis. In the ED patient was tachycardic and initial labs showed glucose 500, POC 406, anion gap of 16, lactic acid of 4.8. Patient is admitted for evaluation further management. Past surgical history: Denies Family history: Reviewed, noncontributory Social history: Drinks 12 pack beer per day since 27 years old, denies smoking, drug use Lives: homeless PCP: Dr. Seo Changes from previous H/P or p: No Changes Objective Vitals Vital Signs Date Time Temp Pulse Resp B/P (MAP) Pulse Ox O2 Delivery O2 Flow Rate FiO2 05/27/25 12:48 97.7 102 20 122/72 (89) 92 97.7 05/27/25 08:27 Room Air* 0 21 Intake/Output Intake and Output 05/27/25 07:00 Intake Total 3412 ml Balance 3412 ml Intake Oral 2650 ml IV Total 762 ml # Voids 11 # Bowel Movements 6 Exam Gen.: Patient lying in bed in no apparent distress. Breathing on room air. Head: Normocephalic, atraumatic. Eyes: EOMI/PERRLA. Ears: Normal hearing. Normal anatomy. Neck/trachea: Trachea midline, supple. Nose: Normal external anatomy. Mouth: Moist mucous membranes. Chest: Decreased air entry bilaterally. No wheezing or rhonchi. Cardiovascular: Positive S1, positive S2. Regular rate and rhythm. Abdomen: Positive bowel sounds in all 4 quadrants. Soft, non-tender, non- distended. : Deferred. Rectal: Deferred. Skin: Warm, dry. Intact. Extremities: 2+ radial pulses bilaterally. No lower extremity edema. Neuro: Awake, alert, oriented x3. No gross motor or sensory deficits. Cranial nerves II through XII intact. Gait not assessed. Laboratory Results Laboratory Tests 05/27/25 05:21 Chemistry Test 05/27/25 05:21 Albumin 2.9 g/dL (3.2-4.8) L Calcium Level 7.9 mg/dL (8.7-10.4) L Magnesium Level 1.8 mg/dL (1.6-2.6) Phosphorus Level 1.8 mg/dL (2.4-5.1) L Total Protein 6.4 g/dL (5.7-8.2) Lipid panel Test 05/27/25 05:21 Lipase 63 U/L (12-53) H LFT Test 05/27/25 05:21 Alanine Aminotransferase (ALT) 57 U/L (7-40) H Alkaline Phosphatase 291 U/L (46-116) H Aspartate Amino Transferase (AST) 59 U/L (13-40) H Total Bilirubin 1.6 mg/dL (0.2-1.0) H HgA1c, TSH Test 05/27/25 05:21 Thyroid Stimulating Hormone (TSH) 1.50 uIU/mL (0.55-4.78) Urinalysis Test 05/26/25 03:58 Urine Color Light-yellow (Yellow) Urine Clarity Clear (Clear) Urine pH 5.0 (5.0-9.0) Urine Specific [place] 1.034 (1.001-1.035) Urine Protein 1+ (Negative) H Urine Ketones Negative (Negative) Urine Blood Trace /uL (Negative) H Urine Nitrite Negative (Negative) Urine Bilirubin Negative (Negative) Urine Urobilinogen Normal mg/dL (Negative) Urine Leukocyte Esterase Negative /uL (Negative) Urine RBC 1 /hpf (0 - 3) Urine Microscopic WBC 1 /HPF (0-3) Urine Squamous Epithelial Cells None seen /hpf (<5) Urine Bacteria None seen /hpf (None Seen) Urine Glucose 4+ mg/dL (Normal) H Microbiology Microbiology Date/Time Source Procedure Growth Status 05/26/25 11:02 Nose MRSA Screen - Final Complete Assessment/Plan Assessment/Plan Impression: Acute hypoxic respiratory failure Acute pancreatitis Hepatic cirrhosis Uncontrolled diabetes mellitus type 2, HbA1c 9.8 Elevated anion gap metabolic acidosis Alcohol abuse disorder Lactic acidosis Events: Patient seen and examined at bedside. Patient is on room air He complains of right foot pain which he described as feeling heavy, stiff and numb but sensation is present. He has leg pain after walking short distance. Patient reported having a nosebleed in the night, which has stopped and appears crusted. Left-sided abdominal pain has decreased, feels better. Has generalized body pains, productive cough. Monitoring his blood glucose - changed Lantus 15 to 20. Monitor renal function Monitor electrolytes. Supplement as necessary. Magnesium supplemented Labs and imaging reviewed. Rest of plan as noted below Plan: Supplemental oxygen PRN Titrate to keep O2 sats above 92%. Follow up GI recommendations Vitamin supplementation Monitor renal function. Monitor electrolytes. Supplement as necessary. Monitor ins and outs. Counseled against ETOH use. DVT prophylaxis. Prognosis: Poor given patient's multiple co-morbidities. Rest of plan per hospitalist and other consultants. Thank you, , for allowing me to participate in this patient's care. Further recommendations will depend on the patient's clinical course. Please do not hesitate to contact me if you have any questions or concerns. This medical document was created using an electronic medical record system with [employer] dictation system. Although these documentations are being carefully reviewed, there may still be some phonetic and typographical changes. The errors are purely typographical, due to imperfection on the software program, and do not reflect any compromise in the patient's medical care. Plan discussed with: Patient, Other (RN) Visit Coding Pulmonary Billing Provider: ZELDA BARRERA MD Date of Service if different f: May 27, 2025 Common Visit Codes: [id number] INP/OBS CARE(HIGH) ZELDA BARRERA MD May 27, 2025 22:38
[2025-05-28] MEDS ORDERED: INSULIN LANTUS (GLARGINE) 1 /0.01ml (100units/ml) SC SCH (10:00)
== END 2025-05-27 12:43 | disposition left against medical advice (07) | DRG 133 ==
LOC: EDBD 01:00 → ER 01:00 → OVERFLOW 04:21 → TELE-CENTR 15:03 → CENTRAL 16:07
PROVIDERS: ADMIT Internal Medicine Pulmonary Disease; ATTEND Internal Medicine Pulmonary Disease
DX: J96.01 Acute respiratory failure with hypoxia (principal); K85.90 Acute pancreatitis without necrosis or infection, unspecified; D69.6 Thrombocytopenia, unspecified; Z59.00 Homelessness unspecified; E11.00 Type 2 diabetes mellitus with hyperosmolarity without nonketotic hyperglycemic-hyperosmolar coma (NKHHC); I10 Essential (primary) hypertension; F10.139 Alcohol abuse with withdrawal, unspecified; R74.01 Elevation of levels of liver transaminase levels; K80.20 Calculus of gallbladder without cholecystitis without obstruction; F10.129 Alcohol abuse with intoxication, unspecified; Z53.29 Procedure and treatment not carried out because of patient's decision for other reasons; R04.0 Epistaxis; E11.40 Type 2 diabetes mellitus with diabetic neuropathy, unspecified; Z79.4 Long term (current) use of insulin; Z88.0 Allergy status to penicillin; Z79.899 Other long term (current) drug therapy; Y90.2 Blood alcohol level of 40-59 mg/100 ml; K70.30 Alcoholic cirrhosis of liver without ascites
CPT/HCPCS: 36415; 36600; 71045; 74176; 80048; 80053; 80076; 80307; 80320; 81001; 82010; 82805; 82962; 83036; 83605; 83690; 83735; 83880; 83930; 84100; 84443; 84484; 85025; 85610; 85730; 87081; 93005; 93925; G0378; J1815; J1885; J3480

== ENCOUNTER 2025-05-29 01:17 | Emergency (ER) | payer MEDICAID ==
[~2025-05-29] VITALS: Ht 175.3 cm; Wt 68.2 kg
[2025-05-29 01:56] VITALS: BP 115/59; PULSE 99; RESP 18; TEMP 98.1; O2SAT 99
--- NOTE | 2025-05-29 02:17 | ED.PDOC ---
Altered Mental Status HPI Comments 44-year-old male who came to ER by EMS for alcohol intoxication. 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 Patient unable to answer any questions at this time with care. Chief Complaint: ETOH Time Seen by MD: 02:16 Primary Care Provider: n/a Reviewed Notes: Nurses Notes Allergies: Coded Allergies: Penicillins (Verified Allergy, Unknown, 10/20/24) Home Meds Active Scripts Insulin Aspart Protamine & Asp (Insulin Aspart Protamine/ (70-30) 100 Unit/ml) 1 Inj Inj, 5 UNITS SC BID for 90 Days, #100 INJ 5 Refills Prov:BROOKE MAYO MD 05/29/25 Insulin Glargine (Lantus Solostar) 100 Unit/Ml Inj, 20 UNIT SC HS, #10 INJ Prov:RUTHIE CASTANEDA MD 12/01/24 Glucose Blood (EASY TOUCH GLUCOSE TEST S) Strips Ashley, 1 EA ACHS for 30 Days, #120 MISC 70-130 - 0 units ____ units 131-180 - 8 units ____ units 181-240 - 12 units ____ units 241-300 - 16 units ____ units 301-350 - 20 units ____ units 351-400 - 24 units ____ units >400 12 units and call 20 units and call 28 units and call MD ____ units and call M Prov:RUTHIE CASTANEDA MD 12/01/24 Insulin Aspart (Insulin Aspart) 100 Unit/Ml Inj, 100 UNIT SC AC for 30 Days, #1 INJ 0 Refills 70-130 - 0 units ____ units 131-180 - 8 units ____ units 181-240 - 12 units ____ units 241-300 - 16 units ____ units 301-350 - 20 units ____ units 351-400 - 24 units ____ units >400 12 units and call 20 units and call 28 units and call MD ____ units and call M Prov:RUTHIE CASTANEDA MD 12/01/24 Atorvastatin Calcium (ATORVASTATIN CALCIUM) 20 Mg Tab, 20 MG PO HS for 30 Days, #30 TAB Prov:RUTHIE CASTANEDA MD 12/01/24 Lancets (Cvs Lancets Thin 26G) Thin 26G Mis, 26G SC ACHS, #120 0 Refills Please check glucose 15 mins before each meal Prov:MATEUSZ GOODRICH RESIDENT 10/25/24 Blood Glucose Monitoring Suppl (EASY TOUCH GLUCOSE MONITO) Monitor Kit, EA XX ACHS, #1 Please check glucose 15 mins before each meal Prov:MATEUSZ GOODRICH 10/25/24 Lancets (EASY TOUCH LANCETS) 28 G Mis, G XX QID, #100 Prov:ANUP DOSHI MD 08/26/24 Blood Glucose Monitoring Suppl (mm Easy Touch Blood Gluco W/Device) 1 Kit Kit, KIT XX, #1 Prov:ANUP DOSHI MD 08/26/24 Information Source: Patient Mode of Arrival: EMS Severity: Unable to Care for Self Past Medical History PAST MEDICAL HISTORY: DM, Liver Surgical History: Denies all surgeries Family History Family History: Reviewed,noncontributory to illness Social History Smoker: Non-Smoker Alcohol: Heavy Drugs: Denies Drug Use Lives In: Home Unable to Obtain due to: Other (Intoxicated with alcohol) Physical Exam General Appearance: No Apparent Distress, Normal HEENT: Normal ENT Inspection, Pharynx Normal, TMs Normal Neck: Full Range of Motion, Non-Tender, Normal, Normal Inspection Respiratory: Chest Non-Tender, Lungs Clear, No Accessory Muscle Use, No Respiratory Distress, Normal Breath Sounds Cardiovascular: No Edema, No JVD, No Murmur, No Gallop, Normal Peripheral Pulses, Regular Rate/Rhythm Breast Exam: Deferred Gastrointestinal: No Organomegaly, Non Tender, No Pulsatile Mass, Normal Bowel Sounds, Soft Genitalia: Deferred Pelvic: Deferred Rectal: Deferred Extremities: No calf tenderness, Normal capillary refill, Normal inspection, Normal range of motion, Non-tender, No pedal edema Musculoskeletal : Apperance: Normal Neurologic: Alert, transmission mechanic II-XII nml as Tested, No Motor Deficits, Normal Affect, Normal Mood, No Sensory Deficits Cerebellar Function: Normal Reflexes: Normal Skin: Dry, Normal Color, Warm Lymphatic: No Adenopathy Was a procedure done? Was a procedure done?: No Differential Diagnosis (ALOC) Differential Diagnosis: Hypoglycemia, Encephalopathy, Drug Overdose, ETOH Intoxication X-Ray, Labs, Meds, VS Vital Signs Date Time Temp Pulse Resp B/P (MAP) Pulse Ox O2 Delivery O2 Flow Rate FiO2 05/29/25 01:56 99 18 99 Room Air* 0 21 05/29/25 01:56 98.1 99 18 115/59 (77) 99 98.1 05/29/25 01:44 98.0 100 16 136/74 98 98.0 Lab Test 05/29/25 04:16 05/29/25 02:25 Range/Units POC Glucose 348 H 70-106 mg/dl White Blood Count 6.2 4.4-10.8 10^3/uL Red Blood Count 3.73 L 4.5-5.90 10^6/uL Hemoglobin 13.2 L 13.5-17.5 g/dL Hematocrit 37.7 L 41.0-53.0 % Mean Corpuscular Volume 101.0 H 80.0-100.0 fL Mean Corpuscular Hemoglobin 35.5 H 28.0-32.0 pg Mean Corpuscular Hemoglobin Concent 35.1 32.0-36.0 g/dL Red Cell Distribution Width 13.1 11.8-14.3 % Platelet Count 141 # 140-450 10^3/uL Mean Platelet Volume 8.0 6.9-10.8 fL Neutrophils (%) (Auto) 45.8 37.0-80.0 % Lymphocytes (%) (Auto) 34.6 10.0-50.0 % Monocytes (%) (Auto) 13.4 H 0.0-12.0 % Eosinophils (%) (Auto) 4.9 0.0-7.0 % Basophils (%) (Auto) 1.3 0.0-2.0 % Neutrophils # (Auto) 2.8 1.6-8.6 10 ^3/uL Lymphocytes # (Auto) 2.1 0.4-5.4 10 ^3/uL Monocytes # (Auto) 0.8 0-1.3 10 ^3/uL Eosinophils # (Auto) 0.3 0-0.8 10 ^3/uL Basophils # (Auto) 0.1 0-0.2 10 ^3/uL Nucleated Red Blood Cells 0.2 % Sodium Level 137 136-145 mmol/L Potassium Level 3.8 3.5-5.1 mmol/L Chloride Level 102 98-107 mmol/L Carbon Dioxide Level 20 20-31 mmol/L Anion Gap 15 5-15 Blood Urea Nitrogen 10 9-23 mg/dL Creatinine 0.99 0.700-1.30 mg/dL Glomerular Filtration Rate Calc 96 >90 mL/min BUN/Creatinine Ratio 10.1 10.0-20.0 Serum Glucose 397 #H 74-106 mg/dL Calcium Level 9.1 8.7-10.4 mg/dL Magnesium Level 1.9 1.6-2.6 mg/dL Total Bilirubin 1.1 H 0.2-1.0 mg/dL Aspartate Amino Transferase (AST) 64 H 13-40 U/L Alanine Aminotransferase (ALT) 57 H 7-40 U/L Alkaline Phosphatase 358 H 46-116 U/L Total Protein 7.6 5.7-8.2 g/dL Albumin 3.6 3.2-4.8 g/dL Salicylates Level < 3.0 -30 mg/dL Acetaminophen Level < 2.0 L 10.0-20.0 UG/ML Plasma/Serum Blood Alcohol 259.9 H <10 mg/dL Current Medications Medications (Trade) Dose Ordered Sig/Rossy Route Start Time Stop Time Status Last Admin Sodium Chloride 1,000 ml @ 1,000 mls/hr Q1H ONCE IV 05/29/25 03:45 05/29/25 04:44 DC 05/29/25 04:11 Insulin Human Regular (InsuLIN R) 2 units ONCE ONCE SC 05/29/25 03:45 05/29/25 03:47 DC 05/29/25 04:19 EXAM: CT HEAD WITHOUT CONTRAST INDICATION: ALOC TECHNIQUE: CT of the head without intravenous contrast. Radiation Dose : 1. Head: CT Dose: CTDI volume is 56.39 mGy. Dose-length product is 903.98 mGy*cm The dose indicators for CT are the volume Computed Tomography (CT) Dose Index (CTDIvol) and the Dose Length Product (DLP), and are measured in units of mGy and mGy-cm, respectively. These indicators are not patient dose, but values generated from the CT scanner acquisition factors. The report includes radiation exposure data for exposures received during this examination. COMPARISON: CT BRAIN on DOS: 05/03/25, CT HEAD WO on DOS: 01/03/25, CTA HEAD NECK on DOS: 01/03/25, CT HEAD WITHOUT CONTRAST on DOS: 11/30/24, MRI BRAIN WO on DOS: 11/03/24 FINDINGS: There is no evidence of acute intracranial hemorrhage, extra-axial collection, mass effect, midline shift, herniation or hydrocephalus. The ventricles, sulci and cisterns are age appropriate. The tanner-white differentiation is intact. Patchy periventricular and subcortical white matter hypoattenuation is nonspecific but may be related to small vessel ischemic disease. The visualized paranasal sinuses and mastoid air cells are clear. The surrounding soft tissues and osseous structures are unremarkable. IMPRESSION: 1. No acute intracranial abnormality. Time of 1ST Reevaluation: 02:13 Reevaluation 1ST: Unchanged Patient Education/Counseling: Other (Intoxicated with alcohol) Family Education/Counseling: No Family Present SEPSIS Sepsis Screen Date sepsis recognized/suspect: May 29, 2025 Time Sepsis recognized/suspect: 015 Recent Procedure: No On Antibiotic Therapy: No Respiratory Rate >20: No Heart Rate >90: No Temp<36 C (96.8 F) or >38.3 C: No SBP <90 or MAP <65 mmHG: No New Acute Mental Status Change: No Is the patient on CPAP, BIPAP,: No Physician Orders Head Without Contrast (05/29/25 02:10) Vital Signs Date Time Temp Pulse Resp B/P (MAP) Pulse Ox O2 Delivery O2 Flow Rate FiO2 05/29/25 01:56 99 18 99 Room Air* 0 21 05/29/25 01:56 98.1 99 18 115/59 (77) 99 98.1 05/29/25 01:44 98.0 100 16 136/74 98 98.0 Laboratory Tests Test 05/29/25 02:25 White Blood Count 6.2 10^3/uL (4.4-10.8) Medications Medications Dose Ordered Sig/Rossy Route Start Time Stop Time Status Last Admin Dose Admin Insulin Human Regular 2 units ONCE ONCE SC 05/29/25 03:45 05/29/25 03:47 DC 05/29/25 04:19 Sodium Chloride 1,000 ml @ 1,000 mls/hr Q1H ONCE IV 05/29/25 03:45 05/29/25 04:44 DC 05/29/25 04:11 Departure 1 Departure Time of Disposition: 07:00 Impression: Primary Impression: Alcohol abuse Additional Impression: Alcohol intoxication Disposition: 01 HOME / SELF CARE / HOMELESS Condition: Stable e-Prescriptions Insulin Aspart Protamine & Asp (Insulin Aspart Protamine/ (70-30) 100 Unit/ml) 1 Inj Inj 5 UNITS SC BID for 90 Days, #100 INJ 5 Refills Prov: BROOKE MAYO MD 05/29/25 Discharged With: Self Critical Care Note Critical Care Time?: No Stability Stability form required: No Heart Score Heart Score: Heart Score Response (Comments) Value History N/A 0 EKG N/A 0 Age N/A 0 Risk Factors N/A 0 Troponin N/A 0 Total 0 I personally scribed for BROOKE MAYO MD ([email or web address]) on 05/29/25 at 02:17. Electronically submitted by Gopi Yao ([employer]). I personally scribed for BROOKE MAYO MD ([email or web address]) on 05/29/25 at 03:21. Electronically submitted by Gopi Yao ([email or web address]). BROOKE MAYO MD May 29, 2025 02:17
[2025-05-29 02:47] LABS: Hemoglobin 13.2 g/dL (13.5-17.5); Mean Corpuscular Hemoglobin 35.5 pg (28.0-32.0)
[2025-05-29 02:48] LABS: Hematocrit 37.7 % (41.0-53.0); Mean Corpuscular Volume 101.0 fL (80.0-100.0); Nucleated Red Blood Cells % 0.2 %
--- NOTE | 2025-05-29 03:01 | DVH ---
EXAM: CT HEAD WITHOUT CONTRAST INDICATION: ALOC TECHNIQUE: CT of the head without intravenous contrast. Radiation Dose : 1. Head: CT Dose: CTDI volume is 56.39 mGy. Dose-length product is 903.98 mGy*cm The dose indicators for CT are the volume Computed Tomography (CT) Dose Index (CTDIvol) and the Dose Length Product (DLP), and are measured in units of mGy and mGy-cm, respectively. These indicators are not patient dose, but values generated from the CT scanner acquisition factors. The report includes radiation exposure data for exposures received during this examination. COMPARISON: CT BRAIN on DOS: 05/03/25, CT HEAD WO on DOS: 01/03/25, CTA HEAD NECK on DOS: 01/03/25, CT HEA D WITHOUT CONTRAST on DOS: 11/30/24, MRI BRAIN WO on DOS: 11/03/24 FINDINGS: There is no evidence of acute intracranial hemorrhage, extra-axial collection, mass effect, midline s hift, herniation or hydrocephalus. The ventricles, sulci and cisterns are age appropriate. The tanner-white differentiation is intact. Patchy periventricular and subcortical white matter hypoattenuation is nonspecific but may be related to small vessel ischemic disease. The visualized paranasal sinuses and mastoid air cells are clear. The surrounding soft tissues and osseous structures are unremarkable. IMPRESSION: 1. No acute intracranial abnormality. Radiation optimization: All CT scans at this facility use at least one of these dose optimization sai hniques: automated exposure control mA and/or kV adjustment per patient size (includes targeted exam s where dose is matched to clinical indication) or iterative reconstruction.
[2025-05-29 03:06] LABS: Acetaminophen < 2.0 UG/ML (10.0-20.0); Salicylate < 3.0 mg/dL (-30)
[2025-05-29 03:24] LABS: Albumin 3.6 g/dL (3.2-4.8); Anion Gap 15 (5-15); BUN/Creatinine Ratio 10.1 (10.0-20.0); Bilirubin, Total 1.1 mg/dL (0.2-1.0); Blood Urea Nitrogen 10 mg/dL (9-23); Calcium 9.1 mg/dL (8.7-10.4); Chloride 102 mmol/L (98-107); Magnesium 1.9 mg/dL (1.6-2.6); Potassium 3.8 mmol/L (3.5-5.1); Sodium 137 mmol/L (136-145); Total Protein 7.6 g/dL (5.7-8.2)
[2025-05-29 03:27] LABS: Alanine Aminotransferase 57 U/L (7-40); Alkaline Phosphatase 358 U/L (46-116); Carbon Dioxide 20 mmol/L (20-31); Glucose 397 mg/dL (74-106)
[2025-05-29] MEDS ORDERED: INSU1INJ26 SC (03:49)
[2025-05-29] MEDS: SODIUM CHLORIDE 0.9% 1,000 ML IV ONE (04:11)
[2025-05-29] MEDS: InsuLIN REG 1unit/0.01ml Soln (100units/ml) SC ONE (04:19)
== END 2025-05-29 06:08 | disposition home or self-care (01) ==
LOC: EDBD 01:17 → ER 01:17
DX: F10.129 Alcohol abuse with intoxication, unspecified (principal); Z79.899 Other long term (current) drug therapy; E11.9 Type 2 diabetes mellitus without complications; Z88.0 Allergy status to penicillin; Y90.9 Presence of alcohol in blood, level not specified
CPT/HCPCS: 36415; 70450; 80053; 80320; 80329; 82947; 83735; 85025; 96360; 96372; 99285; J1815; J7030; 82962

== ENCOUNTER 2025-06-17 21:57 | Inpatient (IN) | payer MEDICAID ==
[~2025-06-17] VITALS: Ht 172.7 cm; Wt 79.0 kg
[~2025-06-17 21:57] MED LIST changes: +BLOO-200 XX; +BLOO1KIT60 XX; +GABA-1250 PO; +INSU100I4 SC; +INSU1INJ26 SC; +INSU300I5 SUBCUT; +LANC-347 XX; +LISI10TA34 PO; +SIMV20TA20 PO
[2025-06-17 22:53] VITALS: PULSE 88; RESP 20; O2SAT 97
--- NOTE | 2025-06-17 22:56 | ED.PDOC ---
Pao. trauma (HPI) HPI Comments HPI: 44-year-old male who came to ER via EMS for fall injury. Patient picked up at [facility], where he was walking, he felt dizzy, lightheaded and his right leg gave way. fell badly on his right side , complaining of right chest wall pain and neck pain. Denies any loss of consciousness. Admits to have been drinking beer e arlier. Blood sugar on scene was 405. He does have diabetes but has poor compliance to his medications Past Medical History: Diabetes, liver cirrhosis Past Surgical History: Denies Social History: Recently incarcerated for a month, started drinking alcohol again yesterday. Denies any drug use, patient currently homeless. Allergies: Penicillin COOPER: FALL, DIZZY, NECK PAIN, R ABD PAIN, LEG GAVE OUT. ETOH. LIVER CIRRHOSIS, DIABETES, MEDICATION NONCOMPLIANCE, ALCOHOL ABUSE. HOMELESSNESS HPI: Poor Historian. Past Medical History: Past Surgical History: REVIEW OF SYSTEMS: CONSTITUTIONAL: Denies acute: fever, diaphoresis, chills, HEAD: Denies acute: headache, photophobia Eyes: Denies acute: Double vision, vision loss, eye pain, eye discharge. EARS: Denies acute: tinnitus, hearing loss, ear discharge, ear pain, THROAT: Denies acute: sore throat, swelling, difficulty swallowing , pain with swallowing, change in voice. NECK: Denies acute: neck pain, neck swelling, stiff neck. HEART: Denies acute : chest pain, palpitations, LUNGS: Denies acute: SOB, wheezing, cough, hemoptysis ABDOMEN: Denies acute: abdominal pain, Nausea, Vomiting, diarrhea, melena , hematemesis, hematochezia SKIN: Denies acute: rash, redness, lesions, itchiness. EXTREMITIES: Denies acute: calf pain, numbness, tingling, weakness, denies pain in extremity. Denies acute: Low back pain. Neuro: Denies acute: focal neurological deficit, motor or sensory focal neurological deficit, tremors, seizure like activity, confusion, , change in mental status, loss of bowel or bladder function, cauda equina like symptoms. : Denies acute: dysuria, hematuria, flank pain, increase in urinary frequency. PSYCH: Denies acute: hallucination, suicidal ideation, homicidal ideation. PHYSICAL EXAM: General: ----mild----acute distress, awake and alert. Multiple tattoos Head: normocephalic, atraumatic. No raccoon's eyes, no huertas sign. Neck: C-collar in place Throat: Normal phonation. Eyes:, no erythema, no purulent discharge, no proptosis, no icterus. Heart: regular tachycardic, no significant murmur appreciated. Lungs: no apparent respiratory distress, Able to speak in full sentences. No wheezing, no rhonchi, no crackles. No stridors Clear to auscultation bilaterally. Abdomen: Right-sided mild tender to palpation, non distended, soft, no guarding, no rebound, + bowel sounds. Neuro: Awake, Alert, oriented to name, self, situation, follows commands GCS=15. Speech is normal. Skin: no petechia, no purpura, no cyanosis, non-pale, not jaundice. Lower extremities: --no - Pitting edema no deformity, no focal swelling, no calf TTP. Makes eye contact. moves all four extremities. Face: no apparent facial droop. ED COURSE: DISCLAIMER: This medical document was created using an electronic medical record system with voice recognition software and computerized dictation system. Although this document has been carefully reviewed, there might still be some phonetic and typographical errors. Occasional wrong-word or "sound-alike" substitutions may have occurred due to the inherent limitations of voice recognition software. These areas are purely typographical due to imperfections of the software programs and do not reflect any compromise in the patient's medical care. Please read the chart carefully and recognize, using context, where these substitutions have occurred. Chief Complaint: Fall Injury Time Seen by MD: 22:56 Primary Care Provider: n/a Reviewed notes: Nurses Notes, Allergies Allergies: Coded Allergies: Penicillins (Verified Allergy, Unknown, 10/20/24) Home Meds Active Scripts Insulin Aspart Protamine & Asp (Insulin Aspart Protamine/ (70-30) 100 Unit/ml) 1 Inj Inj, 5 UNITS SC BID for 90 Days, #100 INJ 5 Refills Prov:BROOKE MAYO MD 05/29/25 Lancets (Freestyle Lancets) Lancets Mis, BOX XX ACHS, #1 Prov:NOAH MALDONADO PHARMACY DELIVERY DRIVER 04/18/25 Blood Glucose Monitoring Suppl (D-Care Glucometer Kit/Glu W/Device) 1 Kit Kit, KIT XX ACHS, #1 Prov:NOAH MALDONADO PHARMACY DELIVERY DRIVER 04/18/25 Blood Glucose Monitoring Suppl (Blood Glucose Monitoring W/Device) 1 Kit Kit, KIT XX TIDWMEALS, #1 Prov:RUTHIE CASTANEDA MD 03/02/25 Lancets (Freestyle Lancets) Lancets Mis, EA XX TIDWMEALS, #120 Prov:RUTHIE CASTANEDA MD 03/02/25 Insulin Lispro (Humalog Kwikpen) 100 Unit/Ml Inj, 6 UNIT SC TIDWMEALS, #10 INJ Prov:RUTHIE CASTANEDA MD 03/02/25 Insulin Glargine (Insulin Glargine Solostar) 300 Unit/Ml Inj, 15 UNITS SUBCUT BID, #10 INJ Prov:RUTHIE CASTANEDA MD 03/02/25 Gabapentin (Gabapentin) 300 Mg Cap, 1 CAP PO DAILY, #14 CAP Prov:RUTHIE CASTANEDA MD 03/02/25 Simvastatin (Simvastatin) 20 Mg Tab, 1 TAB PO HS, #30 TAB Prov:RUTHIE CASTANEDA MD 03/02/25 Lisinopril (Lisinopril) 10 Mg Tab, 1 TAB PO DAILY, #60 TAB Prov:RUTHIE CASTANEDA MD 03/02/25 Insulin Glargine (Lantus Solostar) 100 Unit/Ml Inj, 20 UNIT SC HS, #10 INJ Prov:RUTHIE CASTANEDA MD 12/01/24 Glucose Blood (EASY TOUCH GLUCOSE TEST S) Strips Ashley, 1 EA ACHS for 30 Days, #120 MISC 70-130 - 0 units ____ units 131-180 - 8 units ____ units 181-240 - 12 units ____ units 241-300 - 16 units ____ units 301-350 - 20 units ____ units 351-400 - 24 units ____ units >400 12 units and call 20 units and call 28 units and call MD ____ units and call M Prov:RUTHIE CASTANEDA MD 12/01/24 Insulin Aspart (Insulin Aspart) 100 Unit/Ml Inj, 100 UNIT SC AC for 30 Days, #1 INJ 0 Refills 70-130 - 0 units ____ units 131-180 - 8 units ____ units 181-240 - 12 units ____ units 241-300 - 16 units ____ units 301-350 - 20 units ____ units 351-400 - 24 units ____ units >400 12 units and call MD 20 units and call 28 units and call MD ____ units and call M Prov:RUTHIE CASTANEDA MD 12/01/24 Atorvastatin Calcium (ATORVASTATIN CALCIUM) 20 Mg Tab, 20 MG PO HS for 30 Days, #30 TAB Prov:RUTHIE CASTANEDA MD 12/01/24 Lancets (Cvs Lancets Thin 26G) Thin 26G Mis, 26G SC ACHS, #120 0 Refills Please check glucose 15 mins before each meal Prov:MATEUSZ GOODRICH RESIDENT 10/25/24 Blood Glucose Monitoring Suppl (EASY TOUCH GLUCOSE MONITO) Monitor Kit, EA XX ACHS, #1 Please check glucose 15 mins before each meal Prov:MATEUSZ GOODRICH 10/25/24 Lancets (EASY TOUCH LANCETS) 28 G Mis, G XX QID, #100 Prov:ANUP DOSHI MD 08/26/24 Blood Glucose Monitoring Suppl (mm Easy Touch Blood Gluco W/Device) 1 Kit Kit, KIT XX, #1 Prov:ANUP DOSHI MD 08/26/24 Information Source: Patient Mode of Arrival: EMS Past Medical History PAST MEDICAL HISTORY: DM, Liver Surgical History: Denies all surgeries Family History Family History: Reviewed,noncontributory to illness Social History Smoker: Non-Smoker Alcohol: Heavy Drugs: Denies Drug Use Lives In: Homeless Was a procedure done? Was a procedure done?: No EKG EKG : Pulse Rate (adult): 119 Cardiac Rhythm: ST Differential Diagnosis Multiple Trauma: Closed Head Injury, Fractures, Intraabdominal Injury, Pneumothorax, Cerebral Contusion, Pulmonary Contusion, Spine Injury, Tracheal Injury, Urological Injury, Vascular Injury, Abrasions, Contusion, Foreign Body, Hematoma, Encephalopathy Neck Injury: Cervical Muscle Spasm, Cervical Sprain, Cervical Strain, Cervical Fracture, Spinal Cord Injury X-Ray, Labs, Meds, VS Vital Signs Date Time Temp Pulse Resp B/P (MAP) Pulse Ox O2 Delivery O2 Flow Rate FiO2 06/18/25 03:37 115 06/18/25 00:00 122 06/17/25 23:31 119 06/17/25 23:24 119 06/17/25 22:53 98.1 88 20 126/72 (90) 97 98.1 06/17/25 22:53 88 20 97 Room Air* 0 21 06/17/25 21:57 98.1 122 18 153/91 98 98.1 Lab Test 06/18/25 02:25 06/18/25 00:25 06/17/25 23:24 06/17/25 22:33 Range/Units White Blood Count 4.4 5.2 4.4-10.8 10^3/uL Red Blood Count 3.61 L 4.18 L 4.5-5.90 10^6/uL Hemoglobin 12.6 L 14.3 13.5-17.5 g/dL Hematocrit 35.4 #L 41.0 41.0-53.0 % Mean Corpuscular Volume 98.1 98.2 80.0-100.0 fL Mean Corpuscular Hemoglobin 34.9 H 34.3 H 28.0-32.0 pg Mean Corpuscular Hemoglobin Concent 35.6 34.9 32.0-36.0 g/dL Red Cell Distribution Width 13.7 13.8 11.8-14.3 % Platelet Count 81 L 99 L 140-450 10^3/uL Mean Platelet Volume 8.7 8.2 6.9-10.8 fL Neutrophils (%) (Auto) 61.4 63.8 37.0-80.0 % Lymphocytes (%) (Auto) 27.1 21.2 10.0-50.0 % Monocytes (%) (Auto) 9.2 12.2 H 0.0-12.0 % Eosinophils (%) (Auto) 1.4 1.0 0.0-7.0 % Basophils (%) (Auto) 0.9 1.8 0.0-2.0 % Neutrophils # (Auto) 2.7 3.3 1.6-8.6 10 ^3/uL Lymphocytes # (Auto) 1.2 1.1 0.4-5.4 10 ^3/uL Monocytes # (Auto) 0.4 0.6 0-1.3 10 ^3/uL Eosinophils # (Auto) 0.1 0.1 0-0.8 10 ^3/uL Basophils # (Auto) 0 0.1 0-0.2 10 ^3/uL Nucleated Red Blood Cells 0.2 0.1 % Platelet Estimate Decreased D-Dimer, Quantitative 0.55 H 0.0-0.49 mg/L FEU Sodium Level 140 137 136-145 mmol/L Potassium Level 4.0 5.0 3.5-5.1 mmol/L Chloride Level 107 102 98-107 mmol/L Carbon Dioxide Level 21 22 20-31 mmol/L Anion Gap 12 13 5-15 Blood Urea Nitrogen 17 16 9-23 mg/dL Creatinine 0.97 1.27 0.700-1.30 mg/dL Glomerular Filtration Rate Calc 98 71 >90 mL/min BUN/Creatinine Ratio 17.5 12.6 10.0-20.0 Serum Glucose 302 #H 411 *H 74-106 mg/dL Lactic Acid Level 1.6 3.7 *H 0.4-2.0 mmol/L Calcium Level 8.1 L 9.3 8.7-10.4 mg/dL Total Bilirubin 1.3 H 1.4 H 0.2-1.0 mg/dL Aspartate Amino Transferase (AST) 69 H 80 H 13-40 U/L Alanine Aminotransferase (ALT) 69 H 76 H 7-40 U/L Alkaline Phosphatase 235 H 261 H 46-116 U/L Troponin I High Sensitivity 15 17 16 </=54 ng/L Total Protein 6.4 7.9 5.7-8.2 g/dL Albumin 3.1 L 3.7 3.2-4.8 g/dL Lipase 74 H 12-53 U/L Plasma/Serum Blood Alcohol < 3.0 15.3 H <10 mg/dL Magnesium Level 1.7 1.6-2.6 mg/dL Urine Color Yellow Yellow Urine Clarity Clear Clear Urine pH 5.5 5.0-9.0 Urine Specific [place] 1.028 1.001-1.035 Urine Protein 1+ H Negative Urine Ketones Trace Negative Urine Blood Negative Negative /uL Urine Nitrite Negative Negative Urine Bilirubin Negative Negative Urine Urobilinogen 2 H Negative mg/dL Urine Leukocyte Esterase Negative Negative /uL Urine RBC 1 0 - 3 /hpf Urine Microscopic WBC 1 0-3 /HPF Urine Squamous Epithelial Cells Few <5 /hpf Urine Bacteria None seen None Seen /hpf Urine Glucose 4+ H Normal mg/dL Urine Opiates Screen Neg NEGATIVE Urine Fentanyl Screen Neg NEGATIVE Urine Barbiturates Screen Neg NEGATIVE Urine Phencyclidine Screen Neg NEGATIVE Urine Amphetamines Screen Neg NEGATIVE Urine Benzodiazepines Screen Neg NEGATIVE Urine Cocaine Screen Neg NEGATIVE Urine Cannabinoids Screen Neg NEGATIVE [facility] [id number] [place] [address] Ph: [phone] DIAGNOSTIC IMAGING Diagnostic Imaging Report : [id number] Signed PATIENT: WISAM COOPER ACCT: [id number] UNIT: [id number] : 1980 LOC: ER ROOM / BED: / AGE / SEX: 44 / M ADM STATUS: REG ER SERVICE 32 ORDERING PHYSICIAN: SLOAN BROWN DO PROCEDURE(s): HWOCT - HEAD WITHOUT CONTRAST REASON: FALL/SYNCOPE ORDER NUMBER(s): [id number], ACCESSION NUMBER(s): [id number] CT HEAD WITHOUT CONTRAST INDICATION: FALL/SYNCOPE EXAM DATE: 06/17/2025 11:01 PM COMPARISON: CT HEAD WITHOUT CONTRAST on DOS: 05/29/25, CT BRAIN on DOS: 05/03/25, CT HEAD WO on DOS: 01/03/25, CTA HEAD NECK on DOS: 01/03/25, CT HEAD WITHOUT CONTRAST on DOS: 11/30/24 RADIATION DOSE: CTDIvol: 54.83 mGy, DLP: 988.58 mGy*cm PROCEDURE: CT scans of the head were obtained from the vertex to the skull base. Sagittal and coronal reconstructions were provided. All CT scans at this medical facility are performed using dose modulation techniques as appropriate to a performed exam including the following: Automated exposure control was utilized; adjustment of the MA and/or KV according to patient size; and use of iterative reconstruction technique. FINDINGS: Motion artifact degrades fine detail. The cerebral parenchyma appears to be normal configuration and attenuation. The ventricles, cisterns, and sulci appear age-appropriate. There is no evidence for acute territorial infarct, hemorrhage, or mass effect. The orbits are normal. Opacification of the left maxillary antrum. The soft tissues and osseous structures appear within normal limits. IMPRESSION: 1. No acute territorial infarct, intracranial hemorrhage, or mass effect. If clinical symptoms persist, MRI may be beneficial in further evaluation. ATED BY: KIMBERLY NICLOE MD DICTATED DATE/TIME: 06/17/252344 SIGNED BY: KIMBERLY NICOLE MD SIGNED DATE/TIME: 06/17/252344 CC: [address] [address] Ph: [phone] DIAGNOSTIC IMAGING Diagnostic Imaging Report : [id number] Signed PATIENT: WISAM COOPER ACCT: [id number] UNIT: [id number] : 1980 LOC: ER ROOM / BED: / AGE / SEX: 44 / M ADM STATUS: REG ER SERVICE 32 ORDERING PHYSICIAN: SLOAN BROWN DO PROCEDURE(s): CS2 - CERVICAL WITHOUT CONTRAST REASON: FALL/SYNCOPE ORDER NUMBER(s): [id number], ACCESSION NUMBER(s): [id number] EXAM: CT CERVICAL WITHOUT CONTRAST HISTORY: FALL/SYNCOPE COMPARISON: CT C-SPINE on DOS: 05/03/25, CT C-SPINE on DOS: 12/20/24, CT C-SPINE on DOS: 11/02/24, CERVICAL WITHOUT CONTRAST on DOS: 05/05/22 CTDIvol 22.01 mGy, DLP 615.84 mGy*cm. TECHNIQUE: Multiple axial CT images of the spine were obtained using bone algorithm. Axial and coronal reformatting was done. Bone and soft tissue windows were reviewed. FINDINGS: No evidence of definite acute fracture, spinal dislocation, or significant appe aring acute subluxation is seen. IMPRESSION: No acute abnormality. ATED BY: MARGARITA SAMUEL MD DICTATED DATE/TIME: 06/17/252338 SIGNED BY: MARGARITA SAMUEL MD SIGNED DATE/TIME: 06/17/252338 CC: [address] [place] - [address] Ph: [phone] DIAGNOSTIC IMAGING Diagnostic Imaging Report : [id number] Signed PATIENT: WISAM COOPER ACCT: [id number] UNIT: [id number] : 1980 LOC: ER ROOM / BED: / AGE / SEX: 44 / M ADM STATUS: REG ER SERVICE 2240 ORDERING PHYSICIAN: SLOAN BROWN DO PROCEDURE(s): ABPL - CT AB PEL WO CON-NO ORAL OR IV REASON: FALL, R SIDED ABD PAIN ORDER NUMBER(s): [id number], ACCESSION NUMBER(s): [id number] Exam: CT CT AB PEL WO CON-NO ORAL OR IV History: FALL, R SIDED ABD PAIN Comparison Study: CT CT AB PEL WO CON-NO ORAL OR IV on DOS: 05/26/25, CT CT AB PEL WO CON-NO ORAL OR IV on DOS: 04/29/25, CT CT AB PEL WO CON-NO ORAL OR IV on DOS: 04/16/25, CT ABD/PEL on DOS: 04/07/25, CT ABD/PEL on DOS: 03/16/24 TECHNIQUE: Multidetector CT of the abdomen and pelvis was performed from lung bases to pubic symphysis. Imaging was performed without IV contrast. Axial, coronal, and sagittal multiplanar reformats were obtained from the axial data set by the technologist. RADIATION DOSE: CTDI vol 7.4 mGy. DLP 428.8 mGy.cm Findings: Limited evaluation of the solid organs in the absence of IV contrast. Lungs: Minimal basilar atelectasis. Liver: Nodular hepatic contour. Spleen: Borderline splenomegaly. Pancreas: Unremarkable. Gallbladder: Cholelithiasis. Adrenals: Unremarkable Kidneys: Unremarkable. Pelvic Viscera: Distention of the urinary bladder. Vasculature: Atherosclerotic aortoiliac calcification. Upper abdominal varices. Retroperitoneum: Unremarkable. Bowel: No bowel obstruction. No CT evidence of appendicitis. Musculoskeletal: Unremarkable. Soft tissues: Unremarkable Impression: 1. No acute abdominopelvic abnormality. 2. Additional findings as detailed. ATED BY: KIMBERLY NICOLE MD DICTATED DATE/TIME: 06/17/252334 SIGNED BY: KIMBERLY NICOLE MD SIGNED DATE/TIME: 06/17/252334 CC: Time of 1ST Reevaluation: 22:41 Reevaluation 1ST: Unchanged Time of 2ND Reevaluation: 05:16 (Patient was reassessed at this time. Without oxygen he is O2 sat is at most 91%. He continues to be tachycardic about 115. Patient states that he will fall if he gets up because of his neuropathy. C- spine was cleared at this time. C-collar was removed. I will admit the patient for further evaluation and treatment. I ordered some Ativan in case he is withdrawing.) Patient Education/Counseling: Diagnosis, Treatment Family Education/Counseling: No Family Present Comments MDM: patient presented with the above HPI.------workup was initiated. patient was found with the above mentioned diagnosis. the following medications were ordered: please refer to order lists of meds and tests obtained by myself Dr. Brown. Patient ED course and VS have been stabilized. Patient has been reassessed in the ED and remained in a stable condition. Pertinent incidental findings were discussed with the patient and/or family. Patient/family voices understanding and is agreeable with plan. Patient has been observed in the ED adequate length of time to insure improvement/stability. Escalation of care considered: Consideration of escalation to observation or admission Rule out head and neck injury. CT scans were obtained. Patient continued to be tachycardic despite fluid hydration and Ativan. Patient was ADMITTED to the medicine team for further evaluation and treatment of their presentation. All the reports of any imaging studies that were ordered by myself were reviewed by myself. Departure 1 Departure Time of Disposition: 04:31 Impression: Primary Impression: Fall Additional Impressions: Alcohol abuse Homeless Noncompliance with medication regimen Tachycardia Diabetes mellitus with hyperglycemia Disposition: ADMITTED INPATIENT Admit to: Tele Condition: Guarded Discharged With: Self Critical Care Note Critical Care Time?: Yes (45 min-critical care time only) I personally scribed for SLOAN BROWN DO ([email or web address]) on 06/17/25 at 22:56. Electronically submitted by Gopi Yao ([facility]). I personally scribed for SLOAN BROWN DO ([email or web address]) on 06/17/25 at 23:31. Electronically submitted by Gopi Yao ([facility]). I personally scribed for SLOAN BROWN DO ([facility]) on 06/18/25 at 00:15. Electronically submitted by Gopi Yao ([facility]). I personally scribed for SLOAN BROWN DO ([facility]) on 06/18/25 at 01:14. Electronically submitted by Gopi Yao ([facility]). I personally scribed for SLOAN BROWN DO ([facility]) on 06/18/25 at 01:59. Elect ronically submitted by Gopi Yao ([facility]). SLOAN BROWN DO Jun 17, 2025 22:56
--- NOTE | 2025-06-17 23:26 | ECG ---
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
--- NOTE | 2025-06-17 23:37 | DVH ---
Exam: CT CT AB PEL WO CON-NO ORAL OR IV History: FALL, R SIDED ABD PAIN Comparison Study: CT CT AB PEL WO CON-NO ORAL OR IV on DOS: 05/26/25, CT CT AB PEL WO CON-NO ORAL OR IV on DOS: 04/29/25, CT CT AB PEL WO CON-NO ORAL OR IV on DOS: 04/16/25, CT ABD/PEL on DOS: 04/07/25, CT ABD/PEL on DOS: 03/16/24 TECHNIQUE: Multidetector CT of the abdomen and pelvis was performed from lung bases to pubic symphysis. Imaging was performed without IV contrast. Axial, coronal, and sagittal multiplanar reformats were obtained from the axial data set by the technologist. RADIATION DOSE: CTDI vol 7.4 mGy. DLP 428.8 mGy.cm Findings: Limited evaluation of the solid organs in the absence of IV contrast. Lungs: Minimal basilar atelectasis. Liver: Nodular hepatic contour. Spleen: Borderline splenomegaly. Pancreas: Unremarkable. Gallbladder: Cholelithiasis. Adrenals: Unremarkable Kidneys: Unremarkable. Pelvic Viscera: Distention of the urinary bladder. Vasculature: Atherosclerotic aortoiliac calcification. Upper abdominal varices. Retroperitoneum: Unremarkable. Bowel: No bowel obstruction. No CT evidence of appendicitis. Musculoskeletal: Unremarkable. Soft tissues: Unremarkable Impression: 1. No acute abdominopelvic abnormality. 2. Additional findings as detailed.
--- NOTE | 2025-06-17 23:42 | DVH ---
EXAM: CT CERVICAL WITHOUT CONTRAST HISTORY: FALL/SYNCOPE COMPARISON: CT C-SPINE on DOS: 05/03/25, CT C-SPINE on DOS: 12/20/24, CT C-SPINE on DOS: 11/02/24, CERVICAL WITHOUT CONTRAST on DOS: 05/05/22 CTDIvol 22.01 mGy, DLP 615.84 mGy*cm. TECHNIQUE: Multiple axial CT images of the spine were obtained using bone algorithm. Axial and coronal reformatting was done. Bone and soft tissue windows were reviewed. FINDINGS: No evidence of definite acute fracture, spinal dislocation, or significant appearing acute subluxation is seen. IMPRESSION: No acute abnormality.
[2025-06-17 23:43] LABS: Hematocrit 41.0 % (41.0-53.0); Hemoglobin 14.3 g/dL (13.5-17.5); Mean Corpuscular Hemoglobin 34.3 pg (28.0-32.0); Mean Corpuscular Volume 98.2 fL (80.0-100.0); Nucleated Red Blood Cells % 0.1 %
--- NOTE | 2025-06-17 23:48 | DVH ---
CT HEAD WITHOUT CONTRAST INDICATION: FALL/SYNCOPE EXAM DATE: 06/17/2025 11:01 PM COMPARISON: CT HEAD WITHOUT CONTRAST on DOS: 05/29/25, CT BRAIN on DOS: 05/03/25, CT HEAD WO on DOS: 01/03/25, CTA HEAD NECK on DOS: 01/03/25, CT HEAD WITHOUT CONTRAST on DOS: 11/30/24 RADIATION DOSE: CTDIvol: 54.83 mGy, DLP: 988.58 mGy*cm PROCEDURE: CT scans of the head were obtained from the vertex to the skull base. Sagittal and coronal reconstructions were provided. All CT scans at this medical facility are performed using dose modulation techniques as appropriate to a performed exam including the following: Automated exposure control was utilized; adjustment of the MA and/or KV according to patient size; and use of iterative reconstruction technique. FINDINGS: Motion artifact degrades fine detail. The cerebral parenchyma appears to be normal configuration and attenuation. The ventricles, cisterns, and sulci appear age-appropriate. There is no evidence for acute territorial infarct, hemorrhage, or mass effect. The orbits are normal. Opacification of the left maxillary antrum. The soft tissues and osseous structures appear within normal limits. IMPRESSION: 1. No acute territorial infarct, intracranial hemorrhage, or mass effect. If clinical symptoms persist, MRI may be beneficial in further evaluation.
[2025-06-17 23:55] LABS: Albumin 3.7 g/dL (3.2-4.8); Anion Gap 13 (5-15); BUN/Creatinine Ratio 12.6 (10.0-20.0); Blood Urea Nitrogen 16 mg/dL (9-23); Calcium 9.3 mg/dL (8.7-10.4); Carbon Dioxide 22 mmol/L (20-31); Chloride 102 mmol/L (98-107); Magnesium 1.7 mg/dL (1.6-2.6); Potassium 5.0 mmol/L (3.5-5.1); Sodium 137 mmol/L (136-145); Total Protein 7.9 g/dL (5.7-8.2)
[2025-06-18] VITALS (7 sets, daily range): BP systolic 124–141; BP diastolic 69–85; PULSE 100–111; RESP 16–20; TEMP 97.5–98.5; O2SAT 95–97
[2025-06-18 00:02] LABS: Alanine Aminotransferase 76 U/L (7-40); Alkaline Phosphatase 261 U/L (46-116); Bilirubin, Total 1.4 mg/dL (0.2-1.0)
[2025-06-18] MEDS: SODIUM CHLORIDE 0.9% 1,000 ML IV ONE ×2 (00:15→01:22)
[2025-06-18] MEDS: THIAMINE HCL 100 MG TAB PO ONE (00:15)
[2025-06-18 00:34] LABS: Urine Protein, UAD 1+ (Negative)
[2025-06-18 00:54] LABS: Glucose 411 mg/dL (74-106); Lactic Acid w/Reflex 3.7 mmol/L (0.4-2.0)
[2025-06-18 01:31] LABS: Amphetamine Screen, Urine Neg (NEGATIVE); Barbiturate Scree,Urine Neg (NEGATIVE); Benzodiazephine Screen, Urine Neg (NEGATIVE); Cannabinoid Screen, Urine Neg (NEGATIVE); Cocaine Screen, Urine Neg (NEGATIVE); Opiate Scree,Urine Neg (NEGATIVE); Phencyclidine Screen, Urine Neg (NEGATIVE)
[2025-06-18] MEDS ORDERED: InsuLIN REG 1unit/0.01ml Soln (100units/ml) IV ONE (01:45)
[2025-06-18] MEDS: InsuLIN REG 1unit/0.01ml Soln (100units/ml) IV ONE (02:19)
[2025-06-18] MEDS: LORazepam 2MG/ML-1ML VIAL IV ONE (04:45)
[2025-06-18] MEDS ORDERED: DEXTROSE (50%) 50ML SYRG IV PRN (05:30)
[2025-06-18] MEDS ORDERED: DOCUSATE SOD 100 MG CAP PO PRN (05:30)
[2025-06-18] MEDS: SODIUM CHLORIDE 0.9% 1,000 ML IV SCH (05:30)
[2025-06-18] MEDS ORDERED: LORazepam 2MG/ML-1ML VIAL IV PRN (05:30)
[2025-06-18] MEDS ORDERED: IBUPROFEN 600 MG TAB PO PRN (05:30)
--- NOTE | 2025-06-18 05:35 | DVHHP2 ---
History of Present Illness Reason for Visit: Alcohol abuse History of Present Illness The patient is a 44 years old male with past medical history of liver cirrhosis, hyperlipidemia, and diabetes mellitus presented to [facility] ED for evaluation of fall injury. Patient was picked up at [facility], where he was walking, he felt dizzy, lightheaded and his right leg gave way and fell badly on his right side, complaining of right chest wall pain and neck pain. Patient has poor compliance to his medications, admits to drinking alcohol daily. Patient was seen and evaluated in the ED, laboratory data shows WBC 5.2, platelets [id number], sodium 137, potassium 5.0, BUN 16, creatinine 1.27, GFR 71, glucose 411, calcium 9.3, magnesium 1.7, troponin 15, lactic acid 3.7 trending down to 1.6, total bilirubin 1.4, AST 80, ALT 76, alkaline phos 261, blood pressure 126/72, heart rate 1 one five, temperature 98.1 F, O2 saturation 97% on oxygen. Abdomen/pelvis CT showed no acute abdominopelvic abnormality. Head CT showed no acute territorial infarct, intracranial hemorrhage, or mass effect. Chest x-ray show no acute abnormality. Please see medication orders section in the computer. On my assessment, patient denied chest pain, no headache, dizziness, loss of consciousness, diaphoresis, currently on oxygen, no diarrhea, nausea, vomiting, fever, no chills. Patient was admitted for further evaluation and medical management. Past Medical History Diabetes mellitus, Liver cirrhosis Past Surgical History Denies all surgeries Family History Reviewed, noncontributory to the management of this case. Past Social History Patient lives at home, denies smoking, drinks alcohol heavily, denies illicit drugs abuse. Review of Systems Constitutional: Yes: Weakness; No: Fever, Chills, Sweats, Malaise, Other Eyes: No: Pain, Vision change, Conjunctivae inflammation, Eyelid inflammation, Other, Redness ENT: No: Ear pain, Ear discharge, Nose pain, Nose discharge, Nose congestion, Mouth pain, Mouth swelling, Throat pain, Throat swelling, Other Respiratory: Shortness of breath; No: Cough, Dry, SOB with excertion, Wheezing, Hemoptysis, Pleuritic Pain, Sputum, Wheezing, Other Cardiovascular: Lt Headedness; No: Chest Pain, Palpitations, Orthopnea, Paroxysmal Noc. Dyspnea, Edema, Other Gastrointestinal: No: Nausea, Vomiting, Abdominal Pain, Diarrhea, Constipation, Melena, Hematochezia, Other Genitourinary: No Dysuria, No Frequency, No Incontinence, No Hematuria, No Retention, No Other Musculoskeletal: No: other, neck pain, shoulder pain, arm pain, back pain, hand pain, leg pain, foot pain Skin: No: Rash, Lesions, Jaundice, Bruising, Other Neurological: Other (Dizziness); No: Weakness, Numbness, Incoordination, Change in speech, Confusion, Seizures Allergies: Coded Allergies: Penicillins (Verified Allergy, Unknown, 10/20/24) Medications Current Medications Medications Dose Ordered Sig/Rossy Route Start Time Stop Time Status Last Admin Dose Admin Folic Acid 1 mg DAILY PO 06/18/25 10:00 UNV Thiamine HCl 100 mg DAILY PO 06/18/25 10:00 UNV Lorazepam 0.5 mg Q8HP PRN IV 06/18/25 05:30 UNV Ibuprofen 600 mg Q6HP PRN PO 06/18/25 05:30 UNV Diagnostic Test (Pha) 1 strip IQ4HR 06/18/25 08:00 UNV Insulin Human Regular IQ4HR SC 06/18/25 08:00 UNV Dextrose 50 ml UD PRN IV 06/18/25 05:30 UNV Sodium Chloride 1,000 ml @ 60 mls/hr [id number] IV 06/18/25 05:30 UNV Acetaminophen/ Hydrocodone Bitart 1 tab Q4HP PRN PO 06/18/25 05:30 UNV Ondansetron HCl 4 mg Q4HP PRN IV 06/18/25 05:30 UNV Docusate Sodium 100 mg BIDPRN PRN PO 06/18/25 05:30 UNV Exam Vital Signs Vital Signs Date Time Temp Pulse Resp B/P (MAP) Pulse Ox O2 Delivery O2 Flow Rate FiO2 06/18/25 03:37 115 06/17/25 22:53 98.1 20 126/72 (90) 97 98.1 06/17/25 22:53 Room Air* 0 21 General Appearance: Alert, Oriented X3, Cooperative, No acute distress HEENT: Atraumatic, PERRLA, EOMI, Mucous membr. moist/pink Respiratory: Normal air movement Cardiovascular: Regular rate, Normal S1, Normal S2, No murmurs Abdominal: Normal bowel sounds, Soft, No tenderness, No hepatospenomegaly, No masses Extremities: No clubbing, No cyanosis, No edema, Normal pulses, No tenderness/swelling Skin: No rashes, No significant lesion Neuro: Normal speech, Normal tone, Sensation intact, Cranial nerves 3-12 NL, Reflexes 2+, Other (Generalized weakness) Psych/Mental Status: Mental status NL, Mood NL Labs/Xrays Labs Test 06/18/25 02:25 06/17/25 23:24 06/17/25 22:33 Range/Units Lactic Acid Level 1.6 0.4-2.0 mmol/L Troponin I High Sensitivity 15 </=54 ng/L Lipase 74 H 12-53 U/L Plasma/Serum Blood Alcohol < 3.0 <10 mg/dL White Blood Count 5.2 4.4-10.8 10^3/uL Red Blood Count 4.18 L 4.5-5.90 10^6/uL Hemoglobin 14.3 13.5-17.5 g/dL Hematocrit 41.0 41.0-53.0 % Mean Corpuscular Volume 98.2 80.0-100.0 fL Mean Corpuscular Hemoglobin 34.3 H 28.0-32.0 pg Mean Corpuscular Hemoglobin Concent 34.9 32.0-36.0 g/dL Red Cell Distribution Width 13.8 11.8-14.3 % Platelet Count 99 L 140-450 10^3/uL Mean Platelet Volume 8.2 6.9-10.8 fL Neutrophils (%) (Auto) 63.8 37.0-80.0 % Lymphocytes (%) (Auto) 21.2 10.0-50.0 % Monocytes (%) (Auto) 12.2 H 0.0-12.0 % Eosinophils (%) (Auto) 1.0 0.0-7.0 % Basophils (%) (Auto) 1.8 0.0-2.0 % Neutrophils # (Auto) 3.3 1.6-8.6 10 ^3/uL Lymphocytes # (Auto) 1.1 0.4-5.4 10 ^3/uL Monocytes # (Auto) 0.6 0-1.3 10 ^3/uL Eosinophils # (Auto) 0.1 0-0.8 10 ^3/uL Basophils # (Auto) 0.1 0-0.2 10 ^3/uL Nucleated Red Blood Cells 0.1 % Sodium Level 137 136-145 mmol/L Potassium Level 5.0 3.5-5.1 mmol/L Chloride Level 102 98-107 mmol/L Carbon Dioxide Level 22 20-31 mmol/L Anion Gap 13 5-15 Blood Urea Nitrogen 16 9-23 mg/dL Creatinine 1.27 0.700-1.30 mg/dL Glomerular Filtration Rate Calc 71 >90 mL/min BUN/Creatinine Ratio 12.6 10.0-20.0 Serum Glucose 411 *H 74-106 mg/dL Calcium Level 9.3 8.7-10.4 mg/dL Magnesium Level 1.7 1.6-2.6 mg/dL Total Bilirubin 1.4 H 0.2-1.0 mg/dL Aspartate Amino Transferase (AST) 80 H 13-40 U/L Alanine Aminotransferase (ALT) 76 H 7-40 U/L Alkaline Phosphatase 261 H 46-116 U/L Total Protein 7.9 5.7-8.2 g/dL Albumin 3.7 3.2-4.8 g/dL Urine Color Yellow Yellow Urine Clarity Clear Clear Urine pH 5.5 5.0-9.0 Urine Specific [place] 1.028 1.001-1.035 Urine Protein 1+ H Negative Urine Ketones Trace Negative Urine Blood Negative Negative /uL Urine Nitrite Negative Negative Urine Bilirubin Negative Negative Urine Urobilinogen 2 H Negative mg/dL Urine Leukocyte Esterase Negative Negative /uL Urine RBC 1 0 - 3 /hpf Urine Microscopic WBC 1 0-3 /HPF Urine Squamous Epithelial Cells Few <5 /hpf Urine Bacteria None seen None Seen /hpf Urine Glucose 4+ H Normal mg/dL Urine Opiates Screen Neg NEGATIVE Urine Fentanyl Screen Neg NEGATIVE Urine Barbiturates Screen Neg NEGATIVE Urine Phencyclidine Screen Neg NEGATIVE Urine Amphetamines Screen Neg NEGATIVE Urine Benzodiazepines Screen Neg NEGATIVE Urine Cocaine Screen Neg NEGATIVE Urine Cannabinoids Screen Neg NEGATIVE 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: WISAM COOPER ACCT: [id number] UNIT: [id number] : 1980 LOC: ER ROOM / BED: / AGE / SEX: 44 / M ADM STATUS: REG ER SERVICE ORDERING PHYSICIAN: SLOAN BROWN DO PROCEDURE(s): ABPL - CT AB PEL WO CON-NO ORAL OR IV REASON: FALL, R SIDED ABD PAIN ORDER NUMBER(s): [id number], ACCESSION NUMBER(s): [id number] Exam: CT CT AB PEL WO CON-NO ORAL OR IV History: FALL, R SIDED ABD PAIN Comparison Study: CT CT AB PEL WO CON-NO ORAL OR IV on DOS: 05/26/25, CT CT AB PEL WO CON-NO ORAL OR IV on DOS: 04/29/25, CT CT AB PEL WO CON-NO ORAL OR IV on DOS: 04/16/25, CT ABD/PEL on DOS: 04/07/25, CT ABD/PEL on DOS: 03/16/24 TECHNIQUE: Multidetector CT of the abdomen and pelvis was performed from lung bases to pubic symphysis. Imaging was performed without IV contrast. Axial, coronal, and sagittal multiplanar reformats were obtained from the axial data set by the technologist. RADIATION DOSE: CTDI vol 7.4 mGy. DLP 428.8 mGy.cm Findings: Limited evaluation of the solid organs in the absence of IV contrast. Lungs: Minimal basilar atelectasis. Liver: Nodular hepatic contour. Spleen: Borderline splenomegaly. Pancreas: Unremarkable. Gallbladder: Cholelithiasis. Adrenals: Unremarkable Kidneys: Unremarkable. Pelvic Viscera: Distention of the urinary bladder. Vasculature: Atherosclerotic aortoiliac calcification. Upper abdominal varices. Retroperitoneum: Unremarkable. Bowel: No bowel obstruction. No CT evidence of appendicitis. Musculoskeletal: Unremarkable. Soft tissues: Unremarkable Impression: 1. No acute abdominopelvic abnormality. 2. Additional findings as detailed. ORDERING PHYSICIAN: SLOAN BROWN DO PROCEDURE(s): HWOCT - HEAD WITHOUT CONTRAST REASON: FALL/SYNCOPE ORDER NUMBER(s): [id number], ACCESSION NUMBER(s): [id number] CT HEAD WITHOUT CONTRAST INDICATION: FALL/SYNCOPE EXAM DATE: 06/17/2025 11:01 PM COMPARISON: CT HEAD WITHOUT CONTRAST on DOS: 05/29/25, CT BRAIN on DOS: 05/03/25, CT HEAD WO on DOS: 01/03/25, CTA HEAD NECK on DOS: 01/03/25, CT HEAD WITHOUT CONTRAST on DOS: 11/30/24 RADIATION DOSE: CTDIvol: 54.83 mGy, DLP: 988.58 mGy*cm PROCEDURE: CT scans of the head were obtained from the vertex to the skull base. Sagittal and coronal reconstructions were provided. All CT scans at this medical facility are performed using dose modulation techniques as appropriate to a performed exam including the following: Automated exposure control was utilized; adjustment of the MA and/or KV according to p atient size; and use of iterative reconstruction technique. FINDINGS: Motion artifact degrades fine detail. The cerebral parenchyma appears to be normal configuration and attenuation. The ventricles, cisterns, and sulci appear age-appropriate. There is no evidence for acute territorial infarct, hemorrhage, or mass effect. The orbits are normal. Opacification of the left maxillary antrum. The soft tissues and osseous structures appear within normal limits. IMPRESSION: 1. No acute territorial infarct, intracranial hemorrhage, or mass effect. If clinical symptoms persist, MRI may be beneficial in further evaluation. ORDERING PHYSICIAN: SLOAN BROWN DO PROCEDURE(s): CS2 - CERVICAL WITHOUT CONTRAST REASON: FALL/SYNCOPE ORDER NUMBER(s): [id number], ACCESSION NUMBER(s): [id number] EXAM: CT CERVICAL WITHOUT CONTRAST HISTORY: FALL/SYNCOPE COMPARISON: CT C-SPINE on DOS: 05/03/25, CT C-SPINE on DOS: 12/20/24, CT C-SPINE on DOS: 11/02/24, CERVICAL WITHOUT CONTRAST on DOS: 05/05/22 CTDIvol 22.01 mGy, DLP 615.84 mGy*cm. TECHNIQUE: Multiple axial CT images of the spine were obtained using bone algorithm. Axial and coronal reformatting was done. Bone and soft tissue windows were reviewed. FINDINGS: No evidence of definite acute fracture, spinal dislocation, or significant appearing acute subluxation is seen. IMPRESSION: No acute abnormality. SEPSIS Sepsis Screen Date sepsis recognized/suspect: Jun 17, 2025 Time Sepsis recognized/suspect: 2254 Recent Procedure: No On Antibiotic Therapy: No Respiratory Rate >20: No Heart Rate >90: No Temp<36 C (96.8 F) or >38.3 C: No SBP <90 or MAP <65 mmHG: No New Acute Mental Status Change: No Is the patient on CPAP, BIPAP,: No Physician Orders Neurophysiologist (06/17/25 ) Head Without Contrast (06/17/25 22:33) Cervical Without Contrast (06/17/25 22:33) Ct Ab Pel Wo Con-No Oral Or Iv (06/17/25 22:40) D-Dimer (06/18/25 05:19) Complete Blood Count (06/18/25 05:21) Comprehensive Metabolic Panel (06/18/25 05:21) Folic Acid Tablet (06/18/25 10:00) Thiamine Tab (06/18/25 10:00) Lorazepam 2mg/Ml Inj (Ativan Inj) (06/18/25 05:30) Consistent Carb(Ccho)Diabetes (06/18/25 Breakfast) Ibuprofen Tablet (Motrin Tablet) (06/18/25 05:30) Glucose Blood (Accu-Chek Comfort Curve T (06/18/25 08:00) Insulin R (Human) (Insulin R) (06/18/25 08:00) Dextrose 50% Syringe (06/18/25 05:30) Allergies (06/18/25 05:21) Code Status (06/18/25 05:21) Sodium Chloride 0.9% (06/18/25 05:30) Oxygen Per Hour (06/18/25 05:21) Hydrocodone-Acet 5/325mg Tab (Leighton 5/32 (06/18/25 05:30) Ondansetron Hcl (Zofran) (06/18/25 05:30) Docusate Sodium Capsule (Colace Capsule) (06/18/25 05:30) Fall Risk Precautions In Place QSHIFT (06/18/25 05:21) Complete Blood Count (06/19/25 04:00) Comprehensive Metabolic Panel (06/19/25 04:00) Condition: Serious (06/18/25 05:21) Maintain Bed Rest (06/18/25 05:21) Sequential Compression Device (06/18/25 ) Admit (06/18/25 05:34) Nitroglycerin Sublingual (Ntrostat Subli (06/18/25 05:45) Morphine Sulfate Injection (06/18/25 05:45) Stat Ekg For Chest Pain (06/18/25 05:34) Notify Of Changes From Base (06/18/25 05:34) Dramatic Director For 24 Hours (06/18/25 05:34) Emergency Dysrhythmia Protocol (06/18/25 05:34) Rhythm Strips Once Every Shift (06/18/25 05:34) Oxygen By Nasal Cannula (06/18/25 05:34) Vital Signs Date Time Temp Pulse Resp B/P (MAP) Pulse Ox O2 Delivery O2 Flow Rate FiO2 06/18/25 03:37 115 06/18/25 00:00 122 06/17/25 23:31 119 06/17/25 23:24 119 06/17/25 22:53 98.1 88 20 126/72 (90) 97 98.1 06/17/25 22:53 88 20 97 Room Air* 0 21 06/17/25 21:57 98.1 122 18 153/91 98 98.1 Laboratory Tests Test 06/17/25 23:24 06/18/25 02:25 Lactic Acid Level 3.7 mmol/L (0.4-2.0) *H 1.6 mmol/L (0.4-2.0) White Blood Count 5.2 10^3/uL (4.4-10.8) Medications Medications Dose Ordered Sig/Rossy Route Start Time Stop Time Status Last Admin Dose Admin Insulin Human Regular 5 units ONCE ONCE IV 06/18/25 02:15 06/18/25 02:16 DC 06/18/25 02:19 5 UNITS Lorazepam 1 mg ONCE ONCE IV 06/18/25 04:45 06/18/25 04:46 DC 06/18/25 04:45 1 MG Sodium Chloride 1,000 ml @ 1,000 mls/hr Q1H ONCE IV 06/18/25 00:15 06/18/25 01:14 DC 06/18/25 00:15 1,000 MLS/HR Sodium Chloride 1,000 ml @ 1,000 mls/hr Q1H ONCE IV 06/18/25 01:15 06/18/25 02:14 DC 06/18/25 01:22 1,000 MLS/HR Thiamine HCl 100 mg ONCE ONCE PO 06/18/25 00:15 06/18/25 00:19 DC 06/18/25 00:15 100 MG Assessment/Plan Assessment/Plan Alcohol abuse Fall with injury Dizziness and giddiness Tachycardia Lactic acidosis Acute pancreatitis Generalized weakness Elevated liver enzymes Diabetes mellitus with hyperglycemia Noncompliance with medication regimen Plan 1. Admit to telemetry unit 2. Breathing treatment 3. Pain control management 4. Management of fluids and electrolytes 5. Consultation for hospitalist 6. Diagnostic tests head CT 7. DVT prophylaxis-on SCDs 8. Repeat labs CBC, CMP in a.m. 9. Continue with current medical management 10. Treatment plan discussed with patient and RN. Patient verbalized understanding. Plan discussed with: Patient, Other (RN) My Orders Orders - MALCOLM ROJAS DNP Procedure Category Date Status Time Complete Blood Count LAB 06/18/25 Logged 05:21 Comprehensive LAB 06/18/25 Logged Metabolic Panel 05:21 Folic Acid Tablet PHA 06/18/25 Logged 10:00 Thiamine Tab PHA 06/18/25 Logged 10:00 Lorazepam 2mg/Ml Inj PHA 06/18/25 Logged (Ativan Inj) 05:30 Consistent DIET 06/18/25 Transmitted Carb(Ccho)Diabetes Breakfast Ibuprofen Tablet PHA 06/18/25 Logged (Motrin Tablet) 05:30 Glucose Blood PHA 06/18/25 Logged (Accu-Chek Comfort 08:00 Insulin R (Human) PHA 06/18/25 Logged (Insulin R) 08:00 Dextrose 50% Syringe PHA 06/18/25 Logged 05:30 Allergies ARCHANA 06/18/25 In Process 05:21 Code Status CODE 06/18/25 Transmitted 05:21 Sodium Chloride 0.9% PHA 06/18/25 Logged 05:30 Oxygen Per Hour RT 06/18/25 Transmitted 05:21 Hydrocodone-Acet PHA 06/18/25 Logged 5/325mg Tab (Leighton 05:30 Ondansetron Hcl PHA 06/18/25 Logged (Zofran) 05:30 Docusate Sodium PHA 06/18/25 Logged Capsule (Colace 05:30 Fall Risk Precautions ARCHANA 06/18/[address] 05:21 Complete Blood Count LAB 06/19/25 Verified 04:00 Comprehensive LAB 06/19/25 Verified Metabolic Panel 04:00 Condition: Serious ARCHANA 06/18/25 In Process 05:21 Maintain Bed Rest ARCHANA 06/18/25 In Process 05:21 Sequential ARCHANA 06/18/25 In Process Compression Device Admit ADMIT 06/18/25 Verified 05:34 Nitroglycerin PHA 06/18/25 Verified Sublingual (Ntrostat 05:45 Morphine Sulfate PHA 06/18/25 Verified Injection 05:45 Stat Ekg For Chest [facility] 06/18/25 Verified Pain 05:34 Notify Md Of Changes [facility] 06/18/25 Verified From Base 05:34 Dramatic Director For [facility] 06/18/25 Verified 24 Hours 05:34 Emergency Dysrhythmia [facility] 06/18/25 Verified Protocol 05:34 Rhythm Strips Once [facility] 06/18/25 Verified Every Shift 05:34 Oxygen By Nasal 06/18/25 Verified Cannula 05:34 Problem List: (1) Alcohol abuse (2) Fall with injury (3) Tachycardia (4) Dizziness and giddiness (5) Acute pancreatitis (6) Lactic acidosis (7) Generalized weakness (8) Elevated liver enzymes (9) Diabetes mellitus with hyperglycemia (10) Noncompliance with medication regimen Date of Service: Jun 18, 2025 Billing Provider: MALCOLM ROJAS DNP Common Visit Codes: [id number] INP/OBS CARE (HIGH) MALCOLM ROJAS DNP Jun 18, 2025 05:35
[2025-06-18] MEDS ORDERED: NITROGLYCERIN 0.4 MG SL TAB SL PRN (05:45)
[2025-06-18] MEDS ORDERED: MORPHINE SULFATE INJ 2 MG/ml SYRG IV PRN (05:45)
[2025-06-18] MEDS: SODIUM CHLORIDE 0.9% 500 ML IV ONE (06:12)
[2025-06-18 06:24] LABS: Hematocrit 35.4 % (41.0-53.0); Hemoglobin 12.6 g/dL (13.5-17.5); Mean Corpuscular Hemoglobin 34.9 pg (28.0-32.0); Mean Corpuscular Volume 98.1 fL (80.0-100.0); Nucleated Red Blood Cells % 0.2 %
[2025-06-18 06:38] LABS: Anion Gap 12 (5-15); BUN/Creatinine Ratio 17.5 (10.0-20.0); Blood Urea Nitrogen 17 mg/dL (9-23); Carbon Dioxide 21 mmol/L (20-31); Potassium 4.0 mmol/L (3.5-5.1); Sodium 140 mmol/L (136-145); Total Protein 6.4 g/dL (5.7-8.2)
[2025-06-18 06:39] LABS: Alanine Aminotransferase 69 U/L (7-40); Albumin 3.1 g/dL (3.2-4.8); Alkaline Phosphatase 235 U/L (46-116); Bilirubin, Total 1.3 mg/dL (0.2-1.0); Calcium 8.1 mg/dL (8.7-10.4); Chloride 107 mmol/L (98-107); Glucose 302 mg/dL (74-106)
[2025-06-18] MEDS: ACCU-CHEK COMFORT CURVE STRIP VI SCH (08:23)
[2025-06-18] MEDS: InsuLIN REG 1unit/0.01ml Soln (100units/ml) SC SCH (08:24)
[2025-06-18] MEDS: THIAMINE HCL 100 MG TAB PO SCH (11:42)
[2025-06-18] MEDS: FOLIC ACID 1 MG TAB PO SCH (11:42)
--- NOTE | 2025-06-18 15:13 | DVHPN2 ---
Subjective 44-year-old male with a known history of liver cirrhosis, diabetes mellitus type 2 is here for recurrent falls. Patient's CT head and CT C-spine shows no evidence of any acute fracture. CT abdomen and pelvis shows evidence of liver cirrhosis. Changes from previous H/P or p: No Changes Eyes: No Pain, No Vision change, No Conjunctivae inflammation, No Eyelid inflammation, No Other, No Redness ENT: No Ear pain, No Ear discharge, No Nose pain, No Nose discharge, No Nose congestion, No Mouth pain, No Mouth swelling, No Throat pain, No Throat swelling, No Other Cardiovascular: No Chest Pain, No Palpitations, No Orthopnea, No Paroxysmal Noc. Dyspnea, No Edema; Lt Headedness; No Other Respiratory: No Cough, No Dry; Shortness of breath; No SOB with excertion, No Wheezing, No Hemoptysis, No Pleuritic Pain, No Sputum, No Other Gastrointestinal: No Nausea, No Vomiting, No Abdominal Pain, No Diarrhea, No Constipation, No Melena, No Hematochezia, No Other Genitourinary: No Dysuria, No Frequency, No Incontinence, No Hematuria, No Retention, No Other Musculoskeletal: No other, No neck pain, No shoulder pain, No arm pain, No back pain, No hand pain, No leg pain, No foot pain Skin: No Rash, No Lesions, No Jaundice, No Bruising, No Other Objective Vitals Vital Signs Date Time Temp Pulse Resp B/P (MAP) Pulse Ox O2 Delivery O2 Flow Rate FiO2 06/18/25 13:00 97.5 103 16 124/69 (87) 96 97.5 06/18/25 08:00 Nasal Cannula* 2 28 Exam HEENT pupils are reactive Neck is supple CV is S1-S2 regular rate and rhythm Diminished breath sounds bases GI positive bowel sound Extremity no edema [employer]ILL [employer]ENDER no motor deficit Medications Current Medications Medications Dose Ordered Sig/Rossy Route Start Time Stop Time Status Last Admin Dose Admin Folic Acid 1 mg DAILY PO 06/18/25 10:00 06/18/25 11:42 1 MG Thiamine HCl 100 mg DAILY PO 06/18/25 10:00 06/18/25 11:42 100 MG Lorazepam 0.5 mg Q8HP PRN IV 06/18/25 05:30 Ibuprofen 600 mg Q6HP PRN PO 06/18/25 05:30 Diagnostic Test (Pha) 1 strip IQ4HR 06/18/25 08:00 06/18/25 11:54 1 STRIP Insulin Human Regular IQ4HR SC 06/18/25 08:00 06/18/25 11:55 12 UNITS Dextrose 50 ml UD PRN IV 06/18/25 05:30 Sodium Chloride 1,000 ml @ 60 mls/hr [id number] IV 06/18/25 05:30 06/18/25 05:30 60 MLS/HR Acetaminophen/ Hydrocodone Bitart 1 tab Q4HP PRN PO 06/18/25 05:30 Ondansetron HCl 4 mg Q4HP PRN IV 06/18/25 05:30 Docusate Sodium 100 mg BIDPRN PRN PO 06/18/25 05:30 Nitroglycerin 0.4 mg Q5MINP PRN SL 06/18/25 05:45 Morphine Sulfate 2 mg Q30M PRN IV 06/18/25 05:45 Laboratory Results Laboratory Tests 06/18/25 02:25 Chemistry Test 06/17/25 23:24 06/18/25 02:25 Albumin 3.7 g/dL (3.2-4.8) 3.1 g/dL (3.2-4.8) L Calcium Level 9.3 mg/dL (8.7-10.4) 8.1 mg/dL (8.7-10.4) L Magnesium Level 1.7 mg/dL (1.6-2.6) Total Protein 7.9 g/dL (5.7-8.2) 6.4 g/dL (5.7-8.2) Coagulation Test 06/18/25 02:25 D-Dimer, Quantitative 0.55 mg/L FEU (0.0-0.49) H Lipid panel Test 06/18/25 02:25 Lipase 74 U/L (12-53) H LFT Test 06/17/25 23:24 06/18/25 02:25 Alanine Aminotransferase (ALT) 76 U/L (7-40) H 69 U/L (7-40) H Alkaline Phosphatase 261 U/L (46-116) H 235 U/L (46-116) H Aspartate Amino Transferase (AST) 80 U/L (13-40) H 69 U/L (13-40) H Total Bilirubin 1.4 mg/dL (0.2-1.0) H 1.3 mg/dL (0.2-1.0) H Urinalysis Test 06/17/25 22:33 Urine Color Yellow (Yellow) Urine Clarity Clear (Clear) Urine pH 5.5 (5.0-9.0) Urine Specific [place] 1.028 (1.001-1.035) Urine Protein 1+ (Negative) H Urine Ketones Trace (Negative) Urine Blood Negative /uL (Negative) Urine Nitrite Negative (Negative) Urine Bilirubin Negative (Negative) Urine Urobilinogen 2 mg/dL (Negative) H Urine Leukocyte Esterase Negative /uL (Negative) Urine RBC 1 /hpf (0 - 3) Urine Microscopic WBC 1 /HPF (0-3) Urine Squamous Epithelial Cells Few /hpf (<5) Urine Bacteria None seen /hpf (None Seen) Urine Glucose 4+ mg/dL (Normal) H Assessment/Plan Assessment/Plan 44-year-old male with a known history of diabetes mellitus type 2, liver cirrhosis, chronic alcoholism presented to the hospital with a recurrent falls found to have 1. Acute alcoholic intoxication, watch for alcohol withdrawal syndrome 2. Recurrent falls 3. Closed head injury 4. Lactic acidosis 5. Transaminitis with a underlying liver cirrhosis 6. Hyperglycemia in the setting of diabetes mellitus type 2 7. Chronic alcoholism -IV fluids, banana bag, replace electrolytes -discharge plan Plan discussed with: Patient Problem List: (1) Elevated LFTs (2) Closed head injury Date of Service: Jun 18, 2025 Billing Provider: JAYASHREE LANDRY MD Common Visit Codes: [id number] INP/OBS CARE(HIGH) JAYASHREE LANDRY MD Jun 18, 2025 15:12
[2025-06-18] MEDS: FOLIC ACID 1 MG, MULTIPLE VITAMIN 10 ML, MAGNESIUM SULF SDV 50% 8 MEQ, THIAMINE INJ 100... INJ SCH (20:41)
[2025-06-19] VITALS (9 sets, daily range): BP systolic 116–152; BP diastolic 69–99; PULSE 93–121; RESP 17–19; TEMP 98–98.9; O2SAT 95–98
[2025-06-19] MEDS: ONDANSETRON HCL 4 MG/2 ML VIAL IV PRN (02:05)
[2025-06-19 07:38] LABS: Hematocrit 35.7 % (41.0-53.0); Hemoglobin 12.7 g/dL (13.5-17.5); Mean Corpuscular Hemoglobin 34.8 pg (28.0-32.0); Mean Corpuscular Volume 97.7 fL (80.0-100.0); Nucleated Red Blood Cells % 0.2 %
[2025-06-19 08:02] LABS: Anion Gap 9 (5-15); BUN/Creatinine Ratio 15.0 (10.0-20.0); Blood Urea Nitrogen 12 mg/dL (9-23); Carbon Dioxide 21 mmol/L (20-31); Chloride 105 mmol/L (98-107); Potassium 4.2 mmol/L (3.5-5.1); Total Protein 6.7 g/dL (5.7-8.2)
[2025-06-19 08:13] LABS: Alanine Aminotransferase 59 U/L (7-40); Albumin 3.1 g/dL (3.2-4.8); Alkaline Phosphatase 278 U/L (46-116); Bilirubin, Total 1.4 mg/dL (0.2-1.0); Calcium 8.6 mg/dL (8.7-10.4); Glucose 274 mg/dL (74-106); Sodium 135 mmol/L (136-145)
[2025-06-19] MEDS: MAGNESIUM OXIDE 400 MG TAB PO ONE (13:03)
[2025-06-19] MEDS: FOLIC ACID 1 MG TAB PO ONE (13:04)
[2025-06-19] MEDS: MULTIPLE VITAMIN TAB PO ONE (13:04)
[2025-06-19] MEDS: THIAMINE HCL 100 MG TAB PO ONE (13:04)
--- NOTE | 2025-06-19 16:04 | DVHPN2 ---
Subjective 44-year-old male with a known history of liver cirrhosis, diabetes mellitus type 2 is here for recurrent falls. Patient's CT head and CT C-spine shows no evidence of any acute fracture. CT abdomen and pelvis shows evidence of liver cirrhosis. Changes from previous H/P or p: No Changes Eyes: No Pain, No Vision change, No Conjunctivae inflammation, No Eyelid inflammation, No Other, No Redness ENT: No Ear pain, No Ear discharge, No Nose pain, No Nose discharge, No Nose congestion, No Mouth pain, No Mouth swelling, No Throat pain, No Throat swelling, No Other Cardiovascular: No Chest Pain, No Palpitations, No Orthopnea, No Paroxysmal Noc. Dyspnea, No Edema; Lt Headedness; No Other Respiratory: No Cough, No Dry; Shortness of breath; No SOB with excertion, No Wheezing, No Hemoptysis, No Pleuritic Pain, No Sputum, No Other Gastrointestinal: No Nausea, No Vomiting, No Abdominal Pain, No Diarrhea, No Constipation, No Melena, No Hematochezia, No Other Genitourinary: No Dysuria, No Frequency, No Incontinence, No Hematuria, No Retention, No Other Musculoskeletal: No other, No neck pain, No shoulder pain, No arm pain, No back pain, No hand pain, No leg pain, No foot pain Skin: No Rash, No Lesions, No Jaundice, No Bruising, No Other Objective Vitals Vital Signs Date Time Temp Pulse Resp B/P (MAP) Pulse Ox O2 Delivery O2 Flow Rate FiO2 06/19/25 12:39 98.9 98 18 135/88 (104) 97 98.9 06/19/25 08:00 Room Air* 0 21 Intake/Output Intake and Output 06/19/25 07:00 Intake Total 1650 ml Output Total 4200 ml Balance -2550 ml Intake Oral 1650 ml Output Urine Total 4200 ml # Bowel Movements 6 Medications Current Medications Medications Dose Ordered Sig/Rossy Route Start Time Stop Time Status Last Admin Dose Admin Lorazepam 0.5 mg Q8HP PRN IV 06/18/25 05:30 Ibuprofen 600 mg Q6HP PRN PO 06/18/25 05:30 Diagnostic Test (Pha) 1 strip IQ4HR 06/18/25 08:00 06/19/25 12:09 1 STRIP Insulin Human Regular IQ4HR SC 06/18/25 08:00 06/19/25 12:10 12 UNITS Dextrose 50 ml UD PRN IV 06/18/25 05:30 Acetaminophen/ Hydrocodone Bitart 1 tab Q4HP PRN PO 06/18/25 05:30 Ondansetron HCl 4 mg Q4HP PRN IV 06/18/25 05:30 06/19/25 02:05 4 MG Docusate Sodium 100 mg BIDPRN PRN PO 06/18/25 05:30 Nitroglycerin 0.4 mg Q5MINP PRN SL 06/18/25 05:45 Morphine Sulfate 2 mg Q30M PRN IV 06/18/25 05:45 Folic Acid 1 mg DAILY PO 06/20/25 10:00 Multivitamins 1 tab DAILY PO 06/20/25 10:00 Magnesium Oxide 400 mg DAILY PO 06/20/25 10:00 Thiamine HCl 100 mg DAILY PO 06/20/25 10:00 Laboratory Results Laboratory Tests 06/19/25 06:14 Chemistry Test 06/19/25 06:14 Albumin 3.1 g/dL (3.2-4.8) L Calcium Level 8.6 mg/dL (8.7-10.4) L Total Protein 6.7 g/dL (5.7-8.2) LFT Test 06/19/25 06:14 Alanine Aminotransferase (ALT) 59 U/L (7-40) H Alkaline Phosphatase 278 U/L (46-116) H Aspartate Amino Transferase (AST) 66 U/L (13-40) H Total Bilirubin 1.4 mg/dL (0.2-1.0) H Urinalysis Test 06/17/25 22:33 Urine Color Yellow (Yellow) Urine Clarity Clear (Clear) Urine pH 5.5 (5.0-9.0) Urine Specific [place] 1.028 (1.001-1.035) Urine Protein 1+ (Negative) H Urine Ketones Trace (Negative) Urine Blood Negative /uL (Negative) Urine Nitrite Negative (Negative) Urine Bilirubin Negative (Negative) Urine Urobilinogen 2 mg/dL (Negative) H Urine Leukocyte Esterase Negative /uL (Negative) Urine RBC 1 /hpf (0 - 3) Urine Microscopic WBC 1 /HPF (0-3) Urine Squamous Epithelial Cells Few /hpf (<5) Urine Bacteria None seen /hpf (None Seen) Urine Glucose 4+ mg/dL (Normal) H Microbiology Microbiology Date/Time Source Procedure Growth Status 06/19/25 01:40 Nose MRSA Screen - Final Complete Assessment/Plan Assessment/Plan 44-year-old male with a known history of diabetes mellitus type 2, liver cirrhosis, chronic alcoholism presented to the hospital with a recurrent falls found to have 1. Acute alcoholic intoxication, watch for alcohol withdrawal syndrome 2. Recurrent falls 3. Closed head injury 4. Lactic acidosis 5. Transaminitis with a underlying liver cirrhosis 6. Hyperglycemia in the setting of diabetes mellitus type 2 7. Chronic alcoholism -IV fluids, banana bag, replace electrolytes -discharge plan Plan discussed with: Other My Orders Orders - JAYASHREE LANDRY MD Procedure Category Date Status Time * Wound Consult CONS 06/18/25 Transmitted 19:43 * Dietary Consult CONS 06/18/25 Transmitted 19:43 Pt Request For Service PT 06/19/25 Logged 11:26 Folic Acid Tablet PHA 06/20/25 In Process 10:00 Multiple Vitamin PHA 06/20/25 In Process Tablet (Mvi Tab) 10:00 Magnesium Oxide PHA 06/20/25 In Process Tablet (Mag-Ox Tablet) 10:00 Thiamine Tab PHA 06/20/25 In Process 10:00 Date of Service: Jun 19, 2025 Billing Provider: JAYASHREE LANDRY MD Common Visit Codes: [id number] INP/OBS CARE(MOD) JAYASHREE LANDRY MD Jun 19, 2025 16:04
[2025-06-20 01:00] VITALS: BP 142/91; PULSE 109; RESP 17; TEMP 98.5; O2SAT 95
[2025-06-20] MEDS: InsuLIN REG 1unit/0.01ml Soln (100units/ml) ONE ×7 (04:50→04:52)
[2025-06-20] MEDS: THIAMINE HCL 100 MG TAB ONE (04:50)
[2025-06-20] MEDS: FOLIC ACID 1 MG TAB ONE (04:50)
[2025-06-20] MEDS: ONDANSETRON HCL 4 MG/2 ML VIAL ONE (04:51)
[2025-06-20 05:00] VITALS: BP 134/81; PULSE 95; RESP 16; TEMP 98.4; O2SAT 95
[2025-06-20] MEDS: HYDROcodone-ACET 5/325MG TAB PO PRN (06:29)
[2025-06-20 08:00] VITALS: PULSE 105; RESP 18
[2025-06-20] MEDS: MULTIPLE VITAMIN TAB PO SCH (08:43)
[2025-06-20] MEDS: FOLIC ACID 1 MG TAB PO SCH (08:43)
[2025-06-20] MEDS: MAGNESIUM OXIDE 400 MG TAB PO SCH (08:43)
[2025-06-20] MEDS: THIAMINE HCL 100 MG TAB PO SCH (08:43)
[2025-06-20 08:48] VITALS: BP 152/92; PULSE 103; RESP 20; TEMP 98.7; O2SAT 96
[2025-06-20 13:28] VITALS: BP 155/95; PULSE 101; RESP 20; TEMP 97.8; O2SAT 96
--- NOTE | 2025-06-20 15:46 | DVHDS2 ---
Discharge Summary Date of Admission Jun 18, 2025 at 05:34 Date of Discharge: Jun 20, 2025 Labs/Diagnostic Data: Laboratory Results Test 06/20/25 11:41 06/19/25 06:14 06/18/25 02:25 06/17/25 23:24 POC Glucose 253 mg/dl (70-106) White Blood Count 6.0 10^3/uL (4.4-10.8) Red Blood Count 3.65 10^6/uL (4.5-5.90) Hemoglobin 12.7 g/dL (13.5-17.5) Hematocrit 35.7 % (41.0-53.0) Mean Corpuscular Volume 97.7 fL (80.0-100.0) Mean Corpuscular Hemoglobin 34.8 pg (28.0-32.0) Mean Corpuscular Hemoglobin Concent 35.6 g/dL (32.0-36.0) Red Cell Distribution Width 14.0 % (11.8-14.3) Platelet Count 88 10^3/uL (140-450) Mean Platelet Volume 8.5 fL (6.9-10.8) Neutrophils (%) (Auto) 67.8 % (37.0-80.0) Lymphocytes (%) (Auto) 19.3 % (10.0-50.0) Monocytes (%) (Auto) 9.7 % (0.0-12.0) Eosinophils (%) (Auto) 2.5 % (0.0-7.0) Basophils (%) (Auto) 0.7 % (0.0-2.0) Neutrophils # (Auto) 4.0 10 ^3/uL (1.6-8.6) Lymphocytes # (Auto) 1.2 10 ^3/uL (0.4-5.4) Monocytes # (Auto) 0.6 10 ^3/uL (0-1.3) Eosinophils # (Auto) 0.2 10 ^3/uL (0-0.8) Basophils # (Auto) 0 10 ^3/uL (0-0.2) Nucleated Red Blood Cells 0.2 % Sodium Level 135 mmol/L (136-145) Potassium Level 4.2 mmol/L (3.5-5.1) Chloride Level 105 mmol/L (98-107) Carbon Dioxide Level 21 mmol/L (20-31) Anion Gap 9 (5-15) Blood Urea Nitrogen 12 mg/dL (9-23) Creatinine 0.80 mg/dL (0.700-1.30) Glomerular Filtration Rate Calc 111 mL/min (>90) BUN/Creatinine Ratio 15.0 (10.0-20.0) Serum Glucose 274 mg/dL (74-106) Calcium Level 8.6 mg/dL (8.7-10.4) Total Bilirubin 1.4 mg/dL (0.2-1.0) Aspartate Amino Transferase (AST) 66 U/L (13-40) Alanine Aminotransferase (ALT) 59 U/L (7-40) Alkaline Phosphatase 278 U/L (46-116) Total Protein 6.7 g/dL (5.7-8.2) Albumin 3.1 g/dL (3.2-4.8) Platelet Estimate Decreased D-Dimer, Quantitative 0.55 mg/L FEU (0.0-0.49) Lactic Acid Level 1.6 mmol/L (0.4-2.0) Troponin I High Sensitivity 15 ng/L (</=54) Lipase 74 U/L (12-53) Plasma/Serum Blood Alcohol < 3.0 mg/dL (<10) Magnesium Level 1.7 mg/dL (1.6-2.6) Test 06/17/25 22:33 Urine Color Yellow (Yellow) Urine Clarity Clear (Clear) Urine pH 5.5 (5.0-9.0) Urine Specific [place] 1.028 (1.001-1.035) Urine Protein 1+ (Negative) Urine Ketones Trace (Negative) Urine Blood Negative /uL (Negative) Urine Nitrite Negative (Negative) Urine Bilirubin Negative (Negative) Urine Urobilinogen 2 mg/dL (Negative) Urine Leukocyte Esterase Negative /uL (Negative) Urine RBC 1 /hpf (0 - 3) Urine Microscopic WBC 1 /HPF (0-3) Urine Squamous Epithelial Cells Few /hpf (<5) Urine Bacteria None seen /hpf (None Seen) Urine Glucose 4+ mg/dL (Normal) Urine Opiates Screen Neg (NEGATIVE) Urine Fentanyl Screen Neg (NEGATIVE) Urine Barbiturates Screen Neg (NEGATIVE) Urine Phencyclidine Screen Neg (NEGATIVE) Urine Amphetamines Screen Neg (NEGATIVE) Urine Benzodiazepines Screen Neg (NEGATIVE) Urine Cocaine Screen Neg (NEGATIVE) Urine Cannabinoids Screen Neg (NEGATIVE) Other Laboratory Tests 06/19/25 06:14 Brief Hx & Hospital Course: 44-year-old male with a known history of diabetes mellitus type 2, liver cirrhosis, chronic alcoholism presented to the hospital with a recurrent falls found to have acute alcoholic intoxication. Patient was eventually admitted started on banana bag. Electrolytes were replaced. Patient was initially given empirical antibiotic as he was spiking temperature. Patient left against medical advice before completion of workup and treatment. Condition at Discharge: Undetermined Final Diagnosis/Problems List 1. Acute alcoholic intoxication, watch for alcohol withdrawal syndrome 2. Recurrent falls 3. Closed head injury 4. Lactic acidosis 5. Transaminitis with a underlying liver cirrhosis 6. Hyperglycemia in the setting of diabetes mellitus type 2 7. Chronic alcoholism 8. Patient left against medical advice. Discharge Disposition: A SNF Discharge Will this Physician continue t: No Discharge Instruct/Medications Scheduled Atorvastatin Calcium (Atorvastatin Calcium), 20 MG PO HS Gabapentin (Gabapentin), 1 CAP PO DAILY Glucose Blood (Easy Touch Glucose Test S), 1 EA ACHS Insulin Aspart (Insulin Aspart), 100 UNIT SC AC Insulin Aspart Protamine & Asp (Insulin Aspart Protamine/ (70-30) 100 Unit/ml), 5 UNITS SC BID Insulin Glargine (Lantus Solostar), 20 UNIT SC HS Insulin Glargine (Insulin Glargine Solostar), 15 UNITS SUBCUT BID Insulin Lispro (Humalog Kwikpen), 6 UNIT SC TIDWMEALS Lisinopril (Lisinopril), 1 TAB PO DAILY Simvastatin (Simvastatin), 1 TAB PO HS Durable Medical Equipment Blood Glucose Monitoring Suppl (mm Easy Touch Blood Gluco W/Device), KIT XX, (DME) Blood Glucose Monitoring Suppl (Easy Touch Glucose Monito), EA XX ACHS, (DME) Blood Glucose Monitoring Suppl (Blood Glucose Monitoring W/Device), KIT XX TIDWMEALS, (DME) Blood Glucose Monitoring Suppl (D-Care Glucometer Kit/Glu W/Device), KIT XX ACHS, (DME) Lancets (Easy Touch Lancets), G XX QID, (DME) Lancets (Cvs Lancets Thin 26G), 26G SC ACHS, (DME) Lancets (Freestyle Lancets), EA XX TIDWMEALS, (DME) Lancets (Freestyle Lancets), BOX XX ACHS, (DME) Discharge Statement: "Patient was advised to return to the ER or call 911 if any headaches, dizziness, shortness of breath, chest pain, abdominal pain, bleeding, fevers, or worsening of medical condition. Patient was counseled about treatment plan, medications, possible side effects, patientverbalized understanding. All questions were answered to the best of my ability. This discharge took greater then 30 minutes in planning, reviewing documentation, counseling the patient, and discussing with other team members." ASSESSMENT ASSESSMENT Assessment Date of Service: Jun 20, 2025 Billing Provider: JAYASHREE LANDRY MD Common Visit Codes: [id number] DISCH DAY >30min JAYASHREE LANDRY MD Jun 20, 2025 15:46
== END 2025-06-20 14:06 | disposition left against medical advice (07) | DRG 420 ==
LOC: EDBD 21:57 → EDUNIT# 21:57 → ER 21:57 → OVERFLOW 06-18 05:34 → TELE-EAST 06-18 23:52
PROVIDERS: ADMIT Internal Medicine; ATTEND Internal Medicine
DX: E11.65 Type 2 diabetes mellitus with hyperglycemia (principal); E87.20 Acidosis, unspecified; S09.90XA Unspecified injury of head, initial encounter; F10.229 Alcohol dependence with intoxication, unspecified; K74.60 Unspecified cirrhosis of liver; Z59.00 Homelessness unspecified; Y90.0 Blood alcohol level of less than 20 mg/100 ml; W18.39XA Other fall on same level, initial encounter; Z53.29 Procedure and treatment not carried out because of patient's decision for other reasons; E78.5 Hyperlipidemia, unspecified; R74.01 Elevation of levels of liver transaminase levels; Z88.0 Allergy status to penicillin; Z91.148 Patient's other noncompliance with medication regimen for other reason; Y93.89 Activity, other specified; Y92.89 Other specified places as the place of occurrence of the external cause; Y99.8 Other external cause status; Z79.84 Long term (current) use of oral hypoglycemic drugs; Z79.899 Other long term (current) drug therapy
CPT/HCPCS: 36415; 70450; 72125; 74176; 80053; 80307; 80320; 81001; 82962; 83605; 83690; 83735; 84484; 85025; 85379; 87081; 93005; 97163; 99291; G0378; J1815; J2405

== ENCOUNTER 2025-06-25 02:42 | Inpatient (IN) | payer MEDICAID ==
[~2025-06-25] VITALS: Ht 172.7 cm; Wt 72.8 kg
[2025-06-25 02:45] VITALS: PULSE 75; RESP 18; O2SAT 97
[2025-06-25] MEDS: SODIUM CHLORIDE 0.9% 2,000 ML IV ONE (03:15)
[2025-06-25] MEDS: InsuLIN REG 1unit/0.01ml Soln (100units/ml) SC ONE (03:15)
--- NOTE | 2025-06-25 03:18 | ED.PDOC ---
HPI Comments 44-year-old male who came to ER via EMS for chest pains. The patient is homeless, does have history of diabetes and liver cirrhosis. Patient has not been taking his medications for the past 5 days. Patient was seen in the parking lot of a nearby bar. Has been complaining of chest pains for the past 2 hours, midsternal, pressure, nonradiating. Patient has been drinking alcohol again earlier today. Blood sugar on scene was 570 Chief Complaint: Chest Pain Time Seen by MD: 03:17 Primary Care Provider: n/a Reviewed Notes: Yarder Puncher Notes Allergies: Coded Allergies: Penicillins (Verified Allergy, Unknown, 10/20/24) Home Meds Active Scripts Insulin Aspart Protamine & Asp (Insulin Aspart Protamine/ (70-30) 100 Unit/ml) 1 Inj Inj, 5 UNITS SC BID for 90 Days, #100 INJ 5 Refills Prov:BROOKE MAYO MD 05/29/25 Lancets (Freestyle Lancets) Lancets Mis, BOX XX ACHS, #1 Prov:NOAH MALDONADO [employer] ASSEMBLER 04/18/25 Blood Glucose Monitoring Suppl (D-Care Glucometer Kit/Glu W/Device) 1 Kit Kit, KIT XX ACHS, #1 Prov:NOAH MALDONADO [employer] ASSEM[employer] 04/18/25 Blood Glucose Monitoring Suppl (Blood Glucose Monitoring W/Device) 1 Kit Kit, KIT XX TIDWMEALS, #1 Prov:RUTHIE CASTANEDA MD 03/02/25 Lancets (Freestyle Lancets) Lancets Mis, EA XX TIDWMEALS, #120 Prov:RUTHIE CASTANEDA MD 03/02/25 Insulin Lispro (Humalog Kwikpen) 100 Unit/Ml Inj, 6 UNIT SC TIDWMEALS, #10 INJ Prov:RUTHIE CASTANEDA MD 03/02/25 Insulin Glargine (Insulin Glargine Solostar) 300 Unit/Ml Inj, 15 UNITS SUBCUT BID, #10 INJ Prov:RUTHIE CASTANEDA MD 03/02/25 Gabapentin (Gabapentin) 300 Mg Cap, 1 CAP PO DAILY, #14 CAP Prov:RUTHIE CASTANEDA MD 03/02/25 Simvastatin (Simvastatin) 20 Mg Tab, 1 TAB PO HS, #30 TAB Prov:RUTHIE CASTANEDA MD 03/02/25 Lisinopril (Lisinopril) 10 Mg Tab, 1 TAB PO DAILY, #60 TAB Prov:RUTHIE CASTANEDA MD 03/02/25 Insulin Glargine (Lantus Solostar) 100 Unit/Ml Inj, 20 UNIT SC HS, #10 INJ Prov:RUTHIE CASTANEDA MD 12/01/24 Glucose Blood (EASY TOUCH GLUCOSE TEST S) Strips Ashley, 1 EA ACHS for 30 Days, #120 MISC 70-130 - 0 units ____ units 131-180 - 8 units ____ units 181-240 - 12 units ____ units 241-300 - 16 units ____ units 301-350 - 20 units ____ units 351-400 - 24 units ____ units >400 12 units and call MD 20 units and call MD 28 units and call MD ____ units and call M Prov:RUTHIE CASTANEDA MD 12/01/24 Insulin Aspart (Insulin Aspart) 100 Unit/Ml Inj, 100 UNIT SC AC for 30 Days, #1 INJ 0 Refills 70-130 - 0 units ____ units 131-180 - 8 units ____ units 181-240 - 12 units ____ units 241-300 - 16 units ____ units 301-350 - 20 units ____ units 351-400 - 24 units ____ units >400 12 units and call MD 20 units and call 28 units and call MD ____ units and call M Prov:RUTHIE CASTANEDA MD 12/01/24 Atorvastatin Calcium (ATORVASTATIN CALCIUM) 20 Mg Tab, 20 MG PO HS for 30 Days, #30 TAB Prov:RUTHIE CASTANEDA MD 12/01/24 Lancets (Cvs Lancets Thin 26G) Thin 26G Mis, 26G SC ACHS, #120 0 Refills Please check glucose 15 mins before each meal Prov:MATEUSZ GOODRICH RESIDENT 10/25/24 Blood Glucose Monitoring Suppl (EASY TOUCH GLUCOSE MONITO) Monitor Kit, EA XX ACHS, #1 Please check glucose 15 mins before each meal Prov:MATEUSZ GOODRICH RESIDENT 10/25/24 Lancets (EASY TOUCH LANCETS) 28 G Mis, G XX QID, #100 Prov:ANUP DOSHI MD 08/26/24 Blood Glucose Monitoring Suppl (mm Easy Touch Blood Gluco W/Device) 1 Kit Kit, KIT XX, #1 Prov:ANUP DOSHI MD 08/26/24 Information Source: Patient Mode of Arrival: EMS Severity: Moderate Timing: Hours Past Medical History PAST MEDICAL HISTORY: DM, Liver Past Medical History (Other): Liver cirrhosis Surgical History: Denies all surgeries Family History Family History: Reviewed,noncontributory to illness Social History Smoker: Non-Smoker Alcohol: Heavy Drugs: Denies Drug Use Lives In: Homeless Constitutional: denies: chills, diaphoresis, fatigue, fever, malaise, sweats, weakness, others EENTM: denies: blurred vision, double vision, ear bleeding, ear discharge, ear drainage, ear pain, ear ringing, eye pain, eye redness, hearing loss, mouth pain, mouth swelling, nasal discharge, nose bleeding, nose congestion, nose pain, photophobia, tearing, throat pain, throat swelling, voice changes, others Respiratory: denies: cough, hemoptysis, orthopnea, SOB at rest, shortness of breath, SOB with excertion, stridor, wheezing, others Cardiovascular: reports: chest pain; denies: dizzy spells, diaphoresis, Dyspnea on exertion, edema, irregular heart beat, left arm pain, lightheadedness, palpitations, PND, syncope, others Gastrointestinal: denies: abdomen distended, abdominal pain, blood streaked bowels, constipated, diarrhea, dysphagia, difficulty swallowing, hematemesis, melena, nausea, poor appetite, poor fluid intake, rectal bleeding, rectal pain, vomiting, others Genitourinary: denies: burning, dysuria, flank pain, frequency, hematuria, incontinence, penile discharge, penile sore, pain, testicle pain, testicle swelling, urgency, others Neurological: denies: dizziness, fainting, headache, left sided numbness, left sided weakness, numbness, paresthesia, pre-existing deficit, right sided numbness, right sided weakness, seizure, speech problems, tingling, tremors, weakness, others Musculoskeletal: denies: back pain, gout, joint pain, joint swelling, muscle pain, muscle stiffness, neck pain, others Integumetry: denies: bruises, change in color, change in hair/nails, dryness, laceration, lesions, lumps, rash, wounds, others Allergic/Immunocompromised: denies: Difficulty Healing, Frequent Infections, Hives, Itching, others Hematologic/Lymphatic: denies: anemia, blood clots, easy bleeding, easy bruising, swollen glands, others Endocrine: denies: excessive hunger, excessive sweating, excessive thirst, excessive urination, flushing, intolerance to cold, intolerance to heat, unexplained weight gain, unexplained weight loss, others Psychiatric: denies: anxiety, bipolar disorder, depression, hopeless, panic disorder, schizophrenia, sleepless, suicidal, others Physical Exam General Appearance: No Apparent Distress, Normal HEENT: Normal ENT Inspection, Pharynx Normal, TMs Normal Neck: Full Range of Motion, Non-Tender, Normal, Normal Inspection Respiratory: Chest Non-Tender, Lungs Clear, No Accessory Muscle Use, No Respiratory Distress, Normal Breath Sounds Cardiovascular: No Edema, No JVD, No Murmur, No Gallop, Normal Peripheral Pulses, Regular Rate/Rhythm Breast Exam: Deferred Gastrointestinal: No Organomegaly, Non Tender, No Pulsatile Mass, Normal Bowel Sounds, Soft Genitalia: Deferred Pelvic: Deferred Rectal: Deferred Extremities: No calf tenderness, Normal capillary refill, Normal inspection, Normal range of motion, Non-tender, No pedal edema Musculoskeletal : Apperance: Normal Neurologic: Alert, supervisor painting II-XII nml as Tested, No Motor Deficits, Normal Affect, Normal Mood, No Sensory Deficits Cerebellar Function: Normal Reflexes: Normal Skin: Dry, Normal Color, Warm Lymphatic: No Adenopathy Was a procedure done? Was a procedure done?: No CP Differential Dx Differential Diagnosis: Angina, Anxiety / Panic Attack, Electrolyte Disorder Differential Diagnosis: Angina, Chest Wall Pain, Costochondritis, Esophageal reflux/spasm, Gastritis X-Ray, Labs, Meds, VS Vital Signs Date Time Temp Pulse Resp B/P (MAP) Pulse Ox O2 Delivery O2 Flow Rate FiO2 06/25/25 04:18 91 16 139/82 (101) 99 06/25/25 02:47 97 06/25/25 02:42 97.7 97 14 125/81 96 97.7 Lab Test 06/25/25 03:44 06/25/25 02:45 Range/Units Troponin I High Sensitivity < 3 L < 3 L </=54 ng/L White Blood Count 5.0 4.4-10.8 10^3/uL Red Blood Count 3.75 L 4.5-5.90 10^6/uL Hemoglobin 13.3 L 13.5-17.5 g/dL Hematocrit 37.8 L 41.0-53.0 % Mean Corpuscular Volume 100.8 H 80.0-100.0 fL Mean Corpuscular Hemoglobin 35.6 H 28.0-32.0 pg Mean Corpuscular Hemoglobin Concent 35.3 32.0-36.0 g/dL Red Cell Distribution Width 14.6 H 11.8-14.3 % Platelet Count 137 #L 140-450 10^3/uL Mean Platelet Volume 7.5 6.9-10.8 fL Neutrophils (%) (Auto) 55.3 37.0-80.0 % Lymphocytes (%) (Auto) 31.2 10.0-50.0 % Monocytes (%) (Auto) 8.8 0.0-12.0 % Eosinophils (%) (Auto) 3.5 0.0-7.0 % Basophils (%) (Auto) 1.2 0.0-2.0 % Neutrophils # (Auto) 2.8 1.6-8.6 10 ^3/uL Lymphocytes # (Auto) 1.6 0.4-5.4 10 ^3/uL Monocytes # (Auto) 0.4 0-1.3 10 ^3/uL Eosinophils # (Auto) 0.2 0-0.8 10 ^3/uL Basophils # (Auto) 0.1 0-0.2 10 ^3/uL Nucleated Red Blood Cells 0.2 % Sodium Level 133 L 136-145 mmol/L Potassium Level 4.1 3.5-5.1 mmol/L Chloride Level 99 98-107 mmol/L Carbon Dioxide Level 19 L 20-31 mmol/L Anion Gap 15 5-15 Blood Urea Nitrogen 17 9-23 mg/dL Creatinine 1.10 0.700-1.30 mg/dL Glomerular Filtration Rate Calc 84 >90 mL/min BUN/Creatinine Ratio 15.5 10.0-20.0 Serum Glucose 491 #*H 74-106 mg/dL Calcium Level 9.5 8.7-10.4 mg/dL Total Bilirubin 1.0 0.2-1.0 mg/dL Aspartate Amino Transferase (AST) 56 H 13-40 U/L Alanine Aminotransferase (ALT) 46 H 7-40 U/L Alkaline Phosphatase 417 H 46-116 U/L Total Protein 8.0 5.7-8.2 g/dL Albumin 3.8 3.2-4.8 g/dL Plasma/Serum Blood Alcohol 242.5 H <10 mg/dL Current Medications Medications (Trade) Dose Ordered Sig/Rossy Route Start Time Stop Time Status Last Admin Sodium Chloride 2,000 ml @ 1,000 mls/hr Q2H ONCE IV 06/25/25 03:15 06/25/25 05:14 06/25/25 03:15 Time of 1ST Reevaluation: 03:14 Reevaluation 1ST: Unchanged Patient Education/Counseling: Diagnosis, Treatment Family Education/Counseling: No Family Present SEPSIS Sepsis Screen Date sepsis recognized/suspect: Jun 25, 2025 Time Sepsis recognized/suspect: 241 Recent Procedure: No On Antibiotic Therapy: No Respiratory Rate >20: No Heart Rate >90: No Temp<36 C (96.8 F) or >38.3 C: No SBP <90 or MAP <65 mmHG: No New Acute Mental Status Change: No Is the patient on CPAP, BIPAP,: No Physician Orders Chest Portable (06/25/25 03:06) Troponin-I Hs (06/25/25 06:06) Sodium Chloride 0.9% (06/25/25 03:15) Vital Signs Date Time Temp Pulse Resp B/P (MAP) Pulse Ox O2 Delivery O2 Flow Rate FiO2 06/25/25 04:18 91 16 139/82 (101) 99 06/25/25 02:47 97 06/25/25 02:42 97.7 97 14 125/81 96 97.7 Laboratory Tests Test 06/25/25 02:45 White Blood Count 5.0 10^3/uL (4.4-10.8) Medications Medications Dose Ordered Sig/Rossy Route Start Time Stop Time Status Last Admin Dose Admin Sodium Chloride 2,000 ml @ 1,000 mls/hr Q2H ONCE IV 06/25/25 03:15 06/25/25 05:14 06/25/25 03:15 Departure 1 Departure Time of Disposition: 05:15 Impression: Primary Impression: Alcohol abuse Additional Impressions: Alcohol intoxication Diabetes mellitus with hyperglycemia Dehydration Severe malnutrition Disposition: ADMITTED INPATIENT Admit to: Med Surg Condition: Guarded Comments 44 year old male with h/o type 2 DM and Etoh abuse now with chest pain and somnolence after drinking Etoh . Blood glucose high 491. Etoh level high. patient is dehydrated and malnourished and will need admission for supportive care and further workup Critical Care Note Critical Care Time?: Yes (35 min-critical care time only) Critical care comment: Total critical care time: Approximately 36 minutes Due to a high probability of clinically significant, life threatening deterioration, the patient required my highest level of preparedness to intervene emergently and I personally spent this critical care time directly and personally managing the patient. This critical care time included obtaining a history; examining the patient; pulse oximetry; ordering and review of studies; arranging urgent treatment with development of a management plan; evaluation of patient's response to treatment; frequent reassessment; and, discussions with other providers. This critical care time was performed to assess and manage the high probability of imminent, life-threatening deterioration that could result in multi-organ failure. It was exclusive of separately billable procedures and treating other patients. Stability Stability form required: No Heart Score Heart Score: Heart Score Response (Comments) Value History Slightly Suspicious 0 EKG Normal 0 Age <45 0 Risk Factors No known risk factors 0 Troponin Normal limit 0 Total 0 I personally scribed for BROOKE MAYO MD ([email or web address]) on 06/25/25 at 03:18. Electronically submitted by Gopi Yao ([email or web address]). BROOKE MAYO MD Jun 25, 2025 03:18
[2025-06-25 03:25] LABS: Hematocrit 37.8 % (41.0-53.0); Hemoglobin 13.3 g/dL (13.5-17.5); Mean Corpuscular Hemoglobin 35.6 pg (28.0-32.0); Mean Corpuscular Volume 100.8 fL (80.0-100.0); Nucleated Red Blood Cells % 0.2 %
[2025-06-25 03:41] LABS: Albumin 3.8 g/dL (3.2-4.8); Anion Gap 15 (5-15); BUN/Creatinine Ratio 15.5 (10.0-20.0); Bilirubin, Total 1.0 mg/dL (0.2-1.0); Blood Urea Nitrogen 17 mg/dL (9-23); Calcium 9.5 mg/dL (8.7-10.4); Chloride 99 mmol/L (98-107); Potassium 4.1 mmol/L (3.5-5.1); Total Protein 8.0 g/dL (5.7-8.2)
[2025-06-25 04:09] LABS: Alanine Aminotransferase 46 U/L (7-40); Alkaline Phosphatase 417 U/L (46-116); Carbon Dioxide 19 mmol/L (20-31); Glucose 491 mg/dL (74-106); Sodium 133 mmol/L (136-145)
--- NOTE | 2025-06-25 04:20 | DVH ---
CHEST RADIOGRAPH Indication: chest pain Technique: Single frontal view of the chest was obtained COMPARISON: XY CHEST XRAY 1 VIEW on DOS: 05/26/25, XY CHEST PORTABLE on DOS: 05/06/25, XR CHEST 1 VIEW on DOS: 05/03/25, XY CHEST XRAY 1 VIEW on DOS: 04/29/25, XY CHEST XRAY 1 VIEW on DOS: 04/15/25 FINDINGS: Lines and Tubes: None Lungs: Moderate diffuse increased prominence of the pulmonary vasculature without evidence of focal consolidation. Pleura: No effusion. No pneumothorax. Cardiomediastinal contours: Unremarkable Bones: Unremarkable IMPRESSION: 1. Moderate diffuse increased prominence of the pulmonary vasculature without evidence of focal consolidation.
[2025-06-25] MEDS: InsuLIN REG 1unit/0.01ml Soln (100units/ml) IV ONE (04:30)
--- NOTE | 2025-06-25 04:42 | ECG ---
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
[2025-06-25] MEDS ORDERED: LORazepam 2MG/ML-1ML VIAL IV PRN (05:45)
[2025-06-25] MEDS ORDERED: INSULIN LANTUS (GLARGINE) 1 /0.01ml (100units/ml) SC ONE (05:45)
[2025-06-25] MEDS: FOLIC ACID 1 MG in D5W 5% 50 ML INJ ONE (05:45)
[2025-06-25] MEDS ORDERED: ONDANSETRON HCL 4 MG/2 ML VIAL IV PRN (05:45)
[2025-06-25] MEDS ORDERED: THIAMINE 100mg/ml INJ (200mg/2ml VIAL) IM ONE (05:45)
[2025-06-25] MEDS: THIAMINE 100mg/ml INJ (200mg/2ml VIAL) IV ONE (05:45)
--- NOTE | 2025-06-25 06:13 | DVHHPRES ---
History of Present Illness Resident Creating Document: YOSSI RINCON RESIDENT History of Present Illness This is a 44-year-old male with past medical history of alcohol use disorder, liver cirrhosis, HLD, insulin-dependent diabetes mellitus, vitamin D3 deficiency, current smoker brought by EMS due to altered level of consciousness possible alcohol intoxication. Patient also having intermittent chest pain which started 7:00 p.m. day before admission, persist more than 2 hour, no aggravating or relieving factor. Patient currently feels nausea, feeling anxious, visual hallucination, headache, disoriented place and person but no vomiting, no tremor, no paroxysmal sweating. Patient is a poor historian. Noncompliance with medication. In ER, during evaluation smell of alcohol noted and current Ca score 14. Patient recently admitted on 06/19/2025 with similar reason. Past medical history: Alcohol use disorder, liver cirrhosis, cholelithiasis, dm 2, HTN, HLD, Past surgical: Nothing contributory Personal history: Smokes marijuana, ETOH Family history: Parents diabetes Allergy: Penicillin PCP: Unable to recall. Review of Systems Constitutional: Yes: Malaise Cardiovascular: Chest Pain Gastrointestinal: Nausea, Abdominal Pain Skin: Other (Chronic skin changes bilateral lower extremity) Neurological: Other (Anxiety) Allergies: Coded Allergies: Penicillins (Verified Allergy, Unknown, 10/20/24) Exam Vital Signs Vital Signs Date Time Temp Pulse Resp B/P (MAP) Pulse Ox O2 Delivery O2 Flow Rate FiO2 06/25/25 04:18 91 16 139/82 (101) 99 06/25/25 02:42 97.7 97.7 General Appearance: moderate distress, Other (Alert oriented x1 - 2, smell of alcohol) HEENT: Atraumatic, PERRLA, EOMI Respiratory: Clear to auscultation, Normal air movement Cardiovascular: Regular rate, Normal S1, Normal S2 Abdominal: Normal bowel sounds, Soft, No hepatospenomegaly, No masses Extremities: No clubbing, No cyanosis, No edema, Normal pulses Skin: No rashes, No breakdown Neuro: Strength at 5/5 X4 ext, Sensation intact, Cranial nerves 3-12 NL, Other (, gait instability) Psych/Mental Status: Other Labs/Xrays Labs Test 06/25/25 03:44 06/25/25 02:45 Range/Units Troponin I High Sensitivity < 3 L </=54 ng/L White Blood Count 5.0 4.4-10.8 10^3/uL Red Blood Count 3.75 L 4.5-5.90 10^6/uL Hemoglobin 13.3 L 13.5-17.5 g/dL Hematocrit 37.8 L 41.0-53.0 % Mean Corpuscular Volume 100.8 H 80.0-100.0 fL Mean Corpuscular Hemoglobin 35.6 H 28.0-32.0 pg Mean Corpuscular Hemoglobin Concent 35.3 32.0-36.0 g/dL Red Cell Distribution Width 14.6 H 11.8-14.3 % Platelet Count 137 #L 140-450 10^3/uL Mean Platelet Volume 7.5 6.9-10.8 fL Neutrophils (%) (Auto) 55.3 37.0-80.0 % Lymphocytes (%) (Auto) 31.2 10.0-50.0 % Monocytes (%) (Auto) 8.8 0.0-12.0 % Eosinophils (%) (Auto) 3.5 0.0-7.0 % Basophils (%) (Auto) 1.2 0.0-2.0 % Neutrophils # (Auto) 2.8 1.6-8.6 10 ^3/uL Lymphocytes # (Auto) 1.6 0.4-5.4 10 ^3/uL Monocytes # (Auto) 0.4 0-1.3 10 ^3/uL Eosinophils # (Auto) 0.2 0-0.8 10 ^3/uL Basophils # (Auto) 0.1 0-0.2 10 ^3/uL Nucleated Red Blood Cells 0.2 % Sodium Level 133 L 136-145 mmol/L Potassium Level 4.1 3.5-5.1 mmol/L Chloride Level 99 98-107 mmol/L Carbon Dioxide Level 19 L 20-31 mmol/L Anion Gap 15 5-15 Blood Urea Nitrogen 17 9-23 mg/dL Creatinine 1.10 0.700-1.30 mg/dL Glomerular Filtration Rate Calc 84 >90 mL/min BUN/Creatinine Ratio 15.5 10.0-20.0 Serum Glucose 491 #*H 74-106 mg/dL Calcium Level 9.5 8.7-10.4 mg/dL Total Bilirubin 1.0 0.2-1.0 mg/dL Aspartate Amino Transferase (AST) 56 H 13-40 U/L Alanine Aminotransferase (ALT) 46 H 7-40 U/L Alkaline Phosphatase 417 H 46-116 U/L Total Protein 8.0 5.7-8.2 g/dL Albumin 3.8 3.2-4.8 g/dL Plasma/Serum Blood Alcohol 242.5 H <10 mg/dL SEPSIS Sepsis Screen Date sepsis recognized/suspect: Jun 25, 2025 Time Sepsis recognized/suspect: 241 Recent Procedure: No On Antibiotic Therapy: No Respiratory Rate >20: No Heart Rate >90: No Temp<36 C (96.8 F) or >38.3 C: No SBP <90 or MAP <65 mmHG: No New Acute Mental Status Change: No Is the patient on CPAP, BIPAP,: No Physician Orders Chest Portable (06/25/25 03:06) Troponin-I Hs (06/25/25 06:06) Admit (06/25/25 05:44) Code Status (06/25/25 05:44) Ondansetron Hcl (Zofran) (06/25/25 05:45) Enoxaparin Sodium (Lovenox) (06/25/25 10:00) Npo (Nothing By Mouth) Diet (06/25/25 Breakfast) Notify Md Of Changes From Base (06/25/25 05:44) Banana Bag D5w (06/25/25 18:00) Folic Acid Ivpb (06/25/25 10:00) Folic Acid Ivpb (06/25/25 05:45) Thiamine Inj (06/25/25 05:45) Thiamine Inj (06/25/25 05:45) Insulin Lispro (Human) (Humalog) (06/25/25 07:00) Insulin Lantus (Glargine) (Lantus) (06/25/25 22:00) Insulin Lantus (Glargine) (Lantus) (06/25/25 05:45) Osmolality, Serum (06/25/25 05:44) Lorazepam 2mg/Ml Inj (Ativan Inj) (06/25/25 05:45) Vital Signs Date Time Temp Pulse Resp B/P (MAP) Pulse Ox O2 Delivery O2 Flow Rate FiO2 06/25/25 04:18 91 16 139/82 (101) 99 06/25/25 02:47 97 06/25/25 02:42 97.7 97 14 125/81 96 97.7 Laboratory Tests Test 06/25/25 02:45 White Blood Count 5.0 10^3/uL (4.4-10.8) Medications Medications Dose Ordered Sig/Rossy Route Start Time Stop Time Status Last Admin Dose Admin Insulin Human Regular 6 units ONCE ONCE IV 06/25/25 04:30 06/25/25 04:31 DC 06/25/25 04:30 6 UNITS Sodium Chloride 2,000 ml @ 1,000 mls/hr Q2H ONCE IV 06/25/25 03:15 06/25/25 05:14 DC 06/25/25 03:15 1,000 MLS/HR Assessment/Plan Assessment/Plan Acute toxic metabolic encephalopathy Acute alcoholic intoxication ETOH use disorder Blood alcohol level 242.5 Current CIWA score-14 NPO now, advanced diet as tolerated. Banana bag Folic acid Thiamine IVF Ativan Ondansetron as needed Pantoprazole Monitor CIWA score daily Hyperosmotic hyperglycemic state Type 2 diabetes mellitus with hyperglycemia Hyperlipidemia Chest pain likely musculoskeletal cxr: Bilateral pulmonary vascular congestion EKG: Sinus rhythm, HR 97, QTC 486 Anion gap 15 Troponin: >3 repeat troponin <3 Serum glucose 491>330 Basal bolus insulin Insulin sliding scale Hemoglobin A1c Plasma osmolality Monitor blood sugar Hyponatremia due to ETOH use Serum alcohol level 133 Monitor sodium level Transaminitis Liver cirrhosis Cholelithiasis AST 56, ALT 46, ALP 417 Troponin: >3 repeat troponin <3 Vitamin-D deficiency Noncompliance with medical management Diet: NPO, IVF GI prophylaxis: Pantoprazole DVT prophylax: Lovenox Goals of care discussion. More than 27 minute spent with patient. Full code status. Case discussed with Dr. Covington Plan discussed with: Other (Nurse) My Orders Orders - YOSSI RINCON RESIDENT Procedure Category Date Status Time Admit ADMIT 06/25/25 Transmitted 05:44 Code Status CODE 06/25/25 Transmitted 05:44 Ondansetron Hcl PHA 06/25/25 Transmitted (Zofran) 05:45 Enoxaparin Sodium PHA 06/25/25 Transmitted (Lovenox) 10:00 Npo (Nothing By DIET 06/25/25 Transmitted Mouth) Diet Breakfast Notify Of Changes ARCHANA 06/25/25 Transmitted From Base 05:44 Banana Bag D5w PHA 06/25/25 Transmitted 18:00 Folic Acid Ivpb PHA 06/25/25 Transmitted 10:00 Folic Acid Ivpb PHA 06/25/25 Transmitted 05:45 Thiamine Inj PHA 06/25/25 Transmitted 05:45 Thiamine Inj PHA 06/25/25 Transmitted 05:45 Insulin Lispro PHA 06/25/25 Transmitted (Human) (Humalog) 07:00 Insulin Lantus PHA 06/25/25 Transmitted (Glargine) (Lantus) 22:00 Insulin Lantus PHA 06/25/25 Transmitted (Glargine) (Lantus) 05:45 Osmolality, Serum LAB 06/25/25 Transmitted 05:44 Lorazepam 2mg/Ml Inj PHA 06/25/25 Transmitted (Ativan Inj) 05:45 Date of Service: Jun 25, 2025 Billing Provider: ESTELLE COVINGTON MD Common Visit Codes: [id number] INP/OBS CARE (HIGH) Secondary Visit Codes: [id number] CARE PLAN 30 MINUTES YOSSI RINCON RESIDENT Jun 25, 2025 06:13
[2025-06-25 06:56] LABS: Lactic Acid w/Reflex 4.2 mmol/L (0.4-2.0)
[2025-06-25 07:01] LABS: INR 0.97 (0.9-1.15); Partial Thromboplastin Time 27.0 SEC (24.5-34.5); Prothrombin Time 10.3 sec (9.3-11.8)
[2025-06-25] MEDS: SODIUM CHLORIDE 0.9% 1,000 ML IV ONE (07:07)
[2025-06-25 07:27] LABS: Magnesium 2.1 mg/dL (1.6-2.6)
[2025-06-25 09:19] LABS: COVID19 ANTIGEN SOFIA FIA NEGATIVE (NEGATIVE)
[2025-06-25] MEDS ORDERED: FOLIC ACID 1 MG in D5W 5% 50 ML INJ SCH (10:00)
[2025-06-25] MEDS: INSULIN LISPRO (HUMAN) 100 UNITS/ML ML SC SCH (13:19)
[2025-06-25] MEDS: INSULIN LANTUS (GLARGINE) 1 /0.01ml (100units/ml) SC ONE (13:19)
[2025-06-25] MEDS: ENOXAPARIN SOD 40 MG/0.4 ML SYRINGE SC SCH (14:09)
[2025-06-25 17:39] VITALS: BP 127/79; PULSE 110; RESP 17; TEMP 98; O2SAT 95
[2025-06-25 18:45] LABS: Urine Budding Yeast OCCASIONAL /hpf (None Seen); Urine Protein, UAD 1+ (Negative)
[2025-06-25 18:53] LABS: Amphetamine Screen, Urine Neg (NEGATIVE); Barbiturate Scree,Urine Neg (NEGATIVE); Benzodiazephine Screen, Urine Neg (NEGATIVE); Cannabinoid Screen, Urine Pos (NEGATIVE); Cocaine Screen, Urine Neg (NEGATIVE); Opiate Scree,Urine Neg (NEGATIVE); Phencyclidine Screen, Urine Neg (NEGATIVE)
[2025-06-25] MEDS: FOLIC ACID 1 MG, MULTIPLE VITAMIN 10 ML, MAGNESIUM SULF SDV 50% 8 MEQ, THIAMINE INJ 100... INJ SCH (18:54)
[2025-06-25 19:03] VITALS: BP 124/76; PULSE 104; RESP 17; TEMP 97.9; O2SAT 96
[2025-06-25 21:00] VITALS: BP 145/80; PULSE 106; RESP 20; TEMP 98.2; O2SAT 92
[2025-06-25] MEDS: INSULIN LANTUS (GLARGINE) 1 /0.01ml (100units/ml) SC SCH (21:15)
[2025-06-26 01:00] VITALS: BP 128/61; PULSE 93; RESP 18; TEMP 97.8; O2SAT 92
[2025-06-26 05:00] VITALS: BP 126/65; PULSE 90; RESP 20; TEMP 99; O2SAT 92
[2025-06-26 09:24] VITALS: BP 127/69; PULSE 88; RESP 18; O2SAT 95
[2025-06-26 11:28] VITALS: O2SAT 95
[2025-06-26 13:00] VITALS: BP 142/82; PULSE 100; RESP 17; TEMP 98; O2SAT 96
--- NOTE | 2025-06-26 15:53 | DVHPN2 ---
Subjective 44-year-old male with a known history of chronic alcoholism presented to the hospital with a alcoholic intoxication currently admitted. Changes from previous H/P or p: No Changes Cardiovascular: Chest Pain Gastrointestinal: Nausea, Abdominal Pain Skin: Other (Chronic skin changes bilateral lower extremity) Objective Vitals Vital Signs Date Time Temp Pulse Resp B/P (MAP) Pulse Ox O2 Delivery O2 Flow Rate FiO2 06/26/25 13:00 98.0 100 17 142/82 (102) 96 98.0 06/26/25 11:28 Room Air* 0 21 Intake/Output Intake and Output 06/26/25 07:00 Intake Total 0 ml Output Total 2150 ml Balance -2150 ml Intake Oral 0 ml Output Urine Total 2150 ml Exam HEENT pupils are reactive Neck is supple CV is S1-S2 regular rate and rhythm Respiratory are clear GI positive bowel sound Extremity no edema DIRECTOR HOME no motor deficit Medications Current Medications Medications Dose Ordered Sig/Rossy Route Start Time Stop Time Status Last Admin Dose Admin Ondansetron HCl 4 mg Q4HP PRN IV 06/25/25 05:45 Enoxaparin Sodium 40 mg DAILY SC 06/25/25 10:00 06/26/25 09:50 40 MG Folic Acid 1 mg/ Multivitamins 10 ml/Magnesium Sulfate 8 meq/ Thiamine HCl 100 mg/Dextrose 1,013.2 ml @ 125.001 mls/hr DAILY@1800 INJ 06/25/25 18:00 06/25/25 18:54 125.001 MLS/HR Folic Acid 1 mg/ Dextrose 50.2 ml @ 200.8 mls/ hr DAILY INJ 06/25/25 10:00 Hold Insulin Human Lispro AC MS 06/25/25 07:00 06/26/25 11:30 4 UNITS Insulin Glargine 15 units HS MS 06/25/25 22:00 06/25/25 21:15 15 UNITS Lorazepam 1 mg Q2HP PRN IV 06/25/25 05:45 Laboratory Results Laboratory Tests 06/25/25 02:45 Urinalysis Test 06/25/25 18:14 Urine Color Light-yellow (Yellow) Urine Clarity Clear (Clear) Urine pH 5.5 (5.0-9.0) Urine Specific [place] 1.026 (1.001-1.035) Urine Protein 1+ (Negative) H Urine Ketones 1+ (Negative) H Urine Blood Trace /uL (Negative) H Urine Nitrite Negative (Negative) Urine Bilirubin Negative (Negative) Urine Urobilinogen Normal mg/dL (Negative) Urine Leukocyte Esterase Negative /uL (Negative) Urine RBC 6 /hpf (0 - 3) Urine Microscopic WBC 1 /HPF (0-3) Urine Squamous Epithelial Cells None seen /hpf (<5) Urine Bacteria None seen /hpf (None Seen) Urine Yeast (Budding) Occasional /hpf (None Urine Glucose 4+ mg/dL (Normal) H Assessment/Plan Assessment/Plan 44-year-old male with a known history of chronic alcoholism, diabetes mellitus type 2 presented to the hospital with altered mental status found to have 1. Acute alcoholic intoxication watch for alcohol withdrawal syndrome 2. Chronic alcoholism 3. Hyperglycemia in the setting of diabetes mellitus type 2 4. Liver cirrhosis with thrombocytopenia 5. Hyponatremia 6. Transaminitis -banana bag, IV hydration diet as tolerated watch for alcohol withdrawal syndrome. Plan discussed with: Patient My Orders Orders - JAYASHREE LANDRY MD Procedure Category Date Status Time Clear Liq Diet DIET 06/26/25 Transmitted Lunch Problem List: (1) Altered mental status (2) Metabolic encephalopathy Date of Service: Jun 26, 2025 Billing Provider: JAYASHREE LANDRY MD Common Visit Codes: [id number] INP/OBS CARE(HIGH) JAYASHREE LANDRY MD Jun 26, 2025 15:53
[2025-06-27 11:51] LABS: Hepatitis B Surface Antigen Negative (Negative)
[2025-06-27 12:18] LABS: Hepatitis C Antibody Negative (Negative)
== END 2025-06-26 13:00 | disposition left against medical advice (07) | DRG 52 ==
LOC: EDBD 02:42 → ER 02:42 → OVERFLOW 05:44
PROVIDERS: ATTEND Emergency Medicine
DX: G92.8 Other toxic encephalopathy (principal); D69.6 Thrombocytopenia, unspecified; E87.1 Hypo-osmolality and hyponatremia; K74.60 Unspecified cirrhosis of liver; Z59.00 Homelessness unspecified; E86.0 Dehydration; F10.229 Alcohol dependence with intoxication, unspecified; E11.65 Type 2 diabetes mellitus with hyperglycemia; K80.20 Calculus of gallbladder without cholecystitis without obstruction; E78.5 Hyperlipidemia, unspecified; E55.9 Vitamin D deficiency, unspecified; Z53.29 Procedure and treatment not carried out because of patient's decision for other reasons; Z79.4 Long term (current) use of insulin; Z83.3 Family history of diabetes mellitus; Z91.199 Patient's noncompliance with other medical treatment and regimen due to unspecified reason; Y90.8 Blood alcohol level of 240 mg/100 ml or more
CPT/HCPCS: 36415; 71045; 80053; 80307; 80320; 81001; 82306; 82607; 82962; 83605; 83735; 83880; 83930; 84100; 84484; 85025; 85610; 85730; 86803; 87081; 87340; 87426; 87804; 93005; 96365; 96372; 96375; 99291; G0378; J1815; J7060

== ENCOUNTER 2025-07-18 19:52 | Inpatient (IN) | payer MEDICAID ==
[~2025-07-18] VITALS: Ht 172.7 cm; Wt 75.0 kg
[2025-07-18] MEDS: InsuLIN REG 1unit/0.01ml Soln (100units/ml) IV ONE (20:15)
--- NOTE | 2025-07-18 20:20 | ED.PDOC ---
History of Present Illness HPI Comments 44 y/o M is BIBA for c/c of nonradiating, right sided abdominal pain. Significant history for insulin-dependent DM II, cholelithiasis, HLD, HTN, liver cirrhosis, and alcohol abuse. Per EMS personnel report, patient endorses on sudden, unprovoked, and atraumatic onset of 10/10 pain 1x hour prior to ED arrival. Associated polyuria, polydipsia, dysuria, and hematuria since this morning. Denial of any nausea, vomiting, or further acute symptoms. Initial on scene blood glucose of 419, with patient commenting on running out of his insulin for 2x weeks. All remaining vitals were stable and within normal limits. Time Seen by MD: 20:00 Primary Care Provider: n/a Reviewed Notes: Loom Technician Notes, Medications, Allergies Allergies: Coded Allergies: Penicillins (Verified Allergy, Unknown, 10/20/24) Home Meds Active Scripts Insulin Aspart Protamine & Asp (Insulin Aspart Protamine/ (70-30) 100 Unit/ml) 1 Inj Inj, 5 UNITS SC BID for 90 Days, #100 INJ 5 Refills Prov:BROOKE MAYO MD 05/29/25 Lancets (Freestyle Lancets) Lancets Mis, BOX XX ACHS, #1 Prov:ONAH MALDONADO CASH APPLICATION CLERK 04/18/25 Blood Glucose Monitoring Suppl (D-Care Glucometer Kit/Glu W/Device) 1 Kit Kit, KIT XX ACHS, #1 Prov:NOAH MALDONADO CASH APPLICATION CLERK 04/18/25 Blood Glucose Monitoring Suppl (Blood Glucose Monitoring W/Device) 1 Kit Kit, KIT XX TIDWMEALS, #1 Prov:RUTHIE CASTANEDA MD 03/02/25 Lancets (Freestyle Lancets) Lancets Mis, EA XX TIDWMEALS, #120 Prov:RUTHIE CASTANEDA MD 03/02/25 Insulin Lispro (Humalog Kwikpen) 100 Unit/Ml Inj, 6 UNIT SC TIDWMEALS, #10 INJ Prov:RUTHIE CASTANEDA MD 03/02/25 Insulin Glargine (Insulin Glargine Solostar) 300 Unit/Ml Inj, 15 UNITS SUBCUT BID, #10 INJ Prov:RUTHIE CASTANEDA MD 03/02/25 Gabapentin (Gabapentin) 300 Mg Cap, 1 CAP PO DAILY, #14 CAP Prov:RUTHIE CASTANEDA MD 03/02/25 Simvastatin (Simvastatin) 20 Mg Tab, 1 TAB PO HS, #30 TAB Prov:RUTHIE CASTANEDA MD 03/02/25 Lisinopril (Lisinopril) 10 Mg Tab, 1 TAB PO DAILY, #60 TAB Prov:RUTHIE CASTANEDA MD 03/02/25 Insulin Glargine (Lantus Solostar) 100 Unit/Ml Inj, 20 UNIT SC HS, #10 INJ Prov:RUTHIE CASTANEDA MD 12/01/24 Glucose Blood (EASY TOUCH GLUCOSE TEST S) Strips Ashley, 1 EA ACHS for 30 Days, #120 MISC 70-130 - 0 units ____ units 131-180 - 8 units ____ units 181-240 - 12 units ____ units 241-300 - 16 units ____ units 301-350 - 20 units ____ units 351-400 - 24 units ____ units >400 12 units and call 20 units and call MD 28 units and call MD ____ units and call M Prov:RUTHIE CASTANEDA MD 12/01/24 Insulin Aspart (Insulin Aspart) 100 Unit/Ml Inj, 100 UNIT SC AC for 30 Days, #1 INJ 0 Refills 70-130 - 0 units ____ units 131-180 - 8 units ____ units 181-240 - 12 units ____ units 241-300 - 16 units ____ units 301-350 - 20 units ____ units 351-400 - 24 units ____ units >400 12 units and call MD 20 units and call 28 units and call MD ____ units and call M Prov:RUTHIE CASTANEDA MD 12/01/24 Atorvastatin Calcium (ATORVASTATIN CALCIUM) 20 Mg Tab, 20 MG PO HS for 30 Days, #30 TAB Prov:RUTHIE CASTANEDA MD 12/01/24 Lancets (Cvs Lancets Thin 26G) Thin 26G Mis, 26G SC ACHS, #120 0 Refills Please check glucose 15 mins before each meal Prov:MATEUSZ GOODRICH RESIDENT 10/25/24 Blood Glucose Monitoring Suppl (EASY TOUCH GLUCOSE MONITO) Monitor Kit, EA XX ACHS, #1 Please check glucose 15 mins before each meal Prov:MATEUSZ GOODRICH 10/25/24 Lancets (EASY TOUCH LANCETS) 28 G Mis, G XX QID, #100 Prov:ANUP DOSHI MD 08/26/24 Blood Glucose Monitoring Suppl (mm Easy Touch Blood Gluco W/Device) 1 Kit Kit, KIT XX, #1 Prov:ANUP DOSHI MD 08/26/24 Information Source: Patient, Emergency Med Personnel Mode of Arrival: EMS Severity: Moderate Timing: Hours Duration: Since onset Prehospital treatment: 12 Lead EKG, Accucheck, Stage Rigger Past Medical History PAST MEDICAL HISTORY: DM (insulin-dependent, type II w/neuropathy), Gallstones, High Lipids, HTN, Liver (Cirrhosis ) Surgical History (Other): right foot surgery Family History Family History: Reviewed,noncontributory to illness, No family hx of Cancer, No family hx of Heart anna, No family hx of HTN, No family hx ofKidney anna, No family hx of Liver anna, No family hx of Lung anna, No family hx of Stroke, Family hx of DM Social History Smoker: Non-Smoker Alcohol: Heavy Drugs: Other (former marijuana user ) Lives In: Homeless Constitutional: denies: chills, diaphoresis, fatigue, fever, malaise, sweats, weakness, others EENTM: denies: blurred vision, double vision, ear bleeding, ear discharge, ear drainage, ear pain, ear ringing, eye pain, eye redness, hearing loss, mouth pain, mouth swelling, nasal discharge, nose bleeding, nose congestion, nose pain, photophobia, tearing, throat pain, throat swelling, voice changes, others Respiratory: denies: cough, hemoptysis, orthopnea, SOB at rest, shortness of breath, SOB with excertion, stridor, wheezing, others Cardiovascular: denies: chest pain, dizzy spells, diaphoresis, Dyspnea on exertion, edema, irregular heart beat, left arm pain, lightheadedness, palpitations, PND, syncope, others Gastrointestinal: reports: abdominal pain; denies: abdomen distended, blood streaked bowels, constipated, diarrhea, dysphagia, difficulty swallowing, hematemesis, melena, nausea, poor appetite, poor fluid intake, rectal bleeding, rectal pain, vomiting, others Genitourinary: reports: dysuria, hematuria; denies: burning, flank pain, frequency, incontinence, penile discharge, penile sore, pain, testicle pain, testicle swelling, urgency, others Neurological: denies: dizziness, fainting, headache, left sided numbness, left sided weakness, numbness, paresthesia, pre-existing deficit, right sided numb ness, right sided weakness, seizure, speech problems, tingling, tremors, weakness, others Musculoskeletal: denies: back pain, gout, joint pain, joint swelling, muscle pain, muscle stiffness, neck pain, others Integumetry: denies: bruises, change in color, change in hair/nails, dryness, laceration, lesions, lumps, rash, wounds, others Allergic/Immunocompromised: denies: Difficulty Healing, Frequent Infections, Hives, Itching, others Hematologic/Lymphatic: denies: anemia, blood clots, easy bleeding, easy bruising, swollen glands, others Endocrine: reports: excessive thirst, excessive urination; denies: excessive hunger, excessive sweating, flushing, intolerance to cold, intolerance to heat, unexplained weight gain, unexplained weight loss, others Psychiatric: denies: anxiety, bipolar disorder, depression, hopeless, panic disorder, schizophrenia, sleepless, suicidal, others All Other Systems: Reviewed and Negative Physical Exam General Appearance: Moderate Distress HEENT: Pale Conjuntivae (L), Pale Conjuntivae (R), Pharynx Normal, TMs Normal Neck: Full Range of Motion, Non-Tender, Normal, Normal Inspection Respiratory: Chest Non-Tender, Lungs Clear, No Accessory Muscle Use, No Respiratory Distress, Normal Breath Sounds Cardiovascular: No Edema, No JVD, No Murmur, No Gallop, Normal Peripheral Pulses, Regular Rate/Rhythm Breast Exam: Deferred Gastrointestinal: No Organomegaly, No Pulsatile Mass, Normal Bowel Sounds, RLQ, RUQ, Soft, Tenderness Genitalia: Deferred Pelvic: Deferred Rectal: Deferred Extremities: No calf tenderness, Normal capillary refill, Normal inspection, Normal range of motion, Non-tender, No pedal edema Musculoskeletal : Apperance: Normal Neurologic: Alert, clergy member II-XII nml as Tested, No Motor Deficits, Normal Affect, Normal Mood, No Sensory Deficits Cerebellar Function: Normal Reflexes: Normal Skin: Dry, Normal Color, Warm Lymphatic: No Adenopathy Was a procedure done? Was a procedure done?: No Differential Dx Considerations may include: hyperglycemia, dehydration, electrolyte imbalance, DKA, gastritis, gastroenteritis, GERD, PUD, cholelithiasis, cholecystitis, hepatitis, among others X-Ray, Labs, Meds, VS Vital Signs Date Time Temp Pulse Resp B/P (MAP) Pulse Ox O2 Delivery O2 Flow Rate FiO2 07/18/25 19:56 97.7 105 20 149/82 96 97.7 IV Hep-Lock has been ordered The patient is being given insulin 5 units IV push We ordered 1 L of normal saline for this patient At this time, the patient will be signed out to Dr. Lacy Images Reviewed?: Images reviewed and evaluated by me Time of 1ST Reevaluation: 20:30 Reevaluation 1ST: Unchanged Patient Education/Counseling: Diagnosis, Treatment, Prognosis Family Education/Counseling: No Family Present SEPSIS Sepsis Screen Physician Orders Complete Blood Count (07/18/25 20:10) Comprehensive Metabolic Panel (07/18/25 20:10) Lipase (07/18/25 20:10) Urinalysis (07/18/25 20:10) Heplock Iv (07/18/25 20:10) Gallbladder (07/18/25 20:10) Electrocardigram (07/18/25 20:10) Vital Signs Date Time Temp Pulse Resp B/P (MAP) Pulse Ox O2 Delivery O2 Flow Rate FiO2 07/18/25 19:56 97.7 105 20 149/82 96 97.7 Departure 1 Departure Time of Disposition: 21:31 Impression: Primary Impression: Acute abdominal pain Disposition: 30 STILL A PATIENT Condition: Fair Critical Care Note Critical Care Time?: No Stability Stability form required: No Heart Score Heart Score: Heart Score Response (Comments) Value History N/A 0 EKG N/A 0 Age N/A 0 Risk Factors N/A 0 Troponin N/A 0 Total 0 I personally scribed for FACUNDO MATHEW MD ([email or web address]) on 07/18/25 at 20:20. Electronically submitted by Jd Gamez ([email or web address]). FACUNDO MATHEW MD Jul 18, 2025 20:20
[2025-07-18 21:45] LABS: Hematocrit 43.1 % (41.0-53.0); Hemoglobin 15.1 g/dL (13.5-17.5); Mean Corpuscular Hemoglobin 35.0 pg (28.0-32.0); Mean Corpuscular Volume 99.8 fL (80.0-100.0); Nucleated Red Blood Cells % 0.0 %
[2025-07-18 22:06] VITALS: PULSE 101; RESP 16; O2SAT 97
[2025-07-18 22:11] LABS: Albumin 3.9 g/dL (3.2-4.8); Anion Gap 15 (5-15); BUN/Creatinine Ratio 10.1 (10.0-20.0); Blood Urea Nitrogen 10 mg/dL (9-23); Calcium 9.6 mg/dL (8.7-10.4); Carbon Dioxide 21 mmol/L (20-31); Chloride 99 mmol/L (98-107); Potassium 3.5 mmol/L (3.5-5.1)
[2025-07-18 22:12] LABS: Alanine Aminotransferase 48 U/L (7-40); Alkaline Phosphatase 358 U/L (46-116); Glucose 341 mg/dL (74-106); Lipase 150 U/L (12-53); Sodium 135 mmol/L (136-145); Total Protein 8.6 g/dL (5.7-8.2)
--- NOTE | 2025-07-18 22:14 | DVH ---
CLINICAL HISTORY: pain TECHNIQUE: Transabdominal sonogram was performed of the right upper quadrant. COMPARISON: US ABDOMEN LIMITED on DOS: 04/15/25, US GALLBLADDER on DOS: 12/02/24, ABDL on DOS: 03/31/22 FINDINGS: The liver is nodular contour and increased in echogenicity. There is no focal parenchymal abnormality. No intrahepatic biliary ductal dilatation is present. The liver measures 15.4 cm. There is a recanalized umbilical vein. The gallbladder demonstrates moderate 6 mm wall thickening with no gallstone seen. Sonographic etienne's sign was reported to be absent. The common bile duct is normal in caliber, measuring 3 mm. The visualized pancreas is grossly unremarkable. The right kidney is normal in echogenicity and measures 12.5 cm in length. There is no evidence for hydronephrosis or calculi. IMPRESSION: Hepatic steatosis with cirrhotic liver morphology. Moderate nonspecific gallbladder wall thickening. Recanalized umbilical vein.
[2025-07-18 22:15] LABS: Bilirubin, Total 1.2 mg/dL (0.2-1.0)
[2025-07-18] MEDS: SODIUM CHLORIDE 0.9% 1,000 ML IVB ONE (22:15)
--- NOTE | 2025-07-19 08:43 | DVH ---
EXAM: CT CT AB PEL WO CON-NO ORAL OR IV History: ABDOMINAL PAIN Comparison Study: CT CT AB PEL WO CON-NO ORAL OR IV on DOS: 06/17/25. TECHNIQUE: Multidetector spiral CT of the abdomen and pelvis was performed from lung bases to pubic symphysis. Imaging was performed without intravenous contrast. Coronal and sagittal multiplanar reformats were obtained from the axial data set by the technologist. Radiation Dose : 1. Abdomen/Pelvis: CTDIvol 10.96 mGy, DLP 677.96 mGy*cm. FINDINGS: Evaluation of vasculature and solid organs is limited due to lack of intravenous contrast use. Lung Bases: Lung bases are clear. Visualized portions of the heart and pericardium are unremarkable. Liver: The liver is normal in size. There is a nodular contour. Limited evaluation for hepatic masses without intravenous contrast. Recanalized paraumbilical vein noted. Gallbladder and Biliary Tree: The gallbladder is unremarkable. No intrahepatic or extrahepatic biliary ductal dilatation. Spleen: Unremarkable Pancreas: The pancreas is grossly unremarkable. Adrenal Glands: Unremarkable Kidneys: Kidneys are unremarkable without calculi or hydronephrosis. GI tract: The stomach is grossly normal in appearance. No evidence of small bowel wall thickening or abnormal dilatation to suggest bowel obstruction. The colon is unremarkable. The appendix is normal in caliber. Peritoneum/mesentery/retroperitoneum. No evidence of free intraperitoneal air. No ascites. Lymph nodes: Increased number of retroperitoneal and leonela hepatis lymph nodes which are subcentimeter in size. Abdominal Wall: Unremarkable. Vasculature: The visualized abdominal aorta is normal in size and caliber. Evaluation of abdominal and pelvic vessels is limited due to lack of intravenous contrast. Multiple splenic varices noted. Urinary Bladder: Grossly unremarkable for degree of distention. Pelvic Organs: Unremarkable Musculoskeletal: No aggressive focal bony lesions, acute fractures or dislocation. Disc degeneration at L5-S1. Soft tissues: Bilateral fat containing inguinal hernias. IMPRESSION: 1. No acute process in the abdomen or pelvis. 2. Cirrhosis and portal hypertension. 3. Increased number of retroperitoneal and leonela hepatis lymph nodes without pathologic enlargement.
[2025-07-19] MEDS ORDERED: HYDROcodone-ACET 5/325MG TAB PO PRN (09:45)
[2025-07-19] MEDS ORDERED: ONDANSETRON HCL 4 MG/2 ML VIAL IV PRN (09:45)
[2025-07-19] MEDS ORDERED: DOCUSATE SOD 100 MG CAP PO PRN (09:45)
[2025-07-19] MEDS ORDERED: ACETAMINOPHEN 325 MG TAB PO PRN (09:45)
[2025-07-19] MEDS ORDERED: DEXTROSE (50%) 50ML SYRG IV PRN (10:15)
--- NOTE | 2025-07-19 10:20 | DVHHP2 ---
History of Present Illness Reason for Visit: Abdominal pain History of Present Illness Rodo mahmood is a 44-year-old male with past medical history of diabetes, liver cirrhosis, ETOH dependance, and peripheral neuropathy, who came to the hospital for abdominal pain. Patient states he has been experiencing abdominal pain for a few days. He has a history of liver cirrhosis and heavy alcohol use. He states the pain was worsening prompting him to come to the hospital. 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 Endocrine: Diabetes Past Surgical History: Other (right foot) Smoke: No ALCOHOL: heavy (6-8 beers/day) Drugs: Marijuana Lives: Homeless Domestic Violence: Neg Review of Systems Constitutional: No: Fever, Chills, Sweats, Weakness, Malaise, Other Eyes: No: Pain, Vision change, Conjunctivae inflammation, Eyelid inflammation, Other, Redness ENT: No: Ear pain, Ear discharge, Nose pain, Nose discharge, Nose congestion, Mouth pain, Mouth swelling, Throat pain, Throat swelling, Other Respiratory: No: Cough, Dry, Shortness of breath, SOB with excertion, Wheezing, Hemoptysis, Pleuritic Pain, Sputum, Wheezing, Other Cardiovascular: No: Chest Pain, Palpitations, Orthopnea, Paroxysmal Noc. Dyspnea, Edema, Lt Headedness, Other Gastrointestinal: Nausea, Abdominal Pain; No: Vomiting, Diarrhea, Constipation, Melena, Hematochezia, Other Genitourinary: No Dysuria, No Frequency, No Incontinence, No Hematuria, No Retention, No Other Musculoskeletal: No: other, neck pain, shoulder pain, arm pain, back pain, hand pain, leg pain, foot pain Skin: No: Rash, Lesions, Jaundice, Bruising, Other Neurological: Numbness (right foot, has peripheral neuropathy); No: Weakness, Incoordination, Change in speech, Confusion, Seizures, Other Allergies: Coded Allergies: Penicillins (Verified Allergy, Unknown, 10/20/24) Exam Vital Signs Vital Signs Date Time Temp Pulse Resp B/P (MAP) Pulse Ox O2 Delivery O2 Flow Rate FiO2 07/19/25 07:34 97.7 100 18 168/85 (112) 97 97.7 07/18/25 22:06 Room Air* 0 21 General Appearance: Alert, Oriented X3, Cooperative, mild distress HEENT: Atraumatic, PERRLA Respiratory: Clear to auscultation, Normal air movement Cardiovascular: Normal S1, Normal S2, No murmurs, Other (ST) Abdominal: Normal bowel sounds, Soft, Other (RUQ tenderness) Extremities: No clubbing, No cyanosis, No edema, Normal pulses, No tenderness/swelling Skin: No rashes, No breakdown, No significant lesion Neuro: Normal gait, Normal speech, Strength at 5/5 X4 ext Psych/Mental Status: Mental status NL, Mood NL Labs/Xrays Labs Test 07/19/25 07:33 07/18/25 21:15 Range/Units POC Glucose 336 H 70-106 mg/dl White Blood Count 4.1 L 4.4-10.8 10^3/uL Red Blood Count 4.32 L 4.5-5.90 10^6/uL Hemoglobin 15.1 13.5-17.5 g/dL Hematocrit 43.1 41.0-53.0 % Mean Corpuscular Volume 99.8 80.0-100.0 fL Mean Corpuscular Hemoglobin 35.0 H 28.0-32.0 pg Mean Corpuscular Hemoglobin Concent 35.1 32.0-36.0 g/dL Red Cell Distribution Width 15.8 H 11.8-14.3 % Platelet Count 109 L 140-450 10^3/uL Mean Platelet Volume 8.0 6.9-10.8 fL Neutrophils (%) (Auto) 55.5 37.0-80.0 % Lymphocytes (%) (Auto) 33.2 10.0-50.0 % Monocytes (%) (Auto) 7.6 0.0-12.0 % Eosinophils (%) (Auto) 2.9 0.0-7.0 % Basophils (%) (Auto) 0.8 0.0-2.0 % Neutrophils # (Auto) 2.3 1.6-8.6 10 ^3/uL Lymphocytes # (Auto) 1.4 0.4-5.4 10 ^3/uL Monocytes # (Auto) 0.3 0-1.3 10 ^3/uL Eosinophils # (Auto) 0.1 0-0.8 10 ^3/uL Basophils # (Auto) 0 0-0.2 10 ^3/uL Nucleated Red Blood Cells 0.0 % Sodium Level 135 L 136-145 mmol/L Potassium Level 3.5 3.5-5.1 mmol/L Chloride Level 99 98-107 mmol/L Carbon Dioxide Level 21 20-31 mmol/L Anion Gap 15 5-15 Blood Urea Nitrogen 10 9-23 mg/dL Creatinine 0.99 0.700-1.30 mg/dL Glomerular Filtration Rate Calc 96 >90 mL/min BUN/Creatinine Ratio 10.1 10.0-20.0 Serum Glucose 341 H 74-106 mg/dL Calcium Level 9.6 8.7-10.4 mg/dL Total Bilirubin 1.2 H 0.2-1.0 mg/dL Aspartate Amino Transferase (AST) 64 H 13-40 U/L Alanine Aminotransferase (ALT) 48 H 7-40 U/L Alkaline Phosphatase 358 H 46-116 U/L Total Protein 8.6 H 5.7-8.2 g/dL Albumin 3.9 3.2-4.8 g/dL Lipase 150 H 12-53 U/L TECHNIQUE: Transabdominal sonogram was performed of the right upper quadrant. FINDINGS: The liver is nodular contour and increased in echogenicity. There is no focal parenchymal abnormality. No intrahepatic biliary ductal dilatation is present. The liver measures 15.4 cm. There is a recanalized umbilical vein. The gallbladder demonstrates moderate 6 mm wall thickening with no gallstone seen. Sonographic etienne's sign was reported to be absent. The common bile duct is normal in caliber, measuring 3 mm. The visualized pancreas is grossly unremarkable. The right kidney is normal in echogenicity and measures 12.5 cm in length. There is no evidence for hydronephrosis or calculi. IMPRESSION: Hepatic steatosis with cirrhotic liver morphology. Moderate nonspecific gallbladder wall thickening. Recanalized umbilical vein. EXAM: CT CT AB PEL WO CON-NO ORAL OR IV FINDINGS: Evaluation of vasculature and solid organs is limited due to lack of intravenous contrast use. Lung Bases: Lung bases are clear. Visualized portions of the heart and pericardium are unremarkable. Liver: The liver is normal in size. There is a nodular contour. Limited evaluation for hepatic masses without intravenous contrast. Recanalized paraumbilical vein noted. Gallbladder and Biliary Tree: The gallbladder is unremarkable. No intrahepatic or extrahepatic biliary ductal dilatation. Spleen: Unremarkable Pancreas: The pancreas is grossly unremarkable. Adrenal Glands: Unremarkable Kidneys: Kidneys are unremarkable without calculi or hydronephrosis. GI tract: The stomach is grossly normal in appearance. No evidence of small bowel wall thickening or abnormal dilatation to suggest bowel obstruction. The colon is unremarkable. The appendix is normal in caliber. Peritoneum/mesentery/retroperitoneum. No evidence of free intraperitoneal air. No ascites. Lymph nodes: Increased number of retroperitoneal and leonela hepatis lymph nodes which are subcentimeter in size. Abdominal Wall: Unremarkable. Vasculature: The visualized abdominal aorta is normal in size and caliber. Evaluation of abdominal and pelvic vessels is limited due to lack of intravenous contrast. Multiple splenic varices noted. Urinary Bladder: Grossly unremarkable for degree of distention. Pelvic Organs: Unremarkable Musculoskeletal: No aggressive focal bony lesions, acute fractures or di slocation. Disc degeneration at L5-S1. Soft tissues: Bilateral fat containing inguinal hernias. IMPRESSION: 1. No acute process in the abdomen or pelvis. 2. Cirrhosis and portal hypertension. 3. Increased number of retroperitoneal and leonela hepatis lymph nodes without pathologic enlargement. SEPSIS Sepsis Screen Date sepsis recognized/suspect: Jul 18, 2025 Time Sepsis recognized/suspect: 1955 Recent Procedure: No On Antibiotic Therapy: No Respiratory Rate >20: No Heart Rate >90: Yes Temp<36 C (96.8 F) or >38.3 C: No SBP <90 or MAP <65 mmHG: No New Acute Mental Status Change: No Is the patient on CPAP, BIPAP,: No Physician Orders Ct Ab Pel Wo Con-No Oral Or Iv (07/19/25 07:53) Complete Blood Count (07/19/25 09:08) Comprehensive Metabolic Panel (07/19/25 09:08) Amylase (07/19/25 09:08) Lipase (07/19/25 09:08) Ammonia (07/19/25 09:08) Admit (07/19/25 09:43) Code Status (07/19/25 09:43) Hydrocodone-Acet 5/325mg Tab ([place] 5/32 (07/19/25 09:45) Ondansetron Hcl (Zofran) (07/19/25 09:45) Docusate Sodium Capsule (Colace Capsule) (07/19/25 09:45) Complete Blood Count (07/20/25 04:00) Comprehensive Metabolic Panel (07/20/25 04:00) Condition: Serious (07/19/25 09:43) Acetaminophen Tablet (Tylenol Tablet) (07/19/25 09:45) Banana Bag D5w (07/19/25 09:45) Librium 50mg Po Q8hr Day 1 (07/19/25 09:45) Librium 50mg Po Q12hr Day 2 (07/20/25 10:00) Librium 25mg Po Q12hr X Day 3 (07/21/25 10:00) Librium 25mg Po Qam Day 4 (07/22/25 07:00) Vital Signs Date Time Temp Pulse Resp B/P (MAP) Pulse Ox O2 Delivery O2 Flow Rate FiO2 07/19/25 07:34 97.7 100 18 168/85 (112) 97 97.7 07/19/25 04:57 97.7 101 16 158/94 (115) 96 97.7 Assessment/Plan Assessment/Plan Assessment: Acute pancreatitis, Hyperglycemia, Uncontrolled diabetes, ETOH dependance, Possible ETOH withdrawal, Liver cirrhosis, Plan: Admit to Med-Surg, NPO, IV hydration, Pain management, Banana bag daily, Tapering Librium dose, PRN Ativan, Accu checks with sliding scale, States the only home medication he was taking is insulin, Plan discussed with: Patient My Orders Orders - STEPHEN SETH Procedure Category Date Status Time Complete Blood Count LAB 07/19/25 Logged 09:08 Comprehensive LAB 07/19/25 Logged Metabolic Panel 09:08 Amylase LAB 07/19/25 Logged 09:08 Lipase LAB 07/19/25 Logged 09:08 Ammonia LAB 07/19/25 Logged 09:08 Admit ADMIT 07/19/25 Verified 09:43 Code Status CODE 07/19/25 Verified 09:43 Hydrocodone-Acet PHA 07/19/25 Verified 5/325mg Tab ([place] 09:45 Ondansetron Hcl PHA 07/19/25 Verified (Zofran) 09:45 Docusate Sodium PHA 07/19/25 Verified Capsule (Colace 09:45 Complete Blood Count LAB 07/20/25 Verified 04:00 Comprehensive LAB 07/20/25 Verified Metabolic Panel 04:00 Condition: Serious ARCHANA 07/19/25 Verified 09:43 Acetaminophen Tablet PHA 07/19/25 Verified (Tylenol Tablet) 09:45 Banana Bag D5w PHA 07/19/25 Verified 09:45 Librium 50mg Po Q8hr PHA 07/19/25 Verified Day 1 09:45 Librium 50mg Po Q12hr PHA 07/20/25 Verified Day 2 10:00 Librium 25mg Po Q12hr PHA 07/21/25 Verified X Day 3 10:00 Librium 25mg Po Qam PHA 07/22/25 Verified Day 4 07:00 Date of Service: Jul 19, 2025 Billing Provider: STEPHEN SETH Common Visit Codes: 25080-[id number] INP/OBS CARE (MOD) STEPHEN SETH Jul 19, 2025 10:20
[2025-07-19 10:24] LABS: Hematocrit 41.6 % (41.0-53.0); Hemoglobin 14.6 g/dL (13.5-17.5); Mean Corpuscular Hemoglobin 35.0 pg (28.0-32.0); Mean Corpuscular Volume 99.7 fL (80.0-100.0); Nucleated Red Blood Cells % 0.1 %
[2025-07-19 10:42] LABS: Albumin 3.6 g/dL (3.2-4.8); Amylase 108 U/L (30-118); Anion Gap 14 (5-15); BUN/Creatinine Ratio 10.6 (10.0-20.0); Blood Urea Nitrogen 9 mg/dL (9-23); Calcium 9.3 mg/dL (8.7-10.4); Chloride 100 mmol/L (98-107); Potassium 3.9 mmol/L (3.5-5.1); Total Protein 8.0 g/dL (5.7-8.2)
[2025-07-19 10:49] LABS: Alanine Aminotransferase 45 U/L (7-40); Alkaline Phosphatase 285 U/L (46-116); Bilirubin, Total 1.4 mg/dL (0.2-1.0); Carbon Dioxide 19 mmol/L (20-31); Glucose 361 mg/dL (74-106); Lipase 57 U/L (12-53); Sodium 133 mmol/L (136-145)
[2025-07-19] MEDS: FOLIC ACID 1 MG, MULTIPLE VITAMIN 10 ML, MAGNESIUM SULF SDV 50% 8 MEQ, THIAMINE INJ 100... INJ SCH (11:06)
[2025-07-19 12:22] LABS: Urine Protein, UAD 1+ (Negative)
[2025-07-19] MEDS: InsuLIN REG 1unit/0.01ml Soln (100units/ml) SC SCH (12:23)
[2025-07-19] MEDS: ACCU-CHEK COMFORT CURVE STRIP VI SCH (12:24)
[2025-07-19] MEDS: LACTULOSE 20Gm/30ML SOLN PO ONE (15:24)
[2025-07-19 16:18] VITALS: PULSE 101; RESP 16; O2SAT 96
[2025-07-19] MEDS ORDERED: INSULIN GLARGINE 15 UNIT SUBCUT SCH (22:00)
[2025-07-19] MEDS: INSULIN LANTUS (GLARGINE) 1 /0.01ml (100units/ml) SC SCH (22:00)
[2025-07-20 04:07] VITALS: PULSE 90; O2SAT 93
[2025-07-20 07:16] VITALS: BP 113/71; PULSE 90; RESP 18; TEMP 99.2; O2SAT 94
[2025-07-20 07:25] LABS: Hemoglobin 13.1 g/dL (13.5-17.5); Nucleated Red Blood Cells % 0.1 %
[2025-07-20 07:27] LABS: Hematocrit 36.9 % (41.0-53.0); Mean Corpuscular Hemoglobin 35.2 pg (28.0-32.0); Mean Corpuscular Volume 98.9 fL (80.0-100.0)
[2025-07-20 07:37] LABS: Alanine Aminotransferase 40 U/L (7-40); Anion Gap 9 (5-15); BUN/Creatinine Ratio 17.3 (10.0-20.0); Blood Urea Nitrogen 14 mg/dL (9-23); Carbon Dioxide 24 mmol/L (20-31); Chloride 104 mmol/L (98-107); Potassium 3.6 mmol/L (3.5-5.1); Sodium 137 mmol/L (136-145); Total Protein 6.5 g/dL (5.7-8.2)
[2025-07-20 07:38] LABS: Albumin 3.0 g/dL (3.2-4.8); Alkaline Phosphatase 219 U/L (46-116); Bilirubin, Total 1.1 mg/dL (0.2-1.0); Calcium 8.5 mg/dL (8.7-10.4); Glucose 267 mg/dL (74-106)
[2025-07-20 09:16] LABS: Triglycerides 144 mg/dL (< 150)
[2025-07-20 09:18] LABS: HDL Cholesterol 49 mg/dL (40-59)
[2025-07-20 09:19] LABS: Cholesterol 171 mg/dL (< 200)
[2025-07-20 09:23] LABS: INR 1.06 (0.9-1.15); Partial Thromboplastin Time 26.0 SEC (24.5-34.5); Prothrombin Time 11.2 sec (9.3-11.8)
[2025-07-20] MEDS: LACTULOSE 20Gm/30ML SOLN PO SCH (09:39)
[2025-07-20] MEDS ORDERED: LACTULOSE 20Gm/30ML SOLN PO SCH (10:00)
[2025-07-20] MEDS ORDERED: FOLIC ACID 1 MG in D5W 5% 50 ML INJ SCH (10:00)
[2025-07-20] MEDS: THIAMINE 100mg/ml INJ (200mg/2ml VIAL) IV SCH (10:04)
[2025-07-20 10:38] LABS: Hepatitis B Surface Antigen Negative (Negative)
[2025-07-20 10:59] LABS: Hepatitis C Antibody Negative (Negative)
[2025-07-20 11:18] LABS: Benzodiazephine Screen, Urine Neg (NEGATIVE)
[2025-07-20 11:21] LABS: Amphetamine Screen, Urine Neg (NEGATIVE); Barbiturate Scree,Urine Neg (NEGATIVE); Cannabinoid Screen, Urine Neg (NEGATIVE); Cocaine Screen, Urine Neg (NEGATIVE); Opiate Scree,Urine Neg (NEGATIVE); Phencyclidine Screen, Urine Neg (NEGATIVE)
[2025-07-20] MEDS ORDERED: DOXYCYCLINE 100 MG TAB/CAP PO SCH (11:30)
[2025-07-20] MEDS ORDERED: SODIUM CHLORIDE 0.9% 1,000 ML IV SCH (11:30)
--- NOTE | 2025-07-20 16:00 | DVHDSRES ---
Discharge Summary Date of Admission Resident Creating Document: TIFFANI LUNDY RESIDENT Jul 19, 2025 at 09:43 Date of Discharge: Jul 20, 2025 Admitting Diagnosis AcutePancreatitis/acute gastroenteritis Labs/Diagnostic Data: Laboratory Results Test 07/20/25 11:33 07/20/25 11:19 07/20/25 10:35 07/20/25 09:33 Lactic Acid Level 1.3 mmol/L (0.4-2.0) HIV (1&2) Antibody Negative (Negative) Troponin I High Sensitivity < 3 ng/L (</=54) Urine Osmolality 589 mOsm/kg Urine Opiates Screen Neg (NEGATIVE) Urine Fentanyl Screen Neg (NEGATIVE) Urine Barbiturates Screen Neg (NEGATIVE) Urine Phencyclidine Screen Neg (NEGATIVE) Urine Amphetamines Screen Neg (NEGATIVE) Urine Benzodiazepines Screen Neg (NEGATIVE) Urine Cocaine Screen Neg (NEGATIVE) Urine Cannabinoids Screen Neg (NEGATIVE) POC Glucose 219 mg/dl (70-106) Test 07/20/25 06:56 07/19/25 10:33 07/19/25 10:00 White Blood Count 3.2 10^3/uL (4.4-10.8) Red Blood Count 3.73 10^6/uL (4.5-5.90) Hemoglobin 13.1 g/dL (13.5-17.5) Hematocrit 36.9 % (41.0-53.0) Mean Corpuscular Volume 98.9 fL (80.0-100.0) Mean Corpuscular Hemoglobin 35.2 pg (28.0-32.0) Mean Corpuscular Hemoglobin Concent 35.5 g/dL (32.0-36.0) Red Cell Distribution Width 15.8 % (11.8-14.3) Platelet Count 84 10^3/uL (140-450) Mean Platelet Volume 8.1 fL (6.9-10.8) Neutrophils (%) (Auto) 51.2 % (37.0-80.0) Lymphocytes (%) (Auto) 30.7 % (10.0-50.0) Monocytes (%) (Auto) 13.2 % (0.0-12.0) Eosinophils (%) (Auto) 3.7 % (0.0-7.0) Basophils (%) (Auto) 1.2 % (0.0-2.0) Neutrophils # (Auto) 1.6 10 ^3/uL (1.6-8.6) Lymphocytes # (Auto) 1.0 10 ^3/uL (0.4-5.4) Monocytes # (Auto) 0.4 10 ^3/uL (0-1.3) Eosinophils # (Auto) 0.1 10 ^3/uL (0-0.8) Basophils # (Auto) 0 10 ^3/uL (0-0.2) Nucleated Red Blood Cells 0.1 % Prothrombin Time 11.2 sec (9.3-11.8) Prothrombin Time INR 1.06 (0.9-1.15) Activated Partial Thromboplast Time 26.0 SEC (24.5-34.5) Sodium Level 137 mmol/L (136-145) Potassium Level 3.6 mmol/L (3.5-5.1) Chloride Level 104 mmol/L (98-107) Carbon Dioxide Level 24 mmol/L (20-31) Anion Gap 9 (5-15) Blood Urea Nitrogen 14 mg/dL (9-23) Creatinine 0.81 mg/dL (0.700-1.30) Glomerular Filtration Rate Calc 111 mL/min (>90) BUN/Creatinine Ratio 17.3 (10.0-20.0) Serum Glucose 267 mg/dL (74-106) Hemoglobin A1c 9.9 % A1C (<5.7) Serum Osmolality 296 mOsm/kg (278-298) Calcium Level 8.5 mg/dL (8.7-10.4) Total Bilirubin 1.1 mg/dL (0.2-1.0) Gamma Glutamyl Transpeptidase 738 U/L (<73) Aspartate Amino Transferase (AST) 55 U/L (13-40) Alanine Aminotransferase (ALT) 40 U/L (7-40) Alkaline Phosphatase 219 U/L (46-116) Ammonia 83 umol/L (11-32) Lactate Dehydrogenase 174 U/L (120-246) Total Protein 6.5 g/dL (5.7-8.2) Albumin 3.0 g/dL (3.2-4.8) Triglycerides Level 144 mg/dL (< 150) Cholesterol Level 171 mg/dL (< 200) LDL Cholesterol 102 mg/dL (< 100) HDL Cholesterol 49 mg/dL (40-59) Vitamin B12 Level 1014 pg/mL (211-911) Vitamin D 25-Hydroxy 24.3 ng/mL (30.0-100) Folic Acid 20.58 ng/mL (>5.38) Thyroid Stimulating Hormone (TSH) 1.01 uIU/mL (0.55-4.78) Plasma/Serum Blood Alcohol < 3.0 mg/dL (<10) Hepatitis A IgM Antibody Negative Hepatitis B Surface Antigen Negative (Negative) Hepatitis B Core IgM Antibody Negative (Negative) Hepatitis C Antibody Negative (Negative) Urine Color Light-yellow (Yellow) Urine Clarity Clear (Clear) Urine pH 5.5 (5.0-9.0) Urine Specific [place] 1.028 (1.001-1.035) Urine Protein 1+ (Negative) Urine Ketones 2+ (Negative) Urine Blood Trace /uL (Negative) Urine Nitrite Negative (Negative) Urine Bilirubin Negative (Negative) Urine Urobilinogen Normal mg/dL (Negative) Urine Leukocyte Esterase Negative /uL (Negative) Urine RBC 1 /hpf (0 - 3) Urine Microscopic WBC 2 /HPF (0-3) Urine Squamous Epithelial Cells Few /hpf (<5) Urine Bacteria Few /hpf (None Seen) Urine Glucose 4+ mg/dL (Normal) Amylase Level 108 U/L (30-118) Lipase 57 U/L (12-53) Other Laboratory Tests 07/20/25 06:56 Brief Hx & Hospital Course: Wisam mahmood is a 44-year-old male with past medical history of diabetes, liver cirrhosis, ETOH dependance, and peripheral neuropathy, who came to the hospital for abdominal pain. Patient states he has been experiencing abdominal pain for a few days. Patient also reported having hematuria and suprapubic pain. He has a history of liver cirrhosis and heavy alcohol use. He states the pain was worsening prompting him to come to the hospital. Hospital course-she lab workup revealed patient with a leukopenia, thrombocytopenia. Transaminitis. Uncontrolled diabetes mellitus with hemoglobin A1c 9.9. during hospital course patient was treated conservatively with the insulin for hyperglycemia, also with the IV fluid, antibiotic and other supportive management. Patient left AMA. Patient's condition was undetermined on discharge. Assessment Acute pancreatitis Acute gastroenteritis likely viral Suprapubic abscess/folliculitis Gastroparesis Neuropathy Suspected alcohol intoxication/withdrawal Suspected acute hepatic failure Alcoholic Cirrhosis of liver Dysuria Plan Patient left AMA Plan of care discussed with Dr. Mclaughlin Operations or Procedures [place] [id number] Ph: [phone] DIAGNOSTIC IMAGING Diagnostic Imaging Report : [id number] Signed PATIENT: WISAM MAHMOOD ACCT: [id number] UNIT: [id number] : 1980 LOC: ER ROOM / BED: / AGE / SEX: 44 / M ADM STATUS: REG ER SERVICE 09 ORDERING PHYSICIAN: FACUNDO MATHEW MD PROCEDURE(s): GBUS - GALLBLADDER REASON: pain ORDER NUMBER(s): [id number], ACCESSION NUMBER(s): [id number] CLINICAL HISTORY: pain TECHNIQUE: Transabdominal sonogram was performed of the right upper quadrant. COMPARISON: US ABDOMEN LIMITED on DOS: 04/15/25, US GALLBLADDER on DOS: 12/02/24, ABDL on DOS: 03/31/22 FINDINGS: The liver is nodular contour and increased in echogenicity. There is no focal parenchymal abnormality. No intrahepatic biliary ductal dilatation is present. The liver measures 15.4 cm. There is a recanalized umbilical vein. The gallbladder demonstrates moderate 6 mm wall thickening with no gallstone seen. Sonographic etienne's sign was reported to be absent. The common bile duct is normal in caliber, measuring 3 mm. The visualized pancreas is grossly unremarkable. The right kidney is normal in echogenicity and measures 12.5 cm in length. There is no evidence for hydronephrosis or calculi. IMPRESSION: Hepatic steatosis with cirrhotic liver morphology. Moderate nonspecific gallbladder wall thickening. Recanalized umbilical vein. ATED BY: ACACIA ABEL MD DICTATED DATE/TIME: 07/18/252210 SIGNED BY: ACACIA ABEL MD SIGNED DATE/TIME: 07/18/252210 CC: [address] [id number] Ph: [phone] DIAGNOSTIC IMAGING Diagnostic Imaging Report : [id number] Signed PATIENT: WISAM MAHMOOD ACCT: [id number] UNIT: [id number] : 1980 LOC: ER ROOM / BED: / AGE / SEX: 44 / M ADM STATUS: REG ER SERVICE 0753 ORDERING PHYSICIAN: FACUNDO MATHEW MD PROCEDURE(s): ABPL - CT AB PEL WO CON-NO ORAL OR IV REASON: ABDOMINAL PAIN ORDER NUMBER(s): [id number], ACCESSION NUMBER(s): [id number] EXAM: CT CT AB PEL WO CON-NO ORAL OR IV History: ABDOMINAL PAIN Comparison Study: CT CT AB PEL WO CON-NO ORAL OR IV on DOS: 06/17/25. TECHNIQUE: Multidetector spiral CT of the abdomen and pelvis was performed from lung bases to pubic symphysis. Imaging was performed without intravenous contrast. Coronal and sagittal multiplanar reformats were obtained from the axial data set by the technologist. Radiation Dose : 1. Abdomen/Pelvis: CTDIvol 10.96 mGy, DLP 677.96 mGy*cm. FINDINGS: Evaluation of vasculature and solid organs is limited due to lack of intravenous contrast use. Lung Bases: Lung bases are clear. Visualized portions of the heart and pericardium are unremarkable. Liver: The liver is normal in size. There is a nodular contour. Limited evaluation for hepatic masses without intravenous contrast. Recanalized paraumbilical vein noted. Gallbladder and Biliary Tree: The gallbladder is unremarkable. No intrahepatic or extrahepatic biliary ductal dilatation. Spleen: Unremarkable Pancreas: The pancreas is grossly unremarkable. Adrenal Glands: Unremarkable Kidneys: Kidneys are unremarkable without calculi or hydronephrosis. GI tract: The stomach is grossly normal in appearance. No evidence of small bowel wall thickening or abnormal dilatation to suggest bowel obstruction. The colon is unremarkable. The appendix is normal in caliber. Peritoneum/mesentery/retroperitoneum. No evidence of free intraperitoneal air. No ascites. Lymph nodes: Increased number of retroperitoneal and leonela hepatis lymph nodes which are subcentimeter in size. Abdominal Wall: Unremarkable. Vasculature: The visualized abdominal aorta is normal in size and caliber. Evaluation of abdominal and pelvic vessels is limited due to lack of intravenous contrast. Multiple splenic varices noted. Urinary Bladder: Grossly unremarkable for degree of distention. Pelvic Organs: Unremarkable Musculoskeletal: No aggressive focal bony lesions, acute fractures or dislocation. Disc degeneration at L5-S1. Soft tissues: Bilateral fat containing inguinal hernias. IMPRESSION: 1. No acute process in the abdomen or pelvis. 2. Cirrhosis and portal hypertension. 3. Increased number of retroperitoneal and leonela hepatis lymph nodes without pathologic enlargement. ATED BY: SAGAR ATKINS MD DICTATED DATE/TIME: 07/19/25840 SIGNED BY: SAGAR ATKINS MD SIGNED DATE/TIME: 07/19/25840 CC: Condition at Discharge: Undetermined Final Diagnosis/Problems List Acute pancreatitis Acute gastroenteritis, infectious etiology likely. Suprapubic abscess/folliculitis Gastroparesis, possible acute flareup Neuropathy Suspected alcohol intoxication/withdrawal Suspected acute hepatic failure Alcoholic Cirrhosis of liver Dysuria Discharge Disposition: AMA Discharge Instruct/Medications Scheduled Atorvastatin Calcium (Atorvastatin Calcium), 20 MG PO HS Gabapentin (Gabapentin), 1 CAP PO DAILY Glucose Blood (Easy Touch Glucose Test S), 1 EA ACHS Insulin Aspart (Insulin Aspart), 100 UNIT SC AC Insulin Aspart Protamine & Asp (Insulin Aspart Protamine/ (70-30) 100 Unit/ml), 5 UNITS SC BID Insulin Glargine (Lantus Solostar), 20 UNIT SC HS Insulin Glargine (Insulin Glargine Solostar), 15 UNITS SUBCUT BID Insulin Lispro (Humalog Kwikpen), 6 UNIT SC TIDWMEALS Lisinopril (Lisinopril), 1 TAB PO DAILY Simvastatin (Simvastatin), 1 TAB PO HS Durable Medical Equipment Blood Glucose Monitoring Suppl (mm Easy Touch Blood Gluco W/Device), KIT XX, (DME) Blood Glucose Monitoring Suppl (Easy Touch Glucose Monito), EA XX ACHS, (DME) Blood Glucose Monitoring Suppl (Blood Glucose Monitoring W/Device), KIT XX TIDWMEALS, (DME) Blood Glucose Monitoring Suppl (D-Care Glucometer Kit/Glu W/Device), KIT XX ACHS, (DME) Lancets (Easy Touch Lancets), G XX QID, (DME) Lancets ([employer] Lancets Thin 26G), 26G SC ACHS, (DME) Lancets (Freestyle Lancets), EA XX TIDWMEALS, (DME) Lancets (Freestyle Lancets), BOX XX ACHS, (DME) Discharge Statement: "Patient was advised to return to the ER or call 911 if any headaches, dizziness, shortness of breath, chest pain, abdominal pain, bleeding, fevers, or worsening of medical condition. Patient was counseled about treatment plan, medications, possible side effects, patientverbalized understanding. All questions were answered to the best of my ability. This discharge took greater then 30 minutes in planning, reviewing documentation, counseling the patient, and discussing with other team members." ASSESSMENT ASSESSMENT Assessment Visit Coding STANDARD RES Billing Provider: ANUP DOSHI MD Date of Service if different f: Jul 20, 2025 Common Visit Codes: 65170-WHQ/OBS DISCH DAY >30min TIFFANI LUNDY RESIDENT Jul 20, 2025 16:00 ANUP DOSHI MD Jul 21, 2025 09:30
== END 2025-07-20 12:54 | disposition left against medical advice (07) | DRG 282 ==
LOC: EDBD 19:52 → ER 19:52 → OVERFLOW 07-19 09:43
PROVIDERS: ADMIT Student in an Organized Health Care Education/Training Program; ATTEND Student in an Organized Health Care Education/Training Program
DX: K85.90 Acute pancreatitis without necrosis or infection, unspecified (principal); K72.00 Acute and subacute hepatic failure without coma; E11.43 Type 2 diabetes mellitus with diabetic autonomic (poly)neuropathy; I10 Essential (primary) hypertension; F10.239 Alcohol dependence with withdrawal, unspecified; K70.30 Alcoholic cirrhosis of liver without ascites; A08.4 Viral intestinal infection, unspecified; E11.65 Type 2 diabetes mellitus with hyperglycemia; E78.5 Hyperlipidemia, unspecified; K31.84 Gastroparesis; Z53.29 Procedure and treatment not carried out because of patient's decision for other reasons; L73.9 Follicular disorder, unspecified; F10.229 Alcohol dependence with intoxication, unspecified; Y90.9 Presence of alcohol in blood, level not specified; Z59.00 Homelessness unspecified; Z88.0 Allergy status to penicillin; Z83.3 Family history of diabetes mellitus; Z79.4 Long term (current) use of insulin
CPT/HCPCS: 36415; 74176; 76705; 80053; 80061; 80074; 80307; 80320; 81001; 82140; 82150; 82306; 82607; 82746; 82962; 82977; 83036; 83605; 83615; 83690; 83930; 83935; 84443; 84484; 85025; 85610; 85730; 86703; 87086; 87088; 87186; 96361; 96374; G0378; J1815; J7060

== ENCOUNTER 2025-07-20 22:58 | Inpatient (IN) | payer MEDICAID ==
[~2025-07-20] VITALS: Ht 167.6 cm; Wt 70.0 kg
--- NOTE | 2025-07-21 00:46 | ED.PDOC ---
History of Present Illness HPI Comments 44 y/o M is BIBA for c/c of alcohol intoxication. 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 Patient is a poor historian. He endorses on feeling nauseous and his right foot and shoulder hurting at this time. History of al cohol abuse. REVIEW OF SYSTEMS: General: No fever, no chills, HEENT: No neck pain, no blurred vision Cardiac: No chest pain. No palpitations. Lungs: No shortness of breath, GI: No abdominal pain, no vomiting Musculoskeletal: No joint pain , no back pain Skin: No rash, no wound Neuro: No headache, no dizziness, no syncope PHYSICAL EXAM: General: Awake, alert and oriented. No acute distress. Skin: Skin in warm, dry and intact without rashes or lesions. HEENT: The head is normocephalic and atraumatic. Conjunctivae are clear without exudates or hemorrhage. Sclera is non-icteric. Neck: Normal range of motion. No JVD. Cardiac: Regular rate Respiratory: No signs of respiratory distress. No Stridor. Extremities: Upper and lower extremities are atraumatic in appearance without deformity. Neurological: The patient is awake, alert and oriented to person, place, and time. Speech is slurred and slow. There is no facial asymmetry. Psychiatric: Appropriate mood and affect. Good judgement and insight. Chief Complaint: ETOH Time Seen by MD: 23:43 Reviewed Notes: Nurses Notes, Medications, Allergies Allergies: Coded Allergies: Penicillins (Unverified Allergy, Unknown, 02/28/25) Information Source: Patient, Emergency Med Personnel Mode of Arrival: EMS Severity: Moderate Timing: Hours Duration: Since onset Prehospital treatment: 12 Lead EKG, [facility] Past Medical History PAST MEDICAL HISTORY: DM, HTN, Liver Surgical History: Denies all surgeries Family History Family History: Reviewed,noncontributory to illness Social History Smoker: Non-Smoker Alcohol: Heavy Drugs: Denies Drug Use Lives In: Home Was a procedure done? Was a procedure done?: No Differential Dx Considerations may include: Differential diagnosis considered includes but not limited to intracranial hemorrhage, stroke, head injury, seizure, metabolic disturbance, electrolyte imbalance, infection, substance intoxication, delirium tremens, alcohol abuse, psychiatric cause, other systemic illness, other X-Ray, Labs, Meds, VS Vital Signs Date Time Temp Pulse Resp B/P (MAP) Pulse Ox O2 Delivery O2 Flow Rate FiO2 07/21/25 05:43 104 18 96 Room Air* 0 21 07/21/25 05:42 98.3 104 18 130/81 (97) 96 98.3 07/20/25 23:00 97.9 100 20 133/73 99 97.9 Lab Test 07/21/25 02:03 07/21/25 01:52 Range/Units Blood Gas Specimen Type Arterial Blood Gas Sample Site Left radial Blood Gas Patient Temperature 37.0 Arterial Blood Date Drawn [id number] Arterial Blood pH 7.372 7.350-7.450 Arterial Blood Partial Pressure CO2 28.4 L 35.0-48.0 mmHg Arterial Blood Partial Pressure O2 82.4 L 83.0-108.0 mmHg Arterial Blood HCO3 16.1 L 21.0-28.0 mmol/L Arterial Blood Oxygen Saturation 94.5 94.0-98.0 % Arterial Blood Base Excess -7.5 L -2.0-3.0 mmol/L Arterial Blood Oxyhemoglobin 92.8 L 94.0-98.0 % Arterial Blood Carboxyhemoglobin 1.2 0.5-1.5 % Arterial Blood Methemoglobin 0.6 0.0-1.5 % Arterial Blood Deoxyhemoglobin 5.4 H 0.0-5.0 % Abimael Test Yes Blood Gas Total Hemoglobin 15.00 13.5-17.5 g/dL Blood Gas Modality Room air FiO2 % 21.0 White Blood Count 3.5 L 4.4-10.8 10^3/uL Red Blood Count 4.15 L 4.5-5.90 10^6/uL Hemoglobin 14.4 13.5-17.5 g/dL Hematocrit 42.0 41.0-53.0 % Mean Corpuscular Volume 101.1 H 80.0-100.0 fL Mean Corpuscular Hemoglobin 34.7 H 28.0-32.0 pg Mean Corpuscular Hemoglobin Concent 34.4 32.0-36.0 g/dL Red Cell Distribution Width 16.0 H 11.8-14.3 % Platelet Count 102 L 140-450 10^3/uL Mean Platelet Volume 7.9 6.9-10.8 fL Neutrophils (%) (Auto) 54.4 37.0-80.0 % Lymphocytes (%) (Auto) 30.3 10.0-50.0 % Monocytes (%) (Auto) 11.3 0.0-12.0 % Eosinophils (%) (Auto) 3.3 0.0-7.0 % Basophils (%) (Auto) 0.7 0.0-2.0 % Neutrophils # (Auto) 1.9 1.6-8.6 10 ^3/uL Lymphocytes # (Auto) 1.1 0.4-5.4 10 ^3/uL Monocytes # (Auto) 0.4 0-1.3 10 ^3/uL Eosinophils # (Auto) 0.1 0-0.8 10 ^3/uL Basophils # (Auto) 0 0-0.2 10 ^3/uL Nucleated Red Blood Cells 0.2 % Sodium Level 139 136-145 mmol/L Potassium Level 3.7 3.5-5.1 mmol/L Chloride Level 105 98-107 mmol/L Carbon Dioxide Level 22 20-31 mmol/L Anion Gap 12 5-15 Blood Urea Nitrogen 8 L 9-23 mg/dL Creatinine 0.90 0.700-1.30 mg/dL Glomerular Filtration Rate Calc 107 >90 mL/min BUN/Creatinine Ratio 8.9 L 10.0-20.0 Serum Glucose 368 H 74-106 mg/dL Hemoglobin A1c Pending Calcium Level 8.7 8.7-10.4 mg/dL Magnesium Level 1.8 1.6-2.6 mg/dL Total Bilirubin 0.8 0.2-1.0 mg/dL Aspartate Amino Transferase (AST) 74 H 13-40 U/L Alanine Aminotransferase (ALT) 47 H 7-40 U/L Alkaline Phosphatase 230 H 46-116 U/L Total Protein 7.5 5.7-8.2 g/dL Albumin 3.4 3.2-4.8 g/dL Lipase 57 H 12-53 U/L Beta-Hydroxybutyric Acid 0.721 H < 0.4 mmol/L Plasma/Serum Blood Alcohol Pending Current Medications Medications (Trade) Dose Ordered Sig/Rossy Route Start Time Stop Time Status Last Admin Sodium Chloride 1,000 ml @ 1,000 mls/hr Q1H ONCE IV 07/21/25 01:30 07/21/25 02:29 DC 07/21/25 01:45 Time of 1ST Reevaluation: 00:44 Reevaluation 1ST: Unchanged Patient Education/Counseling: Other (Patient is a minor) Family Education/Counseling: No Family Present SEPSIS Sepsis Screen Date sepsis recognized/suspect: Jul 20, 2025 Time Sepsis recognized/suspect: 2299 Recent Procedure: No On Antibiotic Therapy: No Respiratory Rate >20: No Heart Rate >90: Yes Temp<36 C (96.8 F) or >38.3 C: No SBP <90 or MAP <65 mmHG: No New Acute Mental Status Change: No Is the patient on CPAP, BIPAP,: No Physician Orders Abg W/ Co-Ox (07/21/25 01:26) Saline Lock (07/21/25 01:26) Urinalysis (07/21/25:26) Rapid Strep Screen - Throat (07/21/25 01:34) Dextrose 50% Syringe (07/21/25 03:30) Glucose Blood (Accu-Chek Comfort Curve T (07/21/25 21:15) Blood Alcohol (07/21/25 05:12) Consistent Carb(Ccho)Diabetes (07/21/25 Breakfast) Metoprolol Tartrate Tablet (Lopressor Ta (07/21/25 10:00) Glucose Blood (Accu-Chek Comfort Curve T (07/21/25 08:00) Insulin R (Human) (Insulin R) (07/21/25 08:00) Dextrose 50% Syringe (07/21/25 05:15) Allergies (07/21/25 05:12) Code Status (07/21/25 05:12) Sodium Chloride 0.9% (07/21/25 05:15) Oxygen Per Hour (07/21/25 05:12) Hydrocodone-Acet 5/325mg Tab ([place] 5/32 (07/21/25 05:15) Ondansetron Hcl (Zofran) (07/21/25 05:15) Docusate Sodium Capsule (Colace Capsule) (07/21/25 05:15) Fall Risk Precautions In Place QSHIFT (07/21/25 05:12) Complete Blood Count (07/22/25 04:00) Comprehensive Metabolic Panel (07/22/25 04:00) Condition: Serious (07/21/25 05:12) Maintain Bed Rest (07/21/25 05:12) Sequential Compression Device (07/21/25 ) Ibuprofen Tablet (Motrin Tablet) (07/21/25 05:15) Hemoglobin A1c (07/21/25 05:52) Folic Acid Tablet (07/21/25 10:00) Thiamine Tab (07/21/25 10:00) Multiple Vitamin Tablet (Mvi Tab) (07/21/25 10:00) Vital Signs Date Time Temp Pulse Resp B/P (MAP) Pulse Ox O2 Delivery O2 Flow Rate FiO2 07/21/25 05:43 104 18 96 Room Air* 0 21 07/21/25 05:42 98.3 104 18 130/81 (97) 96 98.3 07/20/25 23:00 97.9 100 20 133/73 99 97.9 Laboratory Tests Test 07/21/25 01:52 White Blood Count 3.5 10^3/uL (4.4-10.8) L Medications Medications Dose Ordered Sig/Rossy Route Start Time Stop Time Status Last Admin Dose Admin Sodium Chloride 1,000 ml @ 1,000 mls/hr Q1H ONCE IV 07/21/25 01:30 07/21/25 02:29 DC 07/21/25 01:45 Departure 1 Departure Time of Disposition: 04:22 Impression: Primary Impression: Diabetes mellitus with hyperglycemia Additional Impression: Uncontrolled diabetes mellitus Disposition: 09 ADMITTED INPATIENT Condition: Stable Comments MDM: Extensive evaluation was performed in attempt to identify or rule out: (See differential diagnosis section) The following tests were ordered, and results were reviewed by me and discussed with patient: (See diagnostic results section) The following test were independently interpreted by me: Rapid strep screening, lipase, CBC, CMP, UA, magnesium, beta hydroxybutyrate I reviewed and agreed with the following test results read by other providers: N/A I reviewed the following notes from the pt's past medical encounters: N/A Additional information was gathered from interviewing the following independent historians: N/A Discussion of management or test interpretation with external physician/other qualified health health care coach: N/A Addressed [ ]one or more chronic illnesses with severe exacerbation, progression, or side effects of treatment: [ ]an acute or chronic illness that poses a threat to life or bodily function: [ ] Decision regarding hospitalization or escalation of hospital level of care: Risk and benefits of admission for further treatment of patient's condition was considered. Due to patient's current clinical condition, high risk of decline and poor outcome if discharged and need for further inpatient management and monitoring, patient will be admitted to the hospital. Drug therapy requiring intensive monitoring for toxicity: N/A Parenteral controlled substances: N/A Decision regarding elective major surgery with identified patient or procedure risk factors: N/A Decision regarding emergency major surgery: N/A Decision not to resuscitate or to de-escalate care because of poor prognosis: N/A Diagnosis or treatment significantly limited by social determinants of health: N/A Decision regarding hospitalization or escalation of hospital level of care: Risks and benefits of admission for further treatment of patient's condition was considered however due to patient's stable condition patient will be discharged to follow up closely or return to care for worsening of condition or inability to follow up. Critical Care Note Critical Care Time?: No Stability Stability form required: No Heart Score Heart Score: Heart Score Response (Comments) Value History N/A 0 EKG N/A 0 Age N/A 0 Risk Factors N/A 0 Troponin N/A 0 Total 0 I personally scribed for ONEL ZUNIGA MD ([email or web address]) on 07/21/25 at 00:46. Electronically submitted by Jd Gamez ([email or web address]). I personally scribed for ONEL ZUNIGA MD ([email or web address]) on 07/21/25 at 06:11. Electronically submitted by Jd Gamez ([email or web address]). ONEL ZUNIGA MD Jul 21, 2025 00:46
[2025-07-21] MEDS: SODIUM CHLORIDE 0.9% 1,000 ML IV ONE ×2 (01:45→06:06)
[2025-07-21 02:03] LABS: Hematocrit 42.0 % (41.0-53.0); Hemoglobin 14.4 g/dL (13.5-17.5)
[2025-07-21 02:05] LABS: Mean Corpuscular Hemoglobin 34.7 pg (28.0-32.0); Mean Corpuscular Volume 101.1 fL (80.0-100.0); Nucleated Red Blood Cells % 0.2 %
[2025-07-21 02:21] LABS: Albumin 3.4 g/dL (3.2-4.8); Anion Gap 12 (5-15); BUN/Creatinine Ratio 8.9 (10.0-20.0); Calcium 8.7 mg/dL (8.7-10.4); Carbon Dioxide 22 mmol/L (20-31); Chloride 105 mmol/L (98-107); Magnesium 1.8 mg/dL (1.6-2.6); Potassium 3.7 mmol/L (3.5-5.1); Sodium 139 mmol/L (136-145); Total Protein 7.5 g/dL (5.7-8.2)
[2025-07-21 02:22] LABS: Bilirubin, Total 0.8 mg/dL (0.2-1.0)
[2025-07-21 02:27] LABS: Base Excess -7.5 mmol/L (-2.0-3.0)
[2025-07-21 02:44] LABS: Alanine Aminotransferase 47 U/L (7-40); Alkaline Phosphatase 230 U/L (46-116); Blood Urea Nitrogen 8 mg/dL (9-23); Glucose 368 mg/dL (74-106); Lipase 57 U/L (12-53)
[2025-07-21] MEDS ORDERED: DEXTROSE (50%) 50ML SYRG IV PRN ×3 (03:30→05:15)
[2025-07-21] MEDS ORDERED: DOCUSATE SOD 100 MG CAP PO PRN (05:15)
[2025-07-21] MEDS ORDERED: ONDANSETRON HCL 4 MG/2 ML VIAL IV PRN (05:15)
[2025-07-21] MEDS ORDERED: HYDROcodone-ACET 5/325MG TAB PO PRN (05:15)
[2025-07-21] MEDS ORDERED: IBUPROFEN 600 MG TAB PO PRN (05:15)
[2025-07-21 05:43] VITALS: PULSE 104; RESP 18; O2SAT 96
[2025-07-21] MEDS: InsuLIN REG 1unit/0.01ml Soln (100units/ml) IV ONE (06:05)
[2025-07-21] MEDS: POTASSIUM EFFERVESENT TAB 25 MEQ PO ONE (06:05)
[2025-07-21] MEDS: POTASSIUM CHL 20MEQ/100ML 100 ML IV ONE (06:05)
[2025-07-21] MEDS: SODIUM CHLORIDE 0.9% 1,000 ML IV SCH (06:06)
[2025-07-21] MEDS: ACCU-CHEK COMFORT CURVE STRIP VI STA (06:06)
--- NOTE | 2025-07-21 06:14 | DVHHP2 ---
History of Present Illness Reason for Visit: Diabetes mellitus with hyperglycemia History of Present Illness The patient is a 44-year-old male with past medical history of liver disease, diabetes mellitus, and hypertension who presented to [facility] ED for evaluation of alcohol intoxication. Patient reports he has been experiencing generalized weakness, after drinking copious amounts of alcohol. He endorses on feeling nauseous and his right foot and shoulder hurting at this time. Patient was seen and evaluated in the ED, laboratory data shows WBC 3.5, platelets 102, sodium 139, potassium 3.7, BUN 8, creatinine 0.90, glucose 368, hemoglobin A1c 12, GFR 107, calcium 8.7, lipase 57, AST 174, ALT 147, alkaline phos 230, total bilirubin 0.8, serum alcohol 163.0, blood pressure 133/73, heart rate 100, temperature 97.9 F, O2 saturation 99% on room air. Please see medication orders section in the computer. On my assessment, patient denied chest pain, no headache, dizziness, diaphoresis, shortness of breaths, no abdominal pain, diarrhea, nausea, vomiting, fever, no chills. Patient was admitted for further evaluation and medical management. Past Medical History DM, HTN, Liver disease Past Surgical History Denies all surgeries Family History Reviewed, noncontributory to the management of this case. Past Social History The patient lives at home, denies smoking, drinks alcohol heavily, denies illicit drugs abuse. Review of Systems Constitutional: Yes: Weakness; No: Fever, Chills, Sweats, Malaise, Other Eyes: No: Pain, Vision change, Conjunctivae inflammation, Eyelid inflammation, Other, Redness ENT: No: Ear pain, Ear discharge, Nose pain, Nose discharge, Nose congestion, Mouth pain, Mouth swelling, Throat pain, Throat swelling, Other Respiratory: No: Cough, Dry, Shortness of breath, SOB with excertion, Wheezing, Hemoptysis, Pleuritic Pain, Sputum, Wheezing, Other Cardiovascular: No: Chest Pain, Palpitations, Orthopnea, Paroxysmal Noc. Dyspnea, Edema, Lt Headedness, Other Gastrointestinal: No: Nausea, Vomiting, Abdominal Pain, Diarrhea, Constipation, Melena, Hematochezia, Other Genitourinary: No Dysuria, No Frequency, No Incontinence, No Hematuria, No Retention, No Other Musculoskeletal: No: other, neck pain, shoulder pain, arm pain, back pain, hand pain, leg pain, foot pain Skin: No: Rash, Lesions, Jaundice, Bruising, Other Neurological: No: Weakness, Numbness, Incoordination, Change in speech, Confusion, Seizures, Other Allergies: Coded Allergies: Penicillins (Unverified Allergy, Unknown, 02/28/25) Medications Current Medications Medications Dose Ordered Sig/Rossy Route Start Time Stop Time Status Last Admin Dose Admin Dextrose 50 ml PRN PRN IV 07/21/25 03:30 Metoprolol Tartrate 25 mg BID PO 07/21/25 10:00 Diagnostic Test (Pha) 1 strip IQ4HR 07/21/25 08:00 Insulin Human Regular IQ4HR SC 07/21/25 08:00 Dextrose 50 ml UD PRN IV 07/21/25 05:15 Sodium Chloride 1,000 ml @ 60 mls/hr [id number] IV 07/21/25 05:15 Acetaminophen/ Hydrocodone Bitart 1 tab Q4HP PRN PO 07/21/25 05:15 Ondansetron HCl 4 mg Q4HP PRN IV 07/21/25 05:15 Docusate Sodium 100 mg BIDPRN PRN PO 07/21/25 05:15 Ibuprofen 600 mg Q6HP PRN PO 07/21/25 05:15 Folic Acid 1 mg DAILY PO 07/21/25 10:00 Thiamine HCl 100 mg DAILY PO 07/21/25 10:00 Multivitamins 1 tab DAILY PO 07/21/25 10:00 Exam Vital Signs Vital Signs Date Time Temp Pulse Resp B/P (MAP) Pulse Ox O2 Delivery O2 Flow Rate FiO2 07/21/25 05:43 104 18 96 Room Air* 0 21 07/21/25 05:42 98.3 130/81 (97) 98.3 General Appearance: Alert, Oriented X3, Cooperative, No acute distress HEENT: Atraumatic, PERRLA, EOMI, Mucous membr. moist/pink Respiratory: Normal air movement Cardiovascular: Regular rate, Normal S1, Normal S2, No murmurs Abdominal: Normal bowel sounds, Soft, No tenderness, No hepatospenomegaly, No masses Extremities: No clubbing, No cyanosis, No edema, Normal pulses, No tenderness/swelling Skin: No rashes, No significant lesion Neuro: Normal speech, Normal tone, Sensation intact, Cranial nerves 3-12 NL, Reflexes 2+, Other (Generalized weakness) Psych/Mental Status: Mental status NL, Mood NL Labs/Xrays Labs Test 07/21/25 05:53 07/21/25 02:03 07/21/25 01:52 Range/Units POC Glucose 320 H 70-106 mg/dl Blood Gas Specimen Type Arterial Blood Gas Sample Site Left radial Blood Gas Patient Temperature 37.0 Arterial Blood Date Drawn [id number] Arterial Blood pH 7.372 7.350-7.450 Arterial Blood Partial Pressure CO2 28.4 L 35.0-48.0 mmHg Arterial Blood Partial Pressure O2 82.4 L 83.0-108.0 mmHg Arterial Blood HCO3 16.1 L 21.0-28.0 mmol/L Arterial Blood Oxygen Saturation 94.5 94.0-98.0 % Arterial Blood Base Excess -7.5 L -2.0-3.0 mmol/L Arterial Blood Oxyhemoglobin 92.8 L 94.0-98.0 % Arterial Blood Carboxyhemoglobin 1.2 0.5-1.5 % Arterial Blood Methemoglobin 0.6 0.0-1.5 % Arterial Blood Deoxyhemoglobin 5.4 H 0.0-5.0 % Abimael Test Yes Blood Gas Total Hemoglobin 15.00 13.5-17.5 g/dL Blood Gas Modality Room air FiO2 % 21.0 White Blood Count 3.5 L 4.4-10.8 10^3/uL Red Blood Count 4.15 L 4.5-5.90 10^6/uL Hemoglobin 14.4 13.5-17.5 g/dL Hematocrit 42.0 41.0-53.0 % Mean Corpuscular Volume 101.1 H 80.0-100.0 fL Mean Corpuscular Hemoglobin 34.7 H 28.0-32.0 pg Mean Corpuscular Hemoglobin Concent 34.4 32.0-36.0 g/dL Red Cell Distribution Width 16.0 H 11.8-14.3 % Platelet Count 102 L 140-450 10^3/uL Mean Platelet Volume 7.9 6.9-10.8 fL Neutrophils (%) (Auto) 54.4 37.0-80.0 % Lymphocytes (%) (Auto) 30.3 10.0-50.0 % Monocytes (%) (Auto) 11.3 0.0-12.0 % Eosinophils (%) (Auto) 3.3 0.0-7.0 % Basophils (%) (Auto) 0.7 0.0-2.0 % Neutrophils # (Auto) 1.9 1.6-8.6 10 ^3/uL Lymphocytes # (Auto) 1.1 0.4-5.4 10 ^3/uL Monocytes # (Auto) 0.4 0-1.3 10 ^3/uL Eosinophils # (Auto) 0.1 0-0.8 10 ^3/uL Basophils # (Auto) 0 0-0.2 10 ^3/uL Nucleated Red Blood Cells 0.2 % Sodium Level 139 136-145 mmol/L Potassium Level 3.7 3.5-5.1 mmol/L Chloride Level 105 98-107 mmol/L Carbon Dioxide Level 22 20-31 mmol/L Anion Gap 12 5-15 Blood Urea Nitrogen 8 L 9-23 mg/dL Creatinine 0.90 0.700-1.30 mg/dL Glomerular Filtration Rate Calc 107 >90 mL/min BUN/Creatinine Ratio 8.9 L 10.0-20.0 Serum Glucose 368 H 74-106 mg/dL Calcium Level 8.7 8.7-10.4 mg/dL Magnesium Level 1.8 1.6-2.6 mg/dL Total Bilirubin 0.8 0.2-1.0 mg/dL Aspartate Amino Transferase (AST) 74 H 13-40 U/L Alanine Aminotransferase (ALT) 47 H 7-40 U/L Alkaline Phosphatase 230 H 46-116 U/L Total Protein 7.5 5.7-8.2 g/dL Albumin 3.4 3.2-4.8 g/dL Lipase 57 H 12-53 U/L Beta-Hydroxybutyric Acid 0.721 H < 0.4 mmol/L Plasma/Serum Blood Alcohol 163.0 H <10 mg/dL SEPSIS Sepsis Screen Date sepsis recognized/suspect: Jul 20, 2025 Time Sepsis recognized/suspect: 2299 Recent Procedure: No On Antibiotic Therapy: No Respiratory Rate >20: No Heart Rate >90: Yes Temp<36 C (96.8 F) or >38.3 C: No SBP <90 or MAP <65 mmHG: No New Acute Mental Status Change: No Is the patient on CPAP, BIPAP,: No Physician Orders Abg W/ Co-Ox (07/21/25 01:26) Saline Lock (07/21/25 01:26) Urinalysis (07/21/25 01:26) Rapid Strep Screen - Throat (07/21/25 01:34) Dextrose 50% Syringe (07/21/25 03:30) Glucose Blood (Accu-Chek Comfort Curve T (07/21/25 21:15) Consistent Carb(Ccho)Diabetes (07/21/25 Breakfast) Metoprolol Tartrate Tablet (Lopressor Ta (07/21/25 10:00) Glucose Blood (Accu-Chek Comfort Curve T (07/21/25 08:00) Insulin R (Human) (Insulin R) (07/21/25 08:00) Dextrose 50% Syringe (07/21/25 05:15) Allergies (07/21/25 05:12) Code Status (07/21/25 05:12) Sodium Chloride 0.9% (07/21/25 05:15) Oxygen Per Hour (07/21/25 05:12) Hydrocodone-Acet 5/325mg Tab ([place] 5/32 (07/21/25 05:15) Ondansetron Hcl (Zofran) (07/21/25 05:15) Docusate Sodium Capsule (Colace Capsule) (07/21/25 05:15) Fall Risk Precautions In Place QSHIFT (07/21/25 05:12) Complete Blood Count (07/22/25 04:00) Comprehensive Metabolic Panel (07/22/25 04:00) Condition: Serious (07/21/25 05:12) Maintain Bed Rest (07/21/25 05:12) Sequential Compression Device (07/21/25 ) Ibuprofen Tablet (Motrin Tablet) (07/21/25 05:15) Hemoglobin A1c (07/21/25 05:52) Folic Acid Tablet (07/21/25 10:00) Thiamine Tab (07/21/25 10:00) Multiple Vitamin Tablet (Mvi Tab) (07/21/25 10:00) Vital Signs Date Time Temp Pulse Resp B/P (MAP) Pulse Ox O2 Delivery O2 Flow Rate FiO2 07/21/25 05:43 104 18 96 Room Air* 0 21 07/21/25 05:42 98.3 104 18 130/81 (97) 96 98.3 12/24/25 23:00 97.9 100 20 133/73 99 97.9 Laboratory Tests Test 07/21/25 01:52 White Blood Count 3.5 10^3/uL (4.4-10.8) L Medications Medications Dose Ordered Sig/Rossy Route Start Time Stop Time Status Last Admin Dose Admin Diagnostic Test (Pha) 1 strip ONCE STAT 07/21/25 03:18 07/21/25 03:23 DC 07/21/25 06:06 1 STRIP Insulin Human Regular 6 units ONCE ONCE IV 07/21/25 03:30 07/21/25 03:31 DC 07/21/25 06:05 6 UNITS Potassium Bicarbonate 50 meq ONCE ONCE PO 07/21/25 03:30 07/21/25 03:31 DC 07/21/25 06:05 50 MEQ Potassium Chloride 100 ml @ 50 mls/hr ONCE ONCE IV 07/21/25 03:30 07/21/25 05:29 DC 07/21/25 06:05 50 MLS/HR Sodium Chloride 1,000 ml @ 1,000 mls/hr Q1H ONCE IV 07/21/25 01:30 07/21/25 02:29 DC 07/21/25 01:45 1,000 MLS/HR Sodium Chloride 1,000 ml @ 1,000 mls/hr Q1H ONCE IV 07/21/25 03:30 07/21/25 04:29 DC 07/21/25 06:06 1,000 MLS/HR Assessment/Plan Assessment/Plan Diabetes mellitus with hyperglycemia Alcohol intoxication Elevated liver enzymes Uncontrolled diabetes mellitus Generalized weakness Plan 1. Admit to telemetry unit 2. Breathing treatment 3. Pain control management 4. Management of fluids and electrolytes 5. Consultation for hospitalist 6. Diagnostic tests chest x-ray 7. DVT prophylaxis-on SCDs 8. Repeat labs CBC, CMP in a.m. 9. Continue with current medical management 10. Treatment plan discussed with patient and RN. Patient verbalized understanding. Plan discussed with: Patient, Other (RN) My Orders Orders - MALCOLM ROJAS DNP Procedure Category Date Status Time Consistent DIET 07/21/25 Transmitted Carb(Ccho)Diabetes Breakfast Metoprolol Tartrate PHA 07/21/25 In Process Tablet (Lopressor Ta 10:00 Glucose Blood PHA 07/21/25 In Process (Accu-Chek Comfort 08:00 Insulin R (Human) PHA 07/21/25 In Process (Insulin R) 08:00 Dextrose 50% Syringe PHA 07/21/25 In Process 05:15 Allergies ARCHANA 07/21/25 In Process 05:12 Code Status CODE 07/21/25 Transmitted 05:12 Sodium Chloride 0.9% PHA 07/21/25 In Process 05:15 Oxygen Per Hour RT 07/21/25 Transmitted 05:12 Hydrocodone-Acet PHA 07/21/25 In Process 5/325mg Tab ([place] 05:15 Ondansetron Hcl PHA 07/21/25 In Process (Zofran) 05:15 Docusate Sodium PHA 07/21/25 In Process Capsule (Colace 05:15 Fall Risk Precautions ARCHANA 07/21/[address] 05:12 Complete Blood Count LAB 07/22/25 Verified 04:00 Comprehensive LAB 07/22/25 Verified Metabolic Panel 04:00 Condition: Serious ARCHANA 07/21/25 In Process 05:12 Maintain Bed Rest ARCHANA 07/21/25 In Process 05:12 Sequential ARCHANA 07/21/25 In Process Compression Device Ibuprofen Tablet PHA 07/21/25 In Process (Motrin Tablet) 05:15 Hemoglobin A1c LAB 07/21/25 In Process 05:52 Folic Acid Tablet PHA 07/21/25 In Process 10:00 Thiamine Tab PHA 07/21/25 In Process 10:00 Multiple Vitamin PHA 07/21/25 In Process Tablet (Mvi Tab) 10:00 Problem List: (1) Diabetes mellitus with hyperglycemia (2) Alcohol intoxication (3) Elevated liver enzymes (4) Uncontrolled diabetes mellitus (5) Generalized weakness Date of Service: Jul 21, 2025 Billing Provider: MALCOLM ROJAS DNP Common Visit Codes: [id number] INP/OBS CARE (HIGH) MALCOLM ROJAS DNP Jul 21, 2025 06:14
[2025-07-21] MEDS ORDERED: MORPHINE SULFATE INJ 2 MG/ml SYRG IV PRN (06:15)
[2025-07-21] MEDS ORDERED: NITROGLYCERIN 0.4 MG SL TAB SL PRN (06:15)
[2025-07-21] MEDS: ACCU-CHEK COMFORT CURVE STRIP VI SCH (08:00)
[2025-07-21 08:34] VITALS: BP 156/87; PULSE 105; RESP 20; TEMP 97.7; O2SAT 100
[2025-07-21] MEDS: InsuLIN REG 1unit/0.01ml Soln (100units/ml) SC SCH (09:40)
[2025-07-21] MEDS: THIAMINE HCL 100 MG TAB PO SCH (09:46)
[2025-07-21] MEDS: FOLIC ACID 1 MG TAB PO SCH (09:46)
[2025-07-21] MEDS: METOPROLOL TARTRATE 25 MG TAB PO SCH (09:47)
[2025-07-21] MEDS: MULTIPLE VITAMIN TAB PO SCH (09:47)
[2025-07-21 11:30] VITALS: BP 151/91; PULSE 102; RESP 18; TEMP 97.6; O2SAT 97
--- NOTE | 2025-07-21 13:14 | DVHPN2 ---
Reviewed: Care Plan, H&P, Labs, Medications, Previous Orders, Radiology Changes from previous H/P or p: No Changes Eyes: No Pain, No Vision change, No Conjunctivae inflammation, No Eyelid inflammation, No Other, No Redness ENT: No Ear pain, No Ear discharge, No Nose pain, No Nose discharge, No Nose congestion, No Mouth pain, No Mouth swelling, No Throat pain, No Throat swelling, No Other Cardiovascular: No Chest Pain, No Palpitations, No Orthopnea, No Paroxysmal Noc. Dyspnea, No Edema, No Lt Headedness, No Other Respiratory: No Cough, No Dry, No Shortness of breath, No SOB with excertion, No Wheezing, No Hemoptysis, No Pleuritic Pain, No Sputum, No Other Gastrointestinal: No Nausea, No Vomiting, No Abdominal Pain, No Diarrhea, No Constipation, No Melena, No Hematochezia, No Other Genitourinary: No Dysuria, No Frequency, No Incontinence, No Hematuria, No Retention, No Other Musculoskeletal: No other, No neck pain, No shoulder pain, No arm pain, No back pain, No hand pain, No leg pain, No foot pain Skin: No Rash, No Lesions, No Jaundice, No Bruising, No Other Objective Vitals Vital Signs Date Time Temp Pulse Resp B/P (MAP) Pulse Ox O2 Delivery O2 Flow Rate FiO2 07/21/25 10:47 98 136/73 07/21/25 08:34 97.7 20 100 97.7 07/21/25 08:34 Room Air* 0 21 Intake/Output Intake and Output 07/21/25 07:00 Intake Total 1000 ml Balance 1000 ml Intake IV Total 1000 ml Medications Current Medications Medications Dose Ordered Sig/Rossy Route Start Time Stop Time Status Last Admin Dose Admin Dextrose 50 ml PRN PRN IV 07/21/25 03:30 Metoprolol Tartrate 25 mg BID PO 07/21/25 10:00 07/21/25 09:47 25 MG Diagnostic Test (Pha) 1 strip IQ4HR 07/21/25 08:00 07/21/25 12:17 1 STRIP Insulin Human Regular IQ4HR SC 07/21/25 08:00 07/21/25 12:23 6 UNITS Dextrose 50 ml UD PRN IV 07/21/25 05:15 Sodium Chloride 1,000 ml @ 60 mls/hr [id number] IV 07/21/25 05:15 Acetaminophen/ Hydrocodone Bitart 1 tab Q4HP PRN PO 07/21/25 05:15 Ondansetron HCl 4 mg Q4HP PRN IV 07/21/25 05:15 Docusate Sodium 100 mg BIDPRN PRN PO 07/21/25 05:15 Ibuprofen 600 mg Q6HP PRN PO 07/21/25 05:15 Folic Acid 1 mg DAILY PO 07/21/25 10:00 07/21/25 09:46 1 MG Thiamine HCl 100 mg DAILY PO 07/21/25 10:00 07/21/25 09:46 100 MG Multivitamins 1 tab DAILY PO 07/21/25 10:00 07/21/25 09:47 1 TAB Nitroglycerin 0.4 mg Q5MINP PRN SL 07/21/25 06:15 Morphine Sulfate 2 mg Q30M PRN IV 07/21/25 06:15 Laboratory Results Laboratory Tests 07/21/25 01:52 Chemistry Test 07/21/25 01:52 Albumin 3.4 g/dL (3.2-4.8) Calcium Level 8.7 mg/dL (8.7-10.4) Magnesium Level 1.8 mg/dL (1.6-2.6) Total Protein 7.5 g/dL (5.7-8.2) Lipid panel Test 07/21/25 01:52 Lipase 57 U/L (12-53) H LFT Test 07/21/25 01:52 Alanine Aminotransferase (ALT) 47 U/L (7-40) H Alkaline Phosphatase 230 U/L (46-116) H Aspartate Amino Transferase (AST) 74 U/L (13-40) H Total Bilirubin 0.8 mg/dL (0.2-1.0) HgA1c, TSH Test 07/21/25 01:52 Hemoglobin A1c 13.0 % A1C (<5.7) H Blood Gas Results Test 07/21/25 02:03 Arterial Blood pH 7.372 (7.350-7.450) FiO2 % 21.0 Labs and/or images reviewed: Labs reviewed by me, Image(s) reviewed by me Assessment/Plan Assessment/Plan Acute diabetic ketoacidosis with blood sugar in the range of 350 and positive ketones: Insulin sliding scale and IV fluids Uncontrolled type 2 diabetes: A1c 13 : Diabetic education Acute dehydration: IV fluids Acute alcoholic intoxication blood alcohol 163: Thiamine folic acid Ativan p.r.n. Hypertension Chronic liver disease Plan discussed with: Patient Date of Service: Jul 21, 2025 Billing Provider: ELISHA BUENO MD Common Visit Codes: [id number] INP/OBS CARE(HIGH) ELISHA BUENO MD Jul 21, 2025 13:14
[2025-07-21] MEDS ORDERED: ACCU-CHEK COMFORT CURVE STRIP VI ONE (21:15)
--- NOTE | 2025-07-22 07:38 | DVHDS2 ---
Discharge Summary Date of Admission Jul 21, 2025 at 06:13 Date of Discharge: Jul 21, 2025 Admitting Diagnosis DKA and acute alcoholic intoxication Wounds: None Labs/Diagnostic Data: Laboratory Results Test 07/21/25 08:52 07/21/25 02:03 07/21/25 01:52 POC Glucose 265 mg/dl (70-106) Blood Gas Specimen Type Arterial Blood Gas Sample Site Left radial Blood Gas Patient Temperature 37.0 Arterial Blood Date Drawn [id number] Arterial Blood pH 7.372 (7.350-7.450) Arterial Blood Partial Pressure CO2 28.4 mmHg (35.0-48.0) Arterial Blood Partial Pressure O2 82.4 mmHg (83.0-108.0) Arterial Blood HCO3 16.1 mmol/L (21.0-28.0) Arterial Blood Oxygen Saturation 94.5 % (94.0-98.0) Arterial Blood Base Excess -7.5 mmol/L (-2.0-3.0) Arterial Blood Oxyhemoglobin 92.8 % (94.0-98.0) Arterial Blood Carboxyhemoglobin 1.2 % (0.5-1.5) Arterial Blood Methemoglobin 0.6 % (0.0-1.5) Arterial Blood Deoxyhemoglobin 5.4 % (0.0-5.0) Abimael Test Yes Blood Gas Total Hemoglobin 15.00 g/dL (13.5-17.5) Blood Gas Modality Room air FiO2 % 21.0 White Blood Count 3.5 10^3/uL (4.4-10.8) Red Blood Count 4.15 10^6/uL (4.5-5.90) Hemoglobin 14.4 g/dL (13.5-17.5) Hematocrit 42.0 % (41.0-53.0) Mean Corpuscular Volume 101.1 fL (80.0-100.0) Mean Corpuscular Hemoglobin 34.7 pg (28.0-32.0) Mean Corpuscular Hemoglobin Concent 34.4 g/dL (32.0-36.0) Red Cell Distribution Width 16.0 % (11.8-14.3) Platelet Count 102 10^3/uL (140-450) Mean Platelet Volume 7.9 fL (6.9-10.8) Neutrophils (%) (Auto) 54.4 % (37.0-80.0) Lymphocytes (%) (Auto) 30.3 % (10.0-50.0) Monocytes (%) (Auto) 11.3 % (0.0-12.0) Eosinophils (%) (Auto) 3.3 % (0.0-7.0) Basophils (%) (Auto) 0.7 % (0.0-2.0) Neutrophils # (Auto) 1.9 10 ^3/uL (1.6-8.6) Lymphocytes # (Auto) 1.1 10 ^3/uL (0.4-5.4) Monocytes # (Auto) 0.4 10 ^3/uL (0-1.3) Eosinophils # (Auto) 0.1 10 ^3/uL (0-0.8) Basophils # (Auto) 0 10 ^3/uL (0-0.2) Nucleated Red Blood Cells 0.2 % Sodium Level 139 mmol/L (136-145) Potassium Level 3.7 mmol/L (3.5-5.1) Chloride Level 105 mmol/L (98-107) Carbon Dioxide Level 22 mmol/L (20-31) Anion Gap 12 (5-15) Blood Urea Nitrogen 8 mg/dL (9-23) Creatinine 0.90 mg/dL (0.700-1.30) Glomerular Filtration Rate Calc 107 mL/min (>90) BUN/Creatinine Ratio 8.9 (10.0-20.0) Serum Glucose 368 mg/dL (74-106) Hemoglobin A1c 13.0 % A1C (<5.7) Calcium Level 8.7 mg/dL (8.7-10.4) Magnesium Level 1.8 mg/dL (1.6-2.6) Total Bilirubin 0.8 mg/dL (0.2-1.0) Aspartate Amino Transferase (AST) 74 U/L (13-40) Alanine Aminotransferase (ALT) 47 U/L (7-40) Alkaline Phosphatase 230 U/L (46-116) Total Protein 7.5 g/dL (5.7-8.2) Albumin 3.4 g/dL (3.2-4.8) Lipase 57 U/L (12-53) Beta-Hydroxybutyric Acid 0.721 mmol/L (< 0.4) Plasma/Serum Blood Alcohol 163.0 mg/dL (<10) Other Laboratory Tests 07/21/25 01:52 Brief Hx & Hospital Course: 44-year-old male admitted for acute alcoholic intoxication and diabetic ketoacidosis blood sugar in the range of 350 with a positive ketones treated with the insulin sliding scale uncontrolled diabetes A1c 13 patient was educated patient also had acute alcoholic intoxication blood alcohol 163 treated with a thiamine folic acid Ativan p.r.n. and IV fluids. While awaiting further stabilization patient decided to leave AMA and left AMA. Consequences and complications explained to the patient and he verbalized understanding. General condition satisfactory at the time of leaving AMA per nurse's notes Consults/Reason for consult None Operations or Procedures None Condition at Discharge: Fair Final Diagnosis/Problems List Acute diabetic ketoacidosis with blood sugar in the range of 350 and positive ketones: Insulin sliding scale and IV fluids Uncontrolled type 2 diabetes: A1c 13 : Diabetic education Acute dehydration: IV fluids Acute alcoholic intoxication blood alcohol 163: Thiamine folic acid Ativan p.r.n. Hypertension Chronic liver disease Discharge Disposition: AMA Discharge Instruct/Medications Diet comment: Not applicable Patient left AMA Activity comment: Not applicable Patient left AMA Follow Up/Referral: Not applicable Patient left AMA Medications: Not applicable Patient left AMA 35 (Time taken for discharge summary 35 minutes) Discharge Statement: "Patient was advised to return to the ER or call 911 if any headaches, dizziness, shortness of breath, chest pain, abdominal pain, bleeding, fevers, or worsening of medical condition. Patient was counseled about treatment plan, medications, possible side effects, patientverbalized understanding. All questions were answered to the best of my ability. This discharge took greater then 30 minutes in planning, reviewing documentation, counseling the patient, and discussing with other team members." ASSESSMENT ASSESSMENT Hospital Course Left AMA Assessment Date of Service: Jul 22, 2025 Billing Provider: ELISHA BUENO MD Common Visit Codes: [id number]-[id number] DISCH DAY >30min ELISHA BUENO MD Jul 22, 2025 07:38
== END 2025-07-21 16:47 | disposition left against medical advice (07) | DRG 422 ==
LOC: EDBD 22:58 → ER 22:58 → OVERFLOW 07-21 06:13 → EDUNIT# 07-21 06:13 → TELE-WESTW 07-21 11:11
PROVIDERS: ADMIT Nurse Practitioner Family; ATTEND Nurse Practitioner Family
DX: E86.0 Dehydration (principal); E11.10 Type 2 diabetes mellitus with ketoacidosis without coma; F10.129 Alcohol abuse with intoxication, unspecified; K76.9 Liver disease, unspecified; I10 Essential (primary) hypertension; Z53.29 Procedure and treatment not carried out because of patient's decision for other reasons; Y90.6 Blood alcohol level of 120-199 mg/100 ml; Z88.0 Allergy status to penicillin; Z79.4 Long term (current) use of insulin
CPT/HCPCS: 36415; 36600; 80053; 80320; 82010; 82805; 82962; 83036; 83690; 83735; 85025; 87081; G0378; J1815; J3480